=== PATIENT | male | born 1960 | race Caucasian/White ===

== ENCOUNTER 2020-03-14 09:05 | Outpatient (REF) | payer BC, MEDICARE, SELFPAY ==
--- NOTE | 2020-03-14 | FL_ITS ---
EXAMINATION: XR GI SERIES CLINICAL INFORMATION: Yanez's esophagus COMPARISON: None TECHNIQUE: Upper GI with air. FINDINGS: Normal swallowing reflex. Esophagus demonstrates normal distention and motility. No mass or mucosal lesions are seen in the esophagus, stomach or duodenal bulb. No hiatal hernia. No reflux is seen during the course of the procedure. FLUOROSCOPY TIME: 1.1 minutes DOSE AREA PRODUCT: 14.6 Gycm2 IMPRESSION: No significant abnormality demonstrated by barium study. Further evaluation with endoscopy as clinically warranted.
[2020-03-14 12:12] LABS: MANUAL DIFF FLAG NO
[2020-03-14 12:26] LABS: Basophils Percent Auto 0.5 % (0-2); Eosinophils Absolute Auto 0.1 X10*3/uL (0.0-0.4); Eosinophils Percent Auto 0.9 % (0-4); Hematocrit 37.7 % (42-52); Hemoglobin 12.8 g/dl (14.0-18.0); Imm Gran Abs Auto 0.03 X10*3/uL (0.00-0.03); Imm Gran Pct Auto 0.5 % (0.0-0.4); Lymphocytes Absolute Auto 2.3 X10*3/uL (1.2-4.9); Lymphocytes Percent Auto 36.3 % (20-40); Mean Corpuscular Hemoglobin 30.8 pg (27.0-33.0); Mean Corpuscular Volume 90.6 fL (80-98); Mean Platelet Volume 10.2 fL (9.4-12.4); Monocytes Absolute Auto 0.5 X10*3/uL (0.1-1.2); Monocytes Percent Auto 8.1 % (2-11); Neutrophils Absolute Auto 3.4 X10*3/uL (2.0-8.3); Neutrophils Percent Auto 53.7 % (45-73); Platelet Count 233 X10*3/uL (160-400); Red Blood Count 4.16 X10*6/uL (4.60-5.80); Red Cell Distribution Width 12.4 % (11.0-16.0); White Blood Count 6.3 X10*3/uL (4.8-10.8)
[2020-03-14 12:43] LABS: Alanine Aminotransferase 13 U/L (0-40); Albumin Level 4.4 g/dL (3.5-5.0); Alkaline Phosphatase 95 U/L (39-117); Anion Gap 15 (12-20); Aspartate Amino Transferase 18 U/L (5-37); Bilirubin Total 0.5 mg/dL (0.0-1.0); Blood Urea Nitrogen 8 mg/dL (9-16); Calcium 9.1 mg/dL (8.4-10.2); Carbon Dioxide 30 mmol/L (22-29); Chloride 102 mmol/L (96-108); Cholesterol 210 mg/dL; Estimated Glomerular Filt Rate > 60; Glucose Fasting 108 mg/dL (60-99); HDL Cholesterol 43 mg/dL; LDL Cholesterol Calculated 142 mg/dl; Potassium 4.9 mmol/l (3.3-5.1); Sodium 142 mmol/L (135-145); Total Protein 7.1 g/dL (6.5-8.0); Triglycerides 129 mg/dL
[2020-03-14 13:06] LABS: Folate 15.1 ng/mL (> or = 4.0); Vitamin B12 494 pg/mL (200-900)
[2020-03-14 13:09] LABS: T4 Thyroxine 8.8 ug/dL (4.5-12.0); Thyroid Stimulating Hormone 0.82 mIU/mL (0.32-4.0)
[2020-03-14 14:38] LABS: Prostate Specific Antigen Scr 0.14 ng/mL (<0.05-4.0)
== END 2020-03-14 09:06 | disposition home or self-care (01) ==
LOC: HO.XRAY 09:05
PROVIDERS: Visit Provider Internal Medicine
DX: M54.5 Low back pain (principal); E66.3 Overweight; K22.70 Barrett's esophagus without dysplasia; R73.02 Impaired glucose tolerance (oral); E78.00 Pure hypercholesterolemia, unspecified; N40.0 Benign prostatic hyperplasia without lower urinary tract symptoms; G44.209 Tension-type headache, unspecified, not intractable; Z72.0 Tobacco use
CPT/HCPCS: 36415; 74240; 80053; 80061; 82607; 82746; 84153; 84436; 84443; 85025

== ENCOUNTER 2020-04-12 11:11 | Outpatient (REF) | payer BC, MEDICARE, SELFPAY ==
--- NOTE | 2020-04-12 11:19 | XR_ITS ---
EXAMINATION: XR SHOULDER, LEFT CLINICAL INFORMATION: Left shoulder pain COMPARISON: 02/03/2017 TECHNIQUE: AP external rotation, Grashey, scapular Y, and axillary views of the left shoulder. FINDINGS: There is no evidence of acute fracture or dislocation of the left shoulder. There is some mild spurring at the glenohumeral joint. No definite calcific tendinitis is appreciated. Patient appears to be status post distal left clavicle osteotomy with some widening of the coracoclavicular space and elevation of the distal clavicle. There remains small amount of distal bony clavicle with what appears to be an intact acromioclavicular joint. XR/XR shoulder LT min 2V IMPRESSION: No evidence of acute fracture or dislocation of the left shoulder. Status post osteotomy portion distal left clavicle with widening of the coracoclavicular space.
== END 2020-04-12 11:12 | disposition home or self-care (01) ==
LOC: HO.XRAY 11:11
PROVIDERS: PCP Internal Medicine; Visit Provider Internal Medicine
DX: M25.512 Pain in left shoulder (principal)
CPT/HCPCS: 73030

== ENCOUNTER 2020-04-25 | Outpatient (REF) | payer BC, MEDICARE, SELFPAY ==
[2020-04-26 13:52] LABS: Amphetamine Screen Urine Not Detected (Not Detect); Barbiturates, Urine Not Detected (Not Detect); Benzodiazepines Screen Urine Not Detected (Not Detect); Cannabinoid Screen Urine Not Detected (Not Detect); Cocaine Screen Urine Not Detected (Not Detect); Opiate Screen Urine POSITIVE (Not Detect); Phencyclidine Screen Urine Not Detected (Not Detect)
== END 2020-04-25 00:01 | disposition home or self-care (01) ==
LOC: HO.LNP
PROVIDERS: Visit Provider Internal Medicine
DX: M54.5 Low back pain (principal)
CPT/HCPCS: 80307

== ENCOUNTER → 2020-05-02 08:15 | Outpatient (BNV) | payer BC, MEDICARE, SELFPAY | PROVIDERS: PCP Internal Medicine; Referring Provider Internal Medicine; Visit Provider Internal Medicine | DX: D64.9 Anemia, unspecified (principal) | CPT/HCPCS: 38222; 99213; 99214 ==

== ENCOUNTER → 2020-05-08 13:40 | Outpatient (BNVA) | payer BC, MEDICARE, SELFPAY | PROVIDERS: PCP Internal Medicine; Visit Provider Orthopaedic Surgery | DX: S49.92XA Unspecified injury of left shoulder and upper arm, initial encounter (principal) | CPT/HCPCS: 20600; 20605; J1100 ==

== ENCOUNTER 2020-07-26 14:16 | Outpatient (REF) | payer BC, MEDICARE, SELFPAY ==
--- NOTE | ~2020-07-26 | CT_ITS ---
EXAMINATION: CT CHEST SCREENING CLINICAL INFORMATION: Nicotine dependence COMPARISON: 06/28/2019 and 06/12/2018 TECHNIQUE: Multidetector volumetric CT imaging of the chest is performed without contrast using low dose technique. Additional 2D coronal and sagittal reformatted images and axial 3D maximum intensity projection (MIP) images are generated on the CT workstation. This CT examination was performed using dose optimization techniques as appropriate, variously including the following: *Automated exposure control *Adjustment of mA and/or kV according to patient size (this includes techniques or standardized protocols for targeted exams where dose is matched to indication/reason for exam; i.e. extremities or head) *Use of iterative reconstruction technique DLP: 60 mGy-cm FINDINGS: LUNGS: There are mild changes of centrilobular emphysema seen within the upper lobes bilaterally.. Central airways are patent. There is mild central bronchial wall thickening seen without evidence of bronchiectasis. There is some mild dependent ground-glass opacity seen at the lung bases consistent with atelectasis. There is also small amount of subpleural reticular disease peripherally in the posterior right lower lobe, lateral aspects of the right and left upper lobes, and along the major fissures consistent with mild interstitial lung disease. This was evident on previous study of 06/28/2019. There is a calcified granuloma seen within the right middle lobe. There is a 3 mm noncalcified density seen within the right upper lobe on image 137/526 with no 4 mm or larger nodules identified. MEDIASTINUM: Visualized thyroid appears unremarkable. Heart normal size. Coronary artery calcifications seen. Small amount of pericardial fluid is seen and is similar to previous study. No thoracic aortic aneurysm. There are again noted to be enlarged mediastinal lymph nodes with a 1.2 cm right peritracheal lymph node and 1.6 cm precarinal lymph node. No definite hilar lymphadenopathy appreciated. PLEURA: There is no pleural effusion. No pleural mass or thickening. AXILLA: No lymphadenopathy. UPPER ABDOMEN: Unremarkable OSSEOUS STRUCTURES: No suspicious destructive bony lesion. CT/CT lung screening IMPRESSION: 1. Mild centrilobular emphysema. 2. Stable mild chronic interstitial lung disease. 3. Old granulomatous disease. 4. No suspicious lung nodules identified. 5. Mediastinal lymphadenopathy. ASSESSMENT: Lung-RADS category 1: Negative RECOMMENDATION: Routine annual low-dose CT screening in 12 months.
== END 2020-07-26 14:17 | disposition home or self-care (01) ==
LOC: HO.CT 14:16
PROVIDERS: Visit Provider Physician Assistant Medical
DX: Z12.2 Encounter for screening for malignant neoplasm of respiratory organs (principal); F17.210 Nicotine dependence, cigarettes, uncomplicated
CPT/HCPCS: 71271

== ENCOUNTER → 2020-08-08 09:46 | Outpatient (BNVA) | payer BC, MEDICARE, SELFPAY | PROVIDERS: PCP Internal Medicine; Visit Provider Nurse Practitioner Family ==

== ENCOUNTER 2020-08-14 18:13 | Outpatient (REF) | payer BC, MEDICARE, SELFPAY ==
--- NOTE | ~2020-08-14 | MR_ITS ---
MR LUMBAR SPINE WITHOUT CONTRAST CLINICAL INFORMATION: Postlaminectomy syndrome. COMPARISON: Lumbar spine radiographs 12/24/2017. TECHNIQUE: MRI of the lumbar spine was obtained using routine sequences without contrast. FINDINGS: Assessment is limited by significant artifact from an interbody prosthesis at L4-L5 and interbody cages at L5-S1. S1 is partially lumbarized and shares a rudimentary disc with S2. The surgical hardware is not diagnostically assessed on MRI. There is grade 1 retrolisthesis of L3 on L4. Lumbar alignment is otherwise maintained. The vertebral body heights are preserved. Nonsurgical disc volumes are maintained. No bone marrow edema within the imaged osseous elements. The conus terminates at the L1 level. There are no significant soft tissue findings. L1-L2: Small annular disc bulge and bilateral facet arthropathy. No central canal stenosis and no foraminal stenosis. L2-L3: Small annular disc bulge with a superimposed right lateral disc protrusion that is in part disc osteophyte which compresses the extraforaminal right L2 nerve root. L3-L4: There is a diffuse annular disc bulge and there is bilateral facet arthropathy. There is no central canal stenosis. There is mild bilateral foraminal encroachment without exiting nerve root compression. L4-L5: Assessment is very limited by significant artifact from the interbody prosthesis. The neural foramen are not diagnostically assessed on the sagittal series and appear widely patent on the axial series. There is severe bilateral facet arthropathy and ligamentum flavum thickening. The central canal remains patent. L5-S1: Interbody cages. Bilateral facet arthropathy. No central canal stenosis. No significant foraminal stenosis. MR/MR lumbar spine wo con IMPRESSION: - Assessment is limited by significant artifact from an interbody prosthesis at L4-L5 and interbody cages at L5-S1. S1 is partially lumbarized and shares a rudimentary disc with S2. - At the junctional L3-L4 level, there is grade 1 retrolisthesis without significant central canal stenosis nor significant foraminal stenosis. - At L2-L3, there is a far right lateral disc protrusion that is in part disc osteophyte which results in mass effect on the extraforaminal right L2 nerve root.
== END 2020-08-14 18:14 | disposition home or self-care (01) ==
LOC: HO.MRI 18:13
PROVIDERS: Visit Provider Anesthesiology
DX: M96.1 Postlaminectomy syndrome, not elsewhere classified (principal); M47.27 Other spondylosis with radiculopathy, lumbosacral region
CPT/HCPCS: 72148

== ENCOUNTER → 2020-08-29 10:11 | Outpatient (BNVA) | payer BC, MEDICARE, SELFPAY | PROVIDERS: PCP Internal Medicine; Visit Provider Nurse Practitioner Family ==

== ENCOUNTER 2020-09-18 12:27 | Day surgery (SDC) | payer BC, MEDICARE, SELFPAY ==
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
[2020-09-18 12:43] VITALS: BMI 26.5
[2020-09-18 13:00] VITALS: BP 157/61; PULSE 79; RESP 16; TEMP 36.4; O2SAT 98
[2020-09-18] MEDS: Lactated Ringers 1,000 ML 50 ML IV (13:09)
--- NOTE | 2020-09-18 13:45 | PC.NURSE ---
called for a resp treatment per md garcia.
[2020-09-18] MEDS: Albuterol Sulfate (0.083%) 2.5 MG/3 ML VIAL.NEB INHALE (13:49)
[2020-09-18 13:53] VITALS: PULSE 85; O2SAT 96
[2020-09-18 14:43] VITALS: BP 130/49; PULSE 75; RESP 20; TEMP 36.8; O2SAT 99
[2020-09-18] MEDS: Acetaminophen 325 MG TABLET 650 MG PO (14:56)
[2020-09-18] MEDS: oxyCODONE HCl Immed Release 5 MG TABLET PO (14:57)
[2020-09-18 14:58] VITALS: BP 133/47; PULSE 79; RESP 18; O2SAT 98
[2020-09-18 15:01] LABS: Bone Marrow SEE SEPARATE REPORT
[2020-09-18 15:13] VITALS: BP 139/52; PULSE 77; RESP 18; TEMP 36.7; O2SAT 99
--- NOTE | 2020-09-18 15:25 | PM.HEMONCBM ---
Bone Marrow Aspiration - Bone Marrow Aspiration Procedure:: *Service Date: [09/18/20] Diagnostic bone marrow aspiration/biopsy Pre Op Diagnosis:: Anemia rule out MDS Post Op Diagnosis:: Anemia rule out MDS Surgeon:: Kathleen Srivastava MD Anesthesia:: Mac and local anesthesia Consent:: Informed consent obtained from the patient for the procedure. Pros and cons of biopsy explained. The patient was willing to proceed with the procedure under monitored anesthesia, therefore this was scheduled in the OR. Procedure in Detail:: The patient was positioned in the right lateral decubitus position and the left posterior superior iliac spine prepped and draped. Under aseptic precautions, 10 mL ml of 1% lidocaine used for local anesthesia. With the Jamshidi needle, 8 mL of aspirate and 1 cm core biopsy obtained without any complications. The patient tolerated the procedure well. Bandage was applied and patient was positioned on back for 10 to 15 minutes after the procedure. The patient was advised to call us if develops any pain or swelling at the surgical site. Follow up in 2 weeks.
== END 2020-09-18 15:31 | disposition home or self-care (01) ==
PROVIDERS: PCP Internal Medicine; Visit Provider Internal Medicine
PROC: (CPT 38221; principal; 2020-09-18 14:00)
DX: D64.9 Anemia, unspecified (principal)
CPT/HCPCS: 38222; 36415; 85097; 88184; 88185; 88237; 88264; 88280; 88305; 88311; 88313; 94640; J2250; J2405; J3010

== ENCOUNTER 2020-10-20 06:53 | Outpatient (REF) | payer BC, MEDICARE, SELFPAY ==
--- NOTE | ~2020-10-20 | CT_ITS ---
EXAMINATION: CT CHEST, CT ABDOMEN AND PELVIS WITH CONTRAST CLINICAL INFORMATION: Weight loss, anemia. COMPARISON: CT chest 07/26/2020. TECHNIQUE: 5 mm thin axial and reformatted 3 mm thin sagittal and coronal images of chest, abdomen and pelvis were obtained following the 100 mL Omnipaque 350. DLP: 426 mGy-cm. FINDINGS: CHEST: There is diffuse centrilobular emphysema within the upper lobes bilaterally. There is a 3 mm soft nodule right upper lobe axial image 132/7, punctate 1 mm calcified nodule right lower lobe axial image 199/7, 2 mm nodule right middle lobe adjacent to the minor fissure axial image 231/7. No additional nodules visualized. There is dependent bibasilar atelectasis and mild honeycombing in both lower lobe superior segments. Heart size and the great vessels are normal caliber. There is no pericardial effusion seen. Central trachea and the bronchi are widely patent. There are coronary artery calcifications present. There are small shotty lymph nodes in mediastinum. The largest pretracheal lymph node measures 1.1 x 0.7 cm. There is a right hilar lymph node measuring 1.3 cm. There is no pleural effusion or pleural thickening. The axilla and chest wall appears unremarkable. ABDOMEN AND PELVIS: The liver is normal size, shape and contour. It is diffusely attenuated and appears heterogenous. No focal or discrete lesion seen. There is intrahepatic ductal dilatation. The gallbladder appears distended with a 4 mm radiopaque calculi. The spleen appears unremarkable except for a small calcified 4 mm granuloma. The pancreas is unremarkable. Bilateral adrenal glands are unremarkable. Both kidneys are normal size, shape and position. No radiopaque renal calculi, hydronephrosis or organomegaly seen. Abdominal aorta appears normal course and caliber except for [id number] atherosclerotic calcifications. No retroperitoneal abnormal-sized lymph nodes seen. There is a lower lobe opacified: Without distention. The small bowel loops are normal caliber. Ileocecal junction is normal. Appendix is not visualized. No free air or inflammatory process seen. The abdominal wall appears unremarkable. Imaging through the pelvis reveals minimal bladder wall thickening measuring 6 mm. No radiopaque calculi seen. Bone windows reveal disc prosthesis and L3-L4 and L4-L5 disc level for fusion. No lytic or sclerotic process seen. CT/CT abdomen pelvis w con IMPRESSION: Centrilobular emphysema with punctate calcified and noncalcified nodules. Largest nodule measuring 3 mm right upper lobe. Mild interstitial changes in superior segment of both lower lobe with honeycombing. Small shotty lymph nodes in the mediastinum measuring 1.1 cm in the pretracheal space. On the previous exam, it measured 1.2 cm. Heterogeneous liver, likely hepatic steatosis. No focal lesion seen. Small radiopaque gallstones without wall thickening.
--- NOTE | ~2020-10-20 | CT_ITS ---
EXAMINATION: CT CHEST, CT ABDOMEN AND PELVIS WITH CONTRAST CLINICAL INFORMATION: Weight loss, anemia. COMPARISON: CT chest 07/26/2020. TECHNIQUE: 5 mm thin axial and reformatted 3 mm thin sagittal and coronal images of chest, abdomen and pelvis were obtained following the 100 mL Omnipaque 350. DLP: 426 mGy-cm. FINDINGS: CHEST: There is diffuse centrilobular emphysema within the upper lobes bilaterally. There is a 3 mm soft nodule right upper lobe axial image 132/7, punctate 1 mm calcified nodule right lower lobe axial image 199/7, 2 mm nodule right middle lobe adjacent to the minor fissure axial image 231/7. No additional nodules visualized. There is dependent bibasilar atelectasis and mild honeycombing in both lower lobe superior segments. Heart size and the great vessels are normal caliber. There is no pericardial effusion seen. Central trachea and the bronchi are widely patent. There are coronary artery calcifications present. There are small shotty lymph nodes in mediastinum. The largest pretracheal lymph node measures 1.1 x 0.7 cm. There is a right hilar lymph node measuring 1.3 cm. There is no pleural effusion or pleural thickening. The axilla and chest wall appears unremarkable. ABDOMEN AND PELVIS: The liver is normal size, shape and contour. It is diffusely attenuated and appears heterogenous. No focal or discrete lesion seen. There is intrahepatic ductal dilatation. The gallbladder appears distended with a 4 mm radiopaque calculi. The spleen appears unremarkable except for a small calcified 4 mm granuloma. The pancreas is unremarkable. Bilateral adrenal glands are unremarkable. Both kidneys are normal size, shape and position. No radiopaque renal calculi, hydronephrosis or organomegaly seen. Abdominal aorta appears normal course and caliber except for [id number] atherosclerotic calcifications. No retroperitoneal abnormal-sized lymph nodes seen. There is a lower lobe opacified: Without distention. The small bowel loops are normal caliber. Ileocecal junction is normal. Appendix is not visualized. No free air or inflammatory process seen. The abdominal wall appears unremarkable. Imaging through the pelvis reveals minimal bladder wall thickening measuring 6 mm. No radiopaque calculi seen. Bone windows reveal disc prosthesis and L3-L4 and L4-L5 disc level for fusion. No lytic or sclerotic process seen. CT/CT chest w con IMPRESSION: Centrilobular emphysema with punctate calcified and noncalcified nodules. Largest nodule measuring 3 mm right upper lobe. Mild interstitial changes in superior segment of both lower lobe with honeycombing. Small shotty lymph nodes in the mediastinum measuring 1.1 cm in the pretracheal space. On the previous exam, it measured 1.2 cm. Heterogeneous liver, likely hepatic steatosis. No focal lesion seen. Small radiopaque gallstones without wall thickening.
[2020-10-20 09:32] LABS: Blood Urea Nitrogen 6 mg/dL (9-16); Estimated Glomerular Filt Rate > 60
[2020-10-20] MEDS: iohexoL 350 MG/ML 100 ML INFUS..BTL IV (10:51)
== END 2020-10-20 06:54 | disposition home or self-care (01) ==
LOC: HO.CT 06:53
PROVIDERS: Visit Provider Internal Medicine
DX: R63.4 Abnormal weight loss (principal); D64.9 Anemia, unspecified; R59.0 Localized enlarged lymph nodes
CPT/HCPCS: 36415; 71260; 74177; 82565; 84520; Q9967

== ENCOUNTER 2020-11-15 09:46 | Emergency (ER) | payer BC, MEDICARE, SELFPAY ==
[2020-11-15 10:01] VITALS: BP 117/63; PULSE 90; RESP 18; TEMP 36.9; O2SAT 95; BMI 25.8
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
== END 2020-11-15 11:22 | disposition home or self-care (01) ==
PROVIDERS: Emergency Provider Emergency Medicine; PCP Internal Medicine
DX: M70.21 Olecranon bursitis, right elbow (principal)
CPT/HCPCS: 99283

== ENCOUNTER 2020-11-30 17:54 | Emergency (ER) | payer BC, MEDICARE, SELFPAY ==
--- NOTE | ~2020-11-30 | CT_ITS ---
EXAMINATION: CT ABDOMEN AND PELVIS WITH CONTRAST CLINICAL INFORMATION: Right-sided abdominal pain COMPARISON: CT scan abdomen pelvis 10/20/2020 TECHNIQUE: Multidetector volumetric images were obtained from the superior aspect of the liver through the pubic symphysis following administration 85 mL of Omnipaque 350 intravenous contrast. Sagittal and coronal reformatted images were obtained on the technologist's workstation. Oral contrast: None This CT examination was performed using dose optimization techniques as appropriate, variously including the following: *Automated exposure control *Adjustment of mA and/or kV according to patient size (this includes techniques or standardized protocols for targeted exams where dose is matched to indication/reason for exam; i.e. extremities or head) *Use of iterative reconstruction technique DLP: 632 mGy-cm FINDINGS: LUNG BASES: There is emphysematous disease. Subpleural reticular changes and small cystic changes at lung bases. No acute airways disease. No pleural effusion. LIVER, GALLBLADDER, AND BILIARY TREE: The liver is normal in size, shape, and attenuation. No focal hepatic lesion or biliary ductal dilatation is present. There is a small calcified gallstone in neck of the gallbladder. No edema around the gallbladder. No bile duct dilatation. PANCREAS: Unremarkable. SPLEEN: Unremarkable. ADRENAL GLANDS: Unremarkable. KIDNEYS AND URETERS: The kidneys are normal in size, shape, and attenuation. No hydronephrosis, hydroureter, or calculi seen. No perinephric stranding. There is a sharply marginated 9 mm hypodensity in the mid pole cortex left kidney likely small cortical cysts. This is stable since prior studies. No follow-up imaging is recommended for simple renal cyst. BLADDER: Unremarkable. GASTROINTESTINAL TRACT: There are scattered diverticula of the left colon. There is no diverticulitis. There is no bowel wall thickening /edema. There is no bowel obstruction. There is a moderate volume of stool in the colon. The appendix is nonvisualized . The small bowel loops are unremarkable. The stomach is normal. There is no hiatal hernia. ABDOMINAL WALL: No significant hernia is appreciated. Surgical clips associated with the left anterior abdominal wall. LYMPH NODES: Normal. VASCULAR: Moderate vascular calcifications of aorta and iliac arteries. No aneurysm. PELVIC VISCERA: Unremarkable. OSSEOUS STRUCTURES: Status post fusion with orthopedic hardware at the L3-L4 and L4-L5 disc levels. CT/CT abdomen pelvis w con IMPRESSION: No acute abnormality CT scan abdomen pelvis. Cholelithiasis. No acute change of gallbladder. Diverticulosis of colon. There is no acute abnormality of the bowel.
[2020-11-30 18:14] VITALS: BP 136/80; PULSE 98; RESP 18; TEMP 36.9; O2SAT 98; BMI 25.7
[2020-11-30 18:35] LABS: Glucose Urine UA NEG (NEG); Leukocyte Esterase Urine NEG (NEG); Nitrite Urine NEG (NEG); PH 5.5 (5.0-8.0); Specific Gravity - Urine <= 1.005 (1.005-1.025); Urine Blood NEG (NEG); Urine Ketones NEG (NEG); Urine Protein NEG (NEG-TRACE)
[2020-11-30 18:38] LABS: Appearance Urine CLEAR; Color Urine YELLOW
[2020-11-30 18:41] LABS: RBC Urine 0 /HPF (0); WBC Urine 0 /HPF (0-4)
[2020-11-30 20:43] LABS: Basophils Percent Auto 0.3 % (0-2); Eosinophils Absolute Auto 0.1 X10*3/uL (0.0-0.4); Eosinophils Percent Auto 0.8 % (0-4); Hematocrit 38.3 % (42-52); Hemoglobin 13.2 g/dl (14.0-18.0); Imm Gran Abs Auto 0.03 X10*3/uL (0.00-0.03); Imm Gran Pct Auto 0.3 % (0.0-0.4); Lymphocytes Absolute Auto 3.9 X10*3/uL (1.2-4.9); Lymphocytes Percent Auto 33.4 % (20-40); MANUAL DIFF FLAG NO; Mean Corpuscular HGB Conc 34.5 g/dl (31.0-36.0); Mean Corpuscular Hemoglobin 30.1 pg (27.0-33.0); Mean Corpuscular Volume 87.2 fL (80-98); Mean Platelet Volume 9.9 fL (9.4-12.4); Monocytes Absolute Auto 0.9 X10*3/uL (0.1-1.2); Neutrophils Absolute Auto 6.7 X10*3/uL (2.0-8.3); Neutrophils Percent Auto 57.2 % (45-73); Platelet Count 204 X10*3/uL (160-400); Red Blood Count 4.39 X10*6/uL (4.60-5.80); Red Cell Distribution Width 12.3 % (11.0-16.0); White Blood Count 11.6 X10*3/uL (4.8-10.8)
[2020-11-30 21:15] LABS: Alanine Aminotransferase 14 U/L (0-40); Albumin Level 4.7 g/dL (3.5-5.0); Alkaline Phosphatase 104 U/L (39-117); Anion Gap 15 (12-20); Aspartate Amino Transferase 23 U/L (5-37); Bilirubin Total 0.7 mg/dL (0.0-1.0); Blood Urea Nitrogen 15 mg/dL (9-16); Calcium 9.5 mg/dL (8.4-10.2); Carbon Dioxide 29 mmol/L (22-29); Chloride 98 mmol/L (96-108); Creatinine Clr Calc Pharmacy 80.5; Estimated Glomerular Filt Rate > 60; Glucose Random 100 mg/dL (60-115); Lipase 10 U/L (8-78); Potassium 4.5 mmol/L (3.3-5.1); Sodium 137 mmol/L (135-145); Total Protein 7.7 g/dL (6.5-8.0)
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
[2020-11-30] MEDS: 0.9 % Sodium Chloride 1,000 ML 999 ML IV (21:34)
[2020-11-30] MEDS: HYDROmorphone HCl 1 MG/ML SYRINGE IVPUSH (21:34)
[2020-11-30] MEDS: ondansetron HCL 4 MG/2 ML VIAL IVPUSH (21:34)
[2020-11-30] MEDS: iohexoL 350 MG/ML 100 ML INFUS..BTL IV (21:48)
[2020-11-30 22:08] VITALS: BP 145/73; PULSE 85; RESP 18; O2SAT 98
[2020-12-01] VITALS: BP 122/64; PULSE 94; RESP 16; TEMP 36.5; O2SAT 99
[2020-12-01] MEDS: HYDROmorphone HCl 2 MG TABLET 1 MG PO (00:12)
== END 2020-12-01 00:18 | disposition home or self-care (01) ==
PROVIDERS: Emergency Provider Emergency Medicine Emergency Medical Services; PCP Internal Medicine
DX: R10.31 Right lower quadrant pain (principal); R11.0 Nausea; K59.00 Constipation, unspecified; D64.9 Anemia, unspecified; G89.29 Other chronic pain; M54.9 Dorsalgia, unspecified; J44.9 Chronic obstructive pulmonary disease, unspecified; Z79.891 Long term (current) use of opiate analgesic; Z79.899 Other long term (current) drug therapy; Z90.49 Acquired absence of other specified parts of digestive tract
CPT/HCPCS: 36415; 74177; 80053; 81001; 83690; 85025; 96361; 96374; 96375; 99284; J1170; J2405; Q9967

== ENCOUNTER → 2020-12-01 12:24 | Outpatient (BNVA) | payer BC, MEDICARE, SELFPAY | PROVIDERS: PCP Internal Medicine; Visit Provider Physician Assistant | DX: M70.21 Olecranon bursitis, right elbow (principal) | CPT/HCPCS: 99202 ==

== ENCOUNTER 2021-01-16 10:32 | Outpatient (REF) | payer BC, MEDICARE, SELFPAY | END 2021-01-16 10:33 | disposition home or self-care (01) | LOC: HO.MDS 10:32 | PROVIDERS: PCP Internal Medicine; Visit Provider Internal Medicine | DX: D50.9 Iron deficiency anemia, unspecified (principal) | CPT/HCPCS: 96365; J1756 ==

== ENCOUNTER 2021-01-22 10:42 | Outpatient (REF) | payer BC, MEDICARE, SELFPAY | END 2021-01-22 10:43 | disposition home or self-care (01) | LOC: HO.MDS 10:42 | PROVIDERS: PCP Internal Medicine; Visit Provider Internal Medicine | DX: D50.9 Iron deficiency anemia, unspecified (principal) | CPT/HCPCS: 96365; J1756 ==

== ENCOUNTER 2021-04-16 11:09 | Outpatient (REF) | payer BC, MEDICARE, SELFPAY ==
[2021-04-16 12:13] LABS: Amphetamine Screen Urine Not Detected (Not Detect); Barbiturates, Urine Not Detected (Not Detect); Benzodiazepines Screen Urine Not Detected (Not Detect); Cannabinoid Screen Urine Not Detected (Not Detect); Cocaine Screen Urine Not Detected (Not Detect); Fentanyl, urine Not Detected (Not Detect); Opiate Screen Urine Not Detected (Not Detect); Phencyclidine Screen Urine Not Detected (Not Detect)
== END 2021-04-16 11:10 | disposition home or self-care (01) ==
LOC: HO.LAB 11:09
PROVIDERS: PCP Internal Medicine; Visit Provider Internal Medicine
DX: F11.90 Opioid use, unspecified, uncomplicated (principal)
CPT/HCPCS: 80307

== ENCOUNTER 2021-04-20 06:27 | Emergency (ER) | payer BC, MEDICARE, SELFPAY ==
--- NOTE | ~2021-04-20 | XR_ITS ---
EXAMINATION: XR CHEST CLINICAL INFORMATION: Shortness of breath COMPARISON: 06/16/2015 TECHNIQUE: Frontal view of the chest was obtained. FINDINGS: Lung volumes are low with coarse interstitial prominence new from prior studies. No focal consolidation or mass. Normal pulmonary vascularity. No pleural effusion or pneumothorax. Normal heart size. Degenerative changes of the bilateral shoulders. Chronic traumatic deformity of the left distal clavicle. XR/XR chest 1V IMPRESSION: New coarse interstitial prominence suggests bronchitis or interstitial pneumonitis. This would be a somewhat atypical appearance for COVID viral pneumonitis but remains a consideration.
[2021-04-20 06:33] VITALS: BP 164/71; PULSE 105; RESP 18; TEMP 37.7; O2SAT 95; BMI 26.5
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
[2021-04-20 07:16] LABS: MANUAL DIFF FLAG NO
[2021-04-20] MEDS: Ketorolac Tromethamine 15 MG/ML VIAL 30 MG IVPUSH (07:18)
[2021-04-20 07:19] LABS: Basophils Percent Auto 0.2 % (0-2); Eosinophils Percent Auto 0.1 % (0-4); Hematocrit 36.8 % (42.0-52.0); Hemoglobin 12.8 g/dl (14.0-18.0); Imm Gran Abs Auto 0.03 X10*3/uL (0.00-0.03); Imm Gran Pct Auto 0.2 % (0.0-0.4); Lymphocytes Absolute Auto 0.9 X10*3/uL (1.2-4.9); Lymphocytes Percent Auto 6.9 % (20-40); Mean Corpuscular HGB Conc 34.8 g/dl (31.0-36.0); Mean Corpuscular Hemoglobin 30.9 pg (27.0-33.0); Mean Corpuscular Volume 88.9 fL (80.0-98.0); Mean Platelet Volume 9.3 fL (9.4-12.4); Monocytes Absolute Auto 0.7 X10*3/uL (0.1-1.2); Monocytes Percent Auto 5.2 % (2-11); Neutrophils Percent Auto 87.4 % (45-73); Platelet Count 188 X10*3/uL (160-400); Red Blood Count 4.14 X10*6/uL (4.60-5.80); Red Cell Distribution Width 12.1 % (11.0-16.0); White Blood Count 12.6 X10*3/uL (4.8-10.8)
[2021-04-20] MEDS: 0.9 % Sodium Chloride 1,000 ML 999 ML IV (07:19)
[2021-04-20 07:34] LABS: Alanine Aminotransferase 13 U/L (0-40); Albumin Level 4.1 g/dL (3.5-5.0); Alkaline Phosphatase 91 U/L (39-117); Anion Gap 11 (12-20); Aspartate Amino Transferase 17 U/L (5-37); Bilirubin Direct 0.3 mg/dL (0.0-0.5); Bilirubin Total 0.9 mg/dL (0.0-1.0); Blood Urea Nitrogen 9 mg/dL (9-16); Calcium 8.8 mg/dL (8.4-10.2); Carbon Dioxide 29 mmol/L (22-29); Chloride 100 mmol/L (96-108); Creatinine Clr Calc Pharmacy 105.2; Estimated Glomerular Filt Rate > 60; Glucose Random 117 mg/dL (60-115); Lipase 7 U/L (8-78); Potassium 3.7 mmol/L (3.3-5.1); Sodium 136 mmol/L (135-145); Total Protein 6.7 g/dL (6.5-8.0)
[2021-04-20 07:57] LABS: Influenza A PCR NEGATIVE (Negative); Influenza B PCR NEGATIVE (Negative); Resp Syncy Virus RNA Qual PCR NEGATIVE (Negative); SARS COV2 PCR INHOUSE NEGATIVE (Negative)
[2021-04-20 08:19] LABS: Appearance Urine CLEAR; Color Urine YELLOW; Glucose Urine UA NEG (NEG); Leukocyte Esterase Urine NEG (NEG); Nitrite Urine NEG (NEG); Specific Gravity - Urine 1.015 (1.005-1.025); UACC Culture Trigger NO; Urine Blood TRACE (NEG); Urine Ketones NEG (NEG); Urine Protein NEG (NEG-TRACE)
[2021-04-20 08:33] LABS: Mucus Urine 2+ /LPF; Squamous Epithelial Cell Urine TRACE /LPF; WBC Urine 0 /HPF (0-4)
== END 2021-04-20 09:07 | disposition home or self-care (01) ==
PROVIDERS: Emergency Provider Emergency Medicine Emergency Medical Services; PCP Internal Medicine
DX: J40 Bronchitis, not specified as acute or chronic (principal); Z20.822 Contact with and (suspected) exposure to COVID-19
CPT/HCPCS: 0241U; 36415; 71045; 80048; 80076; 81001; 83690; 85025; 96361; 96374; 99283; 99284; J1885

== ENCOUNTER 2021-06-21 11:21 | Outpatient (REF) | payer BC, MEDICARE, SELFPAY ==
[2021-06-21 11:43] LABS: MANUAL DIFF FLAG NO
[2021-06-21 11:55] LABS: Basophils Percent Auto 0.3 % (0-2); Eosinophils Absolute Auto 0.1 X10*3/uL (0.0-0.4); Eosinophils Percent Auto 0.5 % (0-4); Hematocrit 34.7 % (42.0-52.0); Hemoglobin 11.5 g/dl (14.0-18.0); Imm Gran Abs Auto 0.04 X10*3/uL (0.00-0.03); Imm Gran Pct Auto 0.4 % (0.0-0.4); Lymphocytes Absolute Auto 1.9 X10*3/uL (1.2-4.9); Lymphocytes Percent Auto 20.4 % (20-40); Mean Corpuscular HGB Conc 33.1 g/dl (31.0-36.0); Mean Corpuscular Hemoglobin 29.6 pg (27.0-33.0); Mean Corpuscular Volume 89.4 fL (80.0-98.0); Mean Platelet Volume 9.8 fL (9.4-12.4); Monocytes Absolute Auto 0.7 X10*3/uL (0.1-1.2); Monocytes Percent Auto 7.9 % (2-11); Neutrophils Absolute Auto 6.5 x10*3/uL (2.0-8.3); Neutrophils Percent Auto 70.5 % (45-73); Platelet Count 196 X10*3/uL (160-400); Red Blood Count 3.88 X10*6/uL (4.60-5.80); Red Cell Distribution Width 12.9 % (11.0-16.0); White Blood Count 9.2 X10*3/uL (4.8-10.8)
[2021-06-21 12:41] LABS: Alanine Aminotransferase 10 U/L (0-40); Albumin Level 3.8 g/dL (3.5-5.0); Alkaline Phosphatase 88 U/L (39-117); Aspartate Amino Transferase 14 U/L (5-37); Bilirubin Direct 0.3 mg/dL (0.0-0.5); Bilirubin Total 0.6 mg/dL (0.0-1.0); Iron 17 mcg/dL (45-160); Percent Iron Saturation 8 % (15-50); Total Iron Binding Capacity 207 mcg/dL (228-428); Total Protein 6.5 g/dL (6.5-8.0); Unsaturated Iron Binding 190 ug/dL
[2021-06-21 12:48] LABS: Ferritin 334 ng/mL (20-250); TSH reflex Free T4 0.67 uIU/mL (0.32-4.0)
[2021-06-21 13:02] LABS: Folate 18.5 ng/mL (> or = 4.0); Vitamin B12 434 pg/mL (200-900)
[2021-06-24 08:26] LABS: Gliadin Deamidated IgA Ab <1.0 U/mL; Gliadin Deamidated IgG Ab <1.0 U/mL; Transglutaminase Ab IgG <1.0 U/mL; Transglutaminase IgA <1.0 U/mL
[2021-06-25 13:36] LABS: Immunoglobulin A 165 mg/dL (47-310)
[2021-06-26 12:42] LABS: Endomysial IgA Antibody Negative (Negative)
== END 2021-06-21 11:22 | disposition home or self-care (01) ==
LOC: HO.LAB 11:21
PROVIDERS: Visit Provider Internal Medicine
DX: R68.81 Early satiety (principal); R63.4 Abnormal weight loss; K92.1 Melena; D64.9 Anemia, unspecified
CPT/HCPCS: 36415; 80076; 82607; 82728; 82746; 82784; 83540; 84443; 85025; 86231; 86258; 86364

== ENCOUNTER 2021-08-03 08:28 | Outpatient (REF) | payer BC, MEDICARE, SELFPAY | END 2021-08-03 08:29 | disposition home or self-care (01) | LOC: HO.MDS 08:28 | PROVIDERS: Visit Provider Internal Medicine | DX: D50.9 Iron deficiency anemia, unspecified (principal) | CPT/HCPCS: 96365; J1756 ==

== ENCOUNTER 2021-08-10 11:32 | Outpatient (REF) | payer BC, MEDICARE, SELFPAY | END 2021-08-10 11:33 | disposition home or self-care (01) | LOC: HO.MDS 11:32 | PROVIDERS: Visit Provider Internal Medicine | DX: D50.9 Iron deficiency anemia, unspecified (principal) | CPT/HCPCS: 96365; J1756 ==

== ENCOUNTER 2021-08-13 10:37 | Day surgery (SDC) | payer BC, MEDICARE, SELFPAY ==
[2021-08-07 16:38] VITALS: BMI 26.7
[2021-08-13 12:16] VITALS: BP 165/67; PULSE 89; RESP 16; TEMP 36.6; O2SAT 99
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
[2021-08-13] MEDS: Lactated Ringers 1,000 ML 50 ML IVCONT (12:33)
[2021-08-13 14:26] VITALS: BP 120/80; PULSE 86; RESP 16; TEMP 36.4; O2SAT 100
--- NOTE | 2021-08-13 14:28 | P.BOP_ITS ---
Brief Operative Note Date of Service: 08/13/21 Pre-op diagnosis: Anemia, Change in BM's, Anemia Post-op diagnosis: other (Polyps, Hiatal hernia, GERD) Procedure: EGD with bx, Colonoscopy to the cecum and TI with Bx and Hot snare polypectomies Surgeon: Harpal Soliman Anesthesia: MAC Was an Explosive Operator Fuse used for this Procedure?: No Estimated blood loss (mL): 3.0 Pathology: other (A. Desc. duodenum B. Gastric antrum C. EG JUnction at 38cm D. Asc. colon polyps E. Asc. colon F. Transverse colon polyps G. Descending colon) Condition: stable Disposition: PACU
[2021-08-13] MEDS: Acetaminophen 325 MG TABLET 650 MG PO (14:33)
[2021-08-13 14:41] VITALS: BP 152/72; PULSE 74; RESP 18; TEMP 36.4; O2SAT 99
--- NOTE | 2021-08-13 15:06 | OP_ITS ---
SURGEON: Harpal Soliman MD INDICATIONS: The patient presents for evaluation of weight loss, Yanez esophagus, early satiety, change in bowel habits, and hematochezia. Full consent was obtained from him for this, including risks of bleeding and perforation. PREOPERATIVE DIAGNOSIS: POSTOPERATIVE DIAGNOSIS: PROCEDURE PERFORMED: Esophagogastroduodenoscopy with biopsies, and colonoscopy to the cecum and terminal ileum with hot snare polypectomy and biopsies. ESTIMATED BLOOD LOSS: COMPLICATIONS: ANESTHESIA: Monitored anesthesia care. ASSISTANTS: SPECIMENS: PREOPERATIVE DIAGNOSES: Weight loss, Yanez esophagus, early satiety, hematochezia, and change in bowel habits. POSTOPERATIVE DIAGNOSES: Weight loss, Yanez esophagus, early satiety, hematochezia, and change in bowel habits, rule out celiac disease, hiatal hernia, colon polyps, rule out microscopic colitis, diverticulosis, and internal hemorrhoids. DESCRIPTION OF PROCEDURE: The patient was placed in the left lateral decubitus position. The Olympus video gastroscope was passed in the posterior oropharynx and upper esophagus under direct vision. The scope was passed slowly to the distal esophagus. The gastroesophageal junction appeared at 38 cm. There was some slight irregularity consistent with reflux and his Yanez esophagus. There was no inflammation nor mass. There was a small to moderate-sized hiatal hernia. The scope was advanced to the pylorus and the duodenum was cannulated to the descending portion. The duodenum including the bulb appeared normal without mass or ulceration. Biopsies were obtained from the 2nd and 3rd portions of duodenum. The scope was withdrawn back into the stomach. The gastric antrum and body appeared normal with good peristalsis. The scope was retroflexed visualizing the proximal stomach carefully, which appeared normal, without any sign of mass or ulceration. The scope was straightened. Biopsies were obtained from the gastric antrum. The scope was withdrawn back into the esophagus. Biopsies were obtained at the EG junction at 38 cm. Proximal to this, the esophageal mucosa appeared normal. The scope was withdrawn from the patient. He was turned around for the colonoscopy. The digital rectal exam revealed no abnormalities. The Olympus video pediatric colonoscope was entered into the rectum and advanced easily to the cecum. Once in the cecum, I did identify normal-appearing cecal pouch with appendiceal orifice and a normal-appearing ileocecal valve. The terminal ileum was cannulated and appeared normal. The scope withdrawn back from the colon. The entire cecum and ileocecal valve appeared normal. The scope was slowly withdrawn assessing all mucosal surfaces carefully. Preparation was excellent. In the ascending colon were approximately 6 mm polyps, which were each removed with a hot snare polypectomy and retrieved by suction. The polypectomy sites appeared clean, without any sign of residual polyp nor bleeding. In the transverse colon were 3 polyps ranging in size between 6 and 10 mm, which were all snared with hot snare polypectomy and recovered by suction. One of the polyps was in the proximal transverse colon and the other two were in the more distal transverse colon. The polypectomy sites appeared clean, without any sign of residual polyp nor bleeding. There was no evidence of any colitis, other polyps, nor angiodysplasia. Random biopsies were obtained in the ascending and descending colon. There were scattered diverticula in the descending colon. In the rectum, the scope was retroflexed visualizing internal hemorrhoids, but no other pathology. The rectal mucosa appeared normal. The scope was straightened and withdrawn the patient. He tolerated both procedures well and was returned to recovery area in stable condition. IMPRESSION: 1. Colon polyps. 2. Rule out microscopic colitis. 3. Diverticulosis. 4. Internal hemorrhoids. 5. Hiatal hernia. 6. History of Yanez esophagus. 7. Rule out celiac disease. PLAN: The results of the biopsies will be checked. At this point, I do not see anything that would be accounting for his symptomatology and history of the associated weight loss, change in bowel habits, and anemia. He was advised not to use any aspirin and NSAIDs for least 1 week. He will be seen in followup. Depending upon the clinical course, we may need to proceed with a small bowel video capsule study in regard to his anemia. Of note, I did review all of this with his and she advised me that he drinks a lot of Pepsis every day. I did advise him to stop that and eat a healthy diet. MD LG Parker/AMARIS / [id number] MTDLeon
== END 2021-08-13 15:26 | disposition home or self-care (01) ==
PROVIDERS: PCP Internal Medicine; Visit Provider Internal Medicine
PROC: (CPT 45385; principal; 2021-08-13 12:10)
DX: K92.1 Melena (principal); Z86.010 Personal history of colon polyps; R19.4 Change in bowel habit; Z80.0 Family history of malignant neoplasm of digestive organs; D12.2 Benign neoplasm of ascending colon; D12.3 Benign neoplasm of transverse colon; K57.30 Diverticulosis of large intestine without perforation or abscess without bleeding; K64.8 Other hemorrhoids; D64.9 Anemia, unspecified; R63.4 Abnormal weight loss; K22.70 Barrett's esophagus without dysplasia; K21.9 Gastro-esophageal reflux disease without esophagitis; K44.9 Diaphragmatic hernia without obstruction or gangrene; R68.81 Early satiety; R91.8 Other nonspecific abnormal finding of lung field; G47.33 Obstructive sleep apnea (adult) (pediatric); Z79.899 Other long term (current) drug therapy; Z87.442 Personal history of urinary calculi; F17.210 Nicotine dependence, cigarettes, uncomplicated; Z68.26 Body mass index [BMI] 26.0-26.9, adult
CPT/HCPCS: 45385; 45380; 43239; 88305; 88342; J2250

== ENCOUNTER 2021-10-23 17:39 | Outpatient (REF) | payer BC, MEDICARE, SELFPAY ==
[2021-10-23 18:35] LABS: Amphetamine Screen Urine Not Detected (Not Detect); Barbiturates, Urine Not Detected (Not Detect); Benzodiazepines Screen Urine Not Detected (Not Detect); Cannabinoid Screen Urine Not Detected (Not Detect); Cocaine Screen Urine Not Detected (Not Detect); Fentanyl, urine Not Detected (Not Detect); Opiate Screen Urine POSITIVE (Not Detect); Phencyclidine Screen Urine Not Detected (Not Detect)
[2021-10-30 08:29] LABS: Codeine, Ur NEGATIVE; Hydrocodone, Ur NEGATIVE; Hydromorphone, Ur NEGATIVE; Morphine, Ur NEGATIVE; Norhydrocodone, Ur NEGATIVE; Oxycodone, Ur 10000
[2021-10-30 08:30] LABS: Noroxycodone, Ur 10000; Oxymorphone, Ur 7065
== END 2021-10-23 17:40 | disposition home or self-care (01) ==
LOC: HO.LNP 17:39
PROVIDERS: Visit Provider Internal Medicine
DX: M47.27 Other spondylosis with radiculopathy, lumbosacral region (principal); Z79.891 Long term (current) use of opiate analgesic
CPT/HCPCS: 80307; 80364; 80365

== ENCOUNTER 2021-12-05 16:28 | Outpatient (REF) | payer BC, MEDICARE, SELFPAY ==
[2021-12-05 16:43] LABS: MANUAL DIFF FLAG NO
[2021-12-05 17:46] LABS: Basophils Percent Auto 0.3 % (0-2); Eosinophils Absolute Auto 0.1 X10*3/uL (0.0-0.4); Eosinophils Percent Auto 0.9 % (0-4); Hematocrit 33.6 % (42.0-52.0); Hemoglobin 11.9 g/dl (14.0-18.0); Imm Gran Abs Auto 0.03 X10*3/uL (0.00-0.03); Imm Gran Pct Auto 0.4 % (0.0-0.4); Lymphocytes Absolute Auto 3.3 X10*3/uL (1.2-4.9); Lymphocytes Percent Auto 42.1 % (20-40); Mean Corpuscular HGB Conc 35.4 g/dl (31.0-36.0); Mean Corpuscular Hemoglobin 31.8 pg (27.0-33.0); Mean Corpuscular Volume 89.8 fL (80.0-98.0); Monocytes Absolute Auto 0.6 X10*3/uL (0.1-1.2); Monocytes Percent Auto 7.9 % (2-11); Neutrophils Absolute Auto 3.8 x10*3/uL (2.0-8.3); Neutrophils Percent Auto 48.4 % (45-73); Platelet Count 225 X10*3/uL (160-400); Red Blood Count 3.74 X10*6/uL (4.60-5.80); Red Cell Distribution Width 12.8 % (11.0-16.0); Reticulocytes Absolute 0.073 X10*6/uL (0.026-0.095); White Blood Count 7.8 X10*3/uL (4.8-10.8)
[2021-12-05 18:14] LABS: Alanine Aminotransferase 12 U/L (0-40); Alkaline Phosphatase 87 U/L (39-117); Anion Gap 14 (12-20); Aspartate Amino Transferase 19 U/L (5-37); Bilirubin Total 0.3 mg/dL (0.0-1.0); Blood Urea Nitrogen 7 mg/dL (9-16); Calcium 8.4 mg/dL (8.4-10.2); Carbon Dioxide 29 mmol/L (22-29); Chloride 100 mmol/L (96-108); Cholesterol 202 mg/dL; Estimated Glomerular Filt Rate > 60; Glucose Random 73 mg/dL (60-115); HDL Cholesterol 40 mg/dL; Iron 52 mcg/dL (45-160); LDL Cholesterol Calculated 125 mg/dl; Percent Iron Saturation 24 % (15-50); Potassium 3.7 mmol/L (3.3-5.1); Sodium 139 mmol/L (135-145); Total Iron Binding Capacity 220 mcg/dL (228-428); Total Protein 6.9 g/dL (6.5-8.0); Triglycerides 187 mg/dL; Unsaturated Iron Binding 168 ug/dL
[2021-12-05 18:35] LABS: Ferritin 442 ng/mL (20-250); Free T4 (Free Thyroxine) 1.02 ng/dL (0.71-1.85); Prostate Specific Antigen Scr 0.11 ng/mL (<0.05-4.0); Thyroid Stimulating Hormone 1.15 uIU/mL (0.32-4.0)
[2021-12-05 19:04] LABS: Folate 17.9 ng/mL (> or = 4.0); Vitamin B12 431 pg/mL (200-900)
[2021-12-06 08:31] LABS: Estimated Average Glucose 80 mg/dL; Hemoglobin A1c % 4.4 %
== END 2021-12-05 16:29 | disposition home or self-care (01) ==
LOC: HO.LAB 16:28
PROVIDERS: Absent Provider Internal Medicine; PCP Internal Medicine; Visit Provider Internal Medicine
DX: Z13.220 Encounter for screening for lipoid disorders (principal); Z12.5 Encounter for screening for malignant neoplasm of prostate; D64.89 Other specified anemias; R73.02 Impaired glucose tolerance (oral); N40.1 Benign prostatic hyperplasia with lower urinary tract symptoms; R35.0 Frequency of micturition; D50.9 Iron deficiency anemia, unspecified; E78.00 Pure hypercholesterolemia, unspecified
CPT/HCPCS: 36415; 80053; 80061; 82607; 82728; 82746; 83036; 83540; 84153; 84439; 84443; 85025; 85045

== ENCOUNTER 2022-01-03 15:33 | Outpatient (REF) | payer BC, MEDICARE, SELFPAY ==
--- NOTE | ~2022-01-03 | CT_ITS ---
EXAMINATION: CT CHEST SCREENING CLINICAL INFORMATION: Nicotine dependence. COMPARISON: CT chest 10/20/2020 and chest x-ray 04/20/2021. TECHNIQUE: Multidetector volumetric CT imaging of the chest was performed without contrast using low-dose technique. Additional 2D coronal and sagittal reformatted images and axial 3D maximum intensity projection (MIP) images were generated on the CT workstation. This CT examination was performed using dose optimization techniques as appropriate, variously including the following: *Automated exposure control *Adjustment of mA and/or kV according to patient size (this includes techniques or standardized protocols for targeted exams where dose is matched to indication/reason for exam; i.e. extremities or head) *Use of iterative reconstruction technique DLP: 272 mGy-cm FINDINGS: LUNGS: There is centrilobular emphysema. Again visualized are pulmonary nodules. There is a 3 mm nodule in the right upper lobe laterally (axial image 129/6) and a ground-glass nodule posteriorly in the right upper lobe measuring 3 mm (axial image 128/6), stable. There is a 2 mm calcified nodule in the right lower lobe (axial image 199/6), a peripherally based 3 mm nodule in the right upper lobe (axial image 254/6), new, a 2 mm nodule pleural based in the right middle lobe (axial image 238/6), and a 1 mm calcification in the right lower lobe subpleural based (axial image 297/6). There is subpleural-based reticular stranding and subtle honeycombing peripherally based in both lower lobes, especially in the dependent segments of the superior and posterior segments. No large consolidation or mass is seen. MEDIASTINUM: The thyroid lobes are symmetric and normal. The central trachea and the bronchi are widely patent. The heart size and the great vessels are normal caliber. There are reactive lymph nodes in the mediastinum with the largest precarinal lymph node measuring 2.5 x 1.6 cm. The measurements are the same as previously where it measured 2.44 x 1.6 cm. A small right hilar lymph node is also unchanged. Trace coronary artery calcifications are present. PLEURA: There is no pleural effusion. No pleural mass or thickening. AXILLAE: Small reactive bilateral axillary lymph nodes are seen. The chest wall appears unremarkable. UPPER ABDOMEN: Visualized liver, spleen and adrenal glands appear unremarkable. There are radiopaque gallstones in the dependent segment. OSSEOUS STRUCTURES: There is no lytic or sclerotic process seen. There is mild spondylosis. CT/CT lung screening IMPRESSION: Diffuse emphysema with stable pulmonary nodules except for a new pulmonary nodule measuring 3 mm in the right upper lobe peripherally based. Stable punctate calcifications. Reactive lymph nodes in the mediastinum and right hilum are stable. Peripheral subpleural thickening and minimal honeycombing in both lower lobes. These findings are suspicious for early chronic interstitial lung disease. ASSESSMENT: Lung-RADS category 2, benign RECOMMENDATION: Low-dose annual CT chest
== END 2022-01-03 15:34 | disposition home or self-care (01) ==
LOC: HO.CT 15:33
PROVIDERS: Visit Provider Physician Assistant Medical
DX: J43.2 Centrilobular emphysema (principal); R91.8 Other nonspecific abnormal finding of lung field; F17.210 Nicotine dependence, cigarettes, uncomplicated
CPT/HCPCS: 71271

== ENCOUNTER 2022-03-25 10:25 | Outpatient (REF) | payer MEDICARE, BC, SELFPAY ==
--- NOTE | ~2022-03-25 | XR_ITS ---
EXAMINATION: XR HIP, LEFT CLINICAL INFORMATION: Pain in left hip COMPARISON: None TECHNIQUE: Two views of the left hip. FINDINGS: The acetabular and pubic margins are intact. No significant left hip joint space loss. Small acetabular marginal spurring. There is a prominent calcification adjacent to the left greater trochanter, suggestive of calcific bursitis. XR/XR hip LT min 2V IMPRESSION: No evidence for bony fracture or dislocation. Calcification adjacent to the left greater trochanter suggestive of calcific bursitis.
== END 2022-03-25 10:26 | disposition home or self-care (01) ==
LOC: HO.XRAY 10:25
PROVIDERS: PCP Internal Medicine; Visit Provider Internal Medicine
DX: Z13.89 Encounter for screening for other disorder (principal)
CPT/HCPCS: 73502

== ENCOUNTER 2022-03-25 13:12 | Emergency (ER) | payer BC, MEDICARE, SELFPAY ==
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
[2022-03-25 13:35] VITALS: BP 162/78; PULSE 81; RESP 20; TEMP 36.7; O2SAT 95
[2022-03-25 13:43] VITALS: BP 00/00; PULSE 0; RESP 0; TEMP -17.7; TEMP 0; BMI 26.5
[2022-03-25] MEDS: methylPREDNISolone Sod Succ 125 MG/2 ML VIAL 60 MG IVPUSH (13:54)
[2022-03-25] MEDS: Morphine Sulfate 2 MG/ML CARTRIDGE IVPUSH (13:55)
[2022-03-25] MEDS: ondansetron HCL 4 MG/2 ML VIAL IVPUSH (13:55)
[2022-03-25 15:16] VITALS: BP 182/72; PULSE 74; RESP 16; TEMP 36.6; O2SAT 97
--- NOTE | 2022-03-25 15:26 | PC.NURSE ---
Discharge instructions provided to pt. IV removed. Pt verbalized understanding.
== END 2022-03-25 15:27 | disposition home or self-care (01) ==
PROVIDERS: Emergency Provider Emergency Medicine; PCP Internal Medicine
DX: M25.552 Pain in left hip (principal); E78.00 Pure hypercholesterolemia, unspecified; F17.210 Nicotine dependence, cigarettes, uncomplicated
CPT/HCPCS: 73502; 96374; 96375; 99283; 99284; J2270; J2405; J2930

== ENCOUNTER 2022-04-03 17:48 | Outpatient (REF) | payer BC, MEDICARE, SELFPAY ==
--- NOTE | ~2022-04-03 | MR_ITS ---
EXAMINATION: MR HIP WITHOUT CONTRAST, LEFT CLINICAL INFORMATION: Pain in the left hip. COMPARISON: Left hip radiograph March [address] scan of the abdomen and pelvis November 2020 and December 2012, and abdominal radiograph May 2019. TECHNIQUE: MRI of the left hip was obtained using routine sequences on a high-field magnet. FINDINGS: Subcutaneous soft tissues: Normal. Muscles Gluteus minimus:There is a focal area of low signal intensity on the T1 and T2-weighted sequences within the distal gluteus minimus tendon extending to its insertion into the greater trochanter corresponding to the area of calcification on radiographs and calcification on CT in 2020. The distal tendon also appears somewhat thickened throughout There also appears to be some additional low signal focus within the bone of the greater trochanter at the tendon insertion. This likely reflects additional intraosseous calcium deposition. There is surrounding marrow edema. I do not see a fracture line. Minimal heterogeneity of the gluteus medius compatible with tendinosis and minimal partial tearing. Remaining muscles and tendons are unremarkable. Bone/cartilage: As above there is bone marrow edema in the greater trochanter. No fracture line. The hip joint is normal without arthrosis. No effusion. Labrum Neurovascular structures: Normal. Additional findings: Limited large [id number] of the pelvis also obtained. Postsurgical changes in the partially visualized lumbar sacral spine. The bone and joints throughout the remaining pelvis appear unremarkable. Intrapelvic soft tissues are unremarkable. MR/MR hip LT wo con IMPRESSION: Findings most consistent with calcific tendinitis involving the distal gluteus medius and minimus tendon at the greater trochanter attachment. The marrow edema within the greater trochanter is likely reactive related to the aforementioned calcific tendinitis. I suspect that there may be some calcium deposition also within the bone along the tendon insertion which can occur with this disease process. This calcium deposition is also present on prior imaging studies including abdominal x-ray in [address] November 2020. This was not present in the older CAT scan performed December 2012. Stress injury or stress fracture is much less likely given the overall findings described above. No fracture line is detected.
== END 2022-04-03 17:49 | disposition home or self-care (01) ==
LOC: HO.MRI 17:48
PROVIDERS: Visit Provider Internal Medicine
DX: M25.552 Pain in left hip (principal)
CPT/HCPCS: 73721

== ENCOUNTER 2022-06-18 14:17 | Outpatient (REF) | payer BC, MEDICARE, SELFPAY ==
[2022-06-18 14:25] LABS: MANUAL DIFF FLAG NO
[2022-06-18 15:16] LABS: Basophils Percent Auto 0.4 % (0-2); Eosinophils Absolute Auto 0.1 X10*3/uL (0.0-0.4); Hematocrit 35.1 % (42.0-52.0); Hemoglobin 12.2 g/dl (14.0-18.0); Imm Gran Abs Auto 0.04 X10*3/uL (0.00-0.03); Imm Gran Pct Auto 0.4 % (0.0-0.4); Lymphocytes Absolute Auto 2.9 X10*3/uL (1.2-4.9); Lymphocytes Percent Auto 30.2 % (20-40); Mean Corpuscular HGB Conc 34.8 g/dl (31.0-36.0); Mean Corpuscular Volume 89.1 fL (80.0-98.0); Mean Platelet Volume 10.3 fL (9.4-12.4); Monocytes Absolute Auto 0.7 X10*3/uL (0.1-1.2); Monocytes Percent Auto 6.8 % (2-11); Neutrophils Absolute Auto 5.8 x10*3/uL (2.0-8.3); Neutrophils Percent Auto 61.2 % (45-73); Platelet Count 263 X10*3/uL (160-400); Red Blood Count 3.94 X10*6/uL (4.60-5.80); Red Cell Distribution Width 12.5 % (11.0-16.0); White Blood Count 9.6 X10*3/uL (4.8-10.8)
[2022-06-18 16:32] LABS: Iron 26 mcg/dL (45-160); Percent Iron Saturation 13 % (15-50); Total Iron Binding Capacity 198 mcg/dL (228-428); Unsaturated Iron Binding 172 ug/dL
[2022-06-18 16:49] LABS: Ferritin 415 ng/mL (20-250)
== END 2022-06-18 14:18 | disposition home or self-care (01) ==
LOC: HO.LAB 14:17
PROVIDERS: PCP Internal Medicine; Visit Provider Internal Medicine
DX: D50.9 Iron deficiency anemia, unspecified (principal)
CPT/HCPCS: 36415; 82728; 83540; 85025

== ENCOUNTER → 2022-09-30 07:44 | Outpatient (REF) | payer BC, MEDICARE, SELFPAY ==
--- NOTE | ~2022-09-30 | XR_ITS ---
EXAMINATION: XR CHEST CLINICAL INFORMATION: R07.9 - Chest pain, unspecified COMPARISON: Chest radiographs 04/20/2021, 06/16/2015 TECHNIQUE: 2 views of the chest were obtained. FINDINGS: No pneumothorax, pleural reaction, airspace opacity, or effusion. Heart size normal. The hilar and mediastinal contours are unremarkable. No acute bony abnormality. XR/XR chest 2V IMPRESSION: Unremarkable examination.
--- NOTE | 2022-09-30 07:58 | CA_ITS ---
Acquisition Time: 2022-09-30 08:17:55 Total Exercise Time: 00:06:58 Test Indications: CHEST PAIN Medications: AMITRIPTYLINE PANTOPRALE TAMSULOSIN TIZANIDINE OXYCODONE Protocol: ELOISA Max HR: 148 BPM 93% of Pred: 159 BPM Max BP: 170/080 mmHG Max Work Load: 8.4 METS Exercise stress test with exercise 6 min 58 sec of Eloisa protocol, achieving 93% MPHR, with 2/10 left chest pressure at baseline which resolved with exercise, with isolated PACs in recovery , with normotensive response to exercise, without EKG changes meeting criteria for ischemia. Test reviewed with Dr Webster. Referred By: Galindo Muro Overread By: CARLO BENDER
== END ==
LOC: HO.CARD 07:44
PROVIDERS: PCP Internal Medicine; Visit Provider Internal Medicine
DX: R07.9 Chest pain, unspecified (principal)
CPT/HCPCS: 71046; 93017

== ENCOUNTER 2022-10-17 19:08 | Inpatient (IN) | payer BC, MEDICARE, SELFPAY ==
--- NOTE | ~2022-10-17 | CT_ITS ---
EXAMINATION: CT ABDOMEN AND PELVIS WITHOUT CONTRAST CLINICAL INFORMATION: Right lower quadrant pain COMPARISON: 11/30/2020 TECHNIQUE: Multidetector volumetric imaging was performed from the superior aspect of the liver through the pubic symphysis. Sagittal and coronal reformatted images were obtained on the technologist's workstation. This CT examination was performed using dose optimization techniques as appropriate, variously including the following: *Automated exposure control *Adjustment of mA and/or kV according to patient size (this includes techniques or standardized protocols for targeted exams where dose is matched to indication/reason for exam; i.e. extremities or head) *Use of iterative reconstruction technique DLP: 540 mGy-cm FINDINGS: LUNG BASES: Reticular changes at both lung bases could be associated with chronic lung disease. This is similar to prior imaging. LIVER, GALLBLADDER, AND BILIARY TREE: The liver is normal in size, shape, and attenuation. No focal hepatic lesion or biliary ductal dilatation is present. Gallstone noted. No wall thickening or adjacent inflammation. PANCREAS: Unremarkable. SPLEEN: Unremarkable. ADRENAL GLANDS: Unremarkable. KIDNEYS AND URETERS: The kidneys are normal in size, shape, and attenuation. No hydronephrosis, hydroureter, or calculi seen. No perinephric stranding. BLADDER: Unremarkable. GASTROINTESTINAL TRACT: The stomach is unremarkable. Normal caliber small bowel. No obstruction. Mild inflammation in the region of the cecum where there is prominence of the ileocecal valve. There is fat for fixation of the wall of the colon at this location. This inflammation appears new from remote prior imaging. Appendix not seen. ABDOMINAL WALL: No significant hernia is appreciated. LYMPH NODES: Normal. VASCULAR: Normal caliber aorta with moderate atherosclerotic calcifications. PELVIC VISCERA: The prostate and seminal vesicles are unremarkable. OSSEOUS STRUCTURES: No acute or suspicious osseous abnormality. Degenerative changes are seen throughout the spine. Disc spacers are present at L4-L5 and L5-S1. CT/CT abdomen pelvis wo IV con IMPRESSION: 1. Mild inflammation in the region of the cecum where there is prominence of the ileocecal valve. This is new from remote prior imaging. This could represent a focal colitis. That said, cannot exclude an underlying mass and this can be correlated with colonoscopy. 2. Cholelithiasis without evidence of acute cholecystitis. 3. Reticular changes at the lung bases could be associated with chronic lung disease. This is similar to prior imaging. Fleischner guidelines were followed.
[2022-10-17 19:39] VITALS: BP 134/62; PULSE 102; RESP 18; TEMP 36.9; O2SAT 99; BMI 23.0
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
[2022-10-17 21:02] LABS: MANUAL DIFF FLAG NO
[2022-10-17 21:06] LABS: Basophils Percent Auto 0.2 % (0-2); Eosinophils Absolute Auto 0.1 X10*3/uL (0.0-0.4); Eosinophils Percent Auto 0.4 % (0-4); Hemoglobin 13.8 g/dl (14.0-18.0); Imm Gran Abs Auto 0.07 X10*3/uL (0.00-0.03); Imm Gran Pct Auto 0.4 % (0.0-0.4); Lymphocytes Absolute Auto 4.7 X10*3/uL (1.2-4.9); Lymphocytes Percent Auto 28.4 % (20-40); Mean Corpuscular HGB Conc 35.4 g/dl (31.0-36.0); Mean Corpuscular Volume 87.6 fL (80.0-98.0); Monocytes Absolute Auto 1.2 X10*3/uL (0.1-1.2); Monocytes Percent Auto 7.3 % (2-11); Neutrophils Absolute Auto 10.5 x10*3/uL (2.0-8.3); Neutrophils Percent Auto 63.3 % (45-73); Platelet Count 245 X10*3/uL (160-400); Red Blood Count 4.45 X10*6/uL (4.60-5.80); Red Cell Distribution Width 12.7 % (11.0-16.0); White Blood Count 16.6 X10*3/uL (4.8-10.8)
[2022-10-17 21:25] LABS: Alanine Aminotransferase 18 U/L (0-40); Albumin Level 4.2 g/dL (3.5-5.0); Alkaline Phosphatase 103 U/L (39-117); Anion Gap 16 (12-20); Aspartate Amino Transferase 20 U/L (5-37); Bilirubin Direct 0.2 mg/dL (0.0-0.5); Bilirubin Total 0.7 mg/dL (0.0-1.0); Blood Urea Nitrogen 14 mg/dL (9-16); Calcium 9.1 mg/dL (8.4-10.2); Carbon Dioxide 29 mmol/L (22-29); Chloride 95 mmol/L (96-108); Creatinine Clr Calc Pharmacy 80.4; Estimated Glomerular Filt Rate > 60; Glucose Random 104 mg/dL (60-115); Lipase 11 U/L (8-78); Potassium 4.7 mmol/L (3.3-5.1); Sodium 135 mmol/L (135-145); Total Protein 6.9 g/dL (6.5-8.0)
[2022-10-17 22:26] VITALS: BP 147/72; PULSE 86; RESP 16; TEMP 36.7; O2SAT 98
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
[2022-10-17 23:24] VITALS: BP 141/76; PULSE 93; RESP 16; TEMP 36.4; O2SAT 98
[2022-10-17] MEDS: HYDROmorphone HCl 1 MG/ML SYRINGE IVPUSH (23:49)
[2022-10-17 23:54] VITALS: BP 145/65; PULSE 88; RESP 12; O2SAT 98
--- NOTE | 2022-10-17 23:55 | PC.NURSE ---
continuous cardiac rehabilitation program director placed vss pt resting quietly at bedside
[2022-10-17] MEDS: Piperacillin Sodium/Tazobactam 4.5 GM in 0.9 % Sodium Chloride 100 ML IV (23:59)
[2022-10-18] MEDS: 0.9 % Sodium Chloride Flush 3 ML SYRINGE IVFLUSH ×3 (00:01→15:38)
[2022-10-18 00:04] LABS: Appearance Urine Clear; Color Urine Yellow; Glucose Urine UA Negative (Negative); Leukocyte Esterase Urine Negative (Negative); Nitrite Urine Negative (Negative); Urine Blood Negative (Negative); Urine Ketones Negative (Negative); Urine Protein Negative (Neg-Trace)
[2022-10-18 00:18] LABS: Lactic Acid 1.2 mmol/L (0.5-2.0)
--- NOTE | 2022-10-18 00:25 | PC.NURSE ---
Pt ca&ox3. No signs of distress. Pt advised being admitted and will be going to room. Will continue to monitor.
[2022-10-18] MEDS: Lactated Ringers 1,000 ML 999 ML IV (00:36)
[2022-10-18 01:43] VITALS: BP 135/70; PULSE 89; RESP 18; TEMP 36.1; O2SAT 100
[2022-10-18 01:47] VITALS: BMI 26.0
[2022-10-18] MEDS: HYDROmorphone HCl 1 MG/ML SYRINGE IVPUSH ×3 (04:00→13:25)
[2022-10-18] MEDS: Piperacillin Sodium/Tazobactam 4.5 GM in 0.9 % Sodium Chloride 100 ML IV ×3 (06:00→17:38)
[2022-10-18 06:12] LABS: MANUAL DIFF FLAG NO
[2022-10-18 06:15] LABS: Basophils Percent Auto 0.2 % (0-2); Eosinophils Percent Auto 0.3 % (0-4); Hematocrit 35.5 % (42.0-52.0); Hemoglobin 12.5 g/dl (14.0-18.0); Imm Gran Abs Auto 0.04 X10*3/uL (0.00-0.03); Imm Gran Pct Auto 0.3 % (0.0-0.4); Lymphocytes Absolute Auto 3.5 X10*3/uL (1.2-4.9); Lymphocytes Percent Auto 29.4 % (20-40); Mean Corpuscular HGB Conc 35.2 g/dl (31.0-36.0); Mean Corpuscular Hemoglobin 30.6 pg (27.0-33.0); Mean Platelet Volume 9.1 fL (9.4-12.4); Monocytes Absolute Auto 0.9 X10*3/uL (0.1-1.2); Monocytes Percent Auto 7.1 % (2-11); Neutrophils Absolute Auto 7.5 x10*3/uL (2.0-8.3); Neutrophils Percent Auto 62.7 % (45-73); Platelet Count 211 X10*3/uL (160-400); Red Blood Count 4.08 X10*6/uL (4.60-5.80); Red Cell Distribution Width 12.8 % (11.0-16.0)
[2022-10-18 06:30] LABS: Anion Gap 11 (12-20); Blood Urea Nitrogen 11 mg/dL (9-16); Calcium 9.1 mg/dL (8.4-10.2); Carbon Dioxide 33 mmol/L (22-29); Chloride 99 mmol/L (96-108); Estimated Glomerular Filt Rate > 60; Glucose Random 95 mg/dL (60-115); Potassium 4.6 mmol/L (3.3-5.1); Sodium 138 mmol/L (135-145)
[2022-10-18 07:19] VITALS: BP 135/63; PULSE 70; RESP 18; TEMP 36.8; O2SAT 97
--- NOTE | 2022-10-18 07:23 | HO.PM.IMPN ---
Subjective Subjective Date of Service: 10/18/22 Interval History: f/u on sepsis, colitis, inteval history: pain is the same Physical Exam Vital Signs: Vital Signs: Last Vital Signs Temp 98.3 F 10/18/22 07:19 Pulse 70 10/18/22 07:19 Resp 18 10/18/22 07:19 BP 135/63 10/18/22 07:19 Pulse Ox 97 10/18/22 07:19 O2 Del Method Room Air 10/18/22 07:19 BMI result Body Mass Index 26.0 Const: Other: General: AO X 3, no acute distress Resp: CTA bilateral CVS: S1,S2,RRR GI: +BS, NT, no distention Skin: No rash Neuro: motor grossly intact Psych: appropriate affect Objective Data Active Medications Acetaminophen (Acetaminophen 325 Mg Tablet) 650 mg PO Q6H PRN PRN Reason: Pain, Mild (Pain Scale 1-3) Acetaminophen (Acetaminophen Supp 650 Mg Supp.Rect) 650 mg DC Q6H PRN PRN Reason: Pain, Mild (Pain Scale 1-3) Hydromorphone HCl (Hydromorphone Hcl 1 Mg/Ml Syringe) 1 mg IVPUSH Q4H PRN; Protocol PRN Reason: Pain, Severe (Pain Scale 7-10) Last Admin: 10/18/22 04:00 Dose: 1 mg Documented By: MAURY Piperacillin Sod/Tazobactam (Sod 4.5 gm/ Sodium Chloride) 100 mls @ 200 mls/hr IV Q6H [facility] Last Infusion: 10/18/22 06:35 Dose: 0 mls/hr Documented By: MAURY Melatonin (Melatonin 3 Mg Tablet) 6 mg PO BEDTIME PRN PRN Reason: Insomnia Ondansetron HCl (Ondansetron Hcl 4 Mg/2 Ml Vial) 4 mg IVPUSH Q8H PRN PRN Reason: Nausea and Vomiting Pharmacy Consult (Consult Rx Perform Med Rec) 1 each MISCELLANE ONCE PRN PRN Reason: Consult order Sodium Chloride (0.9 % Sodium Chloride Flush 3 Ml Syringe) 3 ml IVFLUSH QSHIFT [facility] Last Admin: 10/18/22 00:01 Dose: 3 ml Documented By: IRENAV Labs 10/18/22 05:56 10/18/22 05:56 Labs: Laboratory Results - last 24 hr 05/11/23 05/11/23 05/11/23 20:58 20:58 23:39 MCV 87.6 MCH 31.0 MCHC 35.4 RDW 12.7 Plt Count 245 D MPV 9.0 L Immature Gran % (Auto) 0.4 Neut % (Auto) 63.3 Lymph % (Auto) 28.4 [place] % (Auto) 7.3 Eos % (Auto) 0.4 Baso % (Auto) 0.2 Lymph # (Auto) 4.7 [place] # (Auto) 1.2 Eos # (Auto) 0.1 Baso # (Auto) 0.0 Abs Immat Gran (auto) 0.07 H Absolute Neuts (auto) 10.5 H Absolute Nucleated RBC 0.000 Nucleated RBC % (auto) 0.0 Anion Gap 16 Estim Creat Clear Calc 80.4 Estimated GFR > 60 Random Glucose 104 Lactic Acid 1.2 Calcium 9.1 Total Bilirubin 0.7 Direct Bilirubin 0.2 AST 20 ALT 18 Alkaline Phosphatase 103 Total Protein 6.9 Albumin 4.2 Lipase 11 Urine Color Urine Appearance Urine pH Ur Specific [place] Urine Protein Urine Glucose (UA) Urine Ketones Urine Blood Urine Nitrite Ur Leukocyte Esterase 10/17/22 10/18/22 10/18/22 23:39 05:56 05:56 MCV 87.0 MCH 30.6 MCHC 35.2 RDW 12.8 Plt Count 211 MPV 9.1 L Immature Gran % (Auto) 0.3 Neut % (Auto) 62.7 Lymph % (Auto) 29.4 [place] % (Auto) 7.1 Eos % (Auto) 0.3 Baso % (Auto) 0.2 Lymph # (Auto) 3.5 [place] # (Auto) 0.9 Eos # (Auto) 0.0 Baso # (Auto) 0.0 Abs Immat Gran (auto) 0.04 H Absolute Neuts (auto) 7.5 Absolute Nucleated RBC 0.000 Nucleated RBC % (auto) 0.0 Anion Gap 11 L Estim Creat Clear Calc 91.0 Estimated GFR > 60 Random Glucose 95 Lactic Acid Calcium 9.1 Total Bilirubin Direct Bilirubin AST ALT Alkaline Phosphatase Total Protein Albumin Lipase Urine Color Yellow Urine Appearance Clear Urine pH 5.0 Ur Specific [place] 1.010 Urine Protein Negative Urine Glucose (UA) Negative Urine Ketones Negative Urine Blood Negative Urine Nitrite Negative Ur Leukocyte Esterase Negative Assessment and Plan (1) Colitis: Status: Acute Plan 62-year-old male with pertinent history of essential hypertension, BPH, chronic back pain on opioids who presents to the emergency department for evaluation of abdominal discomfort. #.? Abdominal pain, concerning for focal colitis vs mass.? -continue empiric antibiotics, ivf, pain med. Add GI consult #.? Sepsis in the setting of above, managment as above #.? Essential hypertension, continue home meds #.? BPH: On Flomax Med rec pending DVT prophylaxis:? Mechanical.? Hold Lovenox until surgical evaluation Full code NPO after midnight need for inaptient: sepsis, colitis requiring iv Abx Time Spent With Patient Time: Total time managing care of this patient today ____ minutes. Quality Stroke Does the patient have a stroke diagnosis?: No VTE Prior VTE?: No VTE Risk Level:: Medical - moderate - high VTE Device Contraindication: N/A - Device Ordered VTE Drug Contraindication: Treatment Not Indicated
--- NOTE | 2022-10-18 08:30 | PHA.MEDREC ---
Pharmacy Consult ? Medication Reconciliation Pharmacy has completed the medication reconciliation. Patient reported all medications. Reports he takes his oxycodone 4 times a day around the clock instead of PRN. Patient reported he stopped taking HCTZ. Gifty Gallegos, TrenaD
--- NOTE | 2022-10-18 09:43 | MHC.CM.PN ---
pt lives with is independent covid vax has own ride home no servceis are expected to be needed
[2022-10-18] MEDS: Tamsulosin HCL 0.4 MG CAPSULE PO (11:14)
[2022-10-18] MEDS: oxyCODONE HCl Immed Release 15 MG TABLET PO ×3 (12:21→20:56)
--- NOTE | 2022-10-18 12:37 | P.EN_ITS ---
Event Note Date of Service: 10/18/22 Event Note: GI Consult-Full note dictated Imp: Acute onset of RLQ pain with associated tenderness/guarding, some leukocytosis, and some inflammatory changes in the region of the cecum. The remainder of the CT scan was unremarkable and the remainder of the abdominal exam is benign. His colonoscopy in 08/2021 was negative for any IBD or microscopic colitis. The terminal ileum and Ileocecal valve were normal at that time. He is s/p incidental Appy during his diverticulitis surgery in 2003(op note in the [facility]). Diff dx; ? infectious process; I don't think this is IBD, ischemic, nor any type of mass. Rec: Continue antibiotics, NPO, analgesics, and observation. Surgical consult for their opinion and to follow along in the event things worsen. I don't think a colonoscopy is required at this time. D/W patient and his in detail. They are comfortable with this plan. Thanks. Time Spent With Patient Time: Total time managing care of this patient today ____ minutes.
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
[2022-10-18 15:34] VITALS: BP 135/63; PULSE 84; RESP 17; TEMP 36.2; O2SAT 95
[2022-10-18 19:27] VITALS: BP 151/67; PULSE 85; RESP 17; TEMP 36.3; O2SAT 95
[2022-10-18] MEDS: Dextrose 5 % 1,000 ML 100 ML IVCONT (20:09)
[2022-10-18] MEDS: Amitriptyline HCl 50 MG TABLET PO (20:11)
[2022-10-18] MEDS: Nicotine 14 MG PATCH.TD24 TRANSDERMA (20:26)
--- NOTE | 2022-10-18 23:32 | CONS_ITS ---
DATE OF SERVICE: 10/18/2022 REASON FOR CONSULTATION: Right lower quadrant abdominal pain. HISTORY OF PRESENT ILLNESS: This has been obtained from the patient and his , as well as from the medical record. The patient is a 62-year-old male well known to me from previous office visits. He was admitted here last evening after presenting with 3 days of fairly acute onset of right lower quadrant pain. Prior to the onset of the abdominal pain earlier this week he was not having any particular GI problems. His pain began 3 days prior to admission and has persisted and progressed. It has been quite localized to the right lower quadrant and has been tender for him to palpate. He denies any associated vomiting, diarrhea, urinary symptoms, nor any definitive fevers. Since admission here his pain has persisted. He has been afebrile here. The patient did have an appendectomy in 2003. This was done incidentally during a left-sided colon resection for diverticulitis. In reviewing the operative note and the pathology report, there was no evidence of any appendicitis. The patient underwent an upper endoscopy and colonoscopy with me in August 2021. The upper endoscopy revealed his known moderate sized hiatal hernia, but no other significant pathology. The colonoscopy in August 2021 revealed just small tubular adenomas, but no evidence of any inflammatory bowel disease nor microscopic colitis. The terminal ileum and ileocecal valve are described as normal in my report. He denies any known family history of inflammatory bowel disease. There is a family history of a brother with colon cancer. Since being here in the hospital he has passed some flatus, but has not had any bowel movements. He is not hungry. CURRENT MEDICATIONS: Include acetaminophen, amitriptyline, hydromorphone p.r.n., melatonin, nicotine patch, Zofran p.r.n., oxycodone p.r.n., IV Zosyn, and tamsulosin. PAST MEDICAL HISTORY: Gastroesophageal reflux with history of Yanez esophagus, with his most recent upper endoscopy in August 2021. History of tubular adenomas of the colon. His most recent colonoscopy in August 2021 revealed small tubular adenomas, but no evidence of any inflammatory bowel disease or colitis. His ileocecal valve and terminal ileum are described as normal at that time. He has history of depression, back pain, prostatic hypertrophy, kidney stones, sleep apnea, anemia, and gallstones. PAST SURGICAL HISTORY: Two back surgeries, sigmoid resection for diverticulitis [place] [address] Jimenez, incidental appendectomy during that diverticulitis surgery, and knee surgery. FAMILY HISTORY: As above with his brother having had a history of colon cancer. SOCIAL HISTORY: He is . He does smoke. He does not use any significant amount of alcohol. He is on disability. REVIEW OF SYSTEMS: CONSTITUTIONAL: Up until just several days ago, he was feeling fairly well with good appetite and good energy. SKIN: No rash, no pruritus. CARDIAC: No chest pain. PULMONARY: No coughing, no hemoptysis. GI: As above. URINARY: No dysuria, no hematuria. NEUROLOGIC: No headache or seizures. PSYCHIATRIC: Negative. MUSCULOSKELETAL: He does have back pain. PHYSICAL EXAMINATION: GENERAL: He is a pleasant alert male. He does appear a little bit uncomfortable in regard to the right lower quadrant pain. SKIN: Warm and dry. Anicteric sclerae. Moist mucous membranes. NECK: Supple. CHEST: Clear. CARDIAC: Normal S1, S2. ABDOMEN: Soft. Normal bowel sounds and nondistended. There is focal tenderness in the right lower quadrant to palpation, but without any mass. The remainder of the abdomen is benign. LABORATORY DATA: His CT scan describes some mild inflammatory changes in the region of the cecum with prominence of the ileocecal valve. There was no evidence of any definitive colitis, obstruction, nor perforation. Other than the area of the cecum, the remainder of the GI tract appears normal. Gallstones were noted. White count recently was 16.6 and today is 12.0, hemoglobin 12.5, platelets 211,000. Normal electrolytes. BUN 11, creatinine 0.9, lactic acid level 1.2, total bilirubin 1.7, AST 20, ALT 18, alkaline phosphatase 103, lipase 11. IMPRESSION: Given the patient's clinical history, I suspect this represents some type of infectious process as I do not think he has inflammatory bowel disease, neoplasm, nor any type of ischemia. Given no known history of inflammatory bowel disease, I would be inclined to treat this as an infectious process and would continue his IV antibiotics. I do not think a colonoscopy would be indicated at this time given the tenderness and the results of the colonoscopy from just a year ago. At this point, I would recommend continued observation. I would continue to keep him n.p.o. I would place a surgical consult as well for their opinion. If things improve on antibiotics, we could simply continue to treat along those lines. If there is any worsening of his abdominal exam, then he may need surgical intervention on that basis. He may need an eventual colonoscopy as well to reevaluate the cecum, depending on his clinical course. Thank you for the consultation. This has all been discussed with the patient and his in detail. They are comfortable with the plan. MD LG Parker/AMARIS / [id number] MTDD
[2022-10-19] MEDS: Piperacillin Sodium/Tazobactam 4.5 GM in 0.9 % Sodium Chloride 100 ML IV ×4 (00:02→17:56)
[2022-10-19] MEDS: 0.9 % Sodium Chloride Flush 3 ML SYRINGE IVFLUSH (00:02)
[2022-10-19 03:41] VITALS: BP 142/64; PULSE 65; RESP 17; TEMP 36.1; O2SAT 95
[2022-10-19] MEDS: HYDROmorphone HCl 1 MG/ML SYRINGE IVPUSH ×3 (05:55→18:00)
[2022-10-19 05:59] VITALS: BP 161/76; PULSE 76
[2022-10-19] MEDS: Dextrose 5 % 1,000 ML 100 ML IVCONT ×2 (06:02→15:05)
[2022-10-19 07:24] VITALS: BP 138/65; PULSE 71; RESP 18; TEMP 36.2; O2SAT 98
[2022-10-19] MEDS: Nicotine 14 MG PATCH.TD24 TRANSDERMA (08:35)
[2022-10-19] MEDS: Tamsulosin HCL 0.4 MG CAPSULE PO (08:36)
[2022-10-19] MEDS: oxyCODONE HCl Immed Release 15 MG TABLET PO ×4 (08:36→20:13)
--- NOTE | 2022-10-19 08:38 | HO.PM.IMPN ---
Subjective Subjective Date of Service: 10/19/22 Interval History: f/u on sepsis, colitis, inteval history: pain is better Physical Exam Vital Signs: Vital Signs: Last Vital Signs Temp 97.1 F 10/19/22 07:24 Pulse 71 10/19/22 07:24 Resp 18 10/19/22 07:24 BP 138/65 10/19/22 07:24 Pulse Ox 98 10/19/22 07:24 O2 Del Method Room Air 10/19/22 07:24 BMI result Body Mass Index 26.0 Const: Other: General: AO X 3, no acute distress Resp: CTA bilateral CVS: S1,S2,RRR GI: RLL tenderness is less, NT, no distention Skin: No rash Neuro: motor grossly intact Psych: appropriate affect Objective Data Active Medications Acetaminophen (Acetaminophen 325 Mg Tablet) 650 mg PO Q6H PRN PRN Reason: Pain, Mild (Pain Scale 1-3) Acetaminophen (Acetaminophen Supp 650 Mg Supp.Rect) 650 mg [place] Q6H PRN PRN Reason: Pain, Mild (Pain Scale 1-3) Amitriptyline HCl (Amitriptyline Hcl 50 Mg Tablet) 50 mg PO BEDTIME [facility] Last Admin: 10/18/22 20:11 Dose: 50 mg Documented By: DIAMANTE Hydromorphone HCl (Hydromorphone Hcl 1 Mg/Ml Syringe) 1 mg IVPUSH Q4H PRN; Protocol PRN Reason: Pain, Severe (Pain Scale 7-10) Last Admin: 10/19/22 05:55 Dose: 1 mg Documented By: MARYANA Piperacillin Sod/Tazobactam (Sod 4.5 gm/ Sodium Chloride) 100 mls @ 200 mls/hr IV Q6H [facility] Last Infusion: 10/19/22 06:16 Dose: 0 mls/hr Documented By: MARYANA Dextrose (D5w) 1,000 mls @ 100 mls/hr IVCONT .Q10H [facility] Last Admin: 10/19/22 06:02 Dose: 100 mls/hr Documented By: MARYANA Melatonin (Melatonin 3 Mg Tablet) 6 mg PO BEDTIME PRN PRN Reason: Insomnia Nicotine (Nicotine 14 Mg Patch.Td24) 14 mg TRANSDERMA DAILY [facility] Last Admin: 10/19/22 08:35 Dose: 14 mg Documented By: HO.GRAZIC Ondansetron HCl (Ondansetron Hcl 4 Mg/2 Ml Vial) 4 mg IVPUSH Q8H PRN PRN Reason: Nausea and Vomiting Oxycodone HCl (Oxycodone Hcl Immed Release 15 Mg Tablet) 15 mg PO QID [facility] Last Admin: 10/19/22 08:36 Dose: 15 mg Documented By: ARGELIA Pharmacy Consult (Consult Rx Perform Med Rec) 1 each MISCELLANE ONCE PRN PRN Reason: Consult order Sodium Chloride (0.9 % Sodium Chloride Flush 3 Ml Syringe) 3 ml IVFLUSH QSHIFT [facility] Last Admin: 10/19/22 07:45 Dose: Not Given Documented By: ARGELIA Non-Admin Reason: IV Running Tamsulosin HCl (Tamsulosin Hcl 0.4 Mg Capsule) 0.4 mg PO DAILY [facility] Last Admin: 10/19/22 08:36 Dose: 0.4 mg Documented By: ARGELIA Labs 10/18/22 05:56 10/18/22 05:56 Microbiology Microbiology Results: Microbiology 10/17/22 23:39 Blood Culture - Preliminary Blood - Venous No growth after 24 hours. 10/17/22 23:39 Blood Culture - Preliminary Blood - Venous No growth after 24 hours. Assessment and Plan (1) Colitis: Status: Acute Plan 62-year-old male with pertinent history of essential hypertension, BPH, chronic back pain on opioids who presents to the emergency department for evaluation of abdominal discomfort. #.? Abdominal pain, concerning for focal colitis vs mass, improving on Abx -continue empiric antibiotics, ivf, pain med. GI and Surgery following -full liquid diet today. repeat CBC #.? Sepsis in the setting of above, managment as above #.? Essential hypertension, continue home meds #.? BPH: On Flomax DVT prophylaxis:? Mechanical.? Hold Lovenox until surgical evaluation Full code need for inaptient: sepsis, colitis requiring iv Abx Time Spent With Patient Time: Total time managing care of this patient today ____ minutes. Quality Stroke Does the patient have a stroke diagnosis?: No VTE Prior VTE?: No VTE Risk Level:: Medical - moderate - high VTE Device Contraindication: N/A - Device Ordered VTE Drug Contraindication: Treatment Not Indicated
[2022-10-19] MEDS: Enoxaparin Sodium 40 MG/0.4 ML SYRINGE SUBCUT (09:06)
[2022-10-19 09:12] LABS: Hematocrit 35.4 % (42.0-52.0); Hemoglobin 12.7 g/dl (14.0-18.0); Mean Corpuscular HGB Conc 35.9 g/dl (31.0-36.0); Mean Corpuscular Hemoglobin 31.6 pg (27.0-33.0); Mean Corpuscular Volume 88.1 fL (80.0-98.0); Mean Platelet Volume 9.1 fL (9.4-12.4); Platelet Count 207 X10*3/uL (160-400); Red Blood Count 4.02 X10*6/uL (4.60-5.80); Red Cell Distribution Width 12.5 % (11.0-16.0); White Blood Count 9.9 X10*3/uL (4.8-10.8)
--- NOTE | 2022-10-19 10:13 | P.PNGS_ITS ---
Subjective Subjective Date of Service: 10/19/22 Patient reports: no new complaints, feels better, still having pain and pain is less Interval history: The patient is seen in coverage Patient reports that he is still having some right sided abdominal pain and no flatus. He believes the pain is a little better and had questions requesting an MRI and other diagnostic testing. I reviewed the fact that he has some cecal inflammation which may be infectious or, less likely related to a bowel tumor or ischemia. Most likely course would be to give the patient 48-72 hours on IV antibiotics and bowel rest to see if he improves and if he does not, a colonoscopy to assess the cecum would be in order. Patient denies any chest pain, difficulty breathing or shortness of breath. Physical Exam Vital Signs: Vital Signs: Last Vital Signs Temp 97.1 F 10/19/22 07:24 Pulse 71 10/19/22 07:24 Resp 18 10/19/22 07:24 BP 138/65 10/19/22 07:24 Pulse Ox 98 10/19/22 07:24 O2 Del Method Room Air 10/19/22 07:24 BMI result Body Mass Index 26.0 On exam, the patient is nontoxic His sclerae anicteric He is in no acute respiratory distress He has some localized right-sided/RLQ abdominal pain with mild peritoneal irritation to percussion. His abdomen is not rigid and does not have diffuse peritonitis Objective Data Active Medications Acetaminophen (Acetaminophen 325 Mg Tablet) 650 mg PO Q6H PRN PRN Reason: Pain, Mild (Pain Scale 1-3) Acetaminophen (Acetaminophen Supp 650 Mg Supp.Rect) 650 mg [place] Q6H PRN PRN Reason: Pain, Mild (Pain Scale 1-3) Amitriptyline HCl (Amitriptyline Hcl 50 Mg Tablet) 50 mg PO BEDTIME [facility] Last Admin: 10/18/22 20:11 Dose: 50 mg Documented By: DIAMANTE Enoxaparin Sodium (Enoxaparin Sodium 40 Mg/0.4 Ml Syringe) 40 mg SUBCUT Q24H [facility] Last Admin: 10/19/22 09:06 Dose: 40 mg Documented By: ARGELIA Hydromorphone HCl (Hydromorphone Hcl 1 Mg/Ml Syringe) 1 mg IVPUSH Q4H PRN; Protocol PRN Reason: Pain, Severe (Pain Scale 7-10) Last Admin: 10/19/22 05:55 Dose: 1 mg Documented By: MARYANA Piperacillin Sod/Tazobactam (Sod 4.5 gm/ Sodium Chloride) 100 mls @ 200 mls/hr IV Q6H [facility] Last Infusion: 10/19/22 06:16 Dose: 0 mls/hr Documented By: MARYANA Dextrose (D5w) 1,000 mls @ 100 mls/hr IVCONT .Q10H [facility] Last Admin: 10/19/22 06:02 Dose: 100 mls/hr Documented By: MARYANA Melatonin (Melatonin 3 Mg Tablet) 6 mg PO BEDTIME PRN PRN Reason: Insomnia Nicotine (Nicotine 14 Mg Patch.Td24) 14 mg TRANSDERMA DAILY [facility] Last Admin: 10/19/22 08:35 Dose: 14 mg Documented By: ARGELIA Ondansetron HCl (Ondansetron Hcl 4 Mg/2 Ml Vial) 4 mg IVPUSH Q8H PRN PRN Reason: Nausea and Vomiting Oxycodone HCl (Oxycodone Hcl Immed Release 15 Mg Tablet) 15 mg PO QID [facility] Last Admin: 10/19/22 08:36 Dose: 15 mg Documented By: ARGELIA Pharmacy Consult (Consult Rx Perform Med Rec) 1 each MISCELLANE ONCE PRN PRN Reason: Consult order Sodium Chloride (0.9 % Sodium Chloride Flush 3 Ml Syringe) 3 ml IVFLUSH QSHIFT [facility] Last Admin: 10/19/22 07:45 Dose: Not Given Documented By: ARGELIA Non-Admin Reason: IV Running Tamsulosin HCl (Tamsulosin Hcl 0.4 Mg Capsule) 0.4 mg PO DAILY [facility] Last Admin: 10/19/22 08:36 Dose: 0.4 mg Documented By: ARGELIA Labs 10/19/22 09:01 10/18/22 05:56 Labs: Laboratory Results - last 24 hr 10/19/22 09:01 MCV 88.1 MCH 31.6 MCHC 35.9 RDW 12.5 Plt Count 207 MPV 9.1 L Absolute Nucleated RBC 0.000 Nucleated RBC % (auto) 0.0 Microbiology Microbiology Results: Microbiology 10/17/22 23:39 Blood Culture - Preliminary Blood - Venous No growth after 24 hours. 10/17/22 23:39 Blood Culture - Preliminary Blood - Venous No growth after 24 hours. Procedures Date of Service Date of Service: 10/19/22 Progress Note: A&P Assessment and plan (1) Right lower quadrant pain: Status: Acute (2) Colitis: Status: Acute (3) Hypertension: Status: Acute Plan Current treatment plan was reviewed with the patient and apparently understood. His questions seemed to be satisfactorily answered. I reviewed his CT images and recommend continuing present management. Time Spent With Patient Time: Total time managing care of this patient today ____ minutes. Quality Stroke Does the patient have a stroke diagnosis?: No VTE Prior VTE?: No VTE Risk Level:: Medical - moderate - high VTE Device Contraindication: N/A - Device Ordered VTE Drug Contraindication: Treatment Not Indicated
[2022-10-19 15:26] VITALS: BP 128/73; PULSE 90; RESP 14; TEMP 36.3; O2SAT 95
[2022-10-19 19:29] VITALS: BP 133/59; PULSE 72; RESP 14; TEMP 36.1; O2SAT 96
[2022-10-19] MEDS: Amitriptyline HCl 50 MG TABLET PO (20:13)
[2022-10-20] MEDS: Dextrose 5 % 1,000 ML 100 ML IVCONT ×2 (00:05→10:19)
[2022-10-20] MEDS: Piperacillin Sodium/Tazobactam 4.5 GM in 0.9 % Sodium Chloride 100 ML IV ×5 (00:06→23:33)
[2022-10-20 02:32] VITALS: BP 161/78; PULSE 74; RESP 16; TEMP 36.4; O2SAT 98
[2022-10-20] MEDS: HYDROmorphone HCl 1 MG/ML SYRINGE IVPUSH ×4 (02:34→20:37)
[2022-10-20 07:45] VITALS: BP 128/63; PULSE 74; RESP 18; TEMP 36.3; O2SAT 97
[2022-10-20] MEDS: Tamsulosin HCL 0.4 MG CAPSULE PO (08:00)
[2022-10-20] MEDS: oxyCODONE HCl Immed Release 15 MG TABLET PO ×4 (08:00→20:37)
[2022-10-20] MEDS: Nicotine 14 MG PATCH.TD24 TRANSDERMA (08:00)
[2022-10-20] MEDS: Enoxaparin Sodium 40 MG/0.4 ML SYRINGE SUBCUT (08:01)
--- NOTE | 2022-10-20 08:30 | P.PNGS_ITS ---
Subjective Subjective Date of Service: 10/20/22 Patient reports: feels better, flatus and diarrhea Interval history: The patient is seen in coverage He reports interval improvement since yesterday and notes he is passing gas and having liquidy stool which is nonbloody. He otherwise denies new complaints such as chest pain, difficulty breathing or shortness of breath. Physical Exam Vital Signs: Vital Signs: Last Vital Signs Temp 97.3 F 10/20/22 07:45 Pulse 74 10/20/22 07:45 Resp 18 10/20/22 07:45 BP 128/63 10/20/22 07:45 Pulse Ox 97 10/20/22 07:45 O2 Del Method Room Air 10/20/22 07:45 BMI result Body Mass Index 26.0 On exam he is nontoxic He is in no acute respiratory distress His sclerae anicteric His abdominal exam is no worse. He has mild right lower quadrant peritoneal irritation to percussion and some guarding, same as yesterday. There is no diffuse peritonitis or guarding. Objective Data Active Medications Acetaminophen (Acetaminophen 325 Mg Tablet) 650 mg PO Q6H PRN PRN Reason: Pain, Mild (Pain Scale 1-3) Acetaminophen (Acetaminophen Supp 650 Mg Supp.Rect) 650 mg [place] Q6H PRN PRN Reason: Pain, Mild (Pain Scale 1-3) Amitriptyline HCl (Amitriptyline Hcl 50 Mg Tablet) 50 mg PO BEDTIME [facility] Last Admin: 10/19/22 20:13 Dose: 50 mg Documented By: VIKKI Enoxaparin Sodium (Enoxaparin Sodium 40 Mg/0.4 Ml Syringe) 40 mg SUBCUT Q24H [facility] Last Admin: 10/20/22 08:01 Dose: 40 mg Documented By: ARGELIA Hydromorphone HCl (Hydromorphone Hcl 1 Mg/Ml Syringe) 1 mg IVPUSH Q4H PRN; Protocol PRN Reason: Pain, Severe (Pain Scale 7-10) Last Admin: 10/20/22 02:34 Dose: 1 mg Documented By: VIKKI Piperacillin Sod/Tazobactam (Sod 4.5 gm/ Sodium Chloride) 100 mls @ 200 mls/hr IV Q6H [facility] Last Infusion: 10/20/22 07:00 Dose: 0 mls/hr Documented By: VIKKI Dextrose (D5w) 1,000 mls @ 100 mls/hr IVCONT .Q10H [facility] Last Admin: 10/20/22 00:05 Dose: 100 mls/hr Documented By: VIKKI Melatonin (Melatonin 3 Mg Tablet) 6 mg PO BEDTIME PRN PRN Reason: Insomnia Nicotine (Nicotine 14 Mg Patch.Td24) 14 mg TRANSDERMA DAILY [facility] Last Admin: 10/20/22 08:00 Dose: 14 mg Documented By: ARGELIA Ondansetron HCl (Ondansetron Hcl 4 Mg/2 Ml Vial) 4 mg IVPUSH Q8H PRN PRN Reason: Nausea and Vomiting Oxycodone HCl (Oxycodone Hcl Immed Release 15 Mg Tablet) 15 mg PO QID [facility] Last Admin: 10/20/22 08:00 Dose: 15 mg Documented By: ARGELIA Pharmacy Consult (Consult Rx Perform Med Rec) 1 each MISCELLANE ONCE PRN PRN Reason: Consult order Sodium Chloride (0.9 % Sodium Chloride Flush 3 Ml Syringe) 3 ml IVFLUSH QSHIFT [facility] Last Admin: 10/20/22 07:51 Dose: Not Given Documented By: ARGELIA Non-Admin Reason: IV Running Tamsulosin HCl (Tamsulosin Hcl 0.4 Mg Capsule) 0.4 mg PO DAILY [facility] Last Admin: 10/20/22 08:00 Dose: 0.4 mg Documented By: ARGELIA Labs 10/19/22 09:01 10/18/22 05:56 Labs: Laboratory Results - last 24 hr 10/19/22 09:01 MCV 88.1 MCH 31.6 MCHC 35.9 RDW 12.5 Plt Count 207 MPV 9.1 L Absolute Nucleated RBC 0.000 Nucleated RBC % (auto) 0.0 Microbiology Microbiology Results: Microbiology 10/17/22 23:39 Blood Culture - Preliminary Blood - Venous No growth after 48 hours. 10/17/22 23:39 Blood Culture - Preliminary Blood - Venous No growth after 48 hours. Procedures Date of Service Date of Service: 10/20/22 Progress Note: A&P Assessment and plan (1) Right lower quadrant pain: Status: Acute (2) Colitis: Status: Acute (3) Hypertension: Status: Acute Plan Given patient reported interval improvement, I have ordered full liquids for lunch Continue antibiotics. Trend exam and labs Dr. Uzair to resume care tomorrow, 10/21/2022. Time Spent With Patient Time: Total time managing care of this patient today ____ minutes. Quality Stroke Does the patient have a stroke diagnosis?: No VTE Prior VTE?: No VTE Risk Level:: Medical - moderate - high VTE Device Contraindication: N/A - Device Ordered VTE Drug Contraindication: Treatment Not Indicated
--- NOTE | 2022-10-20 09:52 | P.PNIM_ITS ---
Subjective Subjective Date of Service: 10/20/22 Interval History: f/u on sepsis, colitis, inteval history: pain continue to improveer Physical Exam Vital Signs: Vital Signs: Last Vital Signs Temp 97.3 F 10/20/22 07:45 Pulse 74 10/20/22 07:45 Resp 18 10/20/22 07:45 BP 128/63 10/20/22 07:45 Pulse Ox 97 10/20/22 07:45 O2 Del Method Room Air 10/20/22 07:45 BMI result Body Mass Index 26.0 Const: Other: General: AO X 3, no acute distress Resp: CTA bilateral CVS: S1,S2,RRR GI: RLL tenderness is less than yesterday, NT, no distention Skin: No rash Neuro: motor grossly intact Psych: appropriate affect Objective Data Active Medications Acetaminophen (Acetaminophen 325 Mg Tablet) 650 mg PO Q6H PRN PRN Reason: Pain, Mild (Pain Scale 1-3) Acetaminophen (Acetaminophen Supp 650 Mg Supp.Rect) 650 mg [place] Q6H PRN PRN Reason: Pain, Mild (Pain Scale 1-3) Amitriptyline HCl (Amitriptyline Hcl 50 Mg Tablet) 50 mg PO BEDTIME [facility] Last Admin: 10/19/22 20:13 Dose: 50 mg Documented By: VIKKI Enoxaparin Sodium (Enoxaparin Sodium 40 Mg/0.4 Ml Syringe) 40 mg SUBCUT Q24H [facility] Last Admin: 10/20/22 08:01 Dose: 40 mg Documented By: ARGELIA Hydromorphone HCl (Hydromorphone Hcl 1 Mg/Ml Syringe) 1 mg IVPUSH Q4H PRN; Protocol PRN Reason: Pain, Severe (Pain Scale 7-10) Last Admin: 10/20/22 02:34 Dose: 1 mg Documented By: VIKKI Piperacillin Sod/Tazobactam (Sod 4.5 gm/ Sodium Chloride) 100 mls @ 200 mls/hr IV Q6H [facility] Last Infusion: 10/20/22 07:00 Dose: 0 mls/hr Documented By: VIKKI Dextrose (D5w) 1,000 mls @ 100 mls/hr IVCONT .Q10H [facility] Last Admin: 10/20/22 00:05 Dose: 100 mls/hr Documented By: VIKKI Melatonin (Melatonin 3 Mg Tablet) 6 mg PO BEDTIME PRN PRN Reason: Insomnia Nicotine (Nicotine 14 Mg Patch.Td24) 14 mg TRANSDERMA DAILY [facility] Last Admin: 10/20/22 08:00 Dose: 14 mg Documented By: ARGELIA Ondansetron HCl (Ondansetron Hcl 4 Mg/2 Ml Vial) 4 mg IVPUSH Q8H PRN PRN Reason: Nausea and Vomiting Oxycodone HCl (Oxycodone Hcl Immed Release 15 Mg Tablet) 15 mg PO QID [facility] Last Admin: 10/20/22 08:00 Dose: 15 mg Documented By: ARGELIA Pharmacy Consult (Consult Rx Perform Med Rec) 1 each MISCELLANE ONCE PRN PRN Reason: Consult order Sodium Chloride (0.9 % Sodium Chloride Flush 3 Ml Syringe) 3 ml IVFLUSH QSHIFT [facility] Last Admin: 10/20/22 07:51 Dose: Not Given Documented By: ARGELIA Non-Admin Reason: IV Running Tamsulosin HCl (Tamsulosin Hcl 0.4 Mg Capsule) 0.4 mg PO DAILY [facility] Last Admin: 10/20/22 08:00 Dose: 0.4 mg Documented By: ARGELIA Labs 10/19/22 09:01 10/18/22 05:56 Microbiology Microbiology Results: Microbiology 10/17/22 23:39 Blood Culture - Preliminary Blood - Venous No growth after 48 hours. 10/17/22 23:39 Blood Culture - Preliminary Blood - Venous No growth after 48 hours. Assessment and Plan (1) Colitis: Status: Acute Plan 62-year-old male with pertinent history of essential hypertension, BPH, chronic back pain on opioids who presents to the emergency department for evaluation of abdominal discomfort. #.? Abdominal pain, concerning for focal colitis vs mass, improving on Abx -continue Zosyn 10/18/22, ivf, pain med. GI and Surgery following -full liquid diet today. WBC is now normal #.? Sepsis in the setting of above, managment as above #.? Essential hypertension, continue home meds #.? BPH: On Flomax DVT prophylaxis:? Mechanical.? Hold Lovenox until surgical evaluation Full code need for inaptient: sepsis, colitis requiring iv Abx--Change to PO Abx later today Time Spent With Patient Time: Total time managing care of this patient today ____ minutes. Quality Stroke Does the patient have a stroke diagnosis?: No VTE Prior VTE?: No VTE Risk Level:: Medical - moderate - high VTE Device Contraindication: N/A - Device Ordered VTE Drug Contraindication: Treatment Not Indicated
[2022-10-20 15:23] VITALS: BP 113/58; PULSE 110; RESP 15; TEMP 36.2; O2SAT 97
[2022-10-20 19:29] VITALS: BP 139/77; PULSE 99; RESP 14; TEMP 36; O2SAT 95
[2022-10-20] MEDS: Amitriptyline HCl 50 MG TABLET PO (20:37)
[2022-10-20] MEDS: Melatonin 3 MG TABLET 6 MG PO (23:32)
[2022-10-21 04:00] VITALS: BP 123/62; PULSE 84; RESP 18; TEMP 36.6; O2SAT 97
[2022-10-21] MEDS: Piperacillin Sodium/Tazobactam 4.5 GM in 0.9 % Sodium Chloride 100 ML IV (06:05)
[2022-10-21 08:00] VITALS: BP 144/66; PULSE 74; RESP 18; TEMP 36.7; O2SAT 97
--- NOTE | 2022-10-21 08:24 | P.PNGS_ITS ---
Subjective Subjective Date of Service: 10/21/22 Interval history: Says he feels better Much less pain on the right lower quadrant Some loose stools Passing flatus No nausea or vomiting Physical Exam Vital Signs: Vital Signs: Last Vital Signs Temp 98.0 F 10/21/22 08:00 Pulse 74 10/21/22 08:00 Resp 18 10/21/22 08:00 BP 144/66 H 10/21/22 08:00 Pulse Ox 97 10/21/22 08:00 O2 Del Method Room Air 10/21/22 08:00 BMI result Body Mass Index 26.0 Const: General: comfortable and no acute distress Resp: Effort & Inspection: normal respiratory effort Cardio: Rate: regular rate GI: Other: Mild tenderness on the right lower quadrant Palpation (GI): Soft to palpation, not firm and no guarding Objective Data Active Medications Acetaminophen (Acetaminophen 325 Mg Tablet) 650 mg PO Q6H PRN PRN Reason: Pain, Mild (Pain Scale 1-3) Acetaminophen (Acetaminophen Supp 650 Mg Supp.Rect) 650 mg [place] Q6H PRN PRN Reason: Pain, Mild (Pain Scale 1-3) Amitriptyline HCl (Amitriptyline Hcl 50 Mg Tablet) 50 mg PO BEDTIME [facility] Last Admin: 10/20/22 20:37 Dose: 50 mg Documented By: EMILIANO Enoxaparin Sodium (Enoxaparin Sodium 40 Mg/0.4 Ml Syringe) 40 mg SUBCUT Q24H [facility] Last Admin: 10/20/22 08:01 Dose: 40 mg Documented By: ARGELIA Hydromorphone HCl (Hydromorphone Hcl 1 Mg/Ml Syringe) 1 mg IVPUSH Q4H PRN; Protocol PRN Reason: Pain, Severe (Pain Scale 7-10) Last Admin: 10/20/22 20:37 Dose: 1 mg Documented By: EMILIANO Piperacillin Sod/Tazobactam (Sod 4.5 gm/ Sodium Chloride) 100 mls @ 200 mls/hr IV Q6H [facility] Last Infusion: 10/21/22 07:23 Dose: 0 mls/hr Documented By: TEJAL Melatonin (Melatonin 3 Mg Tablet) 6 mg PO BEDTIME PRN PRN Reason: Insomnia Last Admin: 10/20/22 23:32 Dose: 6 mg Documented By: EMILIANO Nicotine (Nicotine 14 Mg Patch.Td24) 14 mg TRANSDERMA DAILY [facility] Last Admin: 10/20/22 08:00 Dose: 14 mg Documented By: ARGELIA Ondansetron HCl (Ondansetron Hcl 4 Mg/2 Ml Vial) 4 mg IVPUSH Q8H PRN PRN Reason: Nausea and Vomiting Oxycodone HCl (Oxycodone Hcl Immed Release 15 Mg Tablet) 15 mg PO QID [facility] Last Admin: 10/20/22 20:37 Dose: 15 mg Documented By: EMILIANO Pharmacy Consult (Consult Rx Perform Med Rec) 1 each MISCELLANE ONCE PRN PRN Reason: Consult order Sodium Chloride (0.9 % Sodium Chloride Flush 3 Ml Syringe) 3 ml IVFLUSH QSHIFT [facility] Last Admin: 10/20/22 23:34 Dose: Not Given Documented By: EMILIANO Non-Admin Reason: IV Running Tamsulosin HCl (Tamsulosin Hcl 0.4 Mg Capsule) 0.4 mg PO DAILY [facility] Last Admin: 10/20/22 08:00 Dose: 0.4 mg Documented By: ARGELIA Labs 10/19/22 09:01 10/18/22 05:56 Procedures Date of Service Date of Service: 10/21/22 Progress Note: A&P Assessment and plan (1) Right lower quadrant pain: Status: Acute Assessment and Plan: Likely cecal colitis Much improved Tolerating current diet Okay to advance diet as tolerated Exam remains benign Looks well and comfortable Time Spent With Patient Time: Total time managing care of this patient today ____ minutes. Quality Stroke Does the patient have a stroke diagnosis?: No VTE Prior VTE?: No VTE Risk Level:: Medical - moderate - high VTE Device Contraindication: N/A - Device Ordered VTE Drug Contraindication: Treatment Not Indicated
[2022-10-21] MEDS: Nicotine 14 MG PATCH.TD24 TRANSDERMA (09:35)
[2022-10-21] MEDS: Enoxaparin Sodium 40 MG/0.4 ML SYRINGE SUBCUT (09:35)
[2022-10-21] MEDS: 0.9 % Sodium Chloride Flush 3 ML SYRINGE IVFLUSH (09:35)
[2022-10-21] MEDS: oxyCODONE HCl Immed Release 15 MG TABLET PO ×2 (09:35→12:09)
[2022-10-21] MEDS: Tamsulosin HCL 0.4 MG CAPSULE PO (09:35)
--- NOTE | 2022-10-21 10:13 | P.DS_ITS ---
DS: Providers Provider Date of Service: 10/21/22 Date of admission: 10/17/22 23:19 Primary care physician: Galindo Muro MD Consults: 10/17/22 23:15 Consult to General Surgery Stat Consulting Provider: [facility] [place] [facility] Reason for consultation: RLQ pain, tenderness, guarding H/O diverticula, left colon sx w L side appe 10/18/22 07:25 Consult to Gastroenterology Routine Consulting Provider: Cedric Walton Reason for consultation: colitis Has provider been notified: No 10/18/22 13:10 Consult to General Surgery Routine Consulting Provider: [facility] [place] [facility] Reason for consultation: RLQ pain, tenderness, guarding H/O diverticula, left colon sx w L side appe Has provider been notified: No DS: Diagnosis Discharge Diagnosis (1) Right lower quadrant pain: Status: Resolved DS: Summary Hospital Course Hospital Course: Chief Complaint: Abdominal Pain This is a 62-year-old male with pertinent history of essential hypertension, BPH, chronic back pain on opioids who presents to the emergency department for evaluation of abdominal discomfort.? Patient states he had right lower quadrant abdominal pain that started 3 days prior to presentation, constant, nonradiating and without any relieving factors.? Patient took his home oxycodone but no relief.? The pain is sharp and worse with movement.? Patient denies associated fever, chills, nausea, vomiting.? Admits poor p.o. intake due to the intense pain.? Patient initially felt that he was constipated but after Dulcolax had multiple episodes of loose stools.? No recent travels.? Patient had a history of left-sided diverticulitis in 2010 and underwent left colectomy.? He denies chest discomfort, palpitations, shortness of breath, changes in urinary habits. In the emergency department, imaging concerning for focal colitis.? General surgery was consulted who recommended admission to Medicine Floor and will evaluate patient in a.m. Hospital course: Patient presented with abdominal pain and CT shows evidence of colitis along with high WBC and met sepsis criteria. He was treated with IV antibiotics (Zosyn x 4 days), IVF and overall has signficantly improved with exam significantly improved, diet has been advanced to regular diet with no problem, WBC has normalized. He was followed by surgery with no indication for surgery, also was seen by GI with no indication for colonoscopy. He will be discharged with Augment and Flagyl for 3 more days for total of 7 days, and follow up with PCP and recommend outpatient GI referal with Dr. Soliman Final diagnosis: Sepsis Colitis Time Spent with Patient Time attestation: Total time managing care of this patient today ____ minutes. Discharge coordination time: Greater than 30 minutes Quality: Safe Use of Opioids Does Pt have an Active Cancer Diagnosis on the Problem List?: No Quality: Stroke Does the patient have a stroke diagnosis?: No Physical Exam Vital Signs: Vital Signs: Last Vital Signs Temp 98.0 F 10/21/22 08:00 Pulse 74 10/21/22 08:00 Resp 18 10/21/22 08:00 BP 144/66 H 10/21/22 08:00 Pulse Ox 97 10/21/22 08:00 O2 Del Method Room Air 10/21/22 08:00 BMI result Body Mass Index 26.0 Const: Other: General: AO X 3, no acute distress Resp: CTA bilateral CVS: S1,S2,RRR GI: +BS, NT, no distention Skin: No rash Neuro: motor grossly intact Psych: appropriate affect DS: Data Data Completed and Pending Labs on day of discharge: Preliminary micro results at discharge 10/17/22 23:39 Blood Culture - Preliminary Blood - Venous No growth after 48 hours. 10/17/22 23:39 Blood Culture - Preliminary Blood - Venous No growth after 48 hours. Discharge Plan Discharge Anticipated Discharge Date/Time: 10/21/22 10:10 Patient Disposition: Home, Self-Care Discharge Diagnosis: Acute colitis, abdominal pain Referrals: Po,Galindo Cash MD [Primary Care Provider] - 1 Week Discharge Medications: New amoxicillin-pot clavulanate 875-125 mg tablet 1 tab PO BID Qty: 5 0RF metronidazole 500 mg tablet 500 mg PO BID Qty: 5 0RF Continued tizanidine 4 mg capsule 4 mg PO Q8H PRN (Reason: Pain) 90 Days Qty: 90 3RF oxycodone 15 mg tablet See Rx Instructions PO Q6H PRN (Reason: pain) Qty: 135 0RF Rx Instructions: 1-2 tabs PO every 6 hours PRN; partial fill upon request oxycodone 15 mg tablet 15 mg PO QID Rx Instructions: 1-2 tabs PO every 6 hours PRN; partial fill upon request pantoprazole 40 mg tablet,delayed release (DR/EC) 40 mg PO DAILY 90 Days Qty: 90 3RF amitriptyline 50 mg tablet 50 mg PO BEDTIME 90 Days Qty: 90 2RF tamsulosin 0.4 mg capsule 0.4 mg PO DAILY Qty: 90 3RF Discharge Orders: Discharge Order (Routine); Ordered 10/21/22 Ordered By: Jerry Lantigua Diet: Advance to usual diet Activity on Discharge: As tolerated Stand Alone Forms: Patient Portal Discharge page Care Plan Goals: Full recovery from colitis Health Concerns: Colitis Plan of Treatment: Take Augmentin and Flagyl as recommended and follow up with your primary care physician, ask your Primary care provider to make a GI referral for follow up Assessment: As above Discharge Date/Time: 10/21/22 12:09
--- NOTE | 2022-10-21 10:46 | MHC.CM.PN ---
Patient is discharged to home self care today. Patient has arranged for transportation home.
[2022-10-21] MEDS: Amoxicillin/Potassium Clav 875 MG TABLET PO (10:52)
[2022-10-21] MEDS: metroNIDAZOLE 500 MG TABLET PO (10:52)
== END 2022-10-21 12:09 | disposition home or self-care (01) | DRG 720 ==
LOC: HO.ED 23:43 → HO.EDOVER 23:47 → HO.S3 10-18 00:04
PROVIDERS: Admitting Provider Student in an Organized Health Care Education/Training Program; Emergency Provider Emergency Medicine Emergency Medical Services; PCP Internal Medicine; Visit Provider Internal Medicine
DX: A41.9 Sepsis, unspecified organism (principal); I10 Essential (primary) hypertension; F17.210 Nicotine dependence, cigarettes, uncomplicated; N40.0 Benign prostatic hyperplasia without lower urinary tract symptoms; K52.89 Other specified noninfective gastroenteritis and colitis; Z88.6 Allergy status to analgesic agent; Z71.6 Tobacco abuse counseling; Z79.899 Other long term (current) drug therapy
CPT/HCPCS: 36415; 74176; 80048; 80076; 81003; 83605; 83690; 85025; 85027; 87040; 99221; 99285; J1170; J1650; J2543

== ENCOUNTER 2022-11-01 09:05 | Outpatient (REF) | payer BC, MEDICARE, SELFPAY | END 2022-11-01 09:06 | disposition home or self-care (01) | LOC: HO.CT 09:05 | PROVIDERS: PCP Internal Medicine; Visit Provider Internal Medicine | DX: Z13.89 Encounter for screening for other disorder (principal) ==

== ENCOUNTER 2022-11-15 19:06 | Emergency (ER) | payer BC, MEDICARE, SELFPAY ==
--- NOTE | ~2022-11-15 | US_ITS ---
EXAMINATION: US SCROTUM CLINICAL INFORMATION: Left testicular pain and swelling. COMPARISON: None available. TECHNIQUE: A sonogram of the scrotum was performed assessing mujica-scale appearance and color Doppler flow. Spectral Doppler analysis of the arterial and venous flow were performed in the testes bilaterally. FINDINGS: RIGHT: Right testicle measures 3.1 x 2.2 x 2.5 cm, volume 9.2 mL. No focal testicular parenchymal lesions are visualized. Spectral Doppler analysis of the arterial and venous flow is normal in the right testis. Right epididymal head is normal in size. No right hydrocele or varicocele is seen. Right epididymal Doppler flow is normal. LEFT: Left testicle measures 3.4 x 2.3 x 3 cm, volume 12 mL. No focal testicular parenchymal lesions are visualized. Spectral Doppler analysis of the arterial and venous flow is normal in the left testis. Left epididymal head is prominent. No varicocele. No significant hydrocele. Left epididymal Doppler flow is normal. US/US scrotum doppler IMPRESSION: Prominent left epididymal head. Normal vascularity. This could be associated with resolving epididymitis..
--- NOTE | ~2022-11-15 | US_ITS ---
EXAMINATION: US SCROTUM CLINICAL INFORMATION: Left testicular pain and swelling. COMPARISON: None available. TECHNIQUE: A sonogram of the scrotum was performed assessing mujica-scale appearance and color Doppler flow. Spectral Doppler analysis of the arterial and venous flow were performed in the testes bilaterally. FINDINGS: RIGHT: Right testicle measures 3.1 x 2.2 x 2.5 cm, volume 9.2 mL. No focal testicular parenchymal lesions are visualized. Spectral Doppler analysis of the arterial and venous flow is normal in the right testis. Right epididymal head is normal in size. No right hydrocele or varicocele is seen. Right epididymal Doppler flow is normal. LEFT: Left testicle measures 3.4 x 2.3 x 3 cm, volume 12 mL. No focal testicular parenchymal lesions are visualized. Spectral Doppler analysis of the arterial and venous flow is normal in the left testis. Left epididymal head is prominent. No varicocele. No significant hydrocele. Left epididymal Doppler flow is normal. US/US scrotum IMPRESSION: Prominent left epididymal head. Normal vascularity. This could be associated with resolving epididymitis..
--- NOTE | ~2022-11-15 | CT_ITS ---
EXAMINATION: CT ABDOMEN AND PELVIS WITH CONTRAST CLINICAL INFORMATION: Diffuse abdominal pain, recent admission with colitis. COMPARISON: CT abdomen/pelvis 10/17/2022. TECHNIQUE: Multidetector volumetric images were obtained from the superior aspect of the liver through the pubic symphysis following administration 85 mL of Omnipaque 350 intravenous contrast. Sagittal and coronal reformatted images were obtained on the technologist's workstation. Oral contrast: No This CT examination was performed using dose optimization techniques as appropriate, variously including the following: *Automated exposure control *Adjustment of mA and/or kV according to patient size (this includes techniques or standardized protocols for targeted exams where dose is matched to indication/reason for exam; i.e. extremities or head) *Use of iterative reconstruction technique DLP: 558 mGy-cm FINDINGS: LUNG BASES: Slightly increased reticular changes and groundglass opacities in the posterior lower lungs. Partially imaged coronary artery calcifications. LIVER, GALLBLADDER, AND BILIARY TREE: The liver is normal in size, shape, and attenuation. No focal hepatic lesion or biliary ductal dilatation is present. Small 0.4 cm hyperattenuating focus in the gallbladder neck (3:24), stable dating back to 11/30/2020 could represent an adherent stone or polyp. No gallbladder wall thickening. No pericholecystic inflammatory changes. PANCREAS: Unremarkable. SPLEEN: Calcified granuloma in the inferoposterior spleen. ADRENAL GLANDS: Unremarkable. KIDNEYS AND URETERS: Too small to characterize hypodensities in the left kidney, statistically likely to represent simple cysts and for which no imaging follow-up is recommended. Symmetric nephrograms. No hydronephrosis. No perinephric fat stranding. BLADDER: Unremarkable. GASTROINTESTINAL TRACT: The stomach and the small bowel are nondilated. Appendix not visualized, however there are no indirect findings to suspect acute appendicitis. Colonic diverticulosis. No pericolonic fat stranding. No evidence of bowel obstruction. ABDOMINAL WALL: No significant hernia is appreciated. LYMPH NODES: No lymphadenopathy. VASCULAR: Abdominal aorta is normal in caliber. PELVIC VISCERA: Unremarkable. OSSEOUS STRUCTURES: Intervertebral disc spacers at L3-L4 and L4-L5. Degenerative changes of the spine. Nonspecific heterogeneity of the bone marrow, stable dating back to 2020. No acute or aggressive appearing osseous abnormalities. CT/CT abdomen pelvis w IV con IMPRESSION: 1. No acute intra-abdominal or pelvic abnormalities to explain the patient's symptoms. 2. Colonic diverticulosis but no evidence of acute diverticulitis. 3. A 0.4 cm hyperattenuating focus in the gallbladder neck is unchanged dating back to 2020, could represent a calculus or polyp. No CT evidence to suspect acute cholecystitis. 4. Increased layering airspace opacities in the lower lobes, could be infectious or inflammatory versus related with worsening atelectasis. Correlate clinically for symptoms of respiratory infection.
[2022-11-15 20:27] VITALS: BP 175/91; PULSE 106; RESP 18; TEMP 36.8; O2SAT 97; BMI 25.8
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
[2022-11-15 20:46] LABS: MANUAL DIFF FLAG NO
[2022-11-15 20:48] LABS: Basophils Absolute Auto 0.1 X10*3/uL (0.0-0.2); Basophils Percent Auto 0.4 % (0-2); Eosinophils Absolute Auto 0.1 X10*3/uL (0.0-0.4); Eosinophils Percent Auto 0.5 % (0-4); Hematocrit 40.9 % (42.0-52.0); Hemoglobin 14.2 g/dl (14.0-18.0); Imm Gran Abs Auto 0.05 X10*3/uL (0.00-0.03); Imm Gran Pct Auto 0.3 % (0.0-0.4); Lymphocytes Absolute Auto 3.7 X10*3/uL (1.2-4.9); Lymphocytes Percent Auto 23.7 % (20-40); Mean Corpuscular HGB Conc 34.7 g/dl (31.0-36.0); Mean Corpuscular Hemoglobin 31.4 pg (27.0-33.0); Mean Corpuscular Volume 90.5 fL (80.0-98.0); Mean Platelet Volume 9.7 fL (9.4-12.4); Monocytes Percent Auto 6.6 % (2-11); Neutrophils Absolute Auto 10.6 x10*3/uL (2.0-8.3); Neutrophils Percent Auto 68.5 % (45-73); Platelet Count 243 X10*3/uL (160-400); Red Blood Count 4.52 X10*6/uL (4.60-5.80); Red Cell Distribution Width 12.7 % (11.0-16.0); White Blood Count 15.4 X10*3/uL (4.8-10.8)
[2022-11-15 21:05] LABS: Alanine Aminotransferase 13 U/L (0-40); Albumin Level 4.7 g/dL (3.5-5.0); Alkaline Phosphatase 91 U/L (39-117); Anion Gap 14 (12-20); Aspartate Amino Transferase 18 U/L (5-37); Bilirubin Direct 0.2 mg/dL (0.0-0.5); Bilirubin Total 0.6 mg/dL (0.0-1.0); Blood Urea Nitrogen 7 mg/dL (9-16); Calcium 9.9 mg/dL (8.4-10.2); Carbon Dioxide 30 mmol/L (22-29); Chloride 100 mmol/L (96-108); Creatinine Clr Calc Pharmacy 84.3; Estimated Glomerular Filt Rate > 60; Glucose Random 113 mg/dL (60-115); Lipase 10 U/L (8-78); Magnesium 1.7 mg/dL (1.6-2.6); Potassium 4.7 mmol/L (3.3-5.1); Sodium 139 mmol/L (135-145); Total Protein 7.5 g/dL (6.5-8.0)
[2022-11-15 23:04] VITALS: BP 164/78; PULSE 91; RESP 16; O2SAT 96
[2022-11-15 23:15] LABS: Appearance Urine Clear; Color Urine Yellow; Glucose Urine UA Negative (Negative); Leukocyte Esterase Urine Negative (Negative); Nitrite Urine Negative (Negative); PH 5.5 (5.0-9.0); Specific Gravity - Urine <= 1.005 (1.005-1.025); Urine Blood Negative (Negative); Urine Ketones Negative (Negative); Urine Protein Negative (Neg-Trace)
[2022-11-15 23:26] VITALS: RESP 16
[2022-11-15] MEDS: Morphine Sulfate 4 MG/ML CARTRIDGE IVPUSH (23:26)
[2022-11-15] MEDS: ondansetron HCL 4 MG/2 ML VIAL IVPUSH (23:26)
[2022-11-15] MEDS: 0.9 % Sodium Chloride 1,000 ML 999 ML IV (23:27)
[2022-11-15 23:51] LABS: OBS Int Ctl Valid YES; OBS1 NEGATIVE (NEGATIVE)
[2022-11-16 00:04] LABS: Lactic Acid 2.6 mmol/L (0.5-2.0)
[2022-11-16] MEDS: iohexoL 350 MG/ML 100 ML INFUS..BTL IV (00:15)
[2022-11-16] MEDS: Piperacillin Sodium/Tazobactam 3.375 GM in 0.9 % Sodium Chloride 50 ML IV (00:18)
[2022-11-16] MEDS: HYDROmorphone HCl 0.5 MG/0.5 ML SYRINGE IVPUSH (00:41)
--- NOTE | 2022-11-16 00:51 | PC.NURSE ---
pt reported minimal pain relief, medicated with 0.5mg of dilaudid ivp
[2022-11-16 01:02] VITALS: BP 145/72; PULSE 93; RESP 16; O2SAT 96
[2022-11-16 01:50] LABS: Reflex Lactate? Lactic Acid Added
[2022-11-16 01:58] LABS: Lactic Acid 0.9 mmol/L (0.5-2.0)
== END 2022-11-16 02:18 | disposition home or self-care (01) ==
PROVIDERS: Nurse Practitioner Family; Physician Assistant Medical; Emergency Provider Student in an Organized Health Care Education/Training Program; PCP Internal Medicine
DX: J18.9 Pneumonia, unspecified organism (principal); K59.00 Constipation, unspecified; R10.2 Pelvic and perineal pain; N50.812 Left testicular pain; N50.811 Right testicular pain; Z79.899 Other long term (current) drug therapy
CPT/HCPCS: 36415; 74177; 76870; 80048; 80076; 81003; 82272; 83605; 83690; 83735; 85025; 87040; 93975; 96361; 96365; 96375; 99284; J1170; J2270; J2405; J2543; Q9967

== ENCOUNTER 2022-11-21 11:02 | Emergency (ER) | payer BC, MEDICARE, SELFPAY ==
--- NOTE | ~2022-11-21 | CT_ITS ---
EXAMINATION: CT ABDOMEN AND PELVIS WITH CONTRAST CLINICAL INFORMATION: Left lower quadrant tenderness COMPARISON: CT abdomen pelvis 11/16/2022 TECHNIQUE: Multidetector volumetric images were obtained from the superior aspect of the liver through the pubic symphysis following administration 85 mL of Omnipaque 350 intravenous contrast. Sagittal and coronal reformatted images were obtained on the technologist's workstation. Oral contrast: No This CT examination was performed using dose optimization techniques as appropriate, variously including the following: *Automated exposure control *Adjustment of mA and/or kV according to patient size (this includes techniques or standardized protocols for targeted exams where dose is matched to indication/reason for exam; i.e. extremities or head) *Use of iterative reconstruction technique DLP: 582 mGy-cm FINDINGS: LUNG BASES: The visualized lung bases are unremarkable. LIVER, GALLBLADDER, AND BILIARY TREE: The liver is normal in size, shape, and attenuation. No focal hepatic lesion or biliary ductal dilatation is present. Small dependent gallstone in gallbladder. No gallbladder wall thickening or pericholecystic fluid. No bile duct dilatation. Extrahepatic CBD measures 5 mm. PANCREAS: Unremarkable. SPLEEN: Small peripheral calcification in the spleen, gastric granuloma. ADRENAL GLANDS: Unremarkable. KIDNEYS AND URETERS: The kidneys are normal in size, shape, and attenuation. No hydronephrosis, hydroureter, or calculi seen. No perinephric stranding. BLADDER: Unremarkable. GASTROINTESTINAL TRACT: There are a few scattered diverticula of the sigmoid and left colon. There is no diverticulitis. There is no bowel wall thickening /edema. There is no bowel obstruction. There is a moderate volume of stool in the colon. The appendix is nonvisualized . The small bowel loops are unremarkable. The stomach is normal. There is no hiatal hernia. ABDOMINAL WALL: No significant hernia is appreciated. LYMPH NODES: Normal. VASCULAR: Vascular calcifications in the abdomen and the pelvis. There is no aneurysm. PELVIC VISCERA: Unremarkable. OSSEOUS STRUCTURES: Orthopedic disc spacers at lower lumbar spine, L3-L4 and L4-L5, redemonstrated. No acute osseous abnormality. CT/CT abdomen pelvis w IV con IMPRESSION: No acute abnormality CT scan abdomen pelvis. Fleischner guidelines were followed.
[2022-11-21 11:26] VITALS: BP 155/80; PULSE 99; RESP 18; TEMP 36.8; O2SAT 96; BMI 25.8
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
[2022-11-21 11:43] LABS: MANUAL DIFF FLAG NO
[2022-11-21 11:46] LABS: Basophils Absolute Auto 0.1 X10*3/uL (0.0-0.2); Basophils Percent Auto 0.4 % (0-2); Eosinophils Absolute Auto 0.1 X10*3/uL (0.0-0.4); Eosinophils Percent Auto 0.7 % (0-4); Hematocrit 37.4 % (42.0-52.0); Imm Gran Abs Auto 0.03 X10*3/uL (0.00-0.03); Imm Gran Pct Auto 0.2 % (0.0-0.4); Lymphocytes Absolute Auto 3.6 X10*3/uL (1.2-4.9); Lymphocytes Percent Auto 26.7 % (20-40); Mean Corpuscular HGB Conc 34.8 g/dl (31.0-36.0); Mean Corpuscular Hemoglobin 31.3 pg (27.0-33.0); Mean Corpuscular Volume 89.9 fL (80.0-98.0); Mean Platelet Volume 9.6 fL (9.4-12.4); Monocytes Percent Auto 7.7 % (2-11); Neutrophils Absolute Auto 8.6 x10*3/uL (2.0-8.3); Neutrophils Percent Auto 64.3 % (45-73); Platelet Count 202 X10*3/uL (160-400); Red Blood Count 4.16 X10*6/uL (4.60-5.80); Red Cell Distribution Width 12.8 % (11.0-16.0); White Blood Count 13.5 X10*3/uL (4.8-10.8)
[2022-11-21 12:05] LABS: Alanine Aminotransferase 10 U/L (0-40); Albumin Level 4.3 g/dL (3.5-5.0); Alkaline Phosphatase 87 U/L (39-117); Anion Gap 13 (12-20); Aspartate Amino Transferase 16 U/L (5-37); Bilirubin Direct 0.1 mg/dL (0.0-0.5); Bilirubin Total 0.5 mg/dL (0.0-1.0); Blood Urea Nitrogen 8 mg/dL (9-16); Calcium 9.3 mg/dL (8.4-10.2); Carbon Dioxide 29 mmol/L (22-29); Chloride 102 mmol/L (96-108); Creatinine Clr Calc Pharmacy 86.1; Estimated Glomerular Filt Rate > 60; Glucose Random 94 mg/dL (60-115); Lipase 10 U/L (8-78); Potassium 4.3 mmol/L (3.3-5.1); Sodium 140 mmol/L (135-145); Total Protein 7.2 g/dL (6.5-8.0)
[2022-11-21 15:08] VITALS: BP 151/78; PULSE 75; RESP 12; TEMP 36.8; O2SAT 98
[2022-11-21 15:47] LABS: Appearance Urine Clear; Color Urine Yellow; Glucose Urine UA Negative (Negative); Leukocyte Esterase Urine Negative (Negative); Nitrite Urine Negative (Negative); Specific Gravity - Urine <= 1.005 (1.005-1.025); Urine Blood Negative (Negative); Urine Ketones Negative (Negative); Urine Protein Negative (Neg-Trace)
[2022-11-21 16:53] LABS: C Reactive Protein 0.44 mg/dL (< or = 0.50)
[2022-11-21 17:25] VITALS: PULSE 74; RESP 16; TEMP 36.6; O2SAT 99
[2022-11-21 17:25] LABS: Erythrocyte Sedimentation Rate 20 MM/HR (0-15)
[2022-11-21] MEDS: Barium Sulfate Oral (Mocha) 450 ML ORAL.SUSP PO (19:06)
[2022-11-21] MEDS: iohexoL 350 MG/ML 100 ML INFUS..BTL IV (19:06)
[2022-11-21 19:32] VITALS: BP 151/69; PULSE 84; RESP 14; TEMP 36.8; O2SAT 97
[2022-11-21 20:16] VITALS: BP 155/72; PULSE 84; RESP 14; TEMP 36.9; O2SAT 99
== END 2022-11-21 21:58 | disposition home or self-care (01) ==
PROVIDERS: Nurse Practitioner Family; Physician Assistant; Emergency Provider Student in an Organized Health Care Education/Training Program; PCP Internal Medicine
DX: R10.32 Left lower quadrant pain (principal); M54.50 Low back pain, unspecified; F17.210 Nicotine dependence, cigarettes, uncomplicated; Z79.899 Other long term (current) drug therapy; Z71.6 Tobacco abuse counseling
CPT/HCPCS: 36415; 74177; 80048; 80076; 81003; 83690; 85025; 85652; 86140; 99283; 99284; Q9967

== ENCOUNTER 2022-12-23 10:42 | Outpatient (AMB) | payer BC, MEDICARE, SELFPAY ==
[2022-12-23 10:47] VITALS: BP 132/70; PULSE 98; O2SAT 97; BMI 26.5
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
== END 2022-12-23 11:26 | disposition home or self-care (01) ==
PROVIDERS: Visit Provider Internal Medicine
DX: R10.32 Left lower quadrant pain (principal); Z72.0 Tobacco use; K22.70 Barrett's esophagus without dysplasia; M96.1 Postlaminectomy syndrome, not elsewhere classified
CPT/HCPCS: 99214

== ENCOUNTER 2023-01-21 09:32 | Outpatient (AMB) | payer BC, MEDICARE, SELFPAY ==
[2023-01-21 09:35] VITALS: BP 158/82; PULSE 105; O2SAT 97; BMI 24.7
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
== END 2023-01-21 10:20 | disposition home or self-care (01) ==
PROVIDERS: Visit Provider Internal Medicine
DX: K22.70 Barrett's esophagus without dysplasia (principal); Z72.0 Tobacco use; M47.27 Other spondylosis with radiculopathy, lumbosacral region; J45.909 Unspecified asthma, uncomplicated
CPT/HCPCS: 99214

== ENCOUNTER 2023-01-28 12:36 | Outpatient (REF) | payer BC, MEDICARE, SELFPAY ==
--- NOTE | ~2023-01-28 | XR_ITS ---
EXAMINATION: XR CHEST CLINICAL INFORMATION: Respiratory diseases COMPARISON: 09/30/2022 TECHNIQUE: 2 views of the chest were obtained. FINDINGS: Heart size normal. No focal consolidation to suggest pneumonia. No pleural effusion. Degenerative changes in the thoracic spine. XR/XR chest 2V IMPRESSION: No focal consolidation to suggest pneumonia.
== END 2023-01-28 12:37 | disposition home or self-care (01) ==
LOC: HO.XRAY 12:36
PROVIDERS: PCP Internal Medicine; Visit Provider Internal Medicine
DX: J98.8 Other specified respiratory disorders (principal); R06.00 Dyspnea, unspecified
CPT/HCPCS: 71046

== ENCOUNTER 2023-02-21 09:18 | Outpatient (AMB) | payer BC, MEDICARE, SELFPAY ==
[2023-02-21 09:22] VITALS: BP 150/78; PULSE 104; RESP 17; O2SAT 96; BMI 25.6
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
== END 2023-02-21 09:58 | disposition home or self-care (01) ==
PROVIDERS: Visit Provider Internal Medicine
DX: K58.9 Irritable bowel syndrome, unspecified (principal); D63.8 Anemia in other chronic diseases classified elsewhere; M96.1 Postlaminectomy syndrome, not elsewhere classified; J43.1 Panlobular emphysema; Z72.0 Tobacco use
CPT/HCPCS: 99214

== ENCOUNTER 2023-03-24 09:14 | Outpatient (AMB) | payer BC, MEDICARE, SELFPAY ==
[2023-03-24 09:16] VITALS: BP 144/68; PULSE 78; O2SAT 98; BMI 26.3
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
== END 2023-03-24 09:42 | disposition home or self-care (01) ==
PROVIDERS: Visit Provider Internal Medicine
DX: J43.1 Panlobular emphysema (principal); Z72.0 Tobacco use; E66.3 Overweight; K22.70 Barrett's esophagus without dysplasia; M96.1 Postlaminectomy syndrome, not elsewhere classified; R03.0 Elevated blood-pressure reading, without diagnosis of hypertension; Z23 Encounter for immunization
CPT/HCPCS: 90471; 90686; 99214

== ENCOUNTER 2023-04-24 09:16 | Outpatient (AMB) | payer BC, MEDICARE, SELFPAY ==
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
== END 2023-04-24 11:13 | disposition home or self-care (01) ==
LOC: HO.HMGH 09:16
PROVIDERS: PCP Internal Medicine; Visit Provider Internal Medicine
DX: U07.1 COVID-19 (principal); J43.1 Panlobular emphysema; D63.8 Anemia in other chronic diseases classified elsewhere; Z72.0 Tobacco use; K22.70 Barrett's esophagus without dysplasia; M96.1 Postlaminectomy syndrome, not elsewhere classified
CPT/HCPCS: 99214

== ENCOUNTER 2023-05-13 14:58 | Outpatient (REF) | payer BC, MEDICARE, SELFPAY ==
--- NOTE | ~2023-05-13 | CT_ITS ---
EXAMINATION: CT CHEST SCREENING CLINICAL INFORMATION: Lung cancer screening; current smoker with a 50 pack-year smoking history. COMPARISON: Prior CT examinations, most recently 01/03/2022. TECHNIQUE: Multidetector volumetric CT imaging of the chest is performed without contrast using low dose technique. Additional 2D coronal and sagittal reformatted images and axial 3D maximum intensity projection (MIP) images are generated on the CT workstation. This CT examination was performed using dose optimization techniques as appropriate, variously including the following: *Automated exposure control *Adjustment of mA and/or kV according to patient size (this includes techniques or standardized protocols for targeted exams where dose is matched to indication/reason for exam; i.e. extremities or head) *Use of iterative reconstruction technique DLP: 67 mGy-cm FINDINGS: LUNGS: There are marked paraseptal predominant emphysematous changes. Laterally within the right upper lobe (5:37), a stable 3 mm noncalcified nodule is seen. There are a few small benign, calcified granulomas noted within the right lung. No mass, infiltrate or groundglass opacity is seen. Mild bibasilar increase is noted in subpleural reticular markings. There is mild generalized small airway thickening. The central airways appear patent. MEDIASTINUM: The thyroid is unremarkable. There are multiple mediastinal lymph nodes noted, the largest in the pretracheal region measuring 2.3 x 1.4 cm, 2.7 x 2.1 cm and 2.3 x 0.7 cm (3:19 and 24). There are mild atherosclerotic calcifications of the great vessel origins and thoracic aorta. No thoracic aortic aneurysm is seen. CORONARY ARTERY CALCIFICATION: Mild. There is a trace pericardial effusion. PLEURA: There are moderate right and small left pleural effusions. No pleural mass or thickening. AXILLA: No lymphadenopathy. UPPER ABDOMEN: Unremarkable OSSEOUS STRUCTURES: There is mild thoracic degenerative disc disease and spondylosis. No acute or aggressive osseous finding is noted. CT/CT lung screening IMPRESSION: There are mild paraseptal emphysematous changes. A stable 3 mm right upper lobe noncalcified nodule is seen, and there are a few scattered benign, calcified right lung granulomas. There are again increased mediastinal lymph nodes, for which continued attention on imaging follow-up is recommended. Moderate right and small left pleural effusions are noted. No aggressive osseous lesion is seen. ASSESSMENT: Lung-RADS category 2: Benign RECOMMENDATION: Routine annual low-dose CT screening in 12 months.
== END 2023-05-13 14:59 | disposition home or self-care (01) ==
LOC: HO.CT 14:58
PROVIDERS: PCP Internal Medicine; Visit Provider Physician Assistant Medical
DX: Z12.2 Encounter for screening for malignant neoplasm of respiratory organs (principal); F17.210 Nicotine dependence, cigarettes, uncomplicated
CPT/HCPCS: 71271

== ENCOUNTER 2023-05-23 09:39 | Outpatient (AMB) | payer BC, MEDICARE, SELFPAY ==
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
[2023-05-23 09:50] VITALS: BP 182/92; PULSE 96; RESP 16; BMI 25.9
== END 2023-05-23 10:13 | disposition home or self-care (01) ==
PROVIDERS: Visit Provider Internal Medicine
DX: J90 Pleural effusion, not elsewhere classified (principal); J43.1 Panlobular emphysema; Z72.0 Tobacco use; M96.1 Postlaminectomy syndrome, not elsewhere classified
CPT/HCPCS: 99214

== ENCOUNTER 2023-05-23 13:40 | Outpatient (AMB) | payer BC, MEDICARE, SELFPAY ==
[2023-05-23 14:26] VITALS: BP 146/80; PULSE 97; O2SAT 110; BMI 25.7
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
== END 2023-05-23 15:22 | disposition home or self-care (01) ==
PROVIDERS: PCP Internal Medicine; Visit Provider Nurse Practitioner Family
DX: J43.1 Panlobular emphysema (principal); R91.1 Solitary pulmonary nodule; J90 Pleural effusion, not elsewhere classified; D63.8 Anemia in other chronic diseases classified elsewhere; J84.9 Interstitial pulmonary disease, unspecified; G47.33 Obstructive sleep apnea (adult) (pediatric)
CPT/HCPCS: 99214

== ENCOUNTER → 2023-05-23 13:40 | Outpatient (BNVA) | payer BC, MEDICARE, SELFPAY | PROVIDERS: PCP Internal Medicine; Visit Provider Nurse Practitioner Family ==

== ENCOUNTER 2023-05-26 15:25 | Outpatient (REF) | payer BC, MEDICARE, SELFPAY | END 2023-05-26 15:26 | disposition home or self-care (01) | LOC: HO.XRAY 15:25 | PROVIDERS: PCP Internal Medicine; Visit Provider Nurse Practitioner Family | DX: J90 Pleural effusion, not elsewhere classified (principal) | CPT/HCPCS: 71046 ==

== ENCOUNTER 2023-06-10 09:37 | Outpatient (AMB) | payer BC, MEDICARE, SELFPAY ==
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
== END 2023-06-10 10:11 | disposition home or self-care (01) ==
LOC: HO.HMGH 09:37
PROVIDERS: PCP Internal Medicine; Visit Provider Internal Medicine
DX: J43.1 Panlobular emphysema (principal); M96.1 Postlaminectomy syndrome, not elsewhere classified; F17.210 Nicotine dependence, cigarettes, uncomplicated; R09.81 Nasal congestion
CPT/HCPCS: 99213

== ENCOUNTER → 2023-06-16 14:50 | Outpatient (REF) | payer BC, MEDICARE, SELFPAY ==
--- NOTE | 2023-06-16 14:53 | CA_ITS ---
Transthoracic Echocardiogram Patient (Last, First, Middle): Sunny Guerra E Gender: Male Date of : 1960 Age: 62 Procedure Date: 06/16/2023 Procedure Type: Transthoracic Echocardiogram Location: OP Height: 177.8 cm Weight: 77.11 kg BSA: 1.95 m2 Heart Rate: bpm BP: 140 / 86 mmHg Consumer Credit Counselor: LIZBETH Referring MD: Hailee Anton [employer] Operations Manager: Dayo Pratt MD Symptoms: R06.09 - Other forms of dyspnea Study Quality: Adequate with contrast ECG Rhythm: Sinus Conclusions: - 1. Normal LV ejection fraction 55-60% with impaired relaxation filling pattern 2. Mildly dilated left atrium 3. [id number] mitral regurgitation 4. No gross pericardial effusion Findings Procedure Information Contrast agent, definity, is being given per protocol without apparent complications. Left Ventricle Normal left ventricular size, thickness, and systolic function. The visually estimated ejection fraction is between 55-60%. Spectral Doppler is indicative of an impaired relaxation filling pattern. E/E prime ratio is between 8 and 15 consistent with indeterminate filling pressures. There is mild septal asymmetric hypertrophy. Right Ventricle Normal right ventricular cavity size and systolic function. Atria The left atrium is mildly dilated. Interatrial shunt cannot be excluded. The right atrium is likely dilated. Aortic Valve The aortic valve structure and function is likely normal. There is no aortic valve stenosis. There is no aortic valve regurgitation. Mitral Valve There is mild anterior and posterior mitral leaflet thickening. There is mild to moderate mitral valve regurgitation. There is no mitral valve stenosis. Pulmonic Valve The pulmonic valve is likely normal. There is trace pulmonic valve regurgitation. Tricuspid Valve Likely normal tricuspid valve structure and function. Tricuspid regurgitation envelope is inadequate for calculation of right ventricular systolic pressure. Normal right atrial pressure. Great Vessels All visible segments of the aorta are normal in size. The pulmonary artery was not well visualized. There is no dilatation of the ascending aorta measuring 2.70 cm. Venous The inferior vena cava is normal in size and collapses greater than 50% with inspiration. Pericardium/Pleural There is no evidence of pericardial effusion. Prior Study Comparison No prior study available for comparison. Measurements 2D Linear Measurements IVSd: 1.25 0.6-0.9/0.6-1.0 cm LVIDd: 3.96 3.9-5.3/4.2-5.9 cm LVIDd Index: 2.03 2.4-3.2/2.2-3.1 cm/m2 LVIDs: 3.32 2.0-3.6 cm LVPWd: 1.01 0.7-1.1 cm LA Diam: 4.00 2.7-3.8/3.0-4.0 cm LAIDs Index: 2.05 1.5-2.3 cm/m2 LV Mass: 185.68 67-162/88-224 g LV Mass Index: 95.22 43-95/49-115 g/m2 LVOT Diam: 2.00 3.0+(-)1.3 cm Mitral Valve MV VTI: 0.29 MV Pk De: 1.36 MV Mn De: 0.79 MV Pk Grad: 7.00 MV Mn Grad: 3.00 MV Pk E: 0.83 MV PK A: 1.18 MV Decel Time: 165.00 E/A: 0.70 E'Lateral: 8.38 E'Medial: 5.55 E/E' Med: 14.90 E/E' Lat: 9.90 PHT: 48.00 MVA PHT: 4.58 MVA Continuity: 2.11 Decel [place]: 5.01 MR Vol - PW Dopp: 12.84 MR VTI: 2.14 MR ERO: 6.00 MR Alias De: 0.39 MR RAD: 0.40 Aortic Valve AoV Pk De: 1.21 AoV Mn De: 0.81 AoV VTI: 0.22 AoV Pk Grad: 6.00 Aov Mn Grad: 3.00 SAMEER Cont.VTI: 2.74 LVOT LVOT Pk De: 0.91 LVOT Mn De: 0.61 LVOT VTI: 0.19 LVOT Pk Grad: 3.00 LVOT Mn Grad: 2.00 LVOT Diam: 2.00 LVOT Area: 3.14 Diastolic Function MV Pk E: 0.83 MV Pk A: 1.18 E/A: 0.70 E'Medial: 5.55 E/E' Med: 14.90 E' Laterial: 8.38 E/E' Lat: 9.90 Right Ventricle TAPSE (mm): 19.80 TVS' De: 12.60 Tricuspid Valve RA Press: 3.00 Great Vessels Aorta Sinus of Valsalva: 3.27 2.0-3.[address] [place]: 2.08 1.7-3.4 cm Ao Asc: 2.70 2.1-3.4 cm Updated in Other Vendor System with Status of Final Dayo Pratt MD electronically signed on 06/16/2023 5:33:15 PM with status of Final
== END ==
LOC: HO.CARD 14:50
PROVIDERS: PCP Internal Medicine; Visit Provider Nurse Practitioner Family
DX: R06.09 Other forms of dyspnea (principal)
CPT/HCPCS: 93306; Q9957

== ENCOUNTER → 2023-06-16 14:53 | Outpatient (BNV) | payer BC, MEDICARE, SELFPAY | PROVIDERS: PCP Internal Medicine; Visit Provider Internal Medicine Cardiovascular Disease | DX: I34.0 Nonrheumatic mitral (valve) insufficiency (principal) | CPT/HCPCS: 93306 ==

== ENCOUNTER 2023-06-24 09:34 | Outpatient (AMB) | payer BC, MEDICARE, SELFPAY ==
[2023-06-24 09:36] VITALS: BP 140/68; PULSE 106; O2SAT 97; BMI 25.1
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
== END 2023-06-24 10:40 | disposition home or self-care (01) ==
PROVIDERS: PCP Internal Medicine; Visit Provider Internal Medicine
DX: G47.33 Obstructive sleep apnea (adult) (pediatric) (principal); Z72.0 Tobacco use; M96.1 Postlaminectomy syndrome, not elsewhere classified; J84.9 Interstitial pulmonary disease, unspecified
CPT/HCPCS: 99214

== ENCOUNTER 2023-06-28 | Outpatient (REF) | payer BC, MEDICARE, SELFPAY ==
--- NOTE | 2023-06-28 14:41 | PFT_ITS ---
Flows: FEV1: 93 % of predicted at 3.25 L FVC: 91 % of predicted at 4.17 L FEV1/FVC: 78 % Bronchodilator response: Absent Volumes: Total lung capacity: 71 % of predicted at 5.10 L Residual volume: 39 % of predicted at 0.89 L Slow vital capacity: 84 % of predicted at 4.21 L Expiratory reserve volume: 141 % of predicted at 1.86 L Diffusion capacity: Moderately decreased, adjusts to being mildly decreased after correction for alveolar ventilation. Impression: Mild restrictive ventilatory defect with no bronchodilator response. Decreased diffusion capacity suggests emphysema. MTDD
== END 2023-06-28 00:01 | disposition home or self-care (01) ==
LOC: HO.RESP
PROVIDERS: PCP Internal Medicine; Visit Provider Nurse Practitioner Family
DX: J44.9 Chronic obstructive pulmonary disease, unspecified (principal)
CPT/HCPCS: 94010; 94727; 94729

== ENCOUNTER → 2023-06-28 14:41 | Outpatient (BNV) | payer BC, MEDICARE, SELFPAY | PROVIDERS: PCP Internal Medicine; Visit Provider Internal Medicine Pulmonary Disease | DX: J44.9 Chronic obstructive pulmonary disease, unspecified (principal) | CPT/HCPCS: 94060; 94727; 94729 ==

== ENCOUNTER 2023-07-01 13:34 | Outpatient (AMB) | payer BC, MEDICARE, SELFPAY ==
[2023-07-01 13:37] VITALS: BP 144/70; PULSE 114; O2SAT 98; BMI 24.8
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
== END 2023-07-01 14:29 | disposition home or self-care (01) ==
PROVIDERS: PCP Internal Medicine; Visit Provider Nurse Practitioner Family
DX: J43.9 Emphysema, unspecified (principal); R06.09 Other forms of dyspnea; G47.33 Obstructive sleep apnea (adult) (pediatric); I34.0 Nonrheumatic mitral (valve) insufficiency
CPT/HCPCS: 99214

== ENCOUNTER → 2023-07-01 13:34 | Outpatient (BNVA) | payer BC, MEDICARE, SELFPAY | PROVIDERS: PCP Internal Medicine; Visit Provider Nurse Practitioner Family ==

== ENCOUNTER 2023-08-22 09:43 | Outpatient (AMB) | payer MEDICARE, BC, SELFPAY ==
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
== END 2023-08-22 11:43 | disposition home or self-care (01) ==
LOC: HO.HMGH 09:43
PROVIDERS: PCP Internal Medicine; Visit Provider Internal Medicine
DX: M96.1 Postlaminectomy syndrome, not elsewhere classified (principal); Z72.0 Tobacco use; J43.1 Panlobular emphysema
CPT/HCPCS: 99214

== ENCOUNTER 2023-09-22 09:17 | Outpatient (AMB) | payer MEDICARE, BC, SELFPAY ==
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
== END 2023-09-22 10:57 | disposition home or self-care (01) ==
LOC: HO.HMGH 09:17
PROVIDERS: PCP Internal Medicine; Visit Provider Internal Medicine
DX: J43.1 Panlobular emphysema (principal); M96.1 Postlaminectomy syndrome, not elsewhere classified; Z72.0 Tobacco use; K22.70 Barrett's esophagus without dysplasia
CPT/HCPCS: 99214

== ENCOUNTER 2023-10-13 12:29 | Outpatient (AMB) | payer MEDICARE, BC, SELFPAY ==
[2023-10-13 13:01] VITALS: BP 136/74; PULSE 97; BMI 25.3
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
== END 2023-10-13 13:31 | disposition home or self-care (01) ==
PROVIDERS: PCP Internal Medicine; Visit Provider Internal Medicine Cardiovascular Disease
DX: R06.09 Other forms of dyspnea (principal); I34.0 Nonrheumatic mitral (valve) insufficiency; Z82.49 Family history of ischemic heart disease and other diseases of the circulatory system
CPT/HCPCS: 93010; 99214

== ENCOUNTER → 2023-10-13 12:29 | Outpatient (BNVA) | payer MEDICARE, BC, SELFPAY | PROVIDERS: PCP Internal Medicine; Visit Provider Internal Medicine Cardiovascular Disease | DX: R06.09 Other forms of dyspnea (principal); I34.0 Nonrheumatic mitral (valve) insufficiency | CPT/HCPCS: 93005 ==

== ENCOUNTER 2023-10-16 10:35 | Outpatient (REF) | payer MEDICARE, BC, SELFPAY ==
[2023-10-16 11:11] LABS: Hematocrit 35.6 % (42.0-52.0); Hemoglobin 12.4 g/dl (14.0-18.0); Mean Corpuscular HGB Conc 34.8 g/dl (31.0-36.0); Mean Corpuscular Hemoglobin 31.2 pg (27.0-33.0); Mean Corpuscular Volume 89.7 fL (80.0-98.0); Mean Platelet Volume 10.1 fL (9.4-12.4); Platelet Count 248 X10*3/uL (160-400); Red Blood Count 3.97 X10*6/uL (4.60-5.80); Red Cell Distribution Width 11.8 % (11.0-16.0); White Blood Count 9.9 X10*3/uL (4.8-10.8)
[2023-10-16 12:17] LABS: Anion Gap 16 (12-20); Blood Urea Nitrogen 12 mg/dL (9-16); Calcium 9.2 mg/dL (8.4-10.2); Carbon Dioxide 25 mmol/L (22-29); Chloride 105 mmol/L (96-108); Estimated Glomerular Filt Rate > 60; Glucose Random 78 mg/dL (60-115); Potassium 4.1 mmol/L (3.3-5.1); Sodium 142 mmol/L (135-145)
== END 2023-10-16 10:36 | disposition home or self-care (01) ==
LOC: HO.LAB 10:35
PROVIDERS: PCP Internal Medicine; Visit Provider Internal Medicine Cardiovascular Disease
DX: R06.09 Other forms of dyspnea (principal)
CPT/HCPCS: 36415; 80048; 85027; 85610

== ENCOUNTER 2023-10-22 | Outpatient (REF) | payer MEDICARE, BC, SELFPAY ==
[2023-10-22 18:19] LABS: Amphetamine Screen Urine Not Detected (Not Detect); Barbiturates, Urine Not Detected (Not Detect); Benzodiazepines Screen Urine Not Detected (Not Detect); Buprenorphine Scr Not Detected (Not Detect); Cannabinoid Screen Urine Not Detected (Not Detect); Cocaine Screen Urine Not Detected (Not Detect); Fentanyl, urine Not Detected (Not Detect); Methadone Screen, Urine Not Detected (Not Detect); Opiate Screen Urine POSITIVE (Not Detect); Oxycodone Screen Urine Positive (Not Detect); Phencyclidine Screen Urine Not Detected (Not Detect)
[2023-10-27 12:08] LABS: Noroxycodone, Ur >10000 (H); Oxycodone, Ur >10000 (H)
[2023-10-27 12:10] LABS: Codeine, Ur NEGATIVE; Hydrocodone, Ur NEGATIVE; Hydromorphone, Ur NEGATIVE; Morphine, Ur NEGATIVE; Norhydrocodone, Ur NEGATIVE
== END 2023-10-22 00:01 | disposition home or self-care (01) ==
LOC: HO.LAB
PROVIDERS: Visit Provider Internal Medicine
DX: M96.1 Postlaminectomy syndrome, not elsewhere classified (principal); M54.50 Low back pain, unspecified; G89.29 Other chronic pain
CPT/HCPCS: 80307; 80365; G0480

== ENCOUNTER 2023-10-22 09:19 | Outpatient (AMB) | payer MEDICARE, BC, SELFPAY ==
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
[2023-10-22 09:21] VITALS: BP 132/70; PULSE 70; O2SAT 98; BMI 26.5
== END 2023-10-22 10:00 | disposition home or self-care (01) ==
PROVIDERS: PCP Internal Medicine; Visit Provider Internal Medicine
DX: J43.1 Panlobular emphysema (principal); Z72.0 Tobacco use; R06.02 Shortness of breath; K22.70 Barrett's esophagus without dysplasia; R73.02 Impaired glucose tolerance (oral); E78.00 Pure hypercholesterolemia, unspecified; M96.1 Postlaminectomy syndrome, not elsewhere classified
CPT/HCPCS: 99214

== ENCOUNTER → 2023-10-23 23:59 | Outpatient (BNV) | payer MEDICARE, BC, SELFPAY | PROVIDERS: PCP Internal Medicine; Visit Provider Internal Medicine Cardiovascular Disease | DX: I20.89 Other forms of angina pectoris (principal) | CPT/HCPCS: 93458; 99152 ==

== ENCOUNTER 2023-10-30 12:37 | Outpatient (AMB) | payer MEDICARE, BC, SELFPAY ==
[2023-10-30 12:47] VITALS: BP 132/68; PULSE 79; BMI 26.3
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
== END 2023-10-30 13:12 | disposition home or self-care (01) ==
PROVIDERS: PCP Internal Medicine; Visit Provider Nurse Practitioner
DX: Z98.890 Other specified postprocedural states (principal); E78.00 Pure hypercholesterolemia, unspecified; R06.02 Shortness of breath; Z72.0 Tobacco use
CPT/HCPCS: 99214

== ENCOUNTER → 2023-10-30 12:37 | Outpatient (BNVA) | payer BC, MEDICARE, SELFPAY | PROVIDERS: PCP Internal Medicine; Visit Provider Nurse Practitioner | DX: R06.02 Shortness of breath (principal); I25.10 Atherosclerotic heart disease of native coronary artery without angina pectoris; E78.00 Pure hypercholesterolemia, unspecified; Z72.0 Tobacco use; Z98.890 Other specified postprocedural states; Z79.82 Long term (current) use of aspirin; Z79.899 Other long term (current) drug therapy ==

== ENCOUNTER 2023-12-03 08:32 | Outpatient (AMB) | payer MEDICARE, BC, SELFPAY ==
[2023-12-03 08:33] VITALS: BP 158/70; PULSE 85; O2SAT 96; BMI 26.1
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
== END 2023-12-03 09:10 | disposition home or self-care (01) ==
PROVIDERS: PCP Internal Medicine; Visit Provider Internal Medicine
DX: K22.70 Barrett's esophagus without dysplasia (principal); Z72.0 Tobacco use; E66.3 Overweight; E78.00 Pure hypercholesterolemia, unspecified; I25.10 Atherosclerotic heart disease of native coronary artery without angina pectoris
CPT/HCPCS: 99214

== ENCOUNTER 2023-12-22 10:19 | Outpatient (AMB) | payer MEDICARE, BC, SELFPAY ==
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
== END 2023-12-22 12:54 | disposition home or self-care (01) ==
LOC: HO.HMGH 10:19
PROVIDERS: PCP Internal Medicine; Visit Provider Internal Medicine
DX: I25.10 Atherosclerotic heart disease of native coronary artery without angina pectoris (principal); Z72.0 Tobacco use; K22.70 Barrett's esophagus without dysplasia; M96.1 Postlaminectomy syndrome, not elsewhere classified; R73.02 Impaired glucose tolerance (oral)
CPT/HCPCS: 99214

== ENCOUNTER 2024-01-08 13:56 | Outpatient (REF) | payer MEDICARE, BC, SELFPAY ==
[2024-01-08 14:06] LABS: MANUAL DIFF FLAG NO
[2024-01-08 14:44] LABS: Estimated Average Glucose 105 mg/dL; Hemoglobin A1c % 5.3 % (<6.0)
[2024-01-08 14:46] LABS: Basophils Absolute Auto 0.1 X10*3/uL (0.0-0.2); Basophils Percent Auto 0.4 % (0-2); Eosinophils Absolute Auto 0.1 X10*3/uL (0.0-0.4); Eosinophils Percent Auto 0.5 % (0-4); Hematocrit 38.5 % (42.0-52.0); Hemoglobin 13.7 g/dl (14.0-18.0); Imm Gran Abs Auto 0.06 X10*3/uL (0.00-0.03); Imm Gran Pct Auto 0.5 % (0.0-0.4); Immature Retic Fraction 12.9 % (2.3-13.4); Lymphocytes Absolute Auto 3.8 X10*3/uL (1.2-4.9); Lymphocytes Percent Auto 28.7 % (20-40); Mean Corpuscular HGB Conc 35.6 g/dl (31.0-36.0); Mean Corpuscular Hemoglobin 31.6 pg (27.0-33.0); Mean Corpuscular Volume 88.9 fL (80.0-98.0); Monocytes Percent Auto 7.7 % (2-11); Neutrophils Absolute Auto 8.2 x10*3/uL (2.0-8.3); Neutrophils Percent Auto 62.2 % (45-73); Platelet Count 244 X10*3/uL (160-400); Red Blood Count 4.33 X10*6/uL (4.60-5.80); Red Cell Distribution Width 12.6 % (11.0-16.0); Retic HGB Equivalent 35.8 pg (30.0-35.0); Reticulocyte Percent 1.3 % (0.5-1.8); Reticulocytes Absolute 0.055 X10*6/uL (0.026-0.095); White Blood Count 13.1 X10*3/uL (4.8-10.8)
[2024-01-08 15:41] LABS: Alanine Aminotransferase 14 U/L (0-40); Albumin Level 4.3 g/dL (3.5-5.0); Alkaline Phosphatase 104 U/L (39-117); Anion Gap 16 (12-20); Aspartate Amino Transferase 15 U/L (5-37); Bilirubin Total 0.9 mg/dL (0.0-1.0); Blood Urea Nitrogen 11 mg/dL (9-16); Calcium 9.7 mg/dL (8.4-10.2); Carbon Dioxide 28 mmol/L (22-29); Chloride 101 mmol/L (96-108); Cholesterol 162 mg/dL (<200); Estimated Glomerular Filt Rate 54; Glucose Random 103 mg/dL (60-115); HDL Cholesterol 42 mg/dL (>40); Iron 80 mcg/dL (45-160); LDL Cholesterol Calculated 93 mg/dL (<100); Percent Iron Saturation 35 % (15-50); Potassium 4.2 mmol/L (3.3-5.1); Sodium 141 mmol/L (135-145); Total Iron Binding Capacity 230 mcg/dL (228-428); Total Protein 7.2 g/dL (6.5-8.0); Triglycerides 136 mg/dL (<150); Unsaturated Iron Binding 150 ug/dL
[2024-01-08 16:01] LABS: Ferritin 502 ng/mL (20-250)
[2024-01-08 16:08] LABS: Folate 13.1 ng/mL (> or = 4.0); Vitamin B12 450 pg/mL (200-900)
== END 2024-01-08 13:57 | disposition home or self-care (01) ==
LOC: HO.LAB 13:56
PROVIDERS: PCP Internal Medicine; Visit Provider Internal Medicine
DX: R73.02 Impaired glucose tolerance (oral) (principal); E78.00 Pure hypercholesterolemia, unspecified; D64.89 Other specified anemias
CPT/HCPCS: 36415; 80053; 80061; 82607; 82728; 82746; 83036; 83540; 85025; 85045

== ENCOUNTER 2024-01-22 09:26 | Outpatient (AMB) | payer MEDICARE, BC, SELFPAY ==
[2024-01-22 09:27] VITALS: BP 134/70; PULSE 77; O2SAT 92; BMI 25.1
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
== END 2024-01-22 10:14 | disposition home or self-care (01) ==
PROVIDERS: PCP Internal Medicine; Visit Provider Internal Medicine
DX: I25.10 Atherosclerotic heart disease of native coronary artery without angina pectoris (principal); D63.8 Anemia in other chronic diseases classified elsewhere; M96.1 Postlaminectomy syndrome, not elsewhere classified; J43.1 Panlobular emphysema; E78.00 Pure hypercholesterolemia, unspecified; R73.02 Impaired glucose tolerance (oral); Z72.0 Tobacco use; K22.70 Barrett's esophagus without dysplasia; N28.9 Disorder of kidney and ureter, unspecified
CPT/HCPCS: 99214; G2211

== ENCOUNTER 2024-02-23 09:33 | Outpatient (AMB) | payer MEDICARE, BC, SELFPAY ==
[2024-02-23 09:41] VITALS: BP 90/50; PULSE 109; O2SAT 94; BMI 24.9
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
[2024-02-23 10:00] VITALS: BP 120/70
== END 2024-02-23 10:07 | disposition home or self-care (01) ==
PROVIDERS: PCP Internal Medicine; Visit Provider Internal Medicine
DX: N28.9 Disorder of kidney and ureter, unspecified (principal); I25.10 Atherosclerotic heart disease of native coronary artery without angina pectoris; Z72.0 Tobacco use; M96.1 Postlaminectomy syndrome, not elsewhere classified

== ENCOUNTER → 2024-02-23 09:33 | Outpatient (BNVA) | payer MEDICARE, BC, SELFPAY | PROVIDERS: PCP Internal Medicine; Visit Provider Internal Medicine | DX: N28.9 Disorder of kidney and ureter, unspecified (principal); I25.10 Atherosclerotic heart disease of native coronary artery without angina pectoris; M96.1 Postlaminectomy syndrome, not elsewhere classified; Z72.0 Tobacco use; Z71.6 Tobacco abuse counseling | CPT/HCPCS: 99212 ==

== ENCOUNTER 2024-03-09 09:20 | Outpatient (AMB) | payer MEDICARE, BC, SELFPAY ==
[2024-03-09 09:21] VITALS: BP 126/74; PULSE 94; BMI 25.0
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
== END 2024-03-09 09:53 | disposition home or self-care (01) ==
PROVIDERS: PCP Internal Medicine; Visit Provider Internal Medicine Cardiovascular Disease
DX: I25.10 Atherosclerotic heart disease of native coronary artery without angina pectoris (principal); I34.0 Nonrheumatic mitral (valve) insufficiency
CPT/HCPCS: 99214

== ENCOUNTER → 2024-03-09 09:20 | Outpatient (BNVA) | payer MEDICARE, BC, SELFPAY | PROVIDERS: PCP Internal Medicine; Visit Provider Internal Medicine Cardiovascular Disease | DX: I25.10 Atherosclerotic heart disease of native coronary artery without angina pectoris (principal); I34.0 Nonrheumatic mitral (valve) insufficiency; R06.09 Other forms of dyspnea; F17.210 Nicotine dependence, cigarettes, uncomplicated | CPT/HCPCS: 99212 ==

== ENCOUNTER 2024-03-23 09:15 | Outpatient (AMB) | payer MEDICARE, BC, SELFPAY ==
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
[2024-03-23 09:36] VITALS: BP 140/74; PULSE 88; O2SAT 94; BMI 26.0
== END 2024-03-23 10:28 | disposition home or self-care (01) ==
PROVIDERS: PCP Internal Medicine; Visit Provider Internal Medicine
DX: Z72.0 Tobacco use (principal); J43.1 Panlobular emphysema; I25.10 Atherosclerotic heart disease of native coronary artery without angina pectoris; E78.00 Pure hypercholesterolemia, unspecified; M96.1 Postlaminectomy syndrome, not elsewhere classified; I10 Essential (primary) hypertension; R21 Rash and other nonspecific skin eruption; Z23 Encounter for immunization

== ENCOUNTER → 2024-03-23 09:15 | Outpatient (BNVA) | payer MEDICARE, BC, SELFPAY | PROVIDERS: PCP Internal Medicine; Visit Provider Internal Medicine | DX: Z23 Encounter for immunization (principal); J43.1 Panlobular emphysema; I25.10 Atherosclerotic heart disease of native coronary artery without angina pectoris; E78.00 Pure hypercholesterolemia, unspecified; M96.1 Postlaminectomy syndrome, not elsewhere classified; Z72.0 Tobacco use | CPT/HCPCS: 90471; 90656; 99212 ==

== ENCOUNTER 2024-04-21 13:45 | Outpatient (AMB) | payer MEDICARE, BC, SELFPAY ==
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
[2024-04-21 13:58] VITALS: BP 152/80; PULSE 83; O2SAT 98; BMI 25.0
== END 2024-04-21 14:32 | disposition home or self-care (01) ==
PROVIDERS: PCP Internal Medicine; Visit Provider Internal Medicine
DX: I10 Essential (primary) hypertension (principal); F33.1 Major depressive disorder, recurrent, moderate; F17.210 Nicotine dependence, cigarettes, uncomplicated; I25.10 Atherosclerotic heart disease of native coronary artery without angina pectoris; D63.8 Anemia in other chronic diseases classified elsewhere; M96.1 Postlaminectomy syndrome, not elsewhere classified; D64.89 Other specified anemias

== ENCOUNTER → 2024-04-21 13:45 | Outpatient (BNVA) | payer MEDICARE, BC, SELFPAY | PROVIDERS: PCP Internal Medicine; Visit Provider Internal Medicine | DX: I10 Essential (primary) hypertension (principal); I25.10 Atherosclerotic heart disease of native coronary artery without angina pectoris; D63.8 Anemia in other chronic diseases classified elsewhere; M96.1 Postlaminectomy syndrome, not elsewhere classified; D64.89 Other specified anemias; F33.1 Major depressive disorder, recurrent, moderate; F17.210 Nicotine dependence, cigarettes, uncomplicated; Z71.6 Tobacco abuse counseling | CPT/HCPCS: 96127; 99212 ==

== ENCOUNTER 2024-04-27 07:02 | Outpatient (REF) | payer MEDICARE, BC, SELFPAY ==
[2024-04-27 07:16] LABS: MANUAL DIFF FLAG NO
[2024-04-27 07:28] LABS: Basophils Absolute Auto 0.1 X10*3/uL (0.0-0.2); Basophils Percent Auto 0.5 % (0-2); Eosinophils Absolute Auto 0.1 X10*3/uL (0.0-0.4); Eosinophils Percent Auto 0.7 % (0-4); Hematocrit 36.2 % (42.0-52.0); Hemoglobin 12.2 g/dl (14.0-18.0); Imm Gran Abs Auto 0.03 X10*3/uL (0.00-0.03); Imm Gran Pct Auto 0.3 % (0.0-0.4); Immature Retic Fraction 8.7 % (2.3-13.4); Lymphocytes Absolute Auto 3.6 X10*3/uL (1.2-4.9); Lymphocytes Percent Auto 33.2 % (20-40); Mean Corpuscular HGB Conc 33.7 g/dl (31.0-36.0); Mean Corpuscular Hemoglobin 31.5 pg (27.0-33.0); Mean Corpuscular Volume 93.5 fL (80.0-98.0); Mean Platelet Volume 9.6 fL (9.4-12.4); Monocytes Absolute Auto 0.8 X10*3/uL (0.1-1.2); Monocytes Percent Auto 7.1 % (2-11); Neutrophils Absolute Auto 6.4 x10*3/uL (2.0-8.3); Neutrophils Percent Auto 58.2 % (45-73); Platelet Count 224 X10*3/uL (160-400); Red Blood Count 3.87 X10*6/uL (4.60-5.80); Red Cell Distribution Width 12.1 % (11.0-16.0); Retic HGB Equivalent 34.5 pg (30.0-35.0); Reticulocyte Percent 1.4 % (0.5-1.8); Reticulocytes Absolute 0.054 X10*6/uL (0.026-0.095)
[2024-04-27 07:47] LABS: Alanine Aminotransferase 18 U/L (0-40); Albumin Level 4.1 g/dL (3.5-5.0); Alkaline Phosphatase 92 U/L (39-117); Anion Gap 14 (12-20); Aspartate Amino Transferase 20 U/L (5-37); Bilirubin Total 0.4 mg/dL (0.0-1.0); Blood Urea Nitrogen 7 mg/dL (9-16); Calcium 8.7 mg/dL (8.4-10.2); Carbon Dioxide 31 mmol/L (22-29); Chloride 102 mmol/L (96-108); Cholesterol 157 mg/dL (<200); Estimated Glomerular Filt Rate > 60; Glucose Random 105 mg/dL (60-115); HDL Cholesterol 49 mg/dL (>40); Iron 43 mcg/dL (45-160); LDL Cholesterol Calculated 87 mg/dL (<100); Percent Iron Saturation 21 % (15-50); Sodium 143 mmol/L (135-145); Total Iron Binding Capacity 208 mcg/dL (228-428); Total Protein 6.8 g/dL (6.5-8.0); Triglycerides 108 mg/dL (<150); Unsaturated Iron Binding 165 ug/dL
[2024-04-27 07:57] LABS: Ferritin 346 ng/mL (20-250)
== END 2024-04-27 07:03 | disposition home or self-care (01) ==
LOC: HO.LAB 07:02
PROVIDERS: Nurse Practitioner; Absent Provider Internal Medicine Cardiovascular Disease; PCP Internal Medicine; Visit Provider Internal Medicine
DX: E78.00 Pure hypercholesterolemia, unspecified (principal); D64.89 Other specified anemias
CPT/HCPCS: 36415; 80053; 80061; 82728; 83540; 85025; 85045

== ENCOUNTER 2024-05-19 15:57 | Outpatient (REF) | payer MEDICARE, BC, SELFPAY | END 2024-05-19 15:58 | disposition home or self-care (01) | LOC: HO.CT 15:57 | PROVIDERS: PCP Internal Medicine; Visit Provider Physician Assistant Medical | DX: Z12.2 Encounter for screening for malignant neoplasm of respiratory organs (principal); F17.210 Nicotine dependence, cigarettes, uncomplicated | CPT/HCPCS: 71271 ==

== ENCOUNTER 2024-05-24 09:17 | Outpatient (AMB) | payer MEDICARE, BC, SELFPAY ==
[2024-05-24 09:18] VITALS: BP 136/68; PULSE 89; O2SAT 92; BMI 24.4
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
== END 2024-05-24 09:39 | disposition home or self-care (01) ==
PROVIDERS: PCP Internal Medicine; Visit Provider Internal Medicine
DX: I10 Essential (primary) hypertension (principal); M96.1 Postlaminectomy syndrome, not elsewhere classified; F17.210 Nicotine dependence, cigarettes, uncomplicated; J43.1 Panlobular emphysema; D64.89 Other specified anemias; R73.02 Impaired glucose tolerance (oral)

== ENCOUNTER → 2024-05-24 09:17 | Outpatient (BNVA) | payer MEDICARE, BC, SELFPAY | PROVIDERS: PCP Internal Medicine; Visit Provider Internal Medicine | DX: I10 Essential (primary) hypertension (principal); D64.89 Other specified anemias; M96.1 Postlaminectomy syndrome, not elsewhere classified; J43.1 Panlobular emphysema; R73.02 Impaired glucose tolerance (oral); F17.210 Nicotine dependence, cigarettes, uncomplicated; Z71.6 Tobacco abuse counseling | CPT/HCPCS: 96127; 99212 ==

== ENCOUNTER 2024-06-24 13:39 | Outpatient (AMB) | payer MEDICARE, BC, SELFPAY ==
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
[2024-06-24 13:46] VITALS: BP 152/80; PULSE 97; TEMP 36.2; O2SAT 92; BMI 24.5
== END 2024-06-24 13:58 | disposition home or self-care (01) ==
PROVIDERS: PCP Internal Medicine; Visit Provider Internal Medicine
DX: J43.1 Panlobular emphysema (principal); F33.1 Major depressive disorder, recurrent, moderate; F17.210 Nicotine dependence, cigarettes, uncomplicated; I25.10 Atherosclerotic heart disease of native coronary artery without angina pectoris; D63.8 Anemia in other chronic diseases classified elsewhere; D12.6 Benign neoplasm of colon, unspecified; M96.1 Postlaminectomy syndrome, not elsewhere classified; K22.70 Barrett's esophagus without dysplasia

== ENCOUNTER → 2024-06-24 13:39 | Outpatient (BNVA) | payer MEDICARE, BC, SELFPAY | PROVIDERS: PCP Internal Medicine; Visit Provider Internal Medicine | DX: I25.10 Atherosclerotic heart disease of native coronary artery without angina pectoris (principal); D63.8 Anemia in other chronic diseases classified elsewhere; F33.1 Major depressive disorder, recurrent, moderate; D12.6 Benign neoplasm of colon, unspecified; M96.1 Postlaminectomy syndrome, not elsewhere classified; J43.1 Panlobular emphysema; K22.70 Barrett's esophagus without dysplasia; F17.210 Nicotine dependence, cigarettes, uncomplicated; Z71.6 Tobacco abuse counseling | CPT/HCPCS: 96127; 99212 ==

== ENCOUNTER 2024-07-26 09:20 | Outpatient (AMB) | payer MEDICARE, BC, SELFPAY ==
--- OUTSIDE RECORDS SUMMARY | 2024-07-26 09:22 | XMS_ITS | Continuity of Care Document ---
Author Organization [facility] Address [address] [facility],[address] [address] Care Team Providers Care Spa Attendant Name Role Phone JG OWUSU Primary Care Provider Assessment Encounter Date Assessment Date Assessment LastModified by Organization Details LastModified Time 07/06/2024 07/06/2024 Sunny Guerra is a 64? ? ?year old man with low back pain radiating into both lower extremities with numbness . On exam ,he has pain on flexion. MRI Lumbar spine shows Spondylotic and degenerative disc changes of the lumbar spine are present . Nondiagnostic assessment at L4-L5 due to significant artifact from the surgical disc replacement at this level. Inter body cages at L5-S1 also limit assessment. At L2-L3, there is a stable far right lateral disc osteophyte protrusion resulting in mass effect on the extraforaminal right L2 nerve root. He is here for a Lumbar epidural steroid injection under fluoroscopic guidance . The risks and benefits of the procedure? ? ? were discussed in detail. He wishes to proceed. He will follow up in three months alli Not available 07/06/2024 15:44:09 Plan of Treatment Reminders Order Date Submit Date Provider Last Modified By Organization Details Last Modified Time Details Appointments PROCEDURE 2024 01:30P M Fernando ponce MD Not available Not available Not available Lab None recorded. Referral None recorded. Procedures None recorded. Surgeries None recorded. Imaging None recorded. Medication Orders None recorded. Patient TargetsNo targets recorded. Patient InstructionsNo instructions recorded. Reason for Referral None Reported. Problems Name Problem SNOMED Code Status Onset Date Resolution Date Notes Provider Name and Address Organization Details Recorded Time Trochanteri c bursitis of left hip 2161663189460 03 Active Kim ponce null, [place] [facility] 2 15:10:14 Lumbosacral radiculopat hy 5588920 Active Fernando ponce MD [address] , [address], [place], [address], [place] [facility] 2 15:39:56 Degeneratio n of lumbar interverteb ral disc 00986614 Active Fernando ponce MD [address] [facility] , [address], [place], [address], [place] [facility] 2 15:40:09 Lumbar post-toño ctomy syndrome 362754806 Active Fernando ponce MD [address] [facility] , [address], [place], [address], [place] [facility] 2 15:40:22 Problem Notes None recorded. Procedures Surgical History Date Name Laterality Status Provider Name and Address Organization Details Recorded Time 07/06/19 25 Lumbar Epidural steroid injection under fluoroscopic guidance completed Fernando Morrison MD [address] , [address], [place], [address], [place] [facility] 07/06/2024 15:43:39 03/30/20 24 Lumbar Epidural steroid injection under fluoroscopic guidance completed Fernando Morrison MD [address] , [address], [place], [address], [place] [facility] 03/30/2024 10:32:08 11/19/19 24 Lumbar Epidural steroid injection under fluoroscopic guidance completed Fernando Morrison MD [address] , [address], [place], [address], [place] [facility] 11/19/2023 10:44:25 05/22/20 23 Lumbar Epidural steroid injection under fluoroscopic guidance completed Fernando Morrison MD [address] , [address], [place], [address], [place] [facility] 05/22/2023 13:52:35 01/01/20 23 Lumbar Epidural steroid injection under fluoroscopic guidance completed Fernando Morrison MD [address] , [address], [place], [address], [place] [facility] 12/31/2022 14:22:40 09/11/19 23 Lumbar Epidural steroid injection under fluoroscopic guidance completed Fernando Morrison MD [address] , [address], [place], [address], [place] [facility] 09/10/2022 13:53:42 Back Surgery completed Kim Diaz [place] [facility] 04/29/2022 15:11:26 Appendectomy completed Kim Diaz [place] [facility] 04/29/2022 15:11:35 Knee Surgery completed Kim Diaz [place] [facility] 04/29/2022 15:11:44 Imaging Results None recorded. Procedure Notes None recorded. Medical Equipment None Reported. Allergies Allergen ID Allergen Name Allergen Category Reaction Reaction Severity Criticality Documentation Date Start Date Code Code System Note Provider Name and Address Organization Details Recorded Time 51202 aspirin medicatio n Not available Not available Not available 04/29/2022 1191 RxNorm Kim Kuo n null, [place] [facility] 14:55:31 Medications Name Sig Start Date Stop Date Status Note LastModified by Organization Details LastModified Time atorvastati n 40 mg tablet TAKE 1 TABLET BY MOUTH DAILY 03/12 completed Not Available Not Available Not Available atorvastati n 80 mg tablet TAKE 1 TABLET BY MOUTH EVERY DAY active Not Available Not Available No t Available prednisone 10 mg tablet PLEASE SEE ATTACHED FOR DETAILED DIRECTION S 10/19 completed Not Available Not Available Not Available doxycycline hyclate 100 mg capsule TAKE 1 CAPSULES BY MOUTH TWICE A DAY FOR 7 DAYS 04/29 completed Not Available Not Available Not Available azithromyci n 250 mg tablet TAKE 2 TABLETS BY MOUTH TODAY, THEN TAKE 1 TABLET DAILY FOR 4 DAYS DIRECTED 10/19 completed Not Available Not Available Not Available prednisone 20 mg tablet TAKE 2 TABS BY MOUTH DAILY 10/19 completed Not Available Not Available Not Available isosorbide mononitrate ER 30 mg tablet,exte nded release 24 hr TAKE 1 TABLET BY MOUTH EVERY DAY active Not Available Not Available No t Available metronidazo le 500 mg tablet TAKE 1 TABLET BY MOUTH TWICE A DAY 04/16 completed Not Available Not Available Not Available acetaminoph en 300 mg-codeine 30 mg tablet TAKE 1 TABLET BY MOUTH EVERY 6 HOURS NEEDED FOR PAIN MAX 4 TABLETS PER DAY active Not Available Not Available No t Available ciprofloxac in 250 mg tablet 04/29 completed Not Available Not Available Not Available amitriptyli ne 50 mg tablet TAKE 1 TABLET AT BEDTIME active Not Available Not Available No t Available oxycodone 15 mg tablet TAKE 1-2 TABLETS BY MOUTH EVERY 6 HOURS NEEDED FOR PAIN active Not Available Not Available No t Available tamsulosin 0.4 mg capsule 10/19 completed Not Available Not Available Not Available dicyclomine 20 mg tablet TAKE 1 TABLET BY MOUTH TWICE A DAY 10/19 completed Not Available Not Available Not Available pantoprazol e 40 mg tablet,fidel yed release TAKE 1 TABLET DAILY active Not Available Not Available No t Available erythromyci n 5 mg/gram (0.5 %) eye ointment APPLY TO RIGHT EYE 3 TIMES A DAY FOR 5 DAYS 10/10 completed Not Available Not Available Not Available hydrochloro thiazide 25 mg tablet TAKE 1 TABLET BY MOUTH EVERY DAY 10/19 completed Not Available Not Available Not Available metoprolol succinate ER 25 mg tablet,exte nded release 24 hr TAKE 1 TABLET BY MOUTH EVERY DAY active Not Available Not Available No t Available albuterol sulfate HFA 90 mcg/actuati on aerosol inhaler INHALE 2 PUFFS EVERY 6 HOURS NEEDED FOR SHORTNESS OF BREATH OR WHEEZING active Not Available Not Available No t Available dicyclomine 10 mg capsule PLEASE SEE ATTACHED FOR DETAILED DIRECTION S 03/12 completed Not Available Not Available Not Available ipratropium bromide 21 mcg (0.03 %) nasal spray INHALE 2 SPRAYS UP EACH NOSTRIL TWICE A DAYH 03/12 completed Not Available Not Available Not Available amoxicillin 875 mg-potassiu m clavulanate 125 mg tablet TAKE 1 TABLET BY MOUTH TWICE A DAY 10/19 completed Not Available Not Available Not Available ezetimibe 10 mg tablet TAKE 1 TABLET BY MOUTH EVERY DAY active Not Available Not Available No t Available tizanidine 4 mg capsule 10/19 completed Not Available Not Available Not Available Flomax 10/19 completed Not Available Not Available Not Available fluticasone furoate 100 mcg-vilante rol 25 mcg/dose inhalation powder INHALE 1 PUFF DAILY 03/12 completed Not Available Not Available Not Available Paxlovid 300 mg (150 mg x 2)-100 mg tablets in a dose pack TAKE 2 TABLETS (NIRMATRE LVIR) AND TAKE 1 TABLET (RITONAVI R) BY MOUTH TWICE A DAY FOR 5 DAYS 10/19 completed Not Available Not Available Not Available Vitals Date Recorded Body height Heart rate Oxygen saturation Oxygen saturation in Arterial blood by Pulse oximetry Systolic blood pressure Diastolic blood pressure Provider Name and Address Organization Details Last Updated DateTime 5 177.8 cm 95 /min 96 % 96 % 151 mm[Hg] 50 mm[Hg] [facility] 5 15:23:37 Social History Question Answer Notes LastModified by Organizat ion Details LastModified Time Tobacco Smoking Status Current Every Day Smoker 1/2 pack daily [facility] 04/29/2022 14:58:58 What Is Your Level Of Alcohol Consumption? Occasional Information not available 04/29/2022 Are You Blind Or Do You Have Difficulty Seeing? No Information not available 04/29/2022 In The 14 Days Before Symptom Onset, Have You Had Close Contact With A Laboratory-confi rmed COVID-19 While That Case Was Ill? No Information not available 04/29/2022 In The 14 Days Before Symptom Onset, Have You Had Close Contact With A Person Who Is Under Investigation For COVID-19 While That Person Was Ill? No Information not available 04/29/2022 Have You Been To An Area Known To Be High Risk For COVID-19? No Information not available 04/29/2022 Are You Currently Employed? No Disabled Information not available 04/29/2022 Are You Deaf Or Do You Have Serious Difficulty Hearing? No Information not available 04/29/2022 How Much Tobacco Do You Smoke? 0.5 PPD Information not available 04/29/2022 Do You Use Any Illicit Or Recreational Drugs? No Information not available 04/29/2022 How Many Years Have You Smoked Tobacco? 45 Information not available 04/29/2022 Do You Or Have You Ever Used Any Other Forms Of Tobacco Or Nicotine? No Information not available 04/29/2022 Sex: Unknown Functional Status Question Answer Note LastModified by Organization D etails LastModified Time Do you have difficulty doing errands alone? No Information not available 04/29/2022 Do you have difficulty dressing or bathing? No Information not available 04/29/2022 Mental Status Question Answer Note LastModified by Organization D etails LastModified Time Do you have difficulty concentrating, remembering or making decisions? No Information no t available 04/29/2022 Family History Relationship Description Onset Age of this Age Resolved Age Notes LastModified by Organization Details LastModified Time Mother Heart disease Not available 04/10 15:10:48 Mother Malignant tumor of breast Not available 04/10 15:11:01 Sister Heart disease Not available 04/10 15:10:48 Brother Heart disease Not available 04/10 15:10:48 Medical History Condition Response Diabetes N Anxiety Disorder Y Coronary Artery Disease N Gout N Arthritis Y Seizures/Epilepsy N Cancer N Stroke N Depression Y COPD N Asthma N HIV/AIDS N Headache N Hepatitis C N Bipolar Disorder N GERD/Reflux Y Fibromyalgia N Irritable Bowel Syndrome Y Osteoporosis Y Past Encounters Encounter ID Performer Location Encounter Start Date Encounter Closed Date Diagnosis/Indication Diagnosis SNOMED-CT Code Diagnosis ICD10 Code Diagnosis Note [id number] Fernando Morrison MD [facility] [address] [place] [address] 07/06/2024 15:18:22 07/06/2024 15:50:05 Lumbosacral radiculopathy 5814402 M54.17 Lumbar post-laminectomy syndrome 770806904 M96.1 Degenerati on of lumbar intervertebral disc 16681547 M51.362 Health Concerns Section Related Observation LastModified by Organization Detai ls LastModified Time None Recorded Concern Status LastModified by Organization Details LastModified Time None Recorded Payers Encounter Date Sequence Insurance Name Policy Number Policy Pace Covered Member ID Pace Member ID Guarantor Name 07/06/2024 1 [place] [employer] Sunny Guerra [id number] Sunny Guerra 07/06/2024 2 [place] Sunny Guerra [id number] Sunny Guerra Notes Date Note Type Note Provider Name and Address Organization Details Recorded Time 07/06/2024 text/html He is here today for a lumbar epidural steroid injection under fluoroscopic guidance. Fernando Morrison MD [address] [place] [address] , [address], [place], [address], [place] [facility] 07/07/2024 08:48:29
--- OUTSIDE RECORDS SUMMARY | 2024-07-26 09:22 | XMS_ITS | Patient Health Record ---
Author Organization [facility] Address [address] [place] [address] Care Team Providers Care Ride Attendant Name Role Phone Po Galindo PITTS Primary Care Provider Harpal Little [phone] ALLERGIES Allergen (clinical drug ingredient) Drug/Non Drug Allergy documented on EMR Reaction Allergy Type Onset Date Status 81 Unknown Drug Allergy Active REASON FOR REFERRAL No Information MEDICATIONS Medication SIG (Take, Route, Frequency, Duration) Notes Start Date End Date Status Dicyclomine HCl 10 MG 1-2 capsules Orally Take 1 or 2 capsules every 6 hours for abdominal discomfort and cramps. You can also take 1 or 2 capsules 30 to 60 minutes before each meal to try to decrease abdominal discomfort after eating. Do not take more than four times a day in total. for 30 day(s) 12/14/2022 Not-Taking Pantoprazole Sodium 40 MG Oral for 90 Active Albuterol Sulfate HFA 108 (90 Base) MCG/ACT Inhalation for 17 Active Amitriptyline HCl 25 MG as directed Orally 2 tablets at night For sleep and depression Active Tamsulosin HCl 0.4 MG Oral for 90 Active oxyCODONE HCl 15 MG as directed Orally QID/as needed TID Active Flomax 0.4 MG 1 capsule Orally Once a day Active IMMUNIZATIONS Vaccine Route Administration Date Status Comme nts Influenza Unknown 04/09/2018 Administered Influenza Unknown 03/09/2022 Administered Influenza Unknown 06/21/2021 Refused SOCIAL HISTORY Tobacco Use: Social History Observation Description Date Details (start date - stop date) Current Smoker NA - NA Sex Assigned At : Social History Observation Description Sex Assigned At Unknown Tobacco Use/Smoking Question Answer Notes Patient is a current smoker How often do you smoke cigarettes? every day How many cigarettes a day do you smoke? 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) Active confirmed 216680213 Problem Early satiety (R68.81) Active confirmed 595379899 Problem Iron deficiency anemia (D50.9) Active confirmed Iron deficien cy anemia (51315813) Problem Blood in stool (K92.1) Active confirmed 088283809 Problem History of colon polyps (Z86.010) Active confirmed 321199827 Problem Barretts esophagus without dysplasia (K22.70) Active confirmed 387945920 Problem Abnormal CT scan, colon (R93.3) Active confirmed 977251920 Problem Yanez esophagus (K22.70) Active confirmed Yanez esophag us (960893541) Problem Other irritable bowel syndrome (K58.8) Active confirmed 22629699 Problem Diverticulosis of colon (K57.30) Active confirmed Diverticulosi s of colon (351054237) Problem RLQ abdominal pain (R10.31) Active confirmed 718092055 Problem LLQ abdominal pain (R10.32) Active confirmed 443874923 PLAN OF TREATMENT Pending Test Test Name Order Date BUN 10/21/2022 LIVER PROFILE 06/21/2021 IRON + IBC (FE) 06/21/2021 IRON + IBC (FE) 12/05/2021 IRON + IBC (FE) 06/06/2022 VITAMIN B12 AND FOLATE 06/21/2021 CBC w DIFF 12/05/2021 CBC w DIFF 06/21/2021 CBC w DIFF 06/06/2022 CELIAC PANEL #10 06/21/2021 CT ABD & PELVIS WITH CONTRAST 10/21/2022 Creatinine 10/21/2022 Ferritin 06/06/2022 Future Test Test Name Order Date UPPER GI ENDOSCOPY 03/24/2015 UPPER GI ENDOSCOPY 09/17/2018 COLONOSCOPY 09/17/2018 UPPER GI ENDOSCOPY 06/21/2021 COLONOSCOPY 06/21/2021 Next Appt Details Provider Name:Harpal Soliman , 10/12/2024 10:50:00 AM, [address], [address], [place], [address], Insurance Providers Payer Name Payer Address Payer Phone Subscriber Number Group Number Insured Name Patient Relationship to Insured Coverage Start Date Coverage End Date [facility] [address] [place], [place] [id number] SHABNAM HENNESSY Self - patient is the insured MEDICARE OF [place] [address] [place] [address] [id number] SHABNAM HENNESSY Self - patient is the insured MEDICAL (GENERAL) HISTORY Medical History History ICD Code GERD with Yanez's esophagu s-last EGD's in 10/2011 and 05/2015 with biopsies neg for dysplasia, HH Depression BPH Back pain Denies MS,DM,CVA,Lung disease,renal dise ase Kidney stones Colonoscopy in 10/2011 with r emoval of small tubular adenomas, and diverticulosis proximal to the anastomosis Sleep apnea--not using a CPAP machine Anemia-he saw Dr. Srivastava in early 2020 and describes receiving iron infusions and having a bone marrow biopsy [id number] to moderate sized hiatal hernia, small area of Yanez's esophagus with biopsies negative for dysplasia, no esophagitis or ulcer disease [id number] small tubular adenoma, and a small amount of diverticulosis above his anastomosis Gallstones seen on CT scans- patient is aware of this but has not had specific symptoms in the RUQ. His most recent CT scan of the abdomen and pelvis was in November of 2020. This was negative other than gallstones. Upper endoscopy in August of 2021 revealed his known moderate sized hiatal hernia. Duodenal biopsies were negative for celiac disease, gastric biopsies were negative for H. pylori, and there was no biopsy evidence of Yanez's esophagus. There was no evidence of any esophagitis or peptic ulcer disease. Colonoscopy in August of 2021 revealed small tubular adenomas, but no evidence of any inflammatory bowel disease nor microscopic colitis Hospitalization in May of 20 23 with some right lower quadrant pain and a CT scan suggestive of inflammation in the region of the cecum. This was treated with antibiotics. Followup CT scans in November of 2022 were negative for any sign of residual inflammation nor other abnormality. Surgical History Surgery Date(Month/Year) 2 Back surgeries Sigmoid resection for divert iculitis-[address] Jimenez-had an incidental appy Knee surgery
--- OUTSIDE RECORDS SUMMARY | 2024-07-26 09:23 | XMS_ITS ---
Author Organization [facility] Address [address] [place] [address] Care Team Providers Care Shipyard Supervisor Name Role Phone Galindo Muro MD Primary Care Provider Harpal Little [phone] ALLERGIES Allergen (clinical drug ingredient) Drug/Non Drug Allergy documented on EMR Reaction Allergy Type Onset Date Status Unknown Drug Allergy Active REASON FOR VISIT Patient presents today for abdominal pain MEDICATIONS Medication SIG (Take, Route, Frequency, Duration) [...] in total. for 30 day(s) 12/14/2022 Not-Taking Amitriptyline HCl 25 MG as directed Orally 2 tablets at night For sleep and depression Active Tamsulosin HCl 0.4 MG Oral for 90 Active oxyCODONE HCl 15 MG as directed Orally QID/as needed TID Active Flomax 0.4 MG 1 capsule Orally Once a day Active Pantoprazole Sodium 40 MG Oral for 90 Active Albuterol Sulfate HFA 108 (90 Base) MCG/ACT Inhalation for 17 Active SOCIAL HISTORY Tobacco Use: Social History Observation Description Date Details (start date - stop date) Current Smoker NA - NA Sex Assigned At : Social History Observation Description Sex Assigned At Unknown Tobacco Use/Smoking Question Answer Notes Patient is a current smoker How often do you smoke cigarettes? every day How many cigarettes a day do you smoke? 11-20 VITAL SIGNS BMI 26.05 kg/m2 04/15/2023 Blood pressure systolic 00 mm Hg 04/15/20 23 Blood pressure diastolic 00 mm Hg 023 Height 69.5 in 04/15/2023 Temperature 98 degrees Fahrenheit 04/15/2023 Weight 179 lbs 04/15/2023 Encounters Encounter Location Date Provider Diagnosis [facility] [address] [place] [address] 04/15/2023 Harpal Soliman Yanez esophagus K22.70 ; LLQ abdominal pain R10.32 and Gastro-esophageal reflux disease without esophagitis K21.9 ASSESSMENTS Encounter Date Diagnosis Assessment Notes Treatment Notes Treatment Clinical Notes 04/15/2023 Yanez esophagus (ICD-10 - K22.70) Repeat upper endoscopy and colonoscopy in 08/202404/15/2023 LLQ abdominal pain (ICD-10 - R10.32) 04/15/2023 Gastro-esophageal reflux disease without esophagitis (ICD-10 - K21.9) PLAN OF TREATMENT Treatment Notes Assessment Notes Yanez esophagus Repeat upper endosco py and colonoscopy in 08/2024 Next Appt Details Follow Up: prn, Reason: Provider Name:Harpal Soliman , 10/12/2024 10:50:00 AM, [address], [address], [place], [address], Progress Notes * Examination Category Sub-Category Detail Notes General Examination GENERAL APPEARANCE: pleasant , well nourished, well developed, in no acute distress , pleasant, well nourished, well developed, in no acute distress EYES: sclera non-icteric , sclera non-icteric NECK/THYROID: no cervical lymphade nopathy, neck supple , no cervical lymphadenopathy, neck supple HEART: S1, S2 normal , S1, S2 normal LUNGS: clear to auscultatio n bilaterally , clear to auscultation bilaterally ABDOMEN: normal bowel sounds, no guarding or rigidity, no masses palpable, soft, nondistended. He does have some mild diffuse tenderness, most prominent in the left lower quadrant. NEUROLOGIC: alert and oriented , alert and oriented SKIN: nonjaundiced, no spi mick angiomata , nonjaundiced, no spider angiomata EXTREMITIES: no edema , no edema ORAL CAVITY: mucosa moist , mucos a moist
--- OUTSIDE RECORDS SUMMARY | 2024-07-26 09:23 | XMS_ITS ---
Author Organization [facility] Address [address] [place] [address] Care Team Providers Care Intelligence Senior Sergeant Name Role Phone Po Galindo PITTS Primary Care Provider Harpal Little [phone] REASON FOR VISIT ABD PAIN Encounters Encounter Location Date Provider Diagnosis [facility] [address] [place] [address] 02/25/2023 Harpal Soliman PLAN OF TREATMENT Next Appt Details Provider Name:Harpal Soliman , 10/12/2024 10:50:00 AM, [address], [address], [place], [address],
[2024-07-26 09:39] VITALS: BP 138/78; PULSE 83; O2SAT 95; BMI 25.4
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
== END 2024-07-26 10:02 | disposition home or self-care (01) ==
PROVIDERS: PCP Internal Medicine; Visit Provider Internal Medicine
DX: M96.1 Postlaminectomy syndrome, not elsewhere classified (principal); I25.10 Atherosclerotic heart disease of native coronary artery without angina pectoris; I10 Essential (primary) hypertension; F17.210 Nicotine dependence, cigarettes, uncomplicated; E78.00 Pure hypercholesterolemia, unspecified; J43.1 Panlobular emphysema; D12.6 Benign neoplasm of colon, unspecified

== ENCOUNTER → 2024-07-26 09:20 | Outpatient (BNVA) | payer MEDICARE, BC, SELFPAY | PROVIDERS: PCP Internal Medicine; Visit Provider Internal Medicine | DX: M96.1 Postlaminectomy syndrome, not elsewhere classified (principal); I25.10 Atherosclerotic heart disease of native coronary artery without angina pectoris; I10 Essential (primary) hypertension; E78.00 Pure hypercholesterolemia, unspecified; J43.1 Panlobular emphysema; D12.6 Benign neoplasm of colon, unspecified; F17.210 Nicotine dependence, cigarettes, uncomplicated; Z71.6 Tobacco abuse counseling | CPT/HCPCS: 96127; 99212 ==

== ENCOUNTER 2024-10-21 09:15 | Outpatient (AMB) | payer MEDICARE, BC, SELFPAY ==
[2024-10-21 09:22] VITALS: BP 142/68; PULSE 89; O2SAT 96; BMI 24.7
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
--- OUTSIDE RECORDS SUMMARY | 2024-10-21 09:51 | XMS_ITS ---
Author Organization 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 I shall continue to keep you [...] again for allowing me to participate in Chriss care. I shall continue to keep you [...] Provider Name:Harpal Soliman , 11/08/2024 02:40:00 PM, [address] [place] [address], [id number], Progress Notes * SUNNY HENNESSY EDOB:1960 (64 yo M)Acc No.[id number]:10/12/2024 Progress Notes Patient:?SUNNY HENNESSY Provider:?Harpal Soliman MD :1960???Age:64 Y???Sex:Male [place] e:10/12/2024 Address: [address], [facility] Pcp:Galindo Muro MD Subjective: * Chief Complaints: [...] dysplasia, HH, Depression, BPH, Back pain, Denies [place],DM,CVA,Lung disease,renal disease, Kidney stones, Colonoscopy in 10/2011 with removal of small tubular adenomas, and diverticulosis proximal to the anastomosis, Sleep apnea--not using a CPAP machine, Anemia-he saw Dr. Srivastava in early 2020 and describes receiving iron infusions and having a bone marrow biopsy, [id number] to moderate sized hiatal hernia, small area of Yanez's esophagus with biopsies negative for dysplasia, no esophagitis or ulcer disease, 12/[id number] small tubular adenoma, and a small amount [...] for 11/08/24 at 2:40 pmmiralax * Procedure Codes:?62990 UPPR GI ENDOSCOPY, DIAGNOSIS, 89858 DIAGNOSTIC COLONOSCOPY * Preventive Medicine:? ??Counseling:?Care goal [...] Soliman MD Date:? 025 Generated for Vince turk/Heri/Dakotaitting on:?10/21/2024 09:51 AM EDT History and Physical Notes * HPI [...]
--- OUTSIDE RECORDS SUMMARY | 2024-10-21 09:51 | XMS_ITS | Patient Health Record ---
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 Name Role Phone Po Galindo PITTS Primary Care Provider Harpal Little [phone] Allergies Allergen (clinical drug ingredient) Drug/Non Drug [...] Status Risk Notes Problem Colon cancer screening (Z12.11) Active confirmed Problem 029086616 Gastro-esophagea l reflux disease without esophagitis (K21.9) Active confirmed Problem 257826624 Encounter for screening for malignant neoplasm of colon (Z12.11) Active confirmed Problem 472927616 History of adenomatous polyp of colon (Z86.010) Active confirmed Problem 564826689 Change in bowel habits (R19.4) Active confirmed Problem 97776686 Weight loss (R63.4) Active confirmed Problem 620305338 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) Active confirmed Problem 906876265 Early satiety (R68.81) Active confirmed Problem Iron deficiency anemia (59552350) Iron deficiency anemia (D50.9) Active confirmed Problem 082299649 Blood in stool (K92.1) Active confirmed Problem 983418470 History of colon polyps (Z86.010) Active confirmed Problem 932114250 Barretts esophagus without dysplasia (K22.70) Active confirmed Problem Family History of Cancer of Colon (Situation) (813850555) Family history of colon cancer (Z80.0) Active confirmed Problem 239288571 Abnormal CT scan , colon (R93.3) Active confirmed Problem Yanez esophagus (415737410) Yanez esophagus (K22.70) Active confirmed Problem 33288364 Other irritable bowel syndrome (K58.8) Active confirmed Problem Diverticulosis of colon (537345283) Diverticulosis of colon (K57.30) Active confirmed Problem 897918911 RLQ abdominal pain (R10.31) Active confirmed Problem 342855498 LLQ abdominal pain (R10.32) Active confirmed Vital Signs Blood pressure diastolic 77 mm Hg 10/12/2024 Height 69.5 in 10/12/2024 Blood pressure systolic 111 mm Hg 10/12/2024 Weight 173 lbs 10/12/2024 BMI 25.18 kg/m2 10/12/2024 Procedures Procedure Date Ordered Date Performed Result Body Sit e UPPER GI ENDOSCOPY 10/12/2024 N/A COLONOSCOPY 10/12/2024 N/A Encounters Encounter Location Date Provider Diagnosis [facility] [address] [place] [address] 10/12/2024 Harpal Soliman Barretts esophagus without dysplasia [...] will be done with monitored anesthesia care. Snuny and his were comfortable with this plan. [...] LIVER PROFILE 06/21/2021 IRON + IBC (FE) 06/06/2022 IRON + IBC (FE) 12/05/2021 IRON + IBC (FE) 06/21/2021 VITAMIN B12 AND FOLATE 06/21/2021 CBC w DIFF 06/21/2021 CBC w DIFF 06/06/2022 CBC w DIFF 12/05/2021 CELIAC PANEL #10 06/21/2021 CT ABD & PELVIS WITH CONTRAST 10/21/2022 Creatinine 10/21/2022 Ferritin 06/06/2022 Future Test Test Name Order Date UPPER GI ENDOSCOPY 03/24/2015 UPPER GI ENDOSCOPY 09/17/2018 COLONOSCOPY 09/17/2018 UPPER GI ENDOSCOPY 06/21/2021 COLONOSCOPY 06/21/2021 Next Appt Details Provider Name:Harpal Soliman , 11/08/2024 02:40:00 PM, [address] [place] [address] , [place], [place], [phone], Insurance Providers Payer Name Payer Address Payer Phone Subscriber Number Group Number Insured Name Patient Relationship to Insured Coverage Start Date Coverage End Date MEDICARE OF [place] [address] [place] [address] [id number] SUNNY HENNESSY Self - patient is the insured 0 [facility] [address] [place], [place] [id number] SUNNY HENNESSY Self - patient is the insured Medical (General) History Medical History History ICD Code GERD with Yanez's esophagu s-last EGD's in 10/2011 and 05/2015 with biopsies neg for dysplasia, HH Depression BPH Back pain Denies [place],DM,CVA,Lung disease,renal dise ase Kidney stones Colonoscopy in 10/2011 with r emoval of small tubular adenomas, and diverticulosis proximal to the anastomosis Sleep apnea--not using a CPAP machine Anemia-he saw Dr. Srivastava in early 2020 and describes receiving iron infusions and having a bone marrow biopsy 12/[id number] to moderate sized hiatal hernia, small area of Yanez's esophagus with biopsies negative for dysplasia, no esophagitis or ulcer disease 12/[id number] small tubular adenoma, and a small amount [...] Neg. cardiac [place] [address] Terence Surgical History Surgery Date(Month/Year) Teeth removed 2023 Knee surgery Sigmoid resection for divert iculitis-[address] Jimenez-had an incidental appy 2 Back surgeries
--- OUTSIDE RECORDS SUMMARY | 2024-10-21 09:51 | XMS_ITS | Data Portability ---
Author Organization [facility] Address [address] [facility] [address] [place] [address] Care Team Providers Care Docketing Specialist Name Role Phone JG OWUSU Primary Care [...] booked for the same. He needs a goat driver on the day of the procedure. He [...] alli Not available 11/19/2023 10:44:47 03/12/2024 03/12/2024 uSnny Guerra is a 63? ? ?year old [...] booked for the same. He needs a goat driver on the day of the procedure. [email or web address] [...] Time Trochanteri c bursitis of left hip [id number] 03 Active Kim ponce [facility], [place] - [facility] 2 15:10:14 Lumbosacral radiculopat hy 3981016 Active Fernando ponce MD [address] , [address], [facility] [place], [address], [place] - [facility] 2 15:39:56 Degeneratio n of lumbar interverteb ral disc 07043803 Active Fernando ponce MD [address] , [address], [facility] [place], [address], [place] - [facility] 2 15:40:09 Lumbar post-toño ctomy syndrome 791663107 Active Fernando ponce MD [address] , [address], [facility] [place], [address], [place] - [facility] 15:40:22 Problem Notes None recorded. Procedures Surgical History Date Name Laterality Status Provider Name and Address Organization Details Recorded Time 07/06/19 25 Lumbar Epidural steroid injection under fluoroscopic guidance completed Fernando Morrison MD [address] [facility] , [address], [place], [address], [place] - [facility] 07/06/2024 15:43:39 03/30/20 24 Lumbar Epidural steroid injection under fluoroscopic guidance completed Fernando Morrison MD [address] [facility] , [address], [place], [address], [place] [facility] 03/30/2024 10:32:08 11/19/19 24 Lumbar Epidural steroid injection under fluoroscopic guidance completed Fernando Morrison MD [address] [facility] , [address], [place], [address], [place] [facility] 11/19/2023 10:44:25 05/22/20 23 Lumbar Epidural steroid injection under fluoroscopic guidance completed Fernando Morrison MD [address] [facility] , [address], [place], [address], [place] [facility] 05/22/2023 13:52:35 01/01/20 23 Lumbar Epidural steroid injection under fluoroscopic guidance completed Fernando Morrison MD [address] [facility] , [address], [place], [address], [place] [facility] 12/31/2022 14:22:40 09/11/19 23 Lumbar Epidural steroid injection under fluoroscopic guidance completed Fernando Morrison MD [address] [facility] , [address], [place], [address], [place] [facility] 09/10/2022 [...] Name and Address Organization Details Recorded Time 40306 aspirin medicatio n Not available Not available [...] % 98 % 78 /min 25.8 kg/m2 95460.6 3 g 131 mm[Hg] 50 mm[Hg] Samreen [...] /min 97 % 97 % 25.1 kg/m2 69166.6 6 g 4 131 mm[Hg] 64 mm[Hg] Fernando ponce MD [address] [place] [address] , [address], [place], [address], [place] [facility] 4 [...] [place] [facility] 04/29/2022 14:58:58 Are You Blind Or Do You Have Difficulty Seeing? No Information not available 04/29/2022 In The 14 Days Before Symptom Onset, Have You Had Close Contact With A Laboratory-confir med COVID-19 While That Case Was Ill? No Information not available 04/29/2022 In The 14 Days Before Symptom Onset, Have You Had Close Contact With A Person Who Is Under Investigation For COVID-19 While That Person Was Ill? No Information not available 04/29/2022 Have You Been To An Area Known To Be High Risk For COVID-19? No Information not available 04/29/2022 Are You Deaf Or Do You Have Serious Difficulty Hearing? No Information not available 04/29/2022 How Much Tobacco Do You Smoke? 0.5 PPD Information not available 04/29/2022 How Many Years Have You Smoked Tobacco? 45 Information not available 04/29/2022 Sex: Unknown Functional Status Question Answer Note LastModified by Organizat ion Details LastModified Time Do you use any illicit or recreational drugs? No Information not available 04/29/2022 Do you or have you ever used any other forms of tobacco or nicotine? No Information not available 04/29/2022 What is your level of alcohol consumption? Occasional Information not available 04/29/2022 Are you currently employed? No disabled Information not available 04/29/2022 Do you have difficulty doing errands alone? [...] SNOMED-CT Code Diagnosis ICD10 Code Diagnosis Note [id number] Fernando Morrison MD [facility] [address] [place] [address] 04/29/2022 14:38:11 04/29/2022 15:57:01 Trochanteric bursitis of left hip 5007183472 79542 M70.62 Lumbosacra l radiculopathy 6621095 M54.17 Lumbar post-laminectomy syndrome 457436175 M96.1 Degenerati on of lumbar intervertebral disc 87093200 M51.36 34785 Fernando Morrison MD [facility] [address] [place] [address] 05/23/2022 15:17:22 05/24/2022 10:48:58 Lumbosacral radiculopathy 5211535 M54.17 Lumbar post-laminectomy syndrome 867982126 M96.1 Degenerati on of lumbar intervertebral disc 20772827 M51.36 32262 Fernando Morrison MD [facility] [address] [place] [address] 09/10/2022 11:02:21 09/10/2022 14:08:11 Lumbosacral radiculopathy 2954248 M54.17 Lumbar post-laminectomy syndrome 507629248 M96.1 Degenerati on of lumbar intervertebral disc 74332969 M51.36 77220 Fernando Morrison MD [facility] [address] [place] [address] 10/10/2022 15:07:35 10/10/2022 15:41:20 Lumbar post-laminectomy syndrome 456513524 M96.1 Lumbosacra l radiculopathy 6108018 M54.17 Degenerati on of lumbar intervertebral disc 51054459 M51.36 57231 Fernando Morrison MD PAIN OFFICE [address] [place] [address] 12/31/2022 13:32:25 12/31/2022 14:28:42 Lumbosacral radiculopathy 3724745 M54.17 Lumbar post-laminectomy syndrome 332941636 M96.1 Degenerati on of lumbar intervertebral disc 59721713 M51.36 73543 Fernando Morrison MD PAIN OFFICE [address] [place] [address] 05/22/2023 13:11:18 05/22/2023 13:59:54 Lumbosacral radiculopathy 9845450 M54.17 Lumbar post-laminectomy syndrome 348007942 M96.1 Degenerati on of lumbar intervertebral disc 91340452 M51.36 78012 Fernando Morrison MD PAIN OFFICE [address] [place] [address] 10/20/2023 13:57:26 10/20/2023 14:25:31 Lumbosacral radiculopathy 4292999 M54.17 Lumbar post-laminectomy syndrome 401662123 M96.1 Degenerati on of lumbar intervertebral disc 51962474 M51.36 38300 Fernando Morrison MD PAIN OFFICE [address] [place] [address] 11/19/2023 09:37:54 11/19/2023 10:49:53 Lumbosacral radiculopathy 5277057 M54.17 Lumbar post-laminectomy syndrome 290108900 M96.1 Degenerati on of lumbar intervertebral disc 07200072 M51.36 53667 Fernando Morrison MD PAIN OFFICE [address] [place] [address] 03/12/2024 09:52:16 03/12/2024 10:24:54 Lumbosacral radiculopathy 7819275 M54.17 Lumbar post-laminectomy syndrome 386513064 M96.1 Degenerati on of lumbar intervertebral disc 07537132 M51.362 24156 Fernando Morrison MD [facility] [address] [place] [address] 03/30/2024 09:46:41 03/30/2024 16:36:13 Lumbosacral radiculopathy 4291378 M54.17 Lumbar post-laminectomy syndrome 530091426 M96.1 Degenerati on of lumbar intervertebral disc 42941229 M51.362 04667 Fernando Morrison MD [facility] [address] [place] [address] 07/06/2024 15:18:22 07/06/2024 15:50:05 Lumbosacral radiculopathy 2401496 M54.17 Lumbar post-laminectomy syndrome 323929579 M96.1 Degenerati on of lumbar intervertebral disc 34078939 M51.362 Health Concerns Section Related Observation LastModified by Organization Detai ls LastModified Time None Recorded Concern Status LastModified by Organization Details LastModified Time None Recorded Advance Directives Directive None Recorded Payers Encounter Date Sequence Insurance Name Policy Number Policy Pace Covered Member ID Pace Member ID Guarantor Name 10/20/2023 1 [place] Sunny Guerra [id number] 2 Sunny Guerra 10/20/2023 2 [place] Sunny Guerra [id number] Sunny Guerra 11/19/2023 1 [place] Sunny Guerra [id number] 2 Sunny Guerra 11/19/2023 2 [place] Sunny Guerra [id number] Sunny Guerra 03/12/2024 1 [place] Sunny Guerra [id number] 2 Sunny Guerra 03/12/2024 2 [place] Sunny Guerra [id number] Sunny Guerra 03/30/2024 1 [place] Sunny Guerra [id number] 2 Sunny Guerra 03/30/2024 2 [place] Sunny Guerra [id number] Sunny Guerra 07/06/2024 1 [place] Sunny Guerra [id number] 2 Sunny Guerra 07/06/2024 2 [place] Sunny Guerra [id number] Sunny Guerra Notes Date Note Type Note [...] having chest pain. 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 Fernando Morrison MD [address] [facility] , [place] [address], [place], [address], [place] - [facility] 10/20/2023 15:25:50 11/19/2023 text/html He is here today for a lumbar epidural steroid injection under fluoroscopic guidance.He had a cardiac cath done and is on medical management of his CAD Fernando Morrison MD [address] [facility] , [address], [place], [address], [place] [facility] 11/19/2023 10:58:20 [...] or bowel incontinence. Fernando Morrison MD [address] [facility] , [address], [place], [address], [place] [facility] 03/12/2024 11:34:07 03/30/2024 text/html He is here today for a lumbar epidural steroid injection under fluoroscopic guidance. Fernando Morrison MD [address] [facility] , [address], [place], [address], [place] [facility] 03/30/2024 16:39:02 07/06/2024 text/html He is here today for a lumbar epidural steroid injection under fluoroscopic guidance. Fernando Morrison MD [address] [facility] , [address], [place], [address], [place] [facility] 07/07/2024 08:48:29
== END 2024-10-21 09:54 | disposition home or self-care (01) ==
LOC: HO.HMCH 09:16
PROVIDERS: PCP Internal Medicine; Visit Provider Internal Medicine
DX: Z98.1 Arthrodesis status (principal); M51.26 Other intervertebral disc displacement, lumbar region; M96.1 Postlaminectomy syndrome, not elsewhere classified; F33.1 Major depressive disorder, recurrent, moderate; I25.10 Atherosclerotic heart disease of native coronary artery without angina pectoris; D12.6 Benign neoplasm of colon, unspecified; E78.00 Pure hypercholesterolemia, unspecified

== ENCOUNTER → 2024-10-21 09:15 | Outpatient (BNVA) | payer MEDICARE, BC, SELFPAY | PROVIDERS: PCP Internal Medicine; Visit Provider Internal Medicine | DX: M51.26 Other intervertebral disc displacement, lumbar region (principal); M96.1 Postlaminectomy syndrome, not elsewhere classified; I25.10 Atherosclerotic heart disease of native coronary artery without angina pectoris; D12.6 Benign neoplasm of colon, unspecified; E78.00 Pure hypercholesterolemia, unspecified; F33.1 Major depressive disorder, recurrent, moderate; Z98.1 Arthrodesis status | CPT/HCPCS: 96127; 99212 ==

== ENCOUNTER 2024-11-08 12:49 | Day surgery (SDC) | payer MEDICARE, BC, SELFPAY ==
--- OUTSIDE RECORDS SUMMARY | 2024-10-12 14:11 | XMS_ITS ---
Author Organization [facility] Address [address] [place] [address] Care Team Providers Care Policyholder Information Clerk Name Role Phone Po Galindo PITTS Primary Care Provider Harpal Little [phone] Allergies Allergen (clinical drug ingredient) Drug/Non Drug Allergy documented on EMR Reaction Allergy Type Onset Date Status Unknown Drug Allergy Active REASON FOR VISIT Patient presents today for a colon screening Medications Medication SIG (Take, Route, Frequency, Duration) Notes Start Date End Date Status Amitriptyline HCl 25 MG as directed Orally 2 tablets at night For sleep and depression Active Pantoprazole Sodium 40 MG Oral for 90 Active Flomax 0.4 MG 1 capsule Orally Once a day Active oxyCODONE HCl 15 MG as directed Orally QID/as needed TID Active Albuterol Sulfate HFA 108 (90 Base) MCG/ACT Inhalation for 17 Active Multivitamin - 1 tablet Orally Once a day Active Dicyclomine HCl 10 MG 1-2 capsules Orally Take 1 or 2 capsules every 6 hours for abdominal discomfort and cramps. You can also take 1 or 2 capsules 30 to 60 minutes before each meal to try to decrease abdominal discomfort after eating. Do not take more than four times a day in total. for 30 day(s) 12/14/2022 Not-Taking Metoprolol Succinate ER 25 MG TAKE 1 TABLET BY MOUTH EVERY DAY Oral for 65 Days Active Ezetimibe 10 MG 1 tablet Orally Once a day for 30 day(s) 10/12/2024 Active Atorvastatin Calcium 80 MG Oral for 90 Days Active Social History Tobacco Use: Social History Observation Description Date Details (start date - stop date) Current Smoker NA - NA Tobacco Use/Smoking Question Answer Notes Patient is a current smoker How often do you smoke cigarettes? every day How many cigarettes a day do you smoke? 04-28 Section Notes: He does smoke 1/2 PPD; he do es not use any sig. amounts of alcohol Problems Problem Type SNOMED Code ICD Code Onset Dates Problem Status W/U Status Risk Notes Problem Family History of Cancer of Colon (Situation) (411368460) Family history of colon cancer (Z80.0) Active confirmed Problem Colon cancer screening (506520786) Colon cancer screening (Z12.11) Active confirmed Vital Signs Blood pressure systolic 111 mm Hg 10/13/19 25 Blood pressure diastolic 77 mm Hg 025 Height 69.5 in 10/12/2024 Weight 173 lbs 10/12/2024 BMI 25.18 kg/m2 10/12/2024 Procedures Procedure Date Ordered Date Performed Result Body Sit e UPPER GI ENDOSCOPY 10/12/2024 N/A COLONOSCOPY 10/12/2024 N/A Encounters Encounter Location Date Provider Diagnosis [facility] [address] [place] [address] 10/12/2024 Harpal Soliman Barretts esophagus without dysplasia K22.70 ; Gastro-esophageal reflux disease without esophagitis K21.9 ; History of adenomatous polyp of colon Z86.010 ; Other irritable bowel syndrome K58.8 ; Family history of colon cancer Z80.0 and Colon cancer screening Z12.11 Assessments Encounter Date Diagnosis (ICD Code) Assessment Notes Treatment Notes Treatment Clinical Notes Section Notes 10/12/2024 Barretts esophagus without dysplasia (ICD-10 - K22.70) Overall, Sunny seems to be stable from a GI standpoint. His pantoprazole seems to be working fairly well for his chronic reflux. I did advise him to continue this daily. He is not having any significant abdominal pain at this time. I did advise him that if he has constipation in relation to his narcotics he should use some MiraLAX on a regular basis. I did recommend an upper endoscopy for follow-up in regard to the chronic reflux and Yanez's esophagus since his last exam was about 3 years ago. He also undergo a follow-up colonoscopy for further screening given his history of tubular adenomas and significant family history of multiple close relatives with colon cancer. We did review the rationale for that in regard to colon cancer prevention. Full consent has been obtained from him for both procedures, including risks of bleeding and perforation. The procedures will be done with monitored anesthesia care. Sunny and his were comfortable with this plan. Thank you again for allowing me to participate in Sunny's care. I shall continue to keep you advised of his progress. 10/12/2024 Gastro-esophage al reflux disease without esophagitis (ICD-10 - K21.9) Overall, Sunny seems to be stable from a GI standpoint. His pantoprazole seems to be working fairly well for his chronic reflux. I did advise him to continue this daily. He is not having any significant abdominal pain at this time. I did advise him that if he has constipation in relation to his narcotics he should use some MiraLAX on a regular basis. I did recommend an upper endoscopy for follow-up in regard to the chronic reflux and Yanez's esophagus since his last exam was about 3 years ago. He also undergo a follow-up colonoscopy for further screening given his history of tubular adenomas and significant family history of multiple close relatives with colon cancer. We did review the rationale for that in regard to colon cancer prevention. Full consent has been obtained from him for both procedures, including risks of bleeding and perforation. The procedures will be done with monitored anesthesia care. Sunny and his were comfortable with this plan. Thank you again for allowing me to participate in Sunny's care. I shall continue to keep you advised of his progress. 10/12/2024 History of adenomatous polyp of colon (ICD-10 - Z86.010) Overall, Sunny seems to be stable from a GI standpoint. His pantoprazole seems to be working fairly well for his chronic reflux. I did advise him to continue this daily. He is not having any significant abdominal pain at this time. I did advise him that if he has constipation in relation to his narcotics he should use some MiraLAX on a regular basis. I did recommend an upper endoscopy for follow-up in regard to the chronic reflux and Yanez's esophagus since his last exam was about 3 years ago. He also undergo a follow-up colonoscopy for further screening given his history of tubular adenomas and significant family history of multiple close relatives with colon cancer. We did review the rationale for that in regard to colon cancer prevention. Full consent has been obtained from him for both procedures, including risks of bleeding and perforation. The procedures will be done with monitored anesthesia care. Sunny and his were comfortable with this plan. Thank you again for allowing me to participate in Sunny's care. I shall continue to keep you advised of his progress. 10/12/2024 Other irritable bowel syndrome (ICD-10 - K58.8) Overall, Sunny seems to be stable from a GI standpoint. His pantoprazole seems to be working fairly well for his chronic reflux. I did advise him to continue this daily. He is not having any significant abdominal pain at this time. I did advise him that if he has constipation in relation to his narcotics he should use some MiraLAX on a regular basis. I did recommend an upper endoscopy for follow-up in regard to the chronic reflux and Yanez's esophagus since his last exam was about 3 years ago. He also undergo a follow-up colonoscopy for further screening given his history of tubular adenomas and significant family history of multiple close relatives with colon cancer. We did review the rationale for that in regard to colon cancer prevention. Full consent has been obtained from him for both procedures, including risks of bleeding and perforation. The procedures will be done with monitored anesthesia care. Sunny and his were comfortable with this plan. Thank you again for allowing me to participate in Sunny's care. I shall continue to keep you advised of his progress. 10/12/2024 Family history of colon cancer (ICD-10 - Z80.0) Overall, Sunny seems to be stable from a GI standpoint. His pantoprazole seems to be working fairly well for his chronic reflux. I did advise him to continue this daily. He is not having any significant abdominal pain at this time. I did advise him that if he has constipation in relation to his narcotics he should use some MiraLAX on a regular basis. I did recommend an upper endoscopy for follow-up in regard to the chronic reflux and Yanez's esophagus since his last exam was about 3 years ago. He also undergo a follow-up colonoscopy for further screening given his history of tubular adenomas and significant family history of multiple close relatives with colon cancer. We did review the rationale for that in regard to colon cancer prevention. Full consent has been obtained from him for both procedures, including risks of bleeding and perforation. The procedures will be done with monitored anesthesia care. Sunny and his were comfortable with this plan. Thank you again for allowing me to participate in Sunny's care. I shall continue to keep you advised of his progress. 10/12/2024 Colon cancer screening (ICD-10 - Z12.11) Overall, Sunny seems to be stable from a GI standpoint. His pantoprazole seems to be working fairly well for his chronic reflux. I did advise him to continue this daily. He is not having any significant abdominal pain at this time. I did advise him that if he has constipation in relation to his narcotics he should use some MiraLAX on a regular basis. I did recommend an upper endoscopy for follow-up in regard to the chronic reflux and Yanez's esophagus since his last exam was about 3 years ago. He also undergo a follow-up colonoscopy for further screening given his history of tubular adenomas and significant family history of multiple close relatives with colon cancer. We did review the rationale for that in regard to colon cancer prevention. Full consent has been obtained from him for both procedures, including risks of bleeding and perforation. The procedures will be done with monitored anesthesia care. Sunny and his were comfortable with this plan. Thank you again for allowing me to participate in Sunny's care. I shall continue to keep you advised of his progress. Plan Of Treatment Pending Test Test Name Order Date UPPER GI ENDOSCOPY 10/12/2024 COLONOSCOPY 10/12/2024 Next Appt Details Provider Name:Harpal Soliman , 11/08/2024 02:40:00 PM, [address] [place] [address], [id number], Progress Notes * SUNNY HENNESSY EDOB:1960 (64 yo M)Acc No.[id number]:10/12/2024 Progress Notes Patient:?SUNNY HENNESSY Provider:?Harpal Soliman MD :1960???Age:64 Y???Sex:Male [place]co e:10/12/2024 Address: [address], [id number] Pcp:Galindo Muro MD Subjective: * Chief Complaints: * ???1. Patient presents today for a colon screening. * HPI: ???incontinence:? I saw Sunny in follow-up today in regard to his underlying history of chronic Gastrosoft reflux, Yanez's esophagus, history of tubular adenomas of the colon, family history of colon cancer, need for colorectal cancer screening, and some underlying irritable bowel syndrome. He was accompanied by his . I last saw Sunny in 2022. His last upper endoscopy and colonoscopy were in 2021. He presently has basically been feeling well from a GI standpoint although does report that his appetite has been diminished. He did have to have all of his teeth removed and he is currently waiting for dentures. He does remain on daily pantoprazole. He reports that works fairly well for his heartburn and reflux symptoms. He denies any dysphagia, early satiety, nausea, nor vomiting. He has lost several pounds since he was here in 2022. He still has the usual chronic left sided abdominal discomfort but nothing worse than usual. He denies any associated fevers, change in bowel habits, nor urinary symptoms. He denies any hematochezia nor melena. He denies any jaundice. He describes a family history of colon cancer in his father toward the end of his life, a paternal uncle, and a brother. Laboratories in July revealed a hemoglobin of 11.4 with a normal MCV. He does have a chronic anemia. He also had normal chemistries, renal function, iron studies, and LFTs in April 2024. * Medical History:?GERD with B arrett's esophagus-last EGD's in 10/2011 and 05/2015 with biopsies neg for dysplasia, HH, Depression, BPH, Back pain, Denies VA,DM,CVA,Lung disease,renal disease, Kidney stones, Colonoscopy in 10/2011 with removal of small tubular adenomas, and diverticulosis proximal to the anastomosis, Sleep apnea--not using a CPAP machine, Anemia-he saw Dr. Srivastava in early 2020 and describes receiving iron infusions and having a bone marrow biopsy, [id number] to moderate sized hiatal hernia, small area of Yanez's esophagus with biopsies negative for dysplasia, no esophagitis or ulcer disease, [id number] small tubular adenoma, and a small amount of diverticulosis above his anastomosis, Gallstones seen on CT scans-patient is aware of this but has not had specific symptoms in the RUQ. His most recent CT scan of the abdomen and pelvis was in November of 2020. This was negative other than gallstones. This was reviewed again at the October 2024 office visit., Upper endoscopy in August of 2021 revealed his known moderate sized hiatal hernia. Duodenal biopsies were negative for celiac disease, gastric biopsies were negative for H. pylori, and there was no biopsy evidence of Yanez's esophagus. There was no evidence of any esophagitis or peptic ulcer disease., Colonoscopy in August of 2021 revealed small tubular adenomas, but no evidence of any inflammatory bowel disease nor microscopic colitis, Hospitalization in October of 2022 with some right lower quadrant pain and a CT scan suggestive of inflammation in the region of the cecum. This was treated with antibiotics. Followup CT scans in November of 2022 were negative for any sign of residual inflammation nor other abnormality., Hypertension, Hyperlipidemia, Neg. cardiac cath in [address] Pratt. * Surgical History:?2 Back terrell geries , Sigmoid resection for diverticulitis-[address] Jimenez-had an incidental appy , Knee surgery , Teeth removed 2023. * Family History:?Father: dece ased, parkinson.?Mother: , cancer, diagnosed with Heart disease, Diabetes, HTN (hypertension).?Paternal uncle: , diagnosed with Colon cancer.?Siblings: alive, brother age 60, diagnosed with Colon cancer.? * Social History:?Tobacco Use:?Tobacco Use/Smoking?Patient is a?current smoker,?How often do you smoke cigarettes??every day,?How many cigarettes a day do you smoke??11-20.?Drugs/Alcohol:?Alcohol Screen?Points: 1, Interpretation: Negative.?Miscellaneous:?Marital status: . Occupation: disabled. ???He does smoke 1/2 PPD; he does not use any sig. amounts of alcohol. * Medications:?Taking Multivit cabral - Tablet 1 tablet Orally Once a day , Taking oxyCODONE HCl 15 MG Tablet as directed Orally QID/as needed , Notes to Pharmacist: TID, Taking Flomax 0.4 MG Capsule 1 capsule Orally Once a day , Taking Amitriptyline HCl 25 MG Tablet as directed Orally 2 tablets at night , Notes to Pharmacist: For sleep and depression, Taking Pantoprazole Sodium 40 MG Tablet Delayed Release Oral , Taking Albuterol Sulfate HFA 108 (90 Base) MCG/ACT Aerosol Solution Inhalation , Taking Atorvastatin Calcium 80 MG Tablet Oral , Taking Metoprolol Succinate ER 25 MG Tablet Extended Release 24 Hour TAKE 1 TABLET BY MOUTH EVERY DAY Oral , Taking Ezetimibe 10 MG Tablet 1 tablet Orally Once a day , Not-Taking/PRN Dicyclomine HCl 10 MG Capsule 1-2 capsules Orally Take 1 or 2 capsules every 6 hours for abdominal discomfort and cramps. You can also take 1 or 2 capsules 30 to 60 minutes before each meal to try to decrease abdominal discomfort after eating. Do not take more than four times a day in total. , Discontinued Tamsulosin HCl 0.4 MG Capsule Oral , Medication List reviewed and reconciled with the patient * Allergies:?Aspir-81. Objective: * Vitals:?Wt:173lbs, Ht: 69.5 in, BMI:25.18Index, BP:111/77mm Hg, Wt-k.47. Assessment: * Assessment: 1.?Barretts esophagus withou t dysplasia - K22.70 (Primary)???2.?Gastro- esophageal reflux disease without esophagitis - K21.9???3.?History of adenomatous polyp of colon - Z86.010???4.?Other irritable bowel syndrome - K58.8?? 5.?Family history of colon cancer - Z80.0???6.?Colon cancer screening - Z12.11??? Overall, Sunny seems to be st able from a GI standpoint. His pantoprazole seems to be working fairly well for his chronic reflux. I did advise him to continue this daily. He is not having any significant abdominal pain at this time. I did advise him that if he has constipation in relation to his narcotics he should use some MiraLAX on a regular basis. I did recommend an upper endoscopy for follow-up in regard to the chronic reflux and Yanez's esophagus since his last exam was about 3 years ago. He also undergo a follow-up colonoscopy for further screening given his history of tubular adenomas and significant family history of multiple close relatives with colon cancer. We did review the rationale for that in regard to colon cancer prevention. Full consent has been obtained from him for both procedures, including risks of bleeding and perforation. The procedures will be done with monitored anesthesia care. Sunny and his were comfortable with this plan. Thank you again for allowing me to participate in Sunny's care. I shall continue to keep you advised of his progress. Plan: * Treatment: 2.?Gastro-esophageal reflux disease without esophagitis?Procedure: UPPER GI ENDOSCOPY* with MACsched for 11/08/24 at 2:40 pm 3.?History of adenomatous polyp of colon?Procedure: COLONOSCOPY* with MACsched for 11/08/24 at 2:40 pmmiralax 4.?Family history of colon cancer?Procedure: COLONOSCOPY* with MACsched for 11/08/24 at 2:40 pmmiralax 5.?Colon cancer screening?Procedure: COLONOSCOPY* with MACsched for 11/08/24 at 2:40 pmmiralax * Procedure Codes:?14408 UPPR GI ENDOSCOPY, DIAGNOSIS, 59726 DIAGNOSTIC COLONOSCOPY * Preventive Medicine:? ??Counseling:?Care goal follow-up plan:?Above Normal BMI Follow-up?Giving encouragement to exercise,?BMI management provided?Yes.? ??Screenings:?Fall Risk Screening?Fall Risk Assessment:?No falls in the past year,?Screening:?No falls in the past year,?Assessment:?Not performed, no reason specified,?Plan of Care:?Not documented, no reason specified.? * * The named appointment provid er may or may not be the originator of this progress note, and it is not deemed complete until electronically signed by the appointment provider. Sign off status: Pending * Provider:?Harpal Soliman MD Date:? 025 Generated for Vince turk/Heri/Lupesmitting on:?10/12/2024 02:11 PM EDT History and Physical Notes * HPI (History of Present Illness) Category Sub-Category Detail Notes Category Not es incontinence I saw Sunny in follow-up today in regard to his underlying history of chronic Gastrosoft reflux, Yanez's esophagus, history of tubular adenomas of the colon, family history of colon cancer, need for colorectal cancer screening, and some underlying irritable bowel syndrome. He was accompanied by his . I last saw Sunny in 2022. His last upper endoscopy and colonoscopy were in 2021. He presently has basically been feeling well from a GI standpoint although does report that his appetite has been diminished. He did have to have all of his teeth removed and he is currently waiting for dentures. He does remain on daily pantoprazole. He reports that works fairly well for his heartburn and reflux symptoms. He denies any dysphagia, early satiety, nausea, nor vomiting. He has lost several pounds since he was here in 2022. He still has the usual chronic left sided abdominal discomfort but nothing worse than usual. He denies any associated fevers, change in bowel habits, nor urinary symptoms. He denies any hematochezia nor melena. He denies any jaundice. He describes a family history of colon cancer in his father toward the end of his life, a paternal uncle, and a brother. Laboratories in July revealed a hemoglobin of 11.4 with a normal MCV. He does have a chronic anemia. He also had normal chemistries, renal function, iron studies, and LFTs in April 2024.
--- OUTSIDE RECORDS SUMMARY | 2024-10-12 14:11 | XMS_ITS | Patient Health Record ---
Author Organization [facility] Address [address] [place] [address] Care Team Providers Care Community Relations Representative Name Role Phone Po Galindo PITTS Primary Care Provider Harpal Little [phone] Allergies Allergen (clinical drug ingredient) Drug/Non Drug Allergy documented on EMR Reaction Allergy Type Onset Date Status 81 Unknown Drug Allergy Active Reason For Referral No Information Medications Medication SIG (Take, Route, Frequency, Duration) Notes Start Date End Date Status Amitriptyline HCl 25 MG as directed Orally 2 tablets at night For sleep and depression Active Pantoprazole Sodium 40 MG Oral for 90 Active Flomax 0.4 MG 1 capsule Orally Once a day Active Multivitamin - 1 tablet Orally Once a day Active oxyCODONE HCl 15 MG as directed Orally QID/as needed TID Active Dicyclomine HCl 10 MG 1-2 capsules [...] a day for 30 day(s) 10/12/2024 Active Albuterol Sulfate HFA 108 (90 Base) MCG/ACT Inhalation for 17 Active Atorvastatin Calcium 80 MG Oral for 90 Days Active Immunizations Vaccine Route Administration Date Status Comme nts Influenza Unknown 04/09/2018 Administered Influenza Unknown 03/09/2022 Administered Influenza Unknown 06/21/2021 Refused Social History Tobacco Use: Social History Observation [...] not use any sig. amounts of alcohol He does not smoke nor use an y sig. amounts of alcohol He does smoke; he does not u se any sig. amounts of alcohol He does smoke; he does not u se any sig. amounts of alcohol He does smoke; he does not u se any sig. amounts of alcohol He does smoke; he does not u se any sig. amounts of alcohol He does smoke 1/2 PPD; he do es not use any sig. amounts of alcohol He does smoke 1/2 PPD; he do es not use any sig. amounts of alcohol He does smoke 1/2 PPD; he do es not use any sig. amounts of alcohol He does smoke 1/2 PPD; he do es not use any sig. amounts of alcohol He does smoke 1/2 PPD; he do es not use any sig. amounts of alcohol He does smoke 1/2 PPD; he do es not use any sig. amounts of alcohol Problems Problem Type SNOMED Code ICD Code Onset Dates Problem Status W/U Status Risk Notes Problem Colon cancer screening (988943975) Colon cancer screening (Z12.11) Active confirmed Problem 568800095 Gastro-esophagea l reflux disease without esophagitis (K21.9) Active confirmed Problem 985522653 Encounter for screening for malignant neoplasm of colon (Z12.11) Active confirmed Problem 771748967 History of adenomatous polyp of colon (Z86.010) Active confirmed Problem 480778237 Change in bowel habits (R19.4) Active confirmed Problem 18006565 Weight loss (R63.4) Active confirmed Problem 421018772 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) Active confirmed Problem 129357549 Early satiety (R68.81) Active confirmed Problem Iron deficiency anemia (68857353) Iron deficiency anemia (D50.9) Active confirmed Problem 076336952 Blood in stool (K92.1) Active confirmed Problem 137183742 History of colon polyps (Z86.010) Active confirmed Problem 654444988 Barretts esophagus without dysplasia (K22.70) Active confirmed Problem Family history o f colon cancer (Z80.0) Active confirmed Problem 430879067 Abnormal CT scan , colon (R93.3) Active confirmed Problem Yanez esophagus (189144744) Yanez esophagus (K22.70) Active confirmed Problem 81542074 Other irritable bowel syndrome (K58.8) Active confirmed Problem Diverticulosis of colon (445804312) Diverticulosis of colon (K57.30) Active confirmed Problem 149248080 RLQ abdominal pain (R10.31) Active confirmed Problem 303291597 LLQ abdominal pain (R10.32) Active confirmed Vital Signs Blood pressure diastolic 77 mm Hg 10/12/2024 Height 69.5 in 10/12/2024 Blood pressure systolic 111 mm Hg 10/12/2024 Weight 173 lbs 10/12/2024 BMI 25.18 kg/m2 10/12/2024 Procedures Procedure Date Ordered Date Performed Result Body Sit e UPPER GI ENDOSCOPY 10/12/2024 N/A COLONOSCOPY 10/12/2024 N/A Encounters Encounter Location Date Provider Diagnosis [facility] [address] [place] [address] 10/12/2024 Harpal Soliman Barretts esophagus without dysplasia K22.70 ; Gastro-esophageal reflux disease without esophagitis K21.9 ; History of adenomatous polyp of colon Z86.010 ; Other irritable bowel syndrome K58.8 ; Family history of colon cancer Z80.0 and Colon cancer screening Z12.11 Assessments Encounter Date Diagnosis (ICD Code) Assessment Notes Treatment Notes Treatment Clinical Notes Section Notes 10/12/2024 Gastro-esophage al reflux disease without esophagitis [...] keep you advised of his progress. 10/12/2024 Barretts esophagus without dysplasia (ICD-10 - [...] irritable bowel syndrome (ICD-10 - K58.8) Overall, Sunyn seems to be stable from a GI [...] Date UPPER GI ENDOSCOPY 10/12/2024 COLONOSCOPY 10/12/2024 BUN 10/21/2022 LIVER PROFILE 06/21/2021 IRON + IBC (FE) 06/21/2021 IRON + IBC (FE) 06/06/2022 IRON + IBC (FE) 12/05/2021 VITAMIN B12 AND FOLATE 06/21/2021 CBC w DIFF 12/05/2021 CBC w DIFF 06/21/2021 CBC w DIFF 06/06/2022 CELIAC PANEL #10 06/21/2021 CT ABD & PELVIS WITH CONTRAST 10/21/2022 Creatinine 10/21/2022 Ferritin 06/06/2022 Future Test Test Name Order Date UPPER GI ENDOSCOPY 03/24/2015 UPPER GI ENDOSCOPY 09/17/2018 COLONOSCOPY 09/17/2018 UPPER GI ENDOSCOPY 06/21/2021 COLONOSCOPY 06/21/2021 Next Appt Details Provider Name:Harpal Salud Soliman , 11/08/2024 02:40:00 PM, [address] [place] [address] , [place], [place], [phone], Insurance Providers Payer Name Payer Address Payer Phone Subscriber Number Group Number Insured Name Patient Relationship to Insured Coverage Start Date Coverage End Date MEDICARE OF [place] [address] [place] [address] [id number] SUNNY HENNESSY Self - patient is the insured 0 BLUE [facility] [address] [place], [place] [id number] [phone] [id number] SUNNY HENNESSY Self - patient is the insured Medical (General) History Medical History History ICD Code GERD with Yanez's esophagu s-last EGD's in 10/2011 and 05/2015 with biopsies neg for dysplasia, HH Depression BPH Back pain Denies SC,DM,CVA,Lung disease,renal dise ase Kidney stones Colonoscopy in 10/2011 with r emoval of small tubular adenomas, and diverticulosis proximal to the anastomosis Sleep apnea--not using a CPAP machine Anemia-he saw Dr. Srivastava in early 2020 and describes receiving iron infusions and having a bone marrow biopsy [id number] to moderate sized hiatal hernia, small area of Yanez's esophagus with biopsies negative for dysplasia, no esophagitis or ulcer disease [id number] small tubular adenoma, and a small amount of diverticulosis above his anastomosis Gallstones seen on CT scans- patient is aware of this but has not had specific symptoms in the RUQ. His most recent CT scan of the abdomen and pelvis was in November of 2020. This was negative other than gallstones. This was reviewed again at the October 2024 office visit. Upper endoscopy in August of 2021 revealed [...] bowel disease nor microscopic colitis Hospitalization in October with some right lower quadrant pain and a CT scan suggestive of inflammation in the region of the cecum. This was treated with antibiotics. Followup CT scans in November of 2022 were negative for any sign of residual inflammation nor other abnormality. Hypertension Hyperlipidemia Neg. cardiac cath [place] [address] Pratt Surgical History Surgery Date(Month/Year) Teeth removed 2023 Knee surgery Sigmoid resection for divert iculitis-[address] Jimenez-had an incidental appy 2 Back surgeries
--- OUTSIDE RECORDS SUMMARY | 2024-10-12 14:11 | XMS_ITS ---
Author Organization [facility] Address [address] [place] [address] Care Team Providers Care Avionics Supervisor Name Role Phone Galindo Muro MD Primary Care Provider Harpal Little [phone] Allergies Allergen (clinical drug ingredient) Drug/Non Drug Allergy documented on EMR Reaction Allergy Type Onset Date Status Unknown Drug Allergy Active REASON FOR VISIT Patient presents today for abdominal pain Medications Medication SIG (Take, Route, Frequency, Duration) [...] (90 Base) MCG/ACT Inhalation for 17 Active Social History Tobacco Use: Social History Observation Description Date Details (start date - stop date) Current Smoker NA - NA Tobacco Use/Smoking Question Answer Notes Patient is a current smoker How often do you smoke cigarettes? every day How many cigarettes a day do you smoke? 11-20 Section Notes: He does smoke 1/2 PPD; he do es not use any sig. amounts of alcohol Vital Signs Temperature 98 degrees Fahrenheit 04/15/2023 Blood pressure systolic 00 mm Hg 04/15/20 23 Blood pressure diastolic 00 mm Hg 023 Height 69.5 in 04/15/2023 Weight 179 lbs 04/15/2023 BMI 26.05 kg/m2 04/15/2023 Encounters Encounter Location Date Provider Diagnosis [facility] [address] [place] [address] 04/15/2023 Harpal Soliman Yanez esophagus K22.70 ; LLQ abdominal pain R10.32 and Gastro-esophageal reflux disease without esophagitis K21.9 Assessments Encounter Date Diagnosis (ICD Code) Assessment Notes Treatment Notes Treatment Clinical Notes Section Notes 04/15/2023 Yanez esophagus (ICD-10 - K22.70) Repeat upper endoscopy and colonoscopy in 08/2024 Overall, Sunny appears well from a clinical standpoint. His symptomatology in regard to the abdominal pain has definitely improved and he is not having any new nor worrisome GI symptoms at the present time. His weight has remained stable and he seems to be eating comfortably. As such, I don't think any further intervention is required from an endoscopic workup nor any radiologic imaging standpoint. We did review that I do feel there is a component of some underlying irritable bowel syndrome contributing to his symptoms to some degree. We did review that he will be due for a followup upper endoscopy and colonoscopy in 2024. If things remain otherwise stable I advised him to see me on a p.r.n. basis. I did advise him to contact me in the interim if he has any problems or questions I can be of assistance with. Sunny was comfortable with this plan. Thank you again for allowing me to participate in Sunny's care. I shall continue to keep you advised of his progress as needed. 04/15/2023 LLQ abdominal pain (ICD-10 - R10.32) Overall, Sunny appears well from a clinical standpoint. His symptomatology in regard to the abdominal pain has definitely improved and he is not having any new nor worrisome GI symptoms at the present time. His weight has remained stable and he seems to be eating comfortably. As such, I don't think any further intervention is required from an endoscopic workup nor any radiologic imaging standpoint. We did review that I do feel there is a component of some underlying irritable bowel syndrome contributing to his symptoms to some degree. We did review that he will be due for a followup upper endoscopy and colonoscopy in 2024. If things remain otherwise stable I advised him to see me on a p.r.n. basis. I did advise him to contact me in the interim if he has any problems or questions I can be of assistance with. Sunny was comfortable with this plan. Thank you again for allowing me to participate in Sunny's care. I shall continue to keep you advised of his progress as needed. 04/15/2023 Gastro-esophage al reflux disease without esophagitis (ICD-10 - K21.9) Overall, Sunny appears well from a clinical standpoint. His symptomatology in regard to the abdominal pain has definitely improved and he is not having any new nor worrisome GI symptoms at the present time. His weight has remained stable and he seems to be eating comfortably. As such, I don't think any further intervention is required from an endoscopic workup nor any radiologic imaging standpoint. We did review that I do feel there is a component of some underlying irritable bowel syndrome contributing to his symptoms to some degree. We did review that he will be due for a followup upper endoscopy and colonoscopy in 2024. If things remain otherwise stable I advised him to see me on a p.r.n. basis. I did advise him to contact me in the interim if he has any problems or questions I can be of assistance with. Sunny was comfortable with this plan. Thank you again for allowing me to participate in Sunny's care. I shall continue to keep you advised of his progress as needed. Plan Of Treatment Treatment Notes Assessment Notes Yanez esophagus Repeat upper endosco py and colonoscopy in 08/2024 Next Appt Details Follow Up: prn, Reason: Provider Name:Harpal Soliman , 11/08/2024 02:40:00 PM, [address] [place] [address] , [place], [place], [phone], Progress Notes * SUNNY HENNESSY EDOB:1960 (62 yo M)Acc No.[id number]:04/15/2023 Progress Notes Patient:?SUNNY HENNESSY Provider:?Harpal Soliman MD :1960???Age:62 Y???Sex:Male Mayco e:04/15/2023 Address: [address], [id number] Pcp:Galindo Muro MD Subjective: * Chief Complaints: * ???Patient presents today fo r abdominal pain * HPI: ???incontinence:? I saw Sunny in followup today in regard to his abdominal pain, gastroesophageal reflux, history of Yanez's esophagus, and history of tubular adenomas of the colon. ?Since I last saw Sunny in January he reports that his abdominal pain has improved significantly for no particular reason. He still has intermittent episodes of left lower quadrant discomfort but overall things are much better than it had been over the Summer. He describes that he is eating comfortably and denies any significant heartburn or dysphagia on his daily pantoprazole. He denies any other abdominal pains, jaundice, fevers, nor weight loss. His bowel movements are fairly regular and he denies any hematochezia nor melena. ?His main issue remains that of his chronic back pain for which he might be going to try injections again at some point. * ROS:?General/Constitutional:?Change in appetite?admits.?Chills?denies.?Fatigue?admits.?Ophthalmologic:?Comments?all negative.?ENT:?Comments?all negative.?Respiratory:?hemoptysis?denies.?Cough?denies.?Cardiovascular:?Chest pain?denies.?Orthopnea?denies.?Gastrointestinal:?Comments?See HPI for details.?Genitourinary:?Hematuria?denies.?Dysuria?denies.?Musculoskeletal:?Painful joints?Back pain.?Weakness?denies.?Skin:?Itching?denies.?Rash?denies.?Neurologic:?Headache?denies.?Seizures?denies.?Psychiatric:?Comments?Depression.? * Medical History:? * Surgical History:?2 Back terrell geries Sigmoid resection for diverticulitis-[address] Jimenez-had an incidental appy Knee surgery * Hospitalization/Major Diagno stic Procedure:? * Family History:?Father: dece ased, parkinson.?Mother: , cancer, diagnosed with HTN (hypertension), Diabetes, Heart disease.?Paternal uncle: , diagnosed with Colon cancer.?Siblings: alive, brother age 60, diagnosed with Colon cancer.? * Social History:?Tobacco Use:?Tobacco Use/Smoking?Patient is a?current smoker,?How often do you smoke cigarettes??every day,?How many cigarettes a day do you smoke??11-20.?Drugs/Alcohol:?Alcohol Screen?Points: 1, Interpretation: Negative.?Miscellaneous:?Marital status: . Occupation: disabled. ???He does smoke 1/2 PPD; he does not use any sig. amounts of alcohol. * Medications:?TakingoxyCODONE HCl 15 MG Tablet as directed Orally QID/as needed, Notes: TIDFlomax 0.4 MG Capsule 1 capsule Orally Once a dayAmitriptyline HCl 25 MG Tablet as directed Orally 2 tablets at night, Notes: For sleep and depressionTamsulosin HCl 0.4 MG Capsule Oral Pantoprazole Sodium 40 MG Tablet Delayed Release Oral Albuterol Sulfate HFA 108 (90 Base) MCG/ACT Aerosol Solution Inhalation Taking oxyCODONE HCl 15 MG Tablet as directed Orally QID/as needed, Notes: TIDTaking Flomax 0.4 MG Capsule 1 capsule Orally Once a dayTaking Amitriptyline HCl 25 MG Tablet as directed Orally 2 tablets at night, Notes: For sleep and depressionTaking Tamsulosin HCl 0.4 MG Capsule Oral Taking Pantoprazole Sodium 40 MG Tablet Delayed Release Oral Taking Albuterol Sulfate HFA 108 (90 Base) MCG/ACT Aerosol Solution Inhalation Not-Taking/PRNDicyclomine HCl 10 MG Capsule 1-2 capsules Orally Take 1 or 2 capsules every 6 hours for abdominal discomfort and cramps. You can also take 1 or 2 capsules 30 to 60 minutes before each meal to try to decrease abdominal discomfort after eating. Do not take more than four times a day in total.Medication List reviewed and reconciled with the patientNot-Taking/PRN Dicyclomine HCl 10 MG Capsule 1-2 capsules Orally Take 1 or 2 capsules every 6 hours for abdominal discomfort and cramps. You can also take 1 or 2 capsules 30 to 60 minutes before each meal to try to decrease abdominal discomfort after eating. Do not take more than four times a day in total.Medication List reviewed and reconciled with the patient * Allergies:?Aspir-81yes[Aller gies Verified] Objective: * Vitals:?Wt: 179 lbs, Ht: 69. 5 in, BMI:26.05 Index, BP: 00/00 mm Hg, Temp: 98. * Examination: ???General Examination: ?GENERAL APPEARANCE:?pleasant, well nourished, well developed, in no acute distress , pleasant, well nourished, well developed, in no acute distress.?EYES:?sclera non-icteric , sclera non-icteric.?ORAL CAVITY:?mucosa moist , mucosa moist.?NECK/THYROID:?no cervical lymphadenopathy, neck supple , no cervical lymphadenopathy, neck supple.?SKIN:?nonjaundiced, no spider angiomata , nonjaundiced, no spider angiomata.?HEART:?S1, S2 normal , S1, S2 normal.?LUNGS:?clear to auscultation bilaterally , clear to auscultation bilaterally.?ABDOMEN:?normal bowel sounds, no guarding or rigidity, no masses palpable, soft, nondistended. He does have some mild diffuse tenderness, most prominent in the left lower quadrant..?EXTREMITIES:?no edema , no edema.?NEUROLOGIC:?alert and oriented , alert and oriented.? Assessment: * Assessment: 1.?Yanez esophagus - K22.7 0 (Primary)?2.?LLQ abdominal pain - R10.32?3.?Gastro-esophageal reflux disease without esophagitis - K21.9? Overall, Sunny appears well f rom a clinical standpoint. His symptomatology in regard to the abdominal pain has definitely improved and he is not having any new nor worrisome GI symptoms at the present time. His weight has remained stable and he seems to be eating comfortably. As such, I don't think any further intervention is required from an endoscopic workup nor any radiologic imaging standpoint. We did review that I do feel there is a component of some underlying irritable bowel syndrome contributing to his symptoms to some degree. We did review that he will be due for a followup upper endoscopy and colonoscopy in 2024. If things remain otherwise stable I advised him to see me on a p.r.n. basis. I did advise him to contact me in the interim if he has any problems or questions I can be of assistance with. Sunny was comfortable with this plan. Thank you again for allowing me to participate in Sunny's care. I shall continue to keep you advised of his progress as needed. Plan: * Treatment: * Procedure Codes:?3017F COLOR ECTAL CA SCREEN DOC [id number] BP SCR NOT PRFRM REC REASON [id number] Pt scrn tbco and id as user * Preventive Medicine:? ??Counseling:?Care goal follow-up plan:?Above Normal BMI Follow-up?Giving encouragement to exercise,?BMI management provided?Yes.? * Follow Up:?prn * * Sign off status: Completed true * Provider:?Harpal Soliman MD Date:? 023 Generated for Vince turk/Heri/Dakotaitting on:?10/12/2024 02:11 PM EDT History and Physical Notes * HPI (History of Present Illness) Category Sub-Category Detail Notes Category Not es incontinence I saw Sunny in followup today in regard to his abdominal pain, gastroesophageal reflux, history of Yanez's esophagus, and history of tubular adenomas of the colon. Since I last saw Sunny in January he reports that his abdominal pain has improved significantly for no particular reason. He still has intermittent episodes of left lower quadrant discomfort but overall things are much better than it had been over the Summer. He describes that he is eating comfortably and denies any significant heartburn or dysphagia on his daily pantoprazole. He denies any other abdominal pains, jaundice, fevers, nor weight loss. His bowel movements are fairly regular and he denies any hematochezia nor melena. His main issue remains that of his chronic back pain for which he might be going to try injections again at some point. Examination Category Sub-Category Detail Notes Category Not es General Examination GENERAL APPEARANCE: pleasant , well [...]
--- OUTSIDE RECORDS SUMMARY | 2024-10-12 14:11 | XMS_ITS | Data Portability ---
Author Organization [facility] Address [address] [facility] [address] [place] [address] Care Team Providers Care Installation Helper Name Role Phone JG OWUSU Primary Care Provider Assessment Encounter Date Assessment Date Assessment LastModified by Organization Details LastModified Time 10/20/2023 10/20/2023 Sunny Guerra is a 61? ? ?year old man with low back [...] on the extraforaminal right L2 nerve root. Repeat Lumbar epidural steroid injections under fluoroscopic guidance was recommended. The risks and benefits of the procedure? ? ? were discussed in detail. He wishes to proceed. An appointment has been booked for the same. He needs a lifter/driver on the day of the procedure. He has been having chest pain and is having a cardiac cath done. He will call use if he is placed on a blood thinner. [email or web address] Not available 10/20/2023 14:24:58 11/19/2023 11/19/2023 Sunny Guerra is a 63? ? ?year old man with low back [...] up in three months [email or web address] Not available 11/19/2023 10:44:47 03/12/2024 03/12/2024 Sunny Guerra is a 63? ? ?year old man with low back [...] on the extraforaminal right L2 nerve root. Repeat Lumbar epidural steroid injections under fluoroscopic guidance was recommended. The risks and benefits of the procedure? ? ? were discussed in detail. He wishes to proceed. An appointment has been booked for the same. He needs a lifter/driver on the day of the procedure. [email or web address] Not available 03/12/2024 10:24:01 03/30/2024 03/30/2024 Sunny Guerra is a 63? ? ?year old man with low back [...] He will follow up in three months [email or web address] Not available 03/30/2024 10:30:48 07/06/2024 07/06/2024 Sunny Guerra is a 64? [...] Time Trochanteri c bursitis of left hip 3808736159191 03 Active Kim ponce [facility], [place] [facility] 2 15:10:14 Lumbosacral radiculopat hy 3499746 Active Fernando ponce MD [address] , [address], [facility], [address], [place] [facility] 2 15:39:56 Degeneratio n of lumbar interverteb ral disc 58609615 Active eFrnando ponce MD [address] , [address], [facility], [address], [place] [facility] 2 15:40:09 Lumbar post-toño ctomy syndrome 007043435 Active Fernando ponce MD [address] , [address], [facility], [address], [place] [facility] 15:40:22 Problem Notes None recorded. Procedures Surgical History Date Name Laterality Status Provider Name and Address Organization Details Recorded Time 07/06/19 25 Lumbar Epidural steroid injection under fluoroscopic guidance completed Fernando Morrison MD [address] [facility] , [address], [place], [address], [place] [facility] 07/06/2024 15:43:39 03/30/20 24 Lumbar Epidural steroid injection under fluoroscopic guidance completed Fernando Morrison MD [address] [facility] , [address], [place], [address], [place] [facility] 03/30/2024 10:32:08 11/19/19 24 Lumbar Epidural steroid injection under fluoroscopic guidance completed Fernando Morrison MD [address] [facility] , [address], [place], [address], [place] [facility] 11/19/2023 10:44:25 05/22/20 23 Lumbar Epidural steroid injection under fluoroscopic guidance completed Fernando Morrison MD [address] [facility] , [address], [place], [address], [place] [facility] 05/22/2023 13:52:35 01/01/20 23 Lumbar Epidural steroid injection under fluoroscopic guidance completed Fernando Morrison MD [address] [facility] , [address], [place], [address], [place] [facility] 12/31/2022 14:22:40 09/11/19 23 Lumbar Epidural steroid injection under fluoroscopic guidance completed Fernando [facility] [address] [facility] [address], [place], [address], [place] [facility] 09/10/2022 [...] Name and Address Organization Details Recorded Time 10736 aspirin medicatio n Not available Not available Not available 04/29/2022 1191 RxNorm Kim betancourt [place] - [facility] 2 14:55:31 Medications Name Sig Start Date Stop [...] Not Available Vitals Date Recorded Body height Pain severity - 0-10 verbal numeric rating [Score] - Reported Oxygen saturation Oxygen saturation in Arterial blood by Pulse oximetry Heart rate Body mass index (BMI) Body weight Systolic blood pressure Diastolic blood pressure Provider Name and Address Organization Details Last Updated DateTime 4 177.8 cm 7 98 % 98 % 78 /min 25.8 kg/m2 32147.6 3 g 131 mm[Hg] 50 mm[Hg] Samreen Chelly borrero [place] - [facility] 4 14:05:38 Date Recorded Body height Pain severity - 0-10 verbal numeric rating [Score] - Reported Oxygen saturation Oxygen saturation in Arterial blood by Pulse oximetry Heart rate Systolic blood pressure Diastolic blood pressure Provider Name and Address Organization Details Last Updated DateTime 4 177.8 cm 7 96 % 96 % 77 /min 130 mm[Hg] 54 mm[Hg] Samreen Chelly borrero [place] [facility] 4 09:49:35 Date Recorded Body height Heart rate Oxygen saturation Oxygen saturation in Arterial blood by Pulse oximetry Body mass index (BMI) Body weight Pain severity - 0-10 verbal numeric rating [Score] - Reported Systolic blood pressure Diastolic blood pressure Provider Name and Address Organization Details Last Updated DateTime 4 177.8 cm 79 /min 97 % 97 % 25.1 kg/m2 42932.6 6 g 4 131 mm[Hg] 64 mm[Hg] Fernando ponce MD [address] [place] [address] , [address], [place], [address], [place] [facility] 4 09:58:33 Date Recorded Body height Heart rate Oxygen saturation Oxygen saturation in Arterial blood by Pulse oximetry Systolic blood pressure Diastolic blood pressure Provider Name and Address Organization Details Last Updated DateTime 4 177.8 cm 75 /min 95 % 95 % 122 mm[Hg] 57 mm[Hg] Lucero Barnes [place] [facility] 4 10:04:19 Date Recorded Body height Heart rate Oxygen saturation Oxygen saturation in Arterial blood by Pulse oximetry Systolic blood pressure Diastolic blood pressure Provider Name and Address Organization Details Last Updated DateTime 5 177.8 cm 95 /min 96 % 96 % 151 mm[Hg] 50 mm[Hg] Lucero Barnes [place] [facility] 5 15:23:37 Social History Question Answer Notes LastModified by Organizat ion Details LastModified Time Tobacco Smoking Status Current Every Day Smoker 1/2 pack daily Kim betancourt, [place] [facility] 04/29/2022 14:58:58 What Is Your [...] Not available 04/10 15:10:48 Brother Heart disease [email or web address] Not available 04/10 15:10:48 Medical History Condition Response Anxiety Disorder Y Diabetes N Coronary Artery Disease N Gout N Seizures/Epilepsy N Arthritis Y Cancer N Stroke N Asthma N COPD N Depression Y HIV/AIDS N Hepatitis C N Headache N Bipolar Disorder N GERD/Reflux Y Fibromyalgia N Irritable Bowel Syndrome Y Osteoporosis Y Past Encounters Encounter ID Performer Location Encounter Start Date Encounter Closed Date Diagnosis/Indication Diagnosis SNOMED-CT Code Diagnosis ICD10 Code Diagnosis Note [id number] Fernando Morrison MD [facility] [address] [facility] [place] [place] [address] 04/29/2022 14:38:11 04/29/2022 15:57:01 Trochanteric bursitis of left hip 9385969352 76560 M70.62 Lumbosacra l radiculopathy 6468629 M54.17 Lumbar post-laminectomy syndrome 933005892 M96.1 Degenerati on of lumbar intervertebral disc 71143138 M51.36 [id number] Fernando Morrison MD [facility] [address] [facility] [place] [address] 05/23/2022 15:17:22 05/24/2022 10:48:58 Lumbosacral radiculopathy 1565779 M54.17 Lumbar post-laminectomy syndrome 614024620 M96.1 Degenerati on of lumbar intervertebral disc 81657794 M51.36 [id number] Fernando Morrison MD [facility] [address] [place] [address] 09/10/2022 11:02:21 09/10/2022 14:08:11 Lumbosacral radiculopathy 6215208 M54.17 Lumbar post-laminectomy syndrome 096192295 M96.1 Degenerati on of lumbar intervertebral disc 03074526 M51.36 [id number] Fernando Morrison MD [facility] [address] [place] [address] 10/10/2022 15:07:35 10/10/2022 15:41:20 Lumbar post-laminectomy syndrome 181837096 M96.1 Lumbosacra l radiculopathy 3459740 M54.17 Degenerati on of lumbar intervertebral disc 64083693 M51.36 [id number] Fernando Morrison MD [facility] [address] [place] [address] 12/31/2022 13:32:25 12/31/2022 14:28:42 Lumbosacral radiculopathy 5594929 M54.17 Lumbar post-laminectomy syndrome 571894475 M96.1 Degenerati on of lumbar intervertebral disc 95139213 M51.36 [id number] Fernando Morrison MD [facility] [address] [place] [address] 05/22/2023 13:11:18 05/22/2023 13:59:54 Lumbosacral radiculopathy 9451529 M54.17 Lumbar post-laminectomy syndrome 887563457 M96.1 Degenerati on of lumbar intervertebral disc 09867823 M51.36 [id number] Fernando Morrison MD [facility] [address] [place] [address] 10/20/2023 13:57:26 10/20/2023 14:25:31 Lumbosacral radiculopathy 8947599 M54.17 Lumbar post-laminectomy syndrome 108621354 M96.1 Degenerati on of lumbar intervertebral disc 12521293 M51.36 [id number] Fernando Morrison MD [facility] [address] [place] [address] 11/19/2023 09:37:54 11/19/2023 10:49:53 Lumbosacral radiculopathy 4953934 M54.17 Lumbar post-laminectomy syndrome 924461163 M96.1 Degenerati on of lumbar intervertebral disc 54412986 M51.36 [id number] Fernando Morrison MD [facility] [address] [place] [address] 03/12/2024 09:52:16 03/12/2024 10:24:54 Lumbosacral radiculopathy 8930528 M54.17 Lumbar post-laminectomy syndrome 215229975 M96.1 Degenerati on of lumbar intervertebral disc 63134305 M51.362 [id number] Fernando Morrison MD [facility] [address] [place] [address] 03/30/2024 09:46:41 03/30/2024 16:36:13 Lumbosacral radiculopathy 4899584 M54.17 Lumbar post-laminectomy syndrome 075375709 M96.1 Degenerati on of lumbar intervertebral disc 01200526 M51.362 [id number] Fernando Morrison MD [facility] [address] [place] [address] 07/06/2024 15:18:22 07/06/2024 15:50:05 Lumbosacral radiculopathy 6689641 M54.17 Lumbar post-laminectomy syndrome 320847578 M96.1 Degenerati on of lumbar intervertebral disc 81223991 M51.362 Health Concerns Section Related Observation LastModified by Organization Detai ls LastModified Time None Recorded Concern Status LastModified by Organization Details LastModified Time None Recorded Advance Directives Directive None Recorded Payers Encounter Date Sequence Insurance Name Policy Number Policy Pace Covered Member ID Pace Member ID Guarantor Name 10/20/2023 1 [place] Sunny Guerra [id number] 2 Sunny Guerra 10/20/2023 2 [place] Sunny Guerra [id number] Sunny Guerra 11/19/2023 1 [place] Sunny Guerra [id number] Sunny Guerra 11/19/2023 2 [place] Sunny Guerra [id number] Sunny Guerra 03/12/2024 1 [place] Sunny Guerra [id number] 2 Sunny Guerra 03/12/2024 2 [place] Sunny Guerra [id number] Sunny Guerra 03/30/2024 1 [place] Sunny Guerra [id number] Sunny Guerra 03/30/2024 2 [place] Sunny Guerra [id number] Sunny Guerra 07/06/2024 1 [place] Sunny Guerra [id number] 2 Sunny Guerra 07/06/2024 2 [place] Sunny Guerra [id number] Sunny Guerra Notes Date Note Type Note Provider Name and Address Organization Details Recorded Time 10/20/2023 text/html He is here for a follow up after a lumbar epidural steroid injection under fluoroscopic guidance on 05/22/2023. He reports 70% pain relief with a slow return of pain and pain is now back to baseline. He now has pain in his left low back radiating into his left lower extremity. He was walking better. He is complaining of occasionally achiness in his low back . He has no history of bladder or bowel incontinence.He has been having chest pain. He has seen his chief wharfinger and is having a cardiac cath done. Fernando Morrison MD [address] [facility] , [place] [address], [place], [address], [place] [facility] 10/20/2023 15:25:50 11/19/2023 text/html He is here today for a lumbar epidural steroid injection under fluoroscopic guidance.He had a cardiac cath done and is on medical management of his CAD Fernando Morrison MD [address] [facility] , [address], [place], [address], [place] [facility] 11/19/2023 10:58:20 03/12/2024 text/html He is here for a follow up after a lumbar epidural steroid injection under fluoroscopic guidance on 11/19/2023. He reports 70% pain relief with a slow return of pain and pain is now back to baseline. He now has pain in his left low back radiating into his left lower extremity. He was walking better. He is complaining of occasionally achiness in his low back . He has no history of bladder or bowel incontinence. Fernando Morrison MD [address] [facility] , [address], [place], [address], [place] [facility] 03/12/2024 11:34:07 03/30/2024 text/html He is here today for a lumbar epidural steroid injection under fluoroscopic guidance. Fernando Morrison MD [address] [facility] , [address], [place], [address], [place] [facility] 03/30/2024 16:39:02 07/06/2024 text/html He is here today for a lumbar epidural steroid injection under fluoroscopic guidance. Fernando Morrison MD [address] [facility] , [address], [place], [address], [place] [facility] 07/07/2024 08:48:29
[2024-11-04 15:08] VITALS: BMI 25.2
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
[2024-11-08] VITALS (8 sets, daily range): BP systolic 122–181; BP diastolic 48–94; PULSE 80–96; RESP 12–20; TEMP 36.2–36.8; O2SAT 97–100; BMI 24.4
--- NOTE | 2024-11-08 15:52 | PM.OP ---
Brief Operative Note Date of Service: 11/08/24 Pre-op diagnosis: Yanez's, Screening Post-op diagnosis: other (Hiatal hernia, Cecal polyp) Procedure: EGD with biopsies, Colonoscopy to the cecum and TI with bx/removal of polyp Surgeon: Harpal Soliman MD Anesthesia: MAC Was an Field Collector used for this Procedure?: No Estimated blood loss (mL): 2.0 Pathology: other (A. EG Junction at 38cm(Cypher study specimen sent as well) B. Cecal polyp) Condition: stable Disposition: PACU
[2024-11-08] MEDS: fentaNYL citrate/PF 100 MCG/2 ML VIAL IVPUSH ×2 (16:06→16:11)
[2024-11-08] MEDS: HYDROmorphone HCl 1 MG/ML SYRINGE 2 MG IVPUSH (16:16)
--- NOTE | 2024-11-09 00:16 | OP_ITS ---
DATE OF SERVICE: 11/08/2024 SURGEON: Harpal Soliman MD INDICATIONS: The patient presents for evaluation of gastroesophageal reflux with associated Yanez's esophagus, personal history of tubular adenoma of the colon, family history of colon cancer, and colorectal cancer screening. Full consent has been obtained from him for this, including risks of bleeding and perforation. PREOPERATIVE DIAGNOSIS: POSTOPERATIVE DIAGNOSIS: PROCEDURE PERFORMED: Esophagogastroduodenoscopy with biopsies and colonoscopy to the cecum and terminal ileum with biopsy removal of polyp. ESTIMATED BLOOD LOSS: COMPLICATIONS: ANESTHESIA: Medication used, monitored anesthesia care. ASSISTANTS: SPECIMENS: PREOPERATIVE DIAGNOSES: Gastroesophageal reflux with associated Yanez's esophagus, personal history of tubular adenoma of the colon and family history of colon cancer, and need for colorectal cancer screening. POSTOPERATIVE DIAGNOSES: Gastroesophageal reflux with associated Yanez's esophagus, personal history of tubular adenoma of the colon and family history of colon cancer, and need for colorectal cancer screening, hiatal hernia, colon polyp, diverticulosis, and internal hemorrhoids. DESCRIPTION OF PROCEDURE: The patient was placed in the left lateral decubitus position. The Olympus video gastroscope was passed in the posterior oropharynx and upper esophagus under direct vision. The scope was passed slowly into the distal esophagus. The gastroesophageal junction appeared at 38 cm. There was some slight irregularity, consistent with possible small, less than 1 cm areas of Yanez mucosa. There was no esophagitis nor any lesions. There was a [id number]-[id number]-[id number]-sized hiatal hernia. The scope was advanced to pylorus. The duodenum was cannulated to the descending portion. The duodenum including the bulb appeared normal without mass or ulceration. The scope was withdrawn back to the stomach. The gastric antrum and body appeared normal with good peristalsis. The scope was retroflexed, visualizing the proximal stomach carefully which appeared normal, without any sign of mass or ulceration. The scope was straightened and withdrawn back to the esophagus. Biopsies were obtained at the EG junction at 38 cm. Proximal to this, the esophageal mucosa appeared normal. The scope was withdrawn from the patient. He was turned around for the colonoscopy. The digital rectal exam revealed no abnormalities. The Olympus video pediatric colonoscope was entered into the rectum and advanced easily to the cecum. Once in the cecum, I did identify cecal pouch with appendiceal orifice and normal-appearing ileocecal valve. The terminal ileum was cannulated and appeared normal. The scope was withdrawn back to the colon. The entire cecum was well visualized and appeared normal other than an approximately 4 mm polyp, which was biopsied and removed with cold biopsy forceps. The scope was then slowly withdrawn, assessing all mucosal surfaces carefully. Preparation was excellent. I did not visualize any other polyps, colitis, nor angiodysplasia. There were occasional diverticula noted in the descending colon. I visualized the anastomosis from his previous surgery at approximately 20 cm. This appeared normal and patent. There was no sign of any other polyps, colitis, nor angiodysplasia. In the rectum, scope was retroflexed, visualizing some internal hemorrhoids, but no other pathology. The rectal mucosa appeared normal. The scope was straightened and withdrawn from the patient. He tolerated both procedures well and was returned to the recovery area in stable condition. IMPRESSION: 1. Hiatal hernia, gastroesophageal reflux, history of Yanez's esophagus. 2. Colon polyp. 3. Mild diverticulosis of descending colon. 4. Internal hemorrhoids. PLAN: Results of the biopsy will be checked. Of note, a tissue specimen has been sent for the Cypher study for the Yanez's esophagus. If there is no sign of dysplasia within the Yanez's esophagus, I would then recommend a repeat upper endoscopy and colonoscopy in 3 years for further screening. He will otherwise see me on a p.r.n. basis. He was advised to continue his pantoprazole. He was advised not to use any aspirin nor NSAIDs for 1 week. This has been discussed with his . MD LG Parker/AMARIS / [id number] DMITRIY
== END 2024-11-08 16:50 | disposition home or self-care (01) ==
PROVIDERS: PCP Internal Medicine; Visit Provider Internal Medicine
PROC: (CPT 45380; principal; 2024-11-08 14:40)
DX: Z12.11 Encounter for screening for malignant neoplasm of colon (principal); Z86.0101 Personal history of adenomatous and serrated colon polyps; Z80.0 Family history of malignant neoplasm of digestive organs; D12.0 Benign neoplasm of cecum; K57.30 Diverticulosis of large intestine without perforation or abscess without bleeding; K64.8 Other hemorrhoids; K58.8 Other irritable bowel syndrome; Z90.49 Acquired absence of other specified parts of digestive tract; Z98.0 Intestinal bypass and anastomosis status; K21.9 Gastro-esophageal reflux disease without esophagitis; K22.70 Barrett's esophagus without dysplasia; K44.9 Diaphragmatic hernia without obstruction or gangrene; I10 Essential (primary) hypertension; E78.5 Hyperlipidemia, unspecified; N20.0 Calculus of kidney; G47.33 Obstructive sleep apnea (adult) (pediatric); F32.A Depression, unspecified; Z79.899 Other long term (current) drug therapy; Z98.890 Other specified postprocedural states; F17.210 Nicotine dependence, cigarettes, uncomplicated
CPT/HCPCS: 45380; 43239; 88305; 88313; J1171; J2003; J2704; J3010

== ENCOUNTER 2024-11-22 09:19 | Outpatient (AMB) | payer MEDICARE, BC, SELFPAY ==
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
[2024-11-22 09:22] VITALS: BP 122/66; PULSE 79; O2SAT 96; BMI 25.4
--- OUTSIDE RECORDS SUMMARY | 2024-11-22 10:05 | XMS_ITS | Patient Health Record ---
Author Organization [facility] Address [address] [place] [address] Care Team Providers Care Nuclear Medicine Technician Name Role Phone Galindo Muro MD Primary Care Provider Harpal Little [phone] Allergies Allergen (clinical drug ingredient) Drug/Non Drug Allergy documented on EMR Reaction Allergy Type Onset Date Status Unknown Drug Allergy Active Results Component Value Reference Range Notes Pathology (Not yet reviewed by provider) Interpretation: Performing Lab:[facility], [address] [place] [id number] Notes/Report: Name: Sunny Guerra Age/Sex: 64/M : 1960 Unit#: [id number] Attend Dr: Harpal Soliman MD Re11/08/24 Status : [facility] Location: [facility] Disch: SPEC : [id number] RECD : 11/09/24 STATUS: ALETA CHI NUM: [id number] JAYANT: 11/08/24-1519 [facility] DR: Harpal Soliman MD ENTERED: 11/09/24-01 09 SP TYPE: Surgical OTHR DR: Galindo Muro MD ORDERED: HE Stain/6, Gross Micro L4/2, Special st. 2, AB/PAS Diagnosis A. Gastroesophageal junction, 38 cm, biopsy: Squamocolumnar junctional mucosa with mild chronic inflammation and focal intestinal metaplasia consistent with Yanez's esophagus; negative for dysplas ia (see comment). B. Colon, cecum, lona ypectomy: Tubular adenoma; negative for high-grade dysplasia. COMMENT (A): These f indings are consistent with Yanez's esophagus if the biopsies were taken above the kulwinder omic gastroesophageal junction. Clinical and endoscopic correlation is advised. Clinical History Pre-Op Dx: Screening Post-Op Dx: Hiatal h ernia, reflux, Yanez's, colon polyp, diverticulosis, hemorrhoids Microscopic Description A-B. Microscopic sec tions examined. Intestinal metaplasia is seen in A, supported by AB/PAS stains. Material Received A. EG junction bx's at 38 B. Cecal polyp Gross Description Received in two parts. Part A: Received in formalin labeled EG junction bx's at 38 cm? are three mujica-irwin irregular tissue fra gments each measuring 0.2 cm, submitted in toto in a cassette labeled A. Part B: Received in formalin labeled ?cecal polyp? are two irwin irregular tissue fragments each measuring 0.2 c m, submitted in toto in a cassette labeled B. CEDS Special stains order ed and performed: AB/PAS on A. CONTINUED ON NEXT PAGE Name: Sunny Guerra Age/Sex: 64/M : 1960 Unit#: [id number] Attend Dr: Harpal Soliman MD Re11/08/24 Status : [facility] Location: [facility] Disch: SPEC : [id number] RECD : 11/09/24 STATUS: ALETA COLTONZac NUM: [id number] JAYANT: 11/08/24-1518 [facility] DR: Harpal Soliman MD ENTERED: 11/09/24-01 09 SP TYPE: Surgical OTHR DR: Galindo Muro MD ORDERED: HE Stain/6, Gross Micro L4/2, Special st. 2, AB/PAS IHC S/NG Disclaimer NOTE: Unless otherwi se stated, all tissue is formalin-fixed and paraffin-embedded. Some or all of the immunohis tochemical tests reported herein may have been developed and their performance characte ristics determined by [facility]. They have not been cleared or appr florentino by the U.S. Food and Drug Administration (FDA). However, the FDA has determined that such clearance or approval is not necessary. This laboratory is certified under the Clinical Laboratory Improvement Amendments of 1988 (CLIA) as qualified to perform high comp lexity clinical laboratory testing. Copies To: Galindo Muro MD [facility] Primary Care,[place] [address] [place], [place] [id number] Harpal Soliman MD [facility] [address] [place] [address] Signed (si gnature on file) Michelle Dodson MD 11/11/24 1028 END OF REPORT Reason For Referral No Information Medications Medication [...] you smoke? 11-20 Section Notes: He does not smoke nor use an [...] Colon cancer screening (Z12.11) Active confirmed Problem 662356491 Gastro-esophagea l reflux disease without esophagitis (K21.9) Active confirmed Problem 298379814 Encounter for screening for malignant neoplasm of colon (Z12.11) Active confirmed Problem 852266998 History of adenomatous polyp of colon (Z86.010) Active confirmed Problem 476295920 Change in bowel habits (R19.4) Active confirmed Problem 99459505 Weight loss (R63.4) Active confirmed Problem 434063604 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) Active confirmed Problem 580332238 Early satiety (R68.81) Active confirmed Problem Iron deficiency anemia (20543259) Iron deficiency anemia (D50.9) Active confirmed Problem 919580883 Blood in stool (K92.1) Active confirmed Problem 212114698 History of colon polyps (Z86.010) Active confirmed Problem 916933245 Barretts esophagus without dysplasia (K22.70) Active confirmed Problem Family History of Cancer of Colon (Situation) (475333754) Family history of colon cancer (Z80.0) Active confirmed Problem 042441309 Abnormal CT scan , colon (R93.3) Active confirmed Problem Yanez esophagus (148687973) Yanez esophagus (K22.70) Active confirmed Problem 94076053 Other irritable bowel syndrome (K58.8) Active confirmed Problem Diverticulosis of colon (655506928) Diverticulosis of colon (K57.30) Active confirmed Problem 445193933 RLQ abdominal pain (R10.31) Active confirmed Problem 806913286 LLQ abdominal pain (R10.32) Active confirmed Vital Signs Blood pressure diastolic 77 mm Hg 10/12/2024 Height 69.5 in 10/12/2024 Blood pressure systolic 111 mm Hg 10/12/2024 Weight 173 lbs 10/12/2024 BMI 25.18 kg/m2 10/12/2024 Procedures Procedure Date Ordered Date Performed Result Body Sit e UPPER GI ENDOSCOPY 10/12/2024 N/A COLONOSCOPY 10/12/2024 N/A Encounters Encounter Location Date Provider Diagnosis [facility] [address] [place] [id number] 11/08/2024 Harpal Soliman Colon cancer screening Z12.11 ; History of adenomatous polyp of colon Z86.0101 ; Family history of colon cancer Z80.0 ; Colon polyps K63.5 ; Yanez esophagus K22.70 and Hiatal hernia K44.9 [facility] [address] [place] [address] 10/12/2024 Harpal Soliman Barretts esophagus without dysplasia [...] adenomatous polyp of colon (ICD-10 - Z86.0101) 10/12/2024 Gastro-esophage al reflux disease without esophagitis [...] to keep you advised of his progress. 11/08/2024 Family history of colon cancer (ICD-10 - Z80.0) 10/12/2024 History of adenomatous polyp of colon [...] to keep you advised of his progress. 11/08/2024 Colon polyps (ICD-10 - K63.5) 10/12/2024 Other irritable bowel syndrome (ICD-10 - [...] to keep you advised of his progress. 11/08/2024 Yanez esophagus (ICD-10 - K22.70) 10/12/2024 Family history of colon cancer (ICD-10 [...] to keep you advised of his progress. 11/08/2024 Hiatal hernia (ICD-10 - K44.9) 10/12/2024 Colon cancer screening (ICD-10 - Z12.11) [...] LIVER PROFILE 06/21/2021 IRON + IBC (FE) 12/05/2021 IRON + IBC (FE) 06/21/2021 IRON + IBC (FE) 06/06/2022 VITAMIN B12 AND FOLATE 06/21/2021 CBC w DIFF 06/06/2022 CBC w DIFF 12/05/2021 CBC w DIFF 06/21/2021 CELIAC PANEL #10 06/21/2021 CT ABD & PELVIS WITH CONTRAST 10/21/2022 Creatinine 10/21/2022 Ferritin 06/06/2022 Pathology 11/08/2024 Future Test Test Name Order Date UPPER GI ENDOSCOPY 03/24/2015 UPPER GI ENDOSCOPY 09/17/2018 COLONOSCOPY 09/17/2018 UPPER GI ENDOSCOPY 06/21/2021 COLONOSCOPY 06/21/2021 Insurance Providers Payer Name Payer Address Payer Phone Subscriber Number Group Number Insured Name Patient Relationship to Insured Coverage Start Date Coverage End Date MEDICARE OF [place] [address] [place] [address] [id number] SUNNY GUERRA Self - patient is the insured 0 [facility] [address] [place], [place] [id number] MINOOSUNNY Self - patient is the insured Medical (General) History Medical History History ICD Code GERD with Yanez's esophagu s-last EGD's in 10/2011 and 05/2015 with biopsies neg for dysplasia, HH Depression BPH Back pain Denies [place],DM,CVA,Lung disease,renal dise ase Kidney stones Colonoscopy in 10/2011 with r emoval of small tubular adenomas, and diverticulosis proximal to the anastomosis Sleep apnea--not using a CPAP machine Anemia-he saw Dr. Srivastava in early 2020 and describes receiving iron infusions and having a bone marrow biopsy 12/[id number] to moderate sized hiatal hernia, small area of Yanez's esophagus with biopsies negative for dysplasia, no esophagitis or ulcer disease 12/[id number] small tubular adenoma, and a small amount [...]
== END 2024-11-22 10:51 | disposition home or self-care (01) ==
LOC: HO.HMCH 09:20
PROVIDERS: PCP Internal Medicine; Visit Provider Internal Medicine
DX: I25.10 Atherosclerotic heart disease of native coronary artery without angina pectoris (principal); J43.1 Panlobular emphysema; D12.6 Benign neoplasm of colon, unspecified; F33.1 Major depressive disorder, recurrent, moderate; M96.1 Postlaminectomy syndrome, not elsewhere classified; F17.210 Nicotine dependence, cigarettes, uncomplicated; E78.00 Pure hypercholesterolemia, unspecified; K22.70 Barrett's esophagus without dysplasia

== ENCOUNTER → 2024-11-22 09:19 | Outpatient (BNVA) | payer MEDICARE, BC, SELFPAY | PROVIDERS: PCP Internal Medicine; Visit Provider Internal Medicine | DX: I25.10 Atherosclerotic heart disease of native coronary artery without angina pectoris (principal); D12.6 Benign neoplasm of colon, unspecified; M96.1 Postlaminectomy syndrome, not elsewhere classified; J43.1 Panlobular emphysema; E78.00 Pure hypercholesterolemia, unspecified; K22.70 Barrett's esophagus without dysplasia; F33.1 Major depressive disorder, recurrent, moderate; F17.210 Nicotine dependence, cigarettes, uncomplicated; Z71.6 Tobacco abuse counseling | CPT/HCPCS: 96127; 99212 ==

== ENCOUNTER 2024-12-17 06:56 | Outpatient (REF) | payer MEDICARE, BC, SELFPAY ==
--- OUTSIDE RECORDS SUMMARY | 2024-12-17 06:59 | XMS_ITS | Patient Health Record ---
Author Organization [facility] Address [address] [place] [address] Care Team Providers Care Safety Representative Name Role Phone Po Galindo PITTS Primary Care Provider Harpal Little [phone] Allergies Allergen (clinical drug ingredient) Drug/Non Drug Allergy documented on EMR Reaction Allergy Type Onset Date Status Unknown Drug Allergy Active Results Component Value Reference Range Notes Pathology (Not yet reviewed by provider) Interpretation: Performing Lab:[facility], [address] [place] [id number] Notes/Report: Reason For Referral No Information Medications Medication [...] you smoke? 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) Active confirmed Problem 906660040 Early satiety (R68.81) Active confirmed Problem Iron deficiency anemia (34876441) Iron deficiency anemia (D50.9) Active confirmed Problem 236547050 Blood in stool (K92.1) Active confirmed Problem 924369207 History of colon polyps (Z86.010) Active confirmed Problem 912763975 Barretts esophagus without dysplasia (K22.70) Active confirmed Problem Family History of Cancer of Colon (Situation) (296067277) Family history of colon cancer (Z80.0) Active confirmed Problem 907369075 Abnormal CT scan , colon (R93.3) Active confirmed Problem Yanez esophagus (933008129) Yanez esophagus (K22.70) Active confirmed Problem 09879672 Other irritable bowel syndrome (K58.8) Active confirmed Problem Diverticulosis of colon (439508493) Diverticulosis of colon (K57.30) Active confirmed Problem 945795759 RLQ abdominal pain (R10.31) Active confirmed Problem 779829439 LLQ abdominal pain (R10.32) Active confirmed Vital Signs Blood pressure diastolic 77 mm Hg 10/12/2024 Height 69.5 in 10/12/2024 Blood pressure systolic 111 mm Hg 10/12/2024 Weight 173 lbs 10/12/2024 BMI 25.18 kg/m2 10/12/2024 Procedures Procedure Date Ordered Date Performed Result Body Sit e UPPER GI ENDOSCOPY 10/12/2024 N/A COLONOSCOPY 10/12/2024 N/A Encounters Encounter Location Date Provider Diagnosis [facility] [address] [place] [id number] 11/08/2024 Harpal Soliman Colon cancer screening Z12.11 ; History of adenomatous polyp of colon Z86.0101 ; Family history of colon cancer Z80.0 ; Colon polyps K63.5 ; Yanez esophagus K22.70 and Hiatal hernia K44.9 [facility] [address] [place] [address] 10/12/2024 Harpal Soliman Barretts esophagus without dysplasia [...] Date MEDICARE OF [place] [address] [place] [address] [id number] SUNNY HENNESSY Self - patient is the insured 0 [facility] [address] [place], [place] [id number] [phone] [id number] SUNNY HENNESSY Self - patient is the insured Medical (General) History Medical History History ICD Code GERD with Yanez's esophagu s-last EGD's in 10/2011 and 05/2015 with biopsies neg for dysplasia, HH Depression BPH Back pain Denies [place],DM,CVA,Lung disease,renal dise ase Kidney stones Colonoscopy in 10/2011 with r emoval of small tubular adenomas, and diverticulosis proximal to the anastomosis Sleep apnea--not using a CPAP machine Anemia-he saw Dr. Srivastava in early 2020 and describes receiving iron infusions and having a bone marrow biopsy 12/[id number] to moderate sized hiatal hernia, small area of Yanez's esophagus with biopsies negative for dysplasia, no esophagitis or ulcer disease 12/[id number] small tubular adenoma, and a small amount [...]
--- OUTSIDE RECORDS SUMMARY | 2024-12-17 06:59 | XMS_ITS | Data Portability ---
Author Organization [facility] Pain Managem ent, PAIN OFFICE Address [address] [facility] [address] [place] [address] Care Team Providers Care Car Retarder Operator Name Role Phone JG OWUSU Primary Care Provider Assessment Encounter Date Assessment Date Assessment LastModified by Organization Details LastModified Time 10/20/2023 10/20/2023 Sunny Guerra is a 61year old man with low back pain radiating [...] recommended. The risks and benefits of the procedure were discussed in detail. He wishes to proceed. An appointment has been booked for the same. He needs a motor pool driver on the day of the procedure. He has been having chest pain and is having a cardiac cath done. He will call use if he is placed on a blood thinner. [email or web address] Not available 10/20/2023 14:24:58 11/19/2023 11/19/2023 Sunny Guerra is a 63year old man with low back pain radiating [...] . The risks and benefits of the procedure were discussed in detail. He wishes to proceed. He will follow up in three months [email or web address] Not available 11/19/2023 10:44:47 03/12/2024 03/12/2024 Sunny Guerra is a 63year old man with low back pain radiating [...] recommended. The risks and benefits of the procedure were discussed in detail. He wishes to proceed. An appointment has been booked for the same. He needs a motor pool driver on the day of the procedure. [email or web address] Not available 03/12/2024 10:24:01 03/30/2024 03/30/2024 Sunny Guerra is a 63year old man with low back pain radiating [...] . The risks and benefits of the procedure were discussed in detail. He wishes to proceed. He will follow up in three months [email or web address] Not available 03/30/2024 10:30:48 07/06/2024 07/06/2024 Sunny Guerra is a 64year old man with low back pain radiating [...] . The risks and benefits of the procedure were discussed in detail. He wishes to [...] Time Trochanteri c bursitis of left hip 5513367815327 03 Active Kim ponce null, [place] - [facility] 2 15:10:14 Lumbosacral radiculopat hy 7875343 Active Fernando ponce MD [address] , [address], [place], [address], [place] - [facility] 2 15:39:56 Degeneratio n of lumbar interverteb ral disc 91452687 Active Fernando ponce MD [address] , [address], [facility] [place], [address], [place] - [facility] 2 15:40:09 Lumbar post-toño ctomy syndrome 307855724 Active Fernando ponce MD [address] , [address], [facility] [place], [address], [place] - [facility] 2 15:40:22 Problem Notes None recorded. Procedures Surgical History Date Name Laterality Status Provider Name and Address Organization Details Recorded Time 07/06/19 25 Lumbar Epidural steroid injection under fluoroscopic guidance completed Fernando Morrison MD [address] [facility] , [address], [place], [address], [place] [facility] 07/06/2024 15:43:39 03/30/20 24 Lumbar Epidural steroid injection under fluoroscopic guidance completed Fernando Morrison MD [address] [facility] , [address], [place], [address], [place] [facility] 03/30/2024 10:32:08 11/19/19 24 Lumbar Epidural steroid injection under fluoroscopic guidance completed Fernando Morrison MD [address] [facility] , [address], [place], [address], [place] [facility] 11/19/2023 10:44:25 05/22/20 23 Lumbar Epidural steroid injection under fluoroscopic guidance completed Fernando Morrison MD [address] [facility] , [address], [place], [address], [place] [facility] 05/22/2023 13:52:35 01/01/20 23 Lumbar Epidural steroid injection under fluoroscopic guidance completed Fernando Morrison MD [address] [facility] , [address], [place], [address], [place] - [facility] 12/31/2022 14:22:40 09/11/19 23 Lumbar Epidural steroid injection under fluoroscopic guidance completed Fernando Morrison MD [address] [facility] , [address], [place], [address], [place] [facility] 09/10/2022 13:53:42 Back Surgery completed Kim Diaz [place] - [facility] 04/29/2022 15:11:26 Appendectomy completed Kim Changlivan [place] - [facility] 04/29/2022 15:11:35 Knee Surgery completed Sholan Shreya'Berkowitz [place] - [facility] 04/29/2022 15:11:44 Imaging Results None recorded. Procedure Notes None recorded. Medical Equipment None Reported. Allergies Allergen ID Allergen Name Allergen Category Reaction Reaction Severity Criticality Documentation Date Start Date Code Code System Note Provider Name and Address Organization Details Recorded Time 20306 aspirin medicatio n Not available Not available [...] in Arterial blood by Pulse oximetry Systolic And Diastolic Provider Name and Address Organization Details Last Updated DateTime 5 177.8 cm 95 /min 96 % 96 % 151/50 mm[Hg] Lucero Barnes [place] - [facility] 5 15:23:37 Date Recorded Body height Oxygen saturation Oxygen saturation in Arterial blood by Pulse oximetry Heart rate Body mass index (BMI) Body weight Systolic And Diastolic Provider Name and Address Organization Details Last Updated DateTime 4 177.8 cm 98 % 98 % 78 /min 25.8 kg/m2 15289.6 3 g 131/50 mm[Hg] Samreen Chelly borrero [place] - [facility] 4 14:05:38 Date Recorded Body height Oxygen saturation Oxygen saturation in Arterial blood by Pulse oximetry Heart rate Systolic And Diastolic Provider Name and Address Organization Details Last Updated DateTime 4 177.8 cm 96 % 96 % 77 /min 130/54 mm[Hg] Samreen Chelly borrero [place] - [facility] 4 09:49:35 Date Recorded Body height Heart rate Oxygen saturation Oxygen saturation in Arterial blood by Pulse oximetry Body mass index (BMI) Body weight Systolic And Diastolic Provider Name and Address Organization Details Last Updated DateTime 4 177.8 cm 79 /min 97 % 97 % 25.1 kg/m2 63487.6 6 g 131/64 mm[Hg] Fernando ponce MD [address] [place] [address] , [address], [place], [address], [place] [facility] 4 09:58:33 Date Recorded Body height Heart rate Oxygen saturation Oxygen saturation in Arterial blood by Pulse oximetry Systolic And Diastolic Provider Name and Address Organization Details Last Updated DateTime 4 177.8 cm 75 /min 95 % 95 % 122/57 mm[Hg] Lucero Barnes [place] - [facility] 4 10:04:19 Social History Question Answer Notes LastModified by Organizat ion Details LastModified Time Tobacco Smoking Status Current Every Day Smoker 1/2 pack daily Kim betancourt [place] - [facility] 04/29/2022 14:58:58 [...] Y Coronary Artery Disease N Gout N Seizures/Epilepsy N Arthritis Y Cancer N Stroke N Asthma N Depression Y COPD N HIV/AIDS N Headache N Hepatitis C N Bipolar Disorder N GERD/Reflux Y Fibromyalgia N Irritable Bowel Syndrome Y Osteoporosis Y Past Encounters Encounter ID Performer Location Encounter Start Date Encounter Closed Date Diagnosis/Indication Diagnosis SNOMED-CT Code Diagnosis ICD10 Code Diagnosis Note [id number] Fernando Morrison MD PAIN OFFICE [address] [facility] [place] [address] 04/29/2022 14:38:11 04/29/2022 15:57:01 Trochanteric bursitis of left hip 4674888287 98103 M70.62 Lumbosacra l radiculopathy 8783692 M54.17 Lumbar post-laminectomy syndrome 293107090 M96.1 Degenerati on of lumbar intervertebral disc 20166934 M51.36 [id number] Fernando Morrison MD PAIN OFFICE [address] [facility] [place] [address] 05/23/2022 15:17:22 05/24/2022 10:48:58 Lumbosacral radiculopathy 5895069 M54.17 Lumbar post-laminectomy syndrome 500277246 M96.1 Degenerati on of lumbar intervertebral disc 63100263 M51.36 [id number] Fernando Morrison MD PAIN OFFICE [address] [facility] [place] [place] [address] 09/10/2022 11:02:21 09/10/2022 14:08:11 Lumbosacral radiculopathy 0174362 M54.17 Lumbar post-laminectomy syndrome 909258238 M96.1 Degenerati on of lumbar intervertebral disc 32813148 M51.36 [id number] Fernando Morrison MD PAIN OFFICE [address] [facility] [place] [address] 10/10/2022 15:07:35 10/10/2022 15:41:20 Lumbar post-laminectomy syndrome 112893184 M96.1 Lumbosacra l radiculopathy 0414494 M54.17 Degenerati on of lumbar intervertebral disc 90140900 M51.36 [id number] Fernando Morrison MD PAIN OFFICE [address] [facility] [place] [address] 12/31/2022 13:32:25 12/31/2022 14:28:42 Lumbosacral radiculopathy 8258139 M54.17 Lumbar post-laminectomy syndrome 408918199 M96.1 Degenerati on of lumbar intervertebral disc 38658062 M51.36 [id number] Fernando Morrison MD [facility] PA[facility] OFF[facility] [address] [place] [address] 05/22/2023 13:11:18 05/22/2023 13:59:54 Lumbosacral radiculopathy 1341409 M54.17 Lumbar post-laminectomy syndrome 030205460 M96.1 Degenerati on of lumbar intervertebral disc 63769889 M51.36 [id number] Fernando Morrison MD [facility] PA[facility] OFF[facility] [address] [place] [address] 10/20/2023 13:57:26 10/20/2023 14:25:31 Lumbosacral radiculopathy 4049809 M54.17 Lumbar post-laminectomy syndrome 767798754 M96.1 Degenerati on of lumbar intervertebral disc 54801921 M51.36 [id number] Fernando Morrison MD PAIN OFFICE [address] [place] [address] 11/19/2023 09:37:54 11/19/2023 10:49:53 Lumbosacral radiculopathy 1654223 M54.17 Lumbar post-laminectomy syndrome 787687935 M96.1 Degenerati on of lumbar intervertebral disc 41334867 M51.36 [id number] Fernando Morrison MD [facility] PAIN OFFICE [address] [place] [address] 03/12/2024 09:52:16 03/12/2024 10:24:54 Lumbosacral radiculopathy 2600691 M54.17 Lumbar post-laminectomy syndrome 508102613 M96.1 Degenerati on of lumbar intervertebral disc 19841092 M51.362 [id number] Fernando Morrison MD PAIN OFFICE [address] [place] [address] 03/30/2024 09:46:41 03/30/2024 16:36:13 Lumbosacral radiculopathy 2942224 M54.17 Lumbar post-laminectomy syndrome 296662567 M96.1 Degenerati on of lumbar intervertebral disc 33521360 M51.362 [id number] Fernando Morrison MD PAIN OFFICE [address] [facility] [address] [place] [address] 07/06/2024 15:18:22 07/06/2024 15:50:05 Lumbosacral radiculopathy 6793645 M54.17 Lumbar post-laminectomy syndrome 480055536 M96.1 Degenerati on of lumbar intervertebral disc 57610819 M51.362 Health Concerns Section Related Observation LastModified by Organization Detai ls LastModified Time None Recorded Concern Status LastModified by Organization Details LastModified Time None Recorded Advance Directives Directive None Recorded Payers Insurance Date Sequence Insurance Name Policy Number Policy Pace Covered Member ID Pace Member ID Guarantor Name 10/16/2024 1 [place] [employer] Sunny Guerra [id number] Sunny Guerra 10/16/2024 2 [place] Sunny Guerra [id number] Sunny Guerra Notes Date Note Type Note [...] having chest pain. He has seen his triple air valve tester and is having a cardiac cath done. Fernando Morrison MD [address] [facility] , [address], [place], [address], [facility] 10/20/2023 15:25:50 11/19/2023 text/html He is here today for a lumbar epidural steroid injection under fluoroscopic guidance.He had a cardiac cath done and is on medical management of his CAD Fernando Morrison MD [address] [facility] , [address], [place], [address], [place] [facility] 11/19/2023 10:58:20 [...] or bowel incontinence. Fernando Morrison MD [address] [facility] , [address], [place], [address], [place] - [facility] 03/12/2024 11:34:07 03/30/2024 text/html He is here today for a lumbar epidural steroid injection under fluoroscopic guidance. Fernando Morrison MD [address] [facility] , [address], [place], [address], [place] [facility] 03/30/2024 16:39:02 07/06/2024 text/html He is here today for a lumbar epidural steroid injection under fluoroscopic guidance. Fernnado Morrison MD [address] [facility] , [address], [place], [address], [place] - [facility] 07/07/2024 08:48:29
[2024-12-17 08:31] LABS: Cholesterol 127 mg/dL (<200); HDL Cholesterol 29 mg/dL (>40); Triglycerides 142 mg/dL (<150)
[2024-12-17 08:37] LABS: Cannabinoid Screen Urine Not Detected (Not Detect)
== END 2024-12-17 06:57 | disposition home or self-care (01) ==
LOC: HO.LAB 06:56
PROVIDERS: Absent Provider Internal Medicine; PCP Internal Medicine; Visit Provider Internal Medicine Cardiovascular Disease
DX: I25.10 Atherosclerotic heart disease of native coronary artery without angina pectoris (principal); E78.00 Pure hypercholesterolemia, unspecified; M96.1 Postlaminectomy syndrome, not elsewhere classified; Z98.1 Arthrodesis status; Z79.891 Long term (current) use of opiate analgesic
CPT/HCPCS: 80061; 80307

== ENCOUNTER 2024-12-22 09:21 | Outpatient (AMB) | payer MEDICARE, BC, SELFPAY ==
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
[2024-12-22 09:25] VITALS: BP 136/70; PULSE 75; O2SAT 96; BMI 24.7
--- OUTSIDE RECORDS SUMMARY | 2024-12-22 09:42 | XMS_ITS | Patient Health Record ---
Author Organization [facility] Address [address] [place] [address] Care Team Providers Care Utility Mechanic Supervisor Name Role Phone Po Galindo PITTS Primary Care Provider Harpal Little [phone] Allergies Allergen (clinical drug ingredient) Drug/Non Drug Allergy documented on EMR Reaction Allergy Type Onset Date Status Unknown Drug Allergy Active Results Component Value Reference Range Notes Pathology (Not yet reviewed by provider) Interpretation: Performing Lab:[facility], [address] [place] [id number] Notes/Report: Reason For Referral No Information Medications [...] Colon cancer screening (Z12.11) Active confirmed Problem 845765606 Gastro-esophagea l reflux disease without esophagitis (K21.9) Active confirmed Problem 474966284 Encounter for screening for malignant neoplasm of colon (Z12.11) Active confirmed Problem 261045933 History of adenomatous polyp of colon (Z86.010) Active confirmed Problem 968325747 Change in bowel habits (R19.4) Active confirmed Problem 17984556 Weight loss (R63.4) Active confirmed Problem 521961064 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) Active confirmed Problem 941716655 Early satiety (R68.81) Active confirmed Problem Iron deficiency anemia (51413177) Iron deficiency anemia (D50.9) Active confirmed Problem 540373401 Blood in stool (K92.1) Active confirmed Problem 900576776 History of colon polyps (Z86.010) Active confirmed Problem 744808103 Barretts esophagus without dysplasia (K22.70) Active confirmed Problem Family History of Cancer of Colon (Situation) (836767684) Family history of colon cancer (Z80.0) Active confirmed Problem 427266650 Abnormal CT scan , colon (R93.3) Active confirmed Problem Yanez esophagus (579338850) Yaenz esophagus (K22.70) Active confirmed Problem 87589982 Other irritable bowel syndrome (K58.8) Active confirmed Problem Diverticulosis of colon (723459297) Diverticulosis of colon (K57.30) Active confirmed Problem 026309851 RLQ abdominal pain (R10.31) Active confirmed Problem 845424006 LLQ abdominal pain (R10.32) Active confirmed Vital Signs Blood pressure diastolic 77 mm Hg 10/12/2024 Height 69.5 in 10/12/2024 Blood pressure systolic 111 mm Hg 10/12/2024 Weight 173 lbs 10/12/2024 BMI 25.18 kg/m2 10/12/2024 Procedures Procedure Date Ordered Date Performed Result Body Sit e UPPER GI ENDOSCOPY 10/12/2024 N/A COLONOSCOPY 10/12/2024 N/A Encounters Encounter Location Date Provider Diagnosis [facility] Outpatient [address] [place] [id number] 11/08/2024 Harpal Soliman Colon cancer screening Z12.11 ; History of adenomatous polyp of colon Z86.0101 ; Family history of colon cancer Z80.0 ; Colon polyps K63.5 ; Yanez esophagus K22.70 and Hiatal hernia K44.9 [facility] [address] [place] [address] 10/12/2024 Harpal Soliman Barretts esophagus without dysplasia [...] Date MEDICARE OF [place] [address] [place] [address] [id number] SUNNY HENNESSY Self - patient is the insured 0 [facility] [address] [place], [place] [phone] [id number] SUNNY HENNESSY Self - patient is the insured Medical (General) History Medical History History ICD Code GERD with Yanez's esophagu s-last EGD's in 10/2011 and 05/2015 with biopsies neg for dysplasia, HH Depression BPH Back pain Denies [place],DM,CVA,Lung disease,renal dise ase Kidney stones Colonoscopy in 10/2011 with r emoval of small tubular adenomas, and diverticulosis proximal to the anastomosis Sleep apnea--not using a CPAP machine Anemia-he saw Dr. Srivastava in early 2020 and describes receiving iron infusions and having a bone marrow biopsy [id number] to moderate sized hiatal hernia, small area of Yanez's esophagus with biopsies negative for dysplasia, no esophagitis or ulcer disease [id number] small tubular adenoma, and a small amount [...]
--- OUTSIDE RECORDS SUMMARY | 2024-12-22 09:43 | XMS_ITS | Data Portability ---
Author Organization [facility] Address [address] [facility] [address] [place] [address] Care Team Providers Care Supervisor Television Chassis Repair Name Role Phone JG OWUSU Primary Care [...] booked for the same. He needs a commercial truck driver on the day of the procedure. [...] booked for the same. He needs a commercial truck driver on the day of the procedure. [...] Time Trochanteri c bursitis of left hip 5070299905131 03 Active Kim ponce null, [place] - [facility] 2 15:10:14 Lumbosacral radiculopat hy 5351796 Active Fernando ponce MD [email or web address] , [address], [facility], [address], [place] - [facility] 2 15:39:56 Degeneratio n of lumbar interverteb ral disc 54682670 Active Fernando ponce MD [email or web address] , [address], [place] [address], [place] - [facility] 2 15:40:09 Lumbar post-toño ctomy syndrome 500404231 Active Fernando ponce MD [email or web address] , [address], [place] [address], [place] - [facility] 2 15:40:22 Problem Notes None recorded. Procedures Surgical History Date Name Laterality Status Provider Name and Address Organization Details Recorded Time 07/06/19 25 Lumbar Epidural steroid injection under fluoroscopic guidance completed Fernando Morrsion MD [address] [facility] , [address], [place], [address], [place] - [facility] 07/06/2024 15:43:39 03/30/20 24 Lumbar Epidural steroid injection under fluoroscopic guidance completed Fernando Morrison MD [address] [facility] , [address], [place], [address], [place] [facility] 03/30/2024 10:32:08 11/19/19 24 Lumbar Epidural steroid injection under fluoroscopic guidance completed Fernando Morrison MD [address] [facility] , [address], [place], [address], [place] [facility] 11/19/2023 10:44:25 05/22/20 23 Lumbar Epidural steroid injection under fluoroscopic guidance completed Fernando Morrison MD [address] [facility] , [address], [place], [address], [place] [facility] 05/22/2023 13:52:35 01/01/20 23 Lumbar Epidural steroid injection under fluoroscopic guidance completed Fernando Morrison MD [address] [facility] , [address], [place], [address], [place] [facility] 12/31/2022 14:22:40 09/11/19 23 Lumbar Epidural steroid injection under fluoroscopic guidance completed Fernando Morrison MD [address] [facility] , [address], [place], [address], [place] [facility] 09/10/2022 [...] Name and Address Organization Details Recorded Time 68419 aspirin medicatio n Not available Not available [...] t Available oxycodone 15 mg tablet TAKE 1 TO 2 TABLETS BY MOUTH EVERY 6 HOURS NEEDED [...] tablet TAKE 1 TABLET BY MOUTH DAILY active Not Available Not Available No [...] % 98 % 78 /min 25.8 kg/m2 31041.6 3 g 131/50 mm[Hg] Samreen Mccabecastro borrero [place] - [facility] 4 14:05:38 Date Recorded Body height Oxygen saturation Oxygen saturation in Arterial blood by Pulse oximetry Heart rate Systolic And Diastolic Provider Name and Address Organization Details Last Updated DateTime 4 177.8 cm 96 % 96 % 77 /min 130/54 mm[Hg] Samreen Mccabecastro borrero [place] - [facility] 4 09:49:35 Date Recorded Body height Heart rate Oxygen saturation Oxygen saturation in Arterial blood by Pulse oximetry Body mass index (BMI) Body weight Systolic And Diastolic Provider Name and Address Organization Details Last Updated DateTime 4 177.8 cm 79 /min 97 % 97 % 25.1 kg/m2 30329.6 6 g 131/64 mm[Hg] Fernando ponce MD [address] [place] [address] , [address], [place], [address], [place] - [facility] 4 [...] SNOMED-CT Code Diagnosis ICD10 Code Diagnosis Note [id number] Fernando Morrison MD [facility] [address] [facility] [place] [address] 04/29/2022 14:38:11 04/29/2022 15:57:01 Trochanteric bursitis of left hip 1576295614 28711 M70.62 Lumbosacra l radiculopathy 7263561 M54.17 Lumbar post-laminectomy syndrome 393647705 M96.1 Degenerati on of lumbar intervertebral disc 95347550 M51.36 45871 Fernando Morrison MD PAIN OFFICE [address] [facility] [place] [address] 05/23/2022 15:17:22 05/24/2022 10:48:58 Lumbosacral radiculopathy 4233559 M54.17 Lumbar post-laminectomy syndrome 897577108 M96.1 Degenerati on of lumbar intervertebral disc 55183879 M51.36 44457 Fernando Morrison MD PAIN OFFICE [address] [facility] [place] [address] 09/10/2022 11:02:21 09/10/2022 14:08:11 Lumbosacral radiculopathy 3978670 M54.17 Lumbar post-laminectomy syndrome 003891073 M96.1 Degenerati on of lumbar intervertebral disc 91001656 M51.36 19443 Fernando Morrison MD [facility] [address] [facility] [place] [address] 10/10/2022 15:07:35 10/10/2022 15:41:20 Lumbar post-laminectomy syndrome 044456769 M96.1 Lumbosacra l radiculopathy 5508766 M54.17 Degenerati on of lumbar intervertebral disc 91058420 M51.36 [id number] Fernando Morrison MD PAIN OFFICE [address] [facility] [place] [address] 12/31/2022 13:32:25 12/31/2022 14:28:42 Lumbosacral radiculopathy 8492174 M54.17 Lumbar post-laminectomy syndrome 264261950 M96.1 Degenerati on of lumbar intervertebral disc 95433382 M51.36 73455 Fernando Morrison MD PAIN OFFICE [address] [place] [address] 05/22/2023 13:11:18 05/22/2023 13:59:54 Lumbosacral radiculopathy 6152450 M54.17 Lumbar post-laminectomy syndrome 992610629 M96.1 Degenerati on of lumbar intervertebral disc 81706861 M51.36 28816 Fernando Morrison MD PAIN OFFICE [address] [place] [address] 10/20/2023 13:57:26 10/20/2023 14:25:31 Lumbosacral radiculopathy 5371436 M54.17 Lumbar post-laminectomy syndrome 538917407 M96.1 Degenerati on of lumbar intervertebral disc 99342771 M51.36 87329 Fernando Morrison MD PAIN OFFICE [address] [place] [address] 11/19/2023 09:37:54 11/19/2023 10:49:53 Lumbosacral radiculopathy 0643607 M54.17 Lumbar post-laminectomy syndrome 746953381 M96.1 Degenerati on of lumbar intervertebral disc 25112426 M51.36 35802 Fernando Morrison MD PAIN OFFICE [address] [place] [address] 03/12/2024 09:52:16 03/12/2024 10:24:54 Lumbosacral radiculopathy 2872092 M54.17 Lumbar post-laminectomy syndrome 639644527 M96.1 Degenerati on of lumbar intervertebral disc 67762787 M51.362 43101 Fernando Morrison MD PAIN OFFICE [address] [place] [address] 03/30/2024 09:46:41 03/30/2024 16:36:13 Lumbosacral radiculopathy 5217367 M54.17 Lumbar post-laminectomy syndrome 772384884 M96.1 Degenerati on of lumbar intervertebral disc 77563963 M51.362 14875 Fernando Morrison MD PAIN OFFICE [address] [facility] [address] [place] [address] 07/06/2024 15:18:22 07/06/2024 15:50:05 Lumbosacral radiculopathy 1657619 M54.17 Lumbar post-laminectomy syndrome 752161139 M96.1 Degenerati on of lumbar intervertebral disc 10072311 M51.362 Health Concerns Section Related Observation LastModified by Organization Detai ls LastModified Time None Recorded Concern Status LastModified by Organization Details LastModified Time None Recorded Advance Directives Directive None Recorded Payers Insurance Date Sequence Insurance Name Policy Number Policy Pace Covered Member ID Pace Member ID Guarantor Name 12/19/2024 1 [place] [employer] Sunny Guerra [id number] Sunny Guerra 12/19/2024 2 [place] [employer] [place] Sunny Guerra [id number] Sunny Charlie Notes Date Note Type Note Provider Name [...] having chest pain. He has seen his test design engineer and is having a cardiac cath done. Fernando Morrison MD [email or web address] , [address], [place], [address], [facility] Management 10/20/2023 15:25:50 11/19/2023 text/html He is here today for a lumbar epidural steroid injection under fluoroscopic guidance.He had a cardiac cath done and is on medical management of his CAD Fernando Morrison MD [address] [facility] , [address], [place], [address], [place] - [facility] 11/19/2023 [...] or bowel incontinence. Fernando Morrison MD [address] [facility] , [address], [place], [address], [place] [facility] 03/12/2024 11:34:07 03/30/2024 text/html He is here today for a lumbar epidural steroid injection under fluoroscopic guidance. Fernando Morrison MD [address] [facility] , [address], [place], [address], [place] - [facility] 03/30/2024 16:39:02 07/06/2024 text/html He is here today for a lumbar epidural steroid injection under fluoroscopic guidance. Fernando Morrison MD [address] [facility] , [address], [place], [address], [place] - [facility] 07/07/2024 08:48:29
== END 2024-12-22 10:11 | disposition home or self-care (01) ==
LOC: HO.HMCH 09:22
PROVIDERS: PCP Internal Medicine; Visit Provider Internal Medicine
DX: F33.1 Major depressive disorder, recurrent, moderate (principal); I25.10 Atherosclerotic heart disease of native coronary artery without angina pectoris; E78.00 Pure hypercholesterolemia, unspecified; R73.02 Impaired glucose tolerance (oral); K22.70 Barrett's esophagus without dysplasia; M96.1 Postlaminectomy syndrome, not elsewhere classified

== ENCOUNTER → 2024-12-22 09:21 | Outpatient (BNVA) | payer MEDICARE, BC, SELFPAY | PROVIDERS: PCP Internal Medicine; Visit Provider Internal Medicine | DX: F33.1 Major depressive disorder, recurrent, moderate (principal); I25.10 Atherosclerotic heart disease of native coronary artery without angina pectoris; E78.00 Pure hypercholesterolemia, unspecified; R73.02 Impaired glucose tolerance (oral); K22.70 Barrett's esophagus without dysplasia; M96.1 Postlaminectomy syndrome, not elsewhere classified | CPT/HCPCS: 99212 ==

== ENCOUNTER 2024-12-28 15:27 | Outpatient (AMB) | payer MEDICARE, BC, SELFPAY ==
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
--- OUTSIDE RECORDS SUMMARY | 2024-12-28 16:19 | XMS_ITS | Patient Health Record ---
Author Organization [facility] Address [address] [place] [address] Care Team Providers Care Ethnoarchaeology Professor Name Role Phone Po Galindo PITTS Primary Care Provider Harpal Little [phone] Allergies Allergen (clinical drug ingredient) Drug/Non Drug Allergy documented on EMR Reaction Allergy Type Onset Date Status Unknown Drug Allergy Active Results Component Value Reference Range Notes Pathology (Not yet reviewed by provider) Interpretation: Performing Lab:[facility], [address] [place] [phone] Notes/Report: Reason For Referral No Information Medications [...] Colon cancer screening (Z12.11) Active confirmed Problem 848519035 Gastro-esophagea l reflux disease without esophagitis (K21.9) Active confirmed Problem 246205171 Encounter for screening for malignant neoplasm of colon (Z12.11) Active confirmed Problem 161510428 History of adenomatous polyp of colon (Z86.010) Active confirmed Problem 349694552 Change in bowel habits (R19.4) Active confirmed Problem 69987906 Weight loss (R63.4) Active confirmed Problem 223185641 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) Active confirmed Problem 323223647 Early satiety (R68.81) Active confirmed Problem Iron deficiency anemia (10983957) Iron deficiency anemia (D50.9) Active confirmed Problem 896349676 Blood in stool (K92.1) Active confirmed Problem 532665312 History of colon polyps (Z86.010) Active confirmed Problem 691796981 Barretts esophagus without dysplasia (K22.70) Active confirmed Problem Family History of Cancer of Colon (Situation) (350933517) Family history of colon cancer (Z80.0) Active confirmed Problem 598121723 Abnormal CT scan , colon (R93.3) Active confirmed Problem Yanez esophagus (021767361) Yanez esophagus (K22.70) Active confirmed Problem 42141542 Other irritable bowel syndrome (K58.8) Active confirmed Problem Diverticulosis of colon (114535336) Diverticulosis of colon (K57.30) Active confirmed Problem 513080134 RLQ abdominal pain (R10.31) Active confirmed Problem 944102484 LLQ abdominal pain (R10.32) Active confirmed Vital Signs Blood pressure diastolic 77 mm Hg 10/12/2024 Height 69.5 in 10/12/2024 Blood pressure systolic 111 mm Hg 10/12/2024 Weight 173 lbs 10/12/2024 BMI 25.18 kg/m2 10/12/2024 Procedures Procedure Date Ordered Date Performed Result Body Sit e UPPER GI ENDOSCOPY 10/12/2024 N/A COLONOSCOPY 10/12/2024 N/A Encounters Encounter Location Date Provider Diagnosis [facility] Outpatient [address] [place] [id number] 11/08/2024 Harpal Soliman Colon cancer screening Z12.11 ; History of adenomatous polyp of colon Z86.0101 ; Family history of colon cancer Z80.0 ; Colon polyps K63.5 ; Yanez esophagus K22.70 and Hiatal hernia K44.9 [facility] [address] [place] [address] 10/12/2024 Harpal Solimna Barretts esophagus without dysplasia K22.70 ; Gastro-esophageal [...] Date MEDICARE OF [place] [address] [place] [address] [id number] SUNNY HENNESSY Self - patient is the insured 0 [facility] [address] [place], [place] [id number] SUNNY HENNESSY Self - patient is the insured Medical (General) History Medical History History ICD Code GERD with Yanez's esophagu s-last EGD's in 10/2011 and 05/2015 with biopsies neg for dysplasia, HH Depression BPH Back pain Denies [place],DM,CVA,Lung disease,renal dise ase Kidney stones Colonoscopy in 10/2011 with r emoval of small tubular adenomas, and diverticulosis proximal to the anastomosis Sleep apnea--not using a CPAP machine Anemia-he saw Dr. Srivastava in early 2020 and describes receiving iron infusions and having a bone marrow biopsy [id number] to moderate sized hiatal hernia, small area of Yanez's esophagus with biopsies negative for dysplasia, no esophagitis or ulcer disease [id number] small tubular adenoma, and a small amount [...]
--- OUTSIDE RECORDS SUMMARY | 2024-12-28 16:19 | XMS_ITS | Clinical Summary ---
Author Organization [facility] Address [address] [place] [address] Phone Care Team Providers Care Plate Filler Name Role Phone Po, Galindo Dawkins MD Primary Care Provider Allergies Active Allergy Reactions Criticality Noted Date Comments Aspirin 01/11/2018 Medications amitriptyline (ELAVIL) 25 MG tablet Take 50 mg by mouth nightly. Active tiZANidine (ZANAFLEX) 4 MG capsule Take 4 mg by mouth nightly as needed. Active pantoprazole (PROTONIX) 40 MG tablet Take 40 mg by mouth daily. Active oxyCODONE 15 MG immediate release tablet Take 15 mg by mouth every 6 (six) hours as needed for pain (specific location in comments). Partial fill ok Active tamsulosin (FLOMAX) 0.4 mg Cap Take 0.4 mg by mouth daily. Active Active Problems Problem Noted Date Diagnosed Date Degenerative disc disease, lumbar 08/31/2020 Assessment & Plan (09/28/2020 4:21 PM EDT): Continue Tizanidine 4 mg PO qhs. Continue Amitriptyline 50 mg once daily. Patient can also take Tylenol Arthritis for additional back pain relief if needed. Assessment & Plan (09/01/2020 10:14 AM EDT): Continue Amitriptyline 50 mg PO daily. Continue Tizanidine 4 mg PO qhs. Patient states medications helping with back pain relief. Bulge of lumbar disc without myelopathy 09/01/19 Assessment & Plan (09/28/2020 4:22 PM EDT): Continue Tizanidine 4 mg PO qhs. Continue Amitriptyline 50 mg once daily. Patient can also take Tylenol Arthritis for additional back pain relief if needed. Assessment & Plan (09/01/2020 10:14 AM EDT): Continue Amitriptyline 50 mg PO daily. Continue Tizanidine 4 mg PO qhs. Patient states medications helping with back pain relief Compression of lumbar nerve root 08/31/2020 Assessment & Plan (09/28/2020 4:22 PM EDT): Continue Tizanidine 4 mg PO qhs. Continue Amitriptyline 50 mg once daily. Patient can also take Tylenol Arthritis for additional lumbar back pain relief if needed. Assessment & Plan (09/01/2020 10:14 AM EDT): Continue Amitriptyline 50 mg PO daily. Continue Tizanidine 4 mg PO qhs. Patient states medications helping with back pain relief Hemoglobin decreased 08/31/2020 Assessment & Plan (09/28/2020 4:20 PM EDT): Patient following with Hematology for decreased hemoglobin origin. Assessment & Plan (09/01/2020 10:15 AM EDT): Patient is following with Hematology for monitoring, therapy. Will recheck SLE labs to see if possible autoimmune origin of Hemoglobin decrease. Pain of left hip joint 04/21/2019 Chronic bilateral low back pain 07/14/2018 Positive LAKESHA (antinuclear antibody) 07/14/2018 Assessment & Plan (09/28/2020 4:19 PM EDT): Patient will monitor for any new autoimmune changes, symptoms. No new changes on exam today. Assessment & Plan (09/01/2020 10:03 AM EDT): Patient will monitor for any new autoimmune changes, symptoms. Trochanteric bursitis of right hip 06/23/2018 Acute bilateral low back pain 06/23/2018 Family History Medical History Relation Comments Coronary artery disease Brother Parkinson's disease Father Cancer Mother Coronary artery disease Mother Diabetes Mother Heart attack Sister Relation Status Comments Brother Father Mother Sister Social History Tobacco Use Types Packs/Day Years Used Date Smoking Tobacco: Every Day Cigarettes Smokeless Tobacco: Never Alcohol Use Standard Drinks/Week Comments Yes 0 (1 standard drink = 0.6 oz pur e alcohol) Education Answer Date Recorded Are you interested in more education? Not on terri e 10/03/2022 Are you concerned about learning? Not on file 10/03/2022 No 10/03/2022 No 10/03/2022 Digital Access Answer Date Recorded No 11/04/2022 No 11/04/2022 No 11/04/2022 Reliable internet access at home? Not on file 11/04/2022 Device with a working camera? Not on file Sex and Gender Information Value Date Recorded Sex Assigned at Male 01/11/2018 10:31 PM EDT Legal Sex Male 7:39 PM EST Gender Identity Male 01/11/2018 10:31 PM EDT Sexual Orientation Straight 01/11/2018 10 :31 PM EDT Last Filed Vital Signs Vital Sign Reading Time Taken Comments Blood Pressure 130/70 09/28/2020 3:58 PM EDT Pulse 89 04/16/2020 3:21 PM EST Temperature 36.2 C (97.2 F) 04/16/2020 3:21 PM EST Respiratory Rate 15 01/12/2018 3:35 AM EDT Oxygen Saturation 98% 04/16/2020 3:21 PM EST Inhaled Oxygen Concentration - - Weight 84.6 kg (186 lb 6.4 oz) 09/28/2020 3:58 P M EDT Height 177.8 cm (5' 10 ) 09/28/2020 3:58 PM EDT Body Mass Index 26.75 09/28/2020 3:58 PM EDT Plan of Treatment Health Maintenance Due Date Last Done Comments LIPID PANEL 1961 DEPRESSION SCREENING 1973 SMOKING Hx and SMOKELESS TOBACCO SCREENING 1974 HEPATITIS C SCREENING 1979 HIV ONE-TIME SCREENING (18-6 5 YEARS) 1979 COLOGUARD 2006 COLONOSCOPY 2006 COLORECTAL CANCER SCREENING 2006 FIT TEST 2006 FOBT 2006 SIGMOIDOSCOPY 2006 VIRTUAL COLONOSCOPY 2006 ZOSTER VACCINES (1 of 2) 2011 PNEUMOCOCCAL VACCINES (50+ years) (2 of 2 - PCV) 03/24/2019 03/24/2018 COVID-19 VACCINE (3 - 2023-2 5 season) 2024 09/26/2020, 08/29/2020 Adult Td,Tdap Booster 05/25/2028 05/25/2018 RSV VACCINE (1 - 1-dose 75+ series) 2036 HEPATITIS A VACCINES Aged Out No long er eligible based on patient's age to complete this topic HIB VACCINES Aged Out No longer eligi ble based on patient's age to complete this topic MENINGOCOCCAL VACCINES (ACWY) Aged Out No longer eligible based on patient's age to complete this topic MENINGOCOCCAL VACCINES (B) Aged Out N o longer eligible based on patient's age to complete this topic Medical Devices Not on file [place] [address] [place] [address] MED[address]ARE PART A & [place] [address] [place] [address] MEDICARE PART A & [place] [address] [place] [address] Member Subscriber Plan / Payer (Ef fective 2016-Present) Name:Sunny Guerra Relation to Subscriber:Spouse Name:SADIE GUERRA Date of :1900 (Home) Address: [address] [place] [id number] Payer ID:[id number] (NAIC) Group ID:[id number] Type:PPO Address: [id number] MEDICARE PART A & B MEDICARE PART A & [place] [place] [address] MEDICARE PART A & [place] [address] [place] [address] MEDICARE PART A & B [facility] MEDICARE PART A & [place] [place] [address] MEDICARE PART A & B [facility] MEDICARE PART A & B Care Teams Plate Filler Relationship Specialty Start Date End Date Galindo Muro MD [address] [place] [address] [address] [place] [phone] PCP - General Internal Medicine 05/22/18 Additional Source Comments The information contained in this document represents components of the legal health record. It is not the complete legal health record.[facility]
--- OUTSIDE RECORDS SUMMARY | 2024-12-28 16:19 | XMS_ITS | Data Portability ---
Author Organization [facility] Pain Managem ent, PAIN OFFICE Address [address] [facility] [address] Care Team Providers Care Wallpaper Scraper Name Role Phone JG OWUSU Primary Care Provider Assessment Encounter Date Assessment Date Assessment LastModified by Organization Details LastModified Time 11/19/2023 11/19/2023 Sunny Guerra is a 63year [...] booked for the same. 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 [email or web address] Not available 03/12/2024 10:24:01 03/30/2024 03/30/2024 Sunny [...] up in three months [email or web address] Not available 03/30/2024 10:30:48 07/06/2024 07/06/2024 Sunny [...] up in three months [email or web address] Not available 07/06/2024 15:44:09 12/22/2024 12/22/2024 Sunny Guerra is a 64year old man [...] up in three months alli Not available 12/22/2024 13:52:39 Plan of Treatment Reminders Order Date Submit [...] Time Trochanteri c bursitis of left hip [id number] 03 Active Kim ponce [facility], [place] - [facility] 2 15:10:14 Lumbosacral radiculopat hy 8129689 Active Fernando ponce MD [facility] [address] [address], [place], [address], [place] - [facility] 2 15:39:56 Degeneratio n of lumbar interverteb ral disc 74088071 Active Fernando ponce MD [facility] [address] [address], [place], [address], [place] - [facility] 2 15:40:09 Lumbar post-toño ctomy syndrome 998939781 Active Fernando ponce MD [facility] [address] [address], [place], [address], [place] - [facility] 2 15:40:22 Problem Notes None recorded. Procedures Surgical History Date Name Laterality Status Provider Name and Address Organization Details Recorded Time 12/23/19 25 Lumbar Epidural steroid injection under fluoroscopic guidance completed Fernando Morrison MD [address] , [address], [place], [address], [place] - [facility] 12/22/2024 13:53:48 07/06/19 25 Lumbar Epidural steroid injection under fluoroscopic guidance completed Fernando Morrison MD [address] [facility] , [address], [place], [address], [place] [facility] 07/06/2024 15:43:39 03/30/20 24 Lumbar Epidural steroid injection under fluoroscopic guidance completed Fernando Morrison MD [address] [facility] , [address], [place], [address], [place] [facility] 03/30/2024 10:32:08 11/19/19 24 Lumbar Epidural steroid injection under fluoroscopic guidance completed Fernando Morrison MD [address] [facility] , [address], [place], [address], [place] [facility] 11/19/2023 10:44:25 05/22/20 23 Lumbar Epidural steroid injection under fluoroscopic guidance completed Fernando Morrison MD [address] [facility] , [address], [place], [address], [place] [facility] 05/22/2023 13:52:35 01/01/20 23 Lumbar Epidural steroid injection under fluoroscopic guidance completed Fernando Morrison MD [address] [facility] , [address], [place], [address], [place] [facility] 12/31/2022 14:22:40 09/11/19 23 Lumbar Epidural steroid injection under fluoroscopic guidance completed Fernando Morrison MD [address] [facility] , [address], [place], [address], [place] [facility] 09/10/2022 [...] Name and Address Organization Details Recorded Time 93801 aspirin medicatio n Not available Not available [...] 96 % 77 /min 130/54 mm[Hg] Samreen borrero [place] - [facility] 4 09:49:35 Date Recorded Body height Oxygen saturation Oxygen saturation in Arterial blood by Pulse oximetry Heart rate Systolic And Diastolic Provider Name and Address Organization Details Last Updated DateTime 5 177.8 cm 96 % 96 % 72 /min 131/53 mm[Hg] Tona verdugo [place] - [facility] 5 13:35:57 Date Recorded Body height Heart rate Oxygen saturation Oxygen saturation in Arterial blood by Pulse oximetry Body mass index (BMI) Body weight Systolic And Diastolic Provider Name and Address Organization Details Last Updated DateTime 4 177.8 cm 79 /min 97 % 97 % 25.1 kg/m2 45361.6 6 g 131/64 mm[Hg] Fernando ponce MD [address] [place] [address] , [address], [place], [address], [place] - [facility] 4 [...] available 04/10 15:10:48 Medical History Condition Response Coronary Artery Disease N Gout N COPD N Depression Y Anxiety Disorder Y Arthritis Y Cancer N Stroke N HIV/AIDS N Headache N Fibromyalgia N Irritable Bowel Syndrome Y Hepatitis C N Diabetes N Seizures/Epilepsy N Asthma N Bipolar Disorder N GERD/Reflux Y Osteoporosis Y Past Encounters Encounter ID Performer Location Encounter Start Date Encounter Closed Date Diagnosis/Indication Diagnosis SNOMED-CT Code Diagnosis ICD10 Code Diagnosis Note [id number] Fernando Morrison MD PAIN OFFICE [address] [facility] [place] [address] 04/29/2022 14:38:11 04/29/2022 15:57:01 Trochanteric bursitis of left hip 0998756530 15872 M70.62 Lumbosacra l radiculopathy 1122720 M54.17 Lumbar post-laminectomy syndrome 266534355 M96.1 Degenerati on of lumbar intervertebral disc 21765515 M51.36 [id number] Fernando Morrison MD PAIN OFFICE [address] [facility] [place] [address] 05/23/2022 15:17:22 05/24/2022 10:48:58 Lumbosacral radiculopathy 9079323 M54.17 Lumbar post-laminectomy syndrome 273429979 M96.1 Degenerati on of lumbar intervertebral disc 10403002 M51.36 [id number] Fernando Morrison MD PAIN OFFICE [address] [facility] [place] [address] 09/10/2022 11:02:21 09/10/2022 14:08:11 Lumbosacral radiculopathy 3088803 M54.17 Lumbar post-laminectomy syndrome 410719402 M96.1 Degenerati on of lumbar intervertebral disc 93817367 M51.36 [id number] Fernando Morrison MD PAIN OFFICE [address] [facility] [place] [address] 10/10/2022 15:07:35 10/10/2022 15:41:20 Lumbar post-laminectomy syndrome 097875801 M96.1 Lumbosacra l radiculopathy 8815855 M54.17 Degenerati on of lumbar intervertebral disc 35678906 M51.36 [id number] Fernando Morrison MD PAIN OFFICE [address] [facility] [place] [address] 12/31/2022 13:32:25 12/31/2022 14:28:42 Lumbosacral radiculopathy 2120848 M54.17 Lumbar post-laminectomy syndrome 228578999 M96.1 Degenerati on of lumbar intervertebral disc 82050280 M51.36 [id number] Fernando Morrison MD [facility] PAIN OFFICE [address] [place] [address] 05/22/2023 13:11:18 05/22/2023 13:59:54 Lumbosacral radiculopathy 2034377 M54.17 Lumbar post-laminectomy syndrome 854794923 M96.1 Degenerati on of lumbar intervertebral disc 89960958 M51.36 [id number] Fernando Morrison MD [facility] [address] [place] [address] 10/20/2023 13:57:26 10/20/2023 14:25:31 Lumbosacral radiculopathy 6660031 M54.17 Lumbar post-laminectomy syndrome 307516607 M96.1 Degenerati on of lumbar intervertebral disc 38926707 M51.36 [id number] Fernando Morrison MD [facility] PA[facility] [address] [place] [address] 11/19/2023 09:37:54 11/19/2023 10:49:53 Lumbosacral radiculopathy 2784359 M54.17 Lumbar post-laminectomy syndrome 662524508 M96.1 Degenerati on of lumbar intervertebral disc 41189884 M51.36 [id number] Fernando Morrison MD [facility] [address] [place] [address] 03/12/2024 09:52:16 03/12/2024 10:24:54 Lumbosacral radiculopathy 4344323 M54.17 Lumbar post-laminectomy syndrome 490662863 M96.1 Degenerati on of lumbar intervertebral disc 48163589 M51.362 [id number] Fernando Morrison MD [facility] [address] [place] [address] 03/30/2024 09:46:41 03/30/2024 16:36:13 Lumbosacral radiculopathy 7339320 M54.17 Lumbar post-laminectomy syndrome 975029366 M96.1 Degenerati on of lumbar intervertebral disc 15233165 M51.362 [id number] Fernando Morrison MD PAIN OFFICE [address] [place] [address] 07/06/2024 15:18:22 07/06/2024 15:50:05 Lumbosacral radiculopathy 8070470 M54.17 Lumbar post-laminectomy syndrome 917314527 M96.1 Degenerati on of lumbar intervertebral disc 95604510 M51.362 [id number] Fernando Morrison MD PAIN OFFICE [address] [place] [address] 12/22/2024 13:18:16 12/22/2024 13:58:48 Lumbosacral radiculopathy 9401223 M54.17 Lumbar post-laminectomy syndrome 524074325 M96.1 Degenerati on of lumbar intervertebral disc 00631325 M51.362 Health Concerns Section Related Observation LastModified by Organization Detai ls LastModified Time None Recorded Concern Status LastModified by Organization Details LastModified Time None Recorded Advance Directives Directive None Recorded Payers Insurance Date Sequence Insurance Name Policy Number Policy Pace Covered Member ID Pace Member ID Guarantor Name 12/19/2024 1 [place] [employer] Sunny Guerra [id number] Sunny Guerra 12/19/2024 2 [place] Sunny Guerra [id number] Sunny Guerra Notes Date Note Type Note Provider Name and Address Organization Details Recorded Time 11/19/2023 text/html He is here today for a lumbar epidural steroid injection under fluoroscopic guidance.He had a cardiac cath done and is on medical management of his CAD Fernando Morrison MD [address] , [address], [place], [address], [facility] - Pain Management 11/19/2023 10:58:20 03/12/2024 text/html He [...] bowel incontinence. Fernando Morrison MD [address] [facility] , [address], [place], [address], [place] - [facility] 03/12/2024 11:34:07 03/30/2024 text/html He is here today for a lumbar epidural steroid injection under fluoroscopic guidance. Fernando Morrison MD [address] [facility] , [address], [place], [address], [place] [facility] 03/30/2024 16:39:02 07/06/2024 text/html He is here today for a lumbar epidural steroid injection under fluoroscopic guidance. Fernando Morrison MD [address] [facility] , [address], [place], [address], [place] [facility] 07/07/2024 08:48:29 12/22/2024 text/html He is here today for a lumbar epidural steroid injection under fluoroscopic guidance. Fernando Morrison MD [address] [facility] , [address], [place], [address], [place] [facility] 12/22/2024 14:00:58
== END 2024-12-28 16:53 | disposition home or self-care (01) ==
LOC: HO.HOP 15:27
PROVIDERS: PCP Internal Medicine; Visit Provider Clinical Nurse Specialist Psychiatric/Mental Health
DX: F33.1 Major depressive disorder, recurrent, moderate (principal)
CPT/HCPCS: 90792

== ENCOUNTER → 2024-12-28 15:27 | Outpatient (BNVA) | payer MEDICARE, BC, SELFPAY | PROVIDERS: PCP Internal Medicine; Visit Provider Clinical Nurse Specialist Psychiatric/Mental Health | DX: F33.1 Major depressive disorder, recurrent, moderate (principal); Z71.89 Other specified counseling | CPT/HCPCS: 90792 ==

== ENCOUNTER 2025-01-21 09:17 | Outpatient (AMB) | payer MEDICARE, BC, SELFPAY ==
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
[2025-01-21 09:25] VITALS: BP 138/72; PULSE 88; TEMP 36.2; O2SAT 94; BMI 23.9
--- OUTSIDE RECORDS SUMMARY | 2025-01-21 09:32 | XMS_ITS | Patient Health Record ---
Author Organization [facility] Address [address] [place] [address] Care Team Providers Care Bottom Hoop Driver Name Role Phone Po Galindo PITTS Primary Care Provider Harpal Little [phone] Allergies Allergen (clinical drug ingredient) Drug/Non Drug Allergy documented on EMR Reaction Allergy Type Onset Date Status Unknown Drug Allergy Active Results Component Value Reference Range Notes Pathology (Not yet reviewed by provider) Interpretation: Performing Lab:[facility], [address] [place] [id number] Notes/Report: Reason For Referral No Information Medications [...] Status Risk Notes Problem Colon cancer screening (757493311) Colon cancer screening (Z12.11) Active confirmed Problem 192771274 Gastro-esophagea l reflux disease without esophagitis (K21.9) Active confirmed Problem 718458195 Encounter for screening for malignant neoplasm of colon (Z12.11) Active confirmed Problem 076511755 History of adenomatous polyp of colon (Z86.010) Active confirmed Problem 643416654 Change in bowel habits (R19.4) Active confirmed Problem 67148413 Weight loss (R63.4) Active confirmed Problem 840242626 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) Active confirmed Problem 415477140 Early satiety (R68.81) Active confirmed Problem Iron deficiency anemia (58279570) Iron deficiency anemia (D50.9) Active confirmed Problem 108999777 Blood in stool (K92.1) Active confirmed Problem 019550726 History of colon polyps (Z86.010) Active confirmed Problem 233160438 Barretts esophagus without dysplasia (K22.70) Active confirmed Problem Family History of Cancer of Colon (Situation) (099244626) Family history of colon cancer (Z80.0) Active confirmed Problem 622498248 Abnormal CT scan , colon (R93.3) Active confirmed Problem Yanez esophagus (861491995) Yanez esophagus (K22.70) Active confirmed Problem 71083125 Other irritable bowel syndrome (K58.8) Active confirmed Problem Diverticulosis of colon (130585553) Diverticulosis of colon (K57.30) Active confirmed Problem 044100677 RLQ abdominal pain (R10.31) Active confirmed Problem 935620859 LLQ abdominal pain (R10.32) Active confirmed Vital Signs Blood pressure diastolic 77 mm Hg 10/12/2024 Height 69.5 in 10/12/2024 Blood pressure systolic 111 mm Hg 10/12/2024 Weight 173 lbs 10/12/2024 BMI 25.18 kg/m2 10/12/2024 Procedures Procedure Date Ordered Date Performed Result Body Sit e UPPER GI ENDOSCOPY 10/12/2024 N/A COLONOSCOPY 10/12/2024 N/A Encounters Encounter Location Date Provider Diagnosis [facility] Outpatient [address] [place] [id number] 11/08/2024 Harpal Soliman Colon cancer screening Z12.11 ; History of adenomatous polyp of colon Z86.0101 ; Family history of colon cancer Z80.0 ; Colon polyps K63.5 ; Yanez esophagus K22.70 and Hiatal hernia K44.9 [facility] [address] [place] [address] 10/12/2024 Harpal Soliman Barretts esophagus without dysplasia [...] Date MEDICARE OF [place] [address] [facility] [address] [id number] SUNNY HENNESSY Self - patient is the insured 0 [facility] [address] [place], [place] [id number] SUNNY HENNESSY Self - patient is the insured Medical (General) History Medical History History ICD Code GERD with Yanez's esophagu s-last EGD's in 10/2011 and 05/2015 with biopsies neg for dysplasia, HH Depression BPH Back pain Denies SD,DM,CVA,Lung disease,renal dise ase Kidney stones Colonoscopy in 10/2011 with r emoval of small tubular adenomas, and diverticulosis proximal to the anastomosis Sleep apnea--not using a CPAP machine Anemia-he saw Dr. Srivastava in early 2020 and describes receiving iron infusions and having a bone marrow biopsy [id number] to moderate sized hiatal hernia, small area of Yanez's esophagus with biopsies negative for dysplasia, no esophagitis or ulcer disease [id number] small tubular adenoma, and a small amount [...]
== END 2025-01-21 10:43 | disposition home or self-care (01) ==
LOC: HO.HMCH 09:18
PROVIDERS: PCP Internal Medicine; Visit Provider Internal Medicine
DX: F33.1 Major depressive disorder, recurrent, moderate (principal); I10 Essential (primary) hypertension; I25.10 Atherosclerotic heart disease of native coronary artery without angina pectoris; E78.00 Pure hypercholesterolemia, unspecified; M51.26 Other intervertebral disc displacement, lumbar region; F17.210 Nicotine dependence, cigarettes, uncomplicated

== ENCOUNTER → 2025-01-21 09:17 | Outpatient (BNVA) | payer MEDICARE, BC, SELFPAY | PROVIDERS: PCP Internal Medicine; Visit Provider Internal Medicine | DX: F33.1 Major depressive disorder, recurrent, moderate (principal); I10 Essential (primary) hypertension; I25.10 Atherosclerotic heart disease of native coronary artery without angina pectoris; E78.00 Pure hypercholesterolemia, unspecified; M51.26 Other intervertebral disc displacement, lumbar region; F17.210 Nicotine dependence, cigarettes, uncomplicated; Z71.6 Tobacco abuse counseling | CPT/HCPCS: 99212 ==

== ENCOUNTER 2025-02-15 13:29 | Outpatient (REF) | payer MEDICARE, BC, SELFPAY ==
[2025-02-15 15:02] LABS: MANUAL DIFF FLAG NO
[2025-02-15 15:49] LABS: Hematocrit 37.1 % (42.0-52.0); Hemoglobin 12.8 g/dl (14.0-18.0); Imm Gran Abs Auto 0.06 X10*3/uL (0.00-0.03); Imm Gran Pct Auto 0.5 % (0.0-0.4); Lymphocytes Absolute Auto 3.0 X10*3/uL (1.2-4.9); Mean Corpuscular HGB Conc 34.5 g/dl (31.0-36.0); Mean Corpuscular Hemoglobin 30.5 pg (27.0-33.0); Mean Corpuscular Volume 88.3 fL (80.0-98.0); NRBC Abs Auto 0.000 X10*3/uL (0.0-0.012); NRBC Pct Auto 0.0 /100WBC (0.0-0.2); Platelet Count 267 X10*3/uL (160-400); Red Blood Count 4.20 X10*6/uL (4.60-5.80); White Blood Count 13.1 X10*3/uL (4.8-10.8)
[2025-02-15 16:41] LABS: Alanine Aminotransferase 16 U/L (0-40); Albumin Level 4.4 g/dL (3.5-5.0); Alkaline Phosphatase 118 U/L (39-117); Anion Gap 16 (12-20); Aspartate Amino Transferase 21 U/L (5-37); Blood Urea Nitrogen 6 mg/dL (9-16); Calcium 8.2 mg/dL (8.4-10.2); Carbon Dioxide 30 mmol/L (22-29); Chloride 104 mmol/L (96-108); Estimated Glomerular Filt Rate > 60; Iron 58 mcg/dL (45-160); Percent Iron Saturation 30 % (15-50); Potassium 3.9 mmol/L (3.3-5.1); Sodium 146 mmol/L (135-145); Total Iron Binding Capacity 193 mcg/dL (228-428); Total Protein 6.9 g/dL (6.5-8.0); Unsaturated Iron Binding 135 ug/dL
[2025-02-15 17:10] LABS: Folate 14.3 ng/mL (> or = 4.0); Vitamin B12 560 pg/mL (200-900)
== END 2025-02-15 13:30 | disposition home or self-care (01) ==
LOC: HO.LAB 13:29
PROVIDERS: PCP Internal Medicine; Visit Provider Clinical Nurse Specialist Psychiatric/Mental Health
DX: F33.2 Major depressive disorder, recurrent severe without psychotic features (principal); F41.8 Other specified anxiety disorders; R29.6 Repeated falls; R63.4 Abnormal weight loss; D63.8 Anemia in other chronic diseases classified elsewhere
CPT/HCPCS: 36415; 80053; 82607; 82746; 83540; 84443; 85025; 99212

== ENCOUNTER 2025-02-15 13:29 | Outpatient (AMB) | payer MEDICARE, BC, SELFPAY ==
--- OUTSIDE RECORDS SUMMARY | 2024-11-08 10:40 | XMS_ITS ---
Author Organization [facility] Address [address] [place] [address] Care Team Providers Care Director Of Restaurant Name Role Phone Po Galindo PITTS Primary Care Provider Harpal Little [phone] REASON FOR VISIT hunt's, gerd, screening, fam hx colon ca, hx polyps Encounters Encounter Location Date Provider [place] [facility] [place] [address] [place] [phone] 11/08/2024 Harpal Soliman Colon cancer scree preethi [...] * SHABNAM HENNESSY EDOB:1960 (64 yo M)Acc No.[id number]:11/08/2024 EGD and COL/MAC Patient: SHABNAM URIOSTEGUI Provider: Raisa Soliman MD :1960 A ge:64 Y S ex:Male Date:11/08/2024 Address: [place] , [id number] Pcp:Galindo Muro MD Subjective: * Chief Complaints: [...] DOCD, 0528F RCMND FLW-UP 10 YRS DOCD, [address] UPPER GI ENDOSCOPY, BIOPSY * * The named appointment provid er may or may not be the originator of this progress note, and it is not deemed complete until electronically signed by the appointment provider. Sign off status: Pending * Provider: Raisa Soliman MD Date: 0 11/08/2024 Generated for Vince turk/Heri/Dakotaitting on: 0 02/15/2025 03:59 PM EDT
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
--- OUTSIDE RECORDS SUMMARY | 2025-02-15 15:59 | XMS_ITS | Patient Health Record ---
Author Organization [facility] Address [address] [place] [address] Care Team Providers Care Waterproof Material Folder Name Role Phone Po Galindo PITTS Primary Care Provider Harpal Little [phone] Allergies Allergen (clinical drug ingredient) Drug/Non Drug Allergy documented on EMR Reaction Allergy Type Onset Date Status Unknown Drug Allergy Active Results Component Value Reference Range Notes Pathology (Not yet reviewed by provider) Interpretation: Performing Lab:[facility], [address] [place] [id number] Notes/Report: Reason For Referral No Information Medications [...] Status Risk Notes Problem Colon cancer screening (192538478) Colon cancer screening (Z12.11) Active confirmed Problem 669874447 Gastro-esophagea l reflux disease without esophagitis (K21.9) Active confirmed Problem 443654950 Encounter for screening for malignant neoplasm of colon (Z12.11) Active confirmed Problem 143781440 History of adenomatous polyp of colon (Z86.010) Active confirmed Problem 103455649 Change in bowel habits (R19.4) Active confirmed Problem 06333395 Weight loss (R63.4) Active confirmed Problem 049330099 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) Active confirmed Problem 202212543 Early satiety (R68.81) Active confirmed Problem Iron deficiency anemia (64196335) Iron deficiency anemia (D50.9) Active confirmed Problem 272125530 Blood in stool (K92.1) Active confirmed Problem 207858960 History of colon polyps (Z86.010) Active confirmed Problem 874508751 Barretts esophagus without dysplasia (K22.70) Active confirmed Problem Family History of Cancer of Colon (Situation) (469057595) Family history of colon cancer (Z80.0) Active confirmed Problem 828858671 Abnormal CT scan , colon (R93.3) Active confirmed Problem Yanez esophagus (342321312) Yanez esophagus (K22.70) Active confirmed Problem 78808799 Other irritable bowel syndrome (K58.8) Active confirmed Problem Diverticulosis of colon (451807695) Diverticulosis of colon (K57.30) Active confirmed Problem 102222242 RLQ abdominal pain (R10.31) Active confirmed Problem 861629760 LLQ abdominal pain (R10.32) Active confirmed Vital Signs Blood pressure diastolic 77 mm Hg 10/12/2024 Height 69.5 in 10/12/2024 Blood pressure systolic 111 mm Hg 10/12/2024 Weight 173 lbs 10/12/2024 BMI 25.18 kg/m2 10/12/2024 Procedures Procedure Date Ordered Date Performed Result Body Sit e UPPER GI ENDOSCOPY 10/12/2024 N/A COLONOSCOPY 10/12/2024 N/A Encounters Encounter Location Date Provider Diagnosis [facility] [place] Outpatient [address] [place] [id number] 11/08/2024 Harpal Soliman Colon cancer screening Z12.11 ; History of adenomatous polyp of colon Z86.0101 ; Family history of colon cancer Z80.0 ; Colon polyps K63.5 ; Yanez esophagus K22.70 and Hiatal hernia K44.9 [facility] [address] [place] [address] 10/12/2024 Harpal Soliman Barretts esophagus without dysplasia [...] Date MEDICARE OF [place] [address] [place] [address] [id number] SUNNY HENNESSY Self - patient is the insured 0 [facility] [address] [place], [place] [id number] SUNNY HENNESSY Self - patient is the insured Medical (General) History Medical History History ICD Code GERD with Yanez's esophagu s-last EGD's in 10/2011 and 05/2015 with biopsies neg for dysplasia, HH Depression BPH Back pain Denies [place],DM,CVA,Lung disease,renal dise ase Kidney stones Colonoscopy in 10/2011 with r emoval of small tubular adenomas, and diverticulosis proximal to the anastomosis Sleep apnea--not using a CPAP machine Anemia-he saw Dr. Srivastava in early 2020 and describes receiving iron infusions and having a bone marrow biopsy [id number] to moderate sized hiatal hernia, small area of Yanez's esophagus with biopsies negative for dysplasia, no esophagitis or ulcer disease [id number] small tubular adenoma, and a small amount [...]
--- OUTSIDE RECORDS SUMMARY | 2025-02-15 16:00 | XMS_ITS | Clinical Summary ---
Author Organization [facility] Address [address] [place] [address] Phone Care Team Providers Care Steam Table Attendant Name Role Phone Po, Galindo Dawkins MD [...] (2 of 2 - PCV) 03/24/2019 03/24/2018 INFLUENZA VACCINE (#1) 2025 9, 02/24/2018, 03/26/2017 COVID-19 VACCINE (3 - 2024-2 6 season) 2025 09/26/2020, 08/29/2020 Adult Td,Tdap Booster 05/25/2028 05/25/2018 [...] topic Medical Devices Not on file Insurance [facility] MEDICARE PART A & B [facility] MEDIC[facility] PART A & B [facility] MEDIC[facility] PART A & B [facility] MEDIC[facility] PART A & B [facility] MEDICARE PART A & B [facility] MEDICARE PART A & [place] [address] [place] [address] MEDICARE PART A & B [facility] MEDICARE PART A & B [facility] MEDICARE PART A & B Care Teams Steam Table Attendant Relationship Specialty Start Date End Date Galindo Muro MD [address] [place] [address] Drive [address] [place] [phone] PCP - General Internal Medicine 05/22/18 Additional Source Comments The information contained in this document represents components of the legal health record. It is not the complete legal health record.[facility]
== END 2025-02-15 15:57 | disposition home or self-care (01) ==
LOC: HO.HOP 13:29
PROVIDERS: PCP Internal Medicine; Visit Provider Clinical Nurse Specialist Psychiatric/Mental Health
DX: F33.2 Major depressive disorder, recurrent severe without psychotic features (principal); F41.1 Generalized anxiety disorder; R29.6 Repeated falls; R63.4 Abnormal weight loss; D63.8 Anemia in other chronic diseases classified elsewhere
CPT/HCPCS: 99215

== ENCOUNTER 2025-02-16 06:59 | Inpatient (IN) | payer MEDICARE, BC, SELFPAY ==
--- OUTSIDE RECORDS SUMMARY | 2024-11-08 10:40 | XMS_ITS ---
Author Organization [facility] Address [address] [place] [address] Care Team Providers Care Interior Assemblies Developer Prover Name Role Phone Po Galindo PITTS Primary Care Provider Harpal Little [phone] REASON FOR VISIT hunt's, gerd, screening, fam hx colon ca, hx polyps Encounters Encounter Location Date Provider Diagnosis [facility] [place] [address] [place] [phone] 11/08/2024 Harpal Soliman Colon cancer scree preethi [...] * SHABNAM HENNESSY EDOB:1960 (64 yo M)Acc No.[id number]:11/08/2024 EGD and COL/MAC Patient: SHABNAM URIOSTEGUI Provider: Raisa Soliman MD :1960 A ge:64 Y S ex:Male Date:11/08/2024 Address: [place] , [id number] Pcp:Galindo Muro MD Subjective: * Chief Complaints: [...] DOCD, 0528F RCMND FLW-UP 10 YRS DOCD, [address] UPPER GI ENDOSCOPY, BIOPSY * * The named appointment provid er may or may not be the originator of this progress note, and it is not deemed complete until electronically signed by the appointment provider. Sign off status: Pending * Provider: Raisa Soliman MD Date: 0 11/08/2024 Generated for Vince turk/Heri/Dakotaitting on: 0 02/16/2025 07:49 AM EDT
[2025-02-16] VITALS (12 sets, daily range): BP systolic 95–159; BP diastolic 44–81; PULSE 60–82; RESP 12–21; TEMP 36.2–37.1; O2SAT 96–100; BMI 23.5
--- NOTE | 2025-02-16 | ECG_ITS ---
Test Reason : WEAKNESS Blood Pressure : */* mmHG Vent. Rate : 85 BPM Atrial Rate : 85 BPM P-R Int : 186 ms QRS Dur : 68 ms QT Int : 374 ms P-R-T Axes : 47 -8 69 degrees QTcB Int : 445 ms Sinus rhythm with Premature atrial complexes with Aberrant conduction Septal infarct , age undetermined Abnormal ECG When compared with ECG of 20-Jan-2016 02:33, Aberrant conduction is now Present Septal infarct is now Present Referred By: Generic ED Physician Electronically Signed By: WILBERTO GAO MD
--- NOTE | ~2025-02-16 | XR_ITS ---
EXAMINATION: XR KNEE 1-2 VIEWS RIGHT HISTORY: fall with pain COMPARISON: There are no prior studies available for comparison. FINDINGS: AP and lateral views of the right knee are submitted. Osseous mineralization is normal. There is no fracture or dislocation. The joint spaces are preserved. A calcific density adjacent to the lateral femoral condyle may be ligamentous in nature. There is a tiny joint effusion. XR/XR knee RT 2V IMPRESSION: Tiny joint effusion. No evidence of fracture of the right knee. Electronically signed by: Harpal Victoria MD 02/16/2025 08:47 AM EDT
--- NOTE | ~2025-02-16 | XR_ITS ---
EXAMINATION: XR FOOT 3 OR MORE VIEWS RIGHT HISTORY: fall with pain of midfoot COMPARISON: There are no prior studies available for comparison. FINDINGS: Three views of the right foot are submitted. Osseous mineralization is normal. There is no fracture or dislocation. There is degenerative change of the MTP and interphalangeal joints of the great toe. The soft tissues are unremarkable. XR/XR foot RT min 3V IMPRESSION: No evidence of fracture of the right foot. Electronically signed by: Harpal Victoria MD 02/16/2025 08:48 AM EDT
--- NOTE | ~2025-02-16 | CT_ITS ---
EXAMINATION: CTA NECK WITH CONTRAST (STROKE) CTA BRAIN WITH CONTRAST (STROKE) CLINICAL INFORMATION: Dizziness. Weakness. Status post falls COMPARISON: Correlated to CT brain dated January 27, 2018. TECHNIQUE: CTA of the head and neck was performed in the axial plane from the mediastinum to the skull vertex using 85 mL Omnipaque 350 intravenous contrast. Additional reformatted multiplanar images including maximum intensity projection MIP images are generated on the CT workstation. This CT examination was performed using dose optimization techniques as appropriate, variously including the following: *Automated exposure control *Adjustment of mA and/or kV according to patient size (this includes techniques or standardized protocols for targeted exams where dose is matched to indication/reason for exam; i.e. extremities or head) *Use of iterative reconstruction technique DLP: 2390 mGy centimeter. FINDINGS: The degree of stenosis determined by criteria similar to NASCET. Brain: No acute intracranial hemorrhage, mass effect, midline shift, hydrocephalus or herniation. Fischer-white matter differentiation is normal. Posterior cranial fossa contents demonstrated no acute hemorrhage or mass effect. There is a 1 cm calcified pineal gland. Normal position of the cerebellar tonsils. No acute fracture in the bony calvarium or the skull base. No air-fluid levels in the paranasal sinuses. Tympanic cavities and mastoid cells are aerated. Chest CTA: Thoracic aortic arch: Normal patency. No focal stenosis. No aneurysm or dissection. Neck CTA: Right CCA: Normal patency. No focal stenosis. No intimal flap. Right ICA: Calcified plaque. Normal patency. No focal stenosis. No intimal flap. Left CCA: Calcified plaque in the origin. Normal patency. No focal stenosis. No intimal flap. Left ICA: Calcified plaques representing less than 20% stenosis. Normal patency. No intimal flap. V1/V2 segments: Normal patency. No focal stenosis. No intimal flap. Codominant vertebral arteries. Calcified plaque in the origin of the left vertebral artery. The arteries origin is at the subclavian artery. Brain CTA: Anterior cerebral circulation: ICAs: Normal patency. No focal stenosis. No abrupt cut off. Calcified plaques in the cavernous supraclinoid segments. The terminus is normal. MCA's: Normal patency. No focal stenosis. No abrupt cut off. Bifurcation/trifurcation demonstrated no vascular irregularity. ACAs: Normal patency. No focal stenosis. No abrupt cut off. Anterior communicating artery is small and patent. Ophthalmic arteries are patent. The origin is not fully depicted. Posterior communicating arteries are patent with small caliber Posterior cerebral circulation: V3/V4 segments: Normal patency. No focal stenosis. No intimal flap. Codominant vertebral arteries. Basilar artery is patent without focal stenosis or intimal flap. Superior cerebellar arteries are patent. pharmacognosy teacher: Normal patency. No focal stenosis. No abrupt cut off. Posterior inferior cerebral arteries and anterior inferior cerebral arteries are patent. Ancillary findings: Main cerebral venous sinuses are patent without intraluminal filling defect. Centrilobular and paraseptal emphysematous changes. Pulmonary patchy groundglass bilaterally. Probably secretions in the lumen of the trachea. CT/CT angio head neck IMPRESSION: No main cerebral artery occlusion or embolus. No dissection. Calcified plaques in the proximal ICAs without high degree stenosis. Concerning pulmonary edema versus pneumonitis among other etiologies. Probable aspiration. This critical test result is communicated to: Physician corporate law assistant in the emergency department Sandoval Gray [facility] on February 16, 2025 at 11:57 AM. Electronically signed by: Sebastien Corral MD 02/16/2025 11:57 AM EDT
--- NOTE | ~2025-02-16 | CT_ITS ---
EXAMINATION: CT ABDOMEN AND PELVIS WITH CONTRAST CLINICAL INFORMATION: Early satiety, change in stool caliber, R/O mass COMPARISON: November 21, 2022 TECHNIQUE: Multidetector volumetric images were obtained from the superior aspect of the liver through the pubic symphysis following administration 85 mL of Omnipaque 350 intravenous contrast. Sagittal and coronal reformatted images were obtained on the technologist's workstation. Oral contrast: No DLP: 670 mGY*cm This CT examination was performed using dose optimization techniques as appropriate, variously including the following: *Automated exposure control *Adjustment of mA and/or kV according to patient size (this includes techniques or standardized protocols for targeted exams where dose is matched to indication/reason for exam; i.e. extremities or head) *Use of iterative reconstruction technique FINDINGS: LUNG BASES: Coarse markings in the bases of the lungs with fibrotic changes and mild honeycombing, mildly progressed since the prior. There are also patchy groundglass densities that have also increased LIVER, GALLBLADDER, AND BILIARY TREE: The liver is normal in size, shape, and attenuation. No focal hepatic lesion or biliary ductal dilatation is present. There is a high attenuating focus in the gallbladder that was previously more centrally located and has moved to the region of the neck consistent with a mobile stone. There is no gallbladder wall thickening or biliary ductal dilation. PANCREAS: Unremarkable. SPLEEN: Unremarkable. ADRENAL GLANDS: Unremarkable. 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 BLADDER: Unremarkable. GASTROINTESTINAL TRACT: The appendix is nonvisualized. There are a few scattered pseudodiverticula in the colon without bowel wall thickening or fat stranding. ABDOMINAL WALL: No significant hernia is appreciated. LYMPH NODES: Normal. VASCULAR: Moderate atherosclerotic calcifications are present PELVIC VISCERA: Unremarkable. OSSEOUS STRUCTURES: Disc replacement has been performed at L4-5. There is interbody spacer at L5-S1. Facet osteophytes and sclerosis are noted in the mid and lower lumbar spine . Moderate acetabular roof marginal osteophytes are present. Mild osteophyte formation is seen along the SI joints. Focal calcific density is present in the gluteus medias tendon on the right, cephalad to greater trochanter. CT/CT abdomen pelvis w IV con IMPRESSION: Chronic changes in the lung bases suggest interstitial lung disease or other chronic process. It has slightly progressed since the prior. Diverticulosis of the colon without sign of active inflammation. Degenerative changes are present in the lumbar spine, hips, and SI joints. Suspected calcific tendinitis involving distal right gluteus medias tendon. Fleischner guidelines were followed. Electronically signed by: Moises Grant MD 02/16/2025 11:40 AM EDT
--- OUTSIDE RECORDS SUMMARY | 2025-02-16 07:49 | XMS_ITS | Patient Health Record ---
Author Organization [facility] Address [address] [place] [address] Care Team Providers Care Ditch Rider Name Role Phone Po Galindo PITTS Primary Care Provider Harpal Little [phone] Allergies Allergen (clinical drug ingredient) Drug/Non Drug Allergy documented on EMR Reaction Allergy Type Onset Date Status Unknown Drug Allergy Active Results Component Value Reference Range Notes Pathology (Not yet reviewed by provider) Interpretation: Performing Lab:[facility], [address] [place] [phone] Notes/Report: Reason For Referral No Information Medications [...] Status Risk Notes Problem Colon cancer screening (114581788) Colon cancer screening (Z12.11) Active confirmed Problem 751635911 Gastro-esophagea l reflux disease without esophagitis (K21.9) Active confirmed Problem 209102676 Encounter for screening for malignant neoplasm of colon (Z12.11) Active confirmed Problem 632705826 History of adenomatous polyp of colon (Z86.010) Active confirmed Problem 786268439 Change in bowel habits (R19.4) Active confirmed Problem 14147375 Weight loss (R63.4) Active confirmed Problem 828280763 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) Active confirmed Problem 312662402 Early satiety (R68.81) Active confirmed Problem Iron deficiency anemia (94318461) Iron deficiency anemia (D50.9) Active confirmed Problem 943224216 Blood in stool (K92.1) Active confirmed Problem 531378025 History of colon polyps (Z86.010) Active confirmed Problem 243541714 Barretts esophagus without dysplasia (K22.70) Active confirmed Problem Family History of Cancer of Colon (Situation) (156144280) Family history of colon cancer (Z80.0) Active confirmed Problem 165038727 Abnormal CT scan , colon (R93.3) Active confirmed Problem Yanez esophagus (553536336) Yanez esophagus (K22.70) Active confirmed Problem 11378413 Other irritable bowel syndrome (K58.8) Active confirmed Problem Diverticulosis of colon (852305820) Diverticulosis of colon (K57.30) Active confirmed Problem 440773439 RLQ abdominal pain (R10.31) Active confirmed Problem 192320720 LLQ abdominal pain (R10.32) Active confirmed Vital Signs Blood pressure diastolic 77 mm Hg 10/12/2024 Height 69.5 in 10/12/2024 Blood pressure systolic 111 mm Hg 10/12/2024 Weight 173 lbs 10/12/2024 BMI 25.18 kg/m2 10/12/2024 Procedures Procedure Date Ordered Date Performed Result Body Sit e UPPER GI ENDOSCOPY 10/12/2024 N/A COLONOSCOPY 10/12/2024 N/A Encounters Encounter Location Date Provider Diagnosis [facility] [place] Outpatient [address] [place] [id number] 11/08/2024 Harpal Soliman Colon cancer screening Z12.11 ; History of adenomatous polyp of colon Z86.0101 ; Family history of colon cancer Z80.0 ; Colon polyps K63.5 ; Yanez esophagus K22.70 and Hiatal hernia K44.9 [facility] [address] [place] [address] 10/12/2024 Harpal Soliman Barretts esophagus without dysplasia [...] Date MEDICARE OF [place] [address] [place] [address] [id number] SUNNY HENNESSY Self - patient is the insured 0 [facility] [address] [place], [place] [id number] SUNNY HENNESSY Self - patient is the insured Medical (General) History Medical History History ICD Code GERD with Yanez's esophagu s-last EGD's in 10/2011 and 05/2015 with biopsies neg for dysplasia, HH Depression BPH Back pain Denies [place],DM,CVA,Lung disease,renal dise ase Kidney stones Colonoscopy in 10/2011 with r emoval of small tubular adenomas, and diverticulosis proximal to the anastomosis Sleep apnea--not using a CPAP machine Anemia-he saw Dr. Srivastava in early 2020 and describes receiving iron infusions and having a bone marrow biopsy [id number] to moderate sized hiatal hernia, small area of Yanez's esophagus with biopsies negative for dysplasia, no esophagitis or ulcer disease [id number] small tubular adenoma, and a small amount [...]
--- OUTSIDE RECORDS SUMMARY | 2025-02-16 07:50 | XMS_ITS | Clinical Summary ---
Author Organization [facility] Address [address] [place] [address] Phone Care Team Providers Care Clip On Sunglasses Inspector Name Role Phone Po, Galindo Dawkins MD Primary Care Provider [phone] Allergies Active Allergy Reactions Criticality Noted Date [...] topic Medical Devices Not on file Insurance [facility] MEDICARE PART A & B [facility] MEDICARE PART A & B [facility] MEDICARE PART A & B [facility] MEDICARE PART A & B [facility] MEDICARE PART A & B [facility] MEDICARE PART A & [place] [address] [address] [place] [address] MEDICARE PART A & B [facility] MEDICARE PART A & B [facility] MEDICARE PART A & B Care Teams Clip On Sunglasses Inspector Relationship Specialty Start Date End Date Galindo Muro MD [address] [place] [address] Drive [address] [place] [phone] PCP - General Internal Medicine 05/22/18 Additional Source Comments The information contained in this document represents components of the legal health record. It is not the complete legal health record.[facility]
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
--- NOTE | 2025-02-16 08:00 | PC.NURSE ---
Pt denies pain at this time, but is short of breath. Resp rate 20. Chest pain last couple days, sleeping and lying down makes it worse, constant. Standing up, the pain comes and goes. Yesterday experienced gagging feeling. Denies numbness or tingling.
--- NOTE | 2025-02-16 08:05 | PC.NURSE ---
Pt comes in post fall on Friday. Right knee warm, swollen, painful. Pain = 5/10. Took usual pain med 15 mg oxycodone at 0600 today. Some tingling to left toes, which is new with this injury.
[2025-02-16 09:01] LABS: MANUAL DIFF FLAG NO
[2025-02-16 09:02] LABS: Hematocrit 32.9 % (42.0-52.0); Hemoglobin 11.7 g/dl (14.0-18.0); Imm Gran Abs Auto 0.04 X10*3/uL (0.00-0.03); Imm Gran Pct Auto 0.4 % (0.0-0.4); Lymphocytes Absolute Auto 3.1 X10*3/uL (1.2-4.9); Mean Corpuscular HGB Conc 35.6 g/dl (31.0-36.0); Mean Corpuscular Hemoglobin 31.1 pg (27.0-33.0); Mean Corpuscular Volume 87.5 fL (80.0-98.0); NRBC Abs Auto 0.000 X10*3/uL (0.0-0.012); NRBC Pct Auto 0.0 /100WBC (0.0-0.2); Platelet Count 188 X10*3/uL (160-400); Red Blood Count 3.76 X10*6/uL (4.60-5.80); White Blood Count 11.1 X10*3/uL (4.8-10.8)
[2025-02-16 09:34] LABS: Alanine Aminotransferase 11 U/L (0-40); Albumin Level 3.9 g/dL (3.5-5.0); Alkaline Phosphatase 102 U/L (39-117); Anion Gap 16 (12-20); Aspartate Amino Transferase 20 U/L (5-37); Blood Urea Nitrogen 11 mg/dL (9-16); Calcium 7.8 mg/dL (8.4-10.2); Carbon Dioxide 32 mmol/L (22-29); Chloride 104 mmol/L (96-108); Creatinine Clr Calc Pharmacy 94.0; Estimated Glomerular Filt Rate > 60; Magnesium 0.9 mg/dL (1.6-2.6); Potassium 3.8 mmol/L (3.3-5.1); Sodium 148 mmol/L (135-145); Total Protein 6.2 g/dL (6.5-8.0)
[2025-02-16] MEDS: Magnesium Sulfate/H2O 2 GM/50 ML PIGGYBACK IV ×2 (09:39→15:57)
[2025-02-16 10:19] LABS: Folate 12.5 ng/mL (> or = 4.0); Vitamin B12 428 pg/mL (200-900)
[2025-02-16] MEDS: iohexoL 350 MG/ML 100 ML INFUS..BTL IV (10:29)
[2025-02-16 10:39] LABS: Osmolality, Serum 300 mosm/kg (281-305)
[2025-02-16 11:02] LABS: Appearance Urine Clear; Glucose Urine UA Negative (Negative); PH 6.0 (5.0-9.0); Specific Gravity - Urine 1.015 (1.005-1.025)
[2025-02-16] MEDS: oxyCODONE HCl Immed Release 15 MG TABLET PO ×3 (11:45→23:49)
[2025-02-16] MEDS: Lactated Ringers 1,000 ML 150 ML IV (13:10)
--- NOTE | 2025-02-16 14:41 | PHA.MEDREC ---
Addendum entered by Lauren Roman ruslan 02/16/25 14:57: MED REC REVIEWED BY [facility] Original Note: Pharmacy Consult ? Medication Reconciliation Pharmacy has completed the medication reconciliation. Spoke with pt and spouse at bedside and they confirmed the pt medications. Pt confirmed his Oxycodone 15mg tab 1-2 tabs Q6H PRN and his Sertraline 50mg tab decreased from 50mg QD to 25 mg (pt cutting tabs in half) QD; pt and spouse confirmed pt Dr (Dr Amin) changed that yesterday.
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
--- NOTE | 2025-02-16 18:38 | PC.NURSE ---
Pt reports poor appetite. Taking oxycodone for knee and back pain. rates pain after med as 5/10. Ambulating with cane to bathroom.
--- NOTE | 2025-02-16 19:10 | PC.NURSE ---
this rn assumed care of pt, pt offers no complaints at this time, vss. pt to bathroom independently with steady gait.
--- NOTE | 2025-02-16 20:29 | MHC.EDTECH ---
patient put on a hospital bed
--- NOTE | 2025-02-16 21:31 | PC.NURSE ---
pt medicated per mar, tolerated whole well with water.
[2025-02-17] VITALS (9 sets, daily range): BP systolic 99–167; BP diastolic 56–72; PULSE 62–85; RESP 14–18; TEMP 36.4–36.6; O2SAT 94–100; BMI 24.4
[2025-02-17 05:11] LABS: Alanine Aminotransferase 10 U/L (0-40); Albumin Level 3.8 g/dL (3.5-5.0); Alkaline Phosphatase 101 U/L (39-117); Anion Gap 13 (12-20); Aspartate Amino Transferase 22 U/L (5-37); Blood Urea Nitrogen 7 mg/dL (9-16); Calcium 8.2 mg/dL (8.4-10.2); Carbon Dioxide 30 mmol/L (22-29); Chloride 105 mmol/L (96-108); Creatinine Clr Calc Pharmacy 102.7; Estimated Glomerular Filt Rate > 60; Potassium 3.4 mmol/L (3.3-5.1); Sodium 145 mmol/L (135-145); Total Protein 6.3 g/dL (6.5-8.0)
[2025-02-17] MEDS: oxyCODONE HCl Immed Release 15 MG TABLET PO ×2 (06:22→12:37)
--- NOTE | 2025-02-17 06:28 | PC.NURSE ---
pt to bathroom with no assistance at this time, vss. pt medicated per aug , tolerated whole well with water
[2025-02-17 07:55] LABS: Hematocrit 31.7 % (42.0-52.0); Hemoglobin 11.4 g/dl (14.0-18.0); Mean Corpuscular HGB Conc 36.0 g/dl (31.0-36.0); Mean Corpuscular Hemoglobin 30.6 pg (27.0-33.0); Mean Corpuscular Volume 85.0 fL (80.0-98.0); NRBC Abs Auto 0.000 X10*3/uL (0.0-0.012); NRBC Pct Auto 0.0 /100WBC (0.0-0.2); Platelet Count 212 X10*3/uL (160-400); Red Blood Count 3.73 X10*6/uL (4.60-5.80); White Blood Count 10.4 X10*3/uL (4.8-10.8)
[2025-02-17 07:59] LABS: Anion Gap 12 (12-20); Blood Urea Nitrogen 7 mg/dL (9-16); Calcium 8.1 mg/dL (8.4-10.2); Carbon Dioxide 30 mmol/L (22-29); Chloride 105 mmol/L (96-108); Creatinine Clr Calc Pharmacy 109.9; Estimated Glomerular Filt Rate > 60; Magnesium 1.8 mg/dL (1.6-2.6); Potassium 3.2 mmol/L (3.3-5.1); Sodium 144 mmol/L (135-145)
[2025-02-17] MEDS: Metoprolol Succinate ER 25 MG TAB.ER.24H PO (08:04)
[2025-02-17] MEDS: 0.9 % Sodium Chloride Flush 3 ML SYRINGE IVFLUSH (08:06)
--- NOTE | 2025-02-17 09:50 | MHC.CM.PN ---
CM addressed IMM with Patient and provided him with the original and a copy will be placed on the chart. Patient lives in a house with his /HCP/Sadie who will transport to home at dc. Home/self care is Patient's goal and CM has initiated and will follow for dc planning. PCP is Dr. OWUSU. Initialized on 02/17/25 09:46 - END OF NOTE
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
--- NOTE | 2025-02-17 15:19 | HO.PM.IMPN ---
Subjective Subjective Date of Service: 02/17/25 Interval History: f/u on dizziness, fall, low mag, high sodium feels better, no dizziness, no arrythmia has right knee pain Physical Exam Exam: Exam: General: AO X 3, no acute distress Resp: CTA bilateral CVS: S1,S2,RRR GI: +BS, NT, no distention Skin: No rash ext: mild swollen right knee Neuro: motor grossly intact Psych: appropriate affect Vital Signs: Vital Signs: Last Vital Signs Temp 97.9 F 02/17/25 11:31 Pulse 74 02/17/25 14:00 Resp 17 02/17/25 14:00 BP 99/63 02/17/25 14:00 Pulse Ox 97 02/17/25 14:00 O2 Del Method Room Air 02/17/25 14:00 BMI result Body Mass Index 24.4 Objective Data Active Medications Acetaminophen (Acetaminophen 325 Mg Tablet) 650 mg PO Q6H PRN PRN Reason: Pain, Mild 1-3,fever,headache Amitriptyline HCl (Amitriptyline Hcl 50 Mg Tablet) 50 mg PO BEDTIME [facility] Last Admin: 02/16/25 21:18 Dose: 50 mg Documented By: FRANK Atorvastatin Calcium (Atorvastatin Calcium 80 Mg Tablet) 80 mg PO DAILY [facility] Last Admin: 02/17/25 08:03 Dose: 80 mg Documented By: AHMET Calcium Carbonate (Calcium Carbonate 750 Mg Tab.Chew) 750 mg PO Q4H PRN PRN Reason: Heartburn Enoxaparin Sodium (Enoxaparin Sodium 40 Mg/0.4 Ml Syringe) 40 mg SUBCUT DAILY [facility] Last Admin: 02/17/25 08:04 Dose: 40 mg Documented By: AHMET Magnesium Hydroxide (Milk Of Magnesia 30 Ml Oral.Susp) 30 ml PO DAILY PRN PRN Reason: Constipation Melatonin (Melatonin 3 Mg Tablet) 6 mg PO BEDTIME PRN PRN Reason: Insomnia Metoprolol Succinate (Metoprolol Succinate Er 25 Mg Tab.Er.24h) 25 mg PO DAILY [facility]; Protocol Last Admin: 02/17/25 08:04 Dose: 25 mg Documented By: AHMET Multivitamins/Vitamin C (Multivitamin Tablet) 1 tab PO DAILY [facility] Last Admin: 02/17/25 08:03 Dose: 1 tab Documented By: AHMET Omeprazole (Omeprazole 20 Mg Capsule.) 20 mg PO DAILY@0630 [facility] Last Admin: 02/17/25 06:22 Dose: 20 mg Documented By: FRANK Ondansetron HCl (Ondansetron Hcl 4 Mg/2 Ml Vial) 4 mg IVPUSH Q8H PRN PRN Reason: Nausea and Vomiting Oxycodone HCl (Oxycodone Hcl Immed Release 15 Mg Tablet) 15 mg PO Q6H PRN PRN Reason: Pain, Severe (Pain Scale 7-10) Last Admin: 02/17/25 12:37 Dose: 15 mg Documented By: N-PHILLIP Sertraline HCl (Sertraline Hcl 25 Mg Tablet) 25 mg PO DAILY [facility] Last Admin: 02/17/25 08:04 Dose: 25 mg Documented By: AHMET Sodium Chloride (0.9 % Sodium Chloride Flush 3 Ml Syringe) 3 ml IVFLUSH QSHIFT [facility] Last Admin: 02/17/25 08:06 Dose: 3 ml Documented By: AHMET Labs 02/17/25 07:37 02/17/25 07:37 Labs: Laboratory Results - last 24 hr 02/17/25 02/17/25 04:28 07:37 MCV 85.0 MCH 30.6 MCHC 36.0 RDW 12.9 Plt Count 212 MPV 9.9 Absolute Nucleated RBC 0.000 Nucleated RBC % (auto) 0.0 Anion Gap 13 12 Estim Creat Clear Calc 102.7 109.9 Estimated GFR > 60 > 60 Random Glucose 96 94 Calcium 8.2 L 8.1 L Magnesium 1.8 Total Bilirubin 0.7 AST 22 ALT 10 Alkaline Phosphatase 101 Total Protein 6.3 L Albumin 3.8 Assessment and Plan (1) Falling episodes: Status: Acute (2) Weakness: Status: Acute (3) Syncope and collapse: Status: Acute Plan 64-year-old male with medical history of anemia, anxiety, depression, HTN, HLD, DON, COPD, Yanez's esophagus, BPH, GERD, IBD, presents to the ED due to right knee and foot pain. Patient reports he has been experiencing approximately 1 year of numbness, and tingling that usually starts on head and migrate to his feat and results in his legs giving out and falls out. Found to have mag of 0.9 Dizziness unclear etiology, ? dehydration no arrhtymia noted check ortho Hydrate Mild Hypernatremia d/t dehyration hydrate and recheck Fall right knee pain, xray no acute injury-contusion Ortho consult PT eval [place] replace with IV mag and normal HTN continue metoprolol HLD lipitor Mood disorder resume home meds Diarrhea, has not had any diarrhea here DVT prophylaxis: lovenox Full code Quality Stroke Does the patient have a stroke diagnosis?: No VTE Prior VTE?: No VTE Risk Level:: Medical - moderate - high VTE Device Contraindication: Treatment Not Indicated VTE Drug Contraindication: N/A - Med Ordered
[2025-02-17] MEDS: Potassium Chloride ER 20 MEQ TAB.ER.PRT PO (15:43)
--- NOTE | 2025-02-17 19:16 | PC.NURSE ---
[employer] informed this quality analyst/technical writer pt is taking everything off and stating he is leaving. this RN arrived to room and assessed pt. stated he asked for meds 30min ago and hasn't seen anyone. this RN explained to pt that this quality analyst/technical writer was not informed of his request and can medicate now if in pain. pt refused and began to remove tele monitor and clothes then refused to respond to this quality analyst/technical writer. MD was informed and pt was informed to wait for MD to speak with pt. IV was removed and AMA paper signed. Pt refused to wait and left the unit. md was informed.
--- NOTE | 2025-02-17 19:17 | PM.EVENT ---
Event Note Date of Service: 02/18/25 Event Note: Elopement note: RN mentioned that patient that he does not want to stay. RN told him to wait for the MD. Patient does not want to wait for the empty and left the hospital. Time Spent With Patient Time: Total time managing care of this patient today ____ minutes.
--- NOTE | 2025-02-18 06:58 | P.DS_ITS ---
DS: Providers Provider Date of Service: 02/17/25 Date of admission: 02/16/25 13:31 Date of discharge: 02/17/25 Primary care physician: Galindo Muro MD Consults: 02/17/25 08:13 Consult to Orthopedics Routine Consulting Provider: [facility] Reason for consultation: Bacilio bingham contusion, DS: Diagnosis Discharge Diagnosis (1) Falling episodes: Status: Acute (2) Weakness: Status: Acute (3) Syncope and collapse: Status: Acute DS: Summary Hospital Course Hospital Course: admission hpi 64-year-old male with medical history of anemia, anxiety, depression, HTN, HLD, DON, COPD, Yanez's esophagus, BPH, GERD, IBD, presents to the ED due to right knee and foot pain. Patient reports he has been experiencing approximately 1 year of numbness, and tingling that usually starts on head and migrate to his feat and results in his legs giving out and falls. He has been having these more frequently about 3 times last week. Dizziness usually lasts about a minutes. He has been having watery diarhea for nearly 2 months now. Had colonoscopy in November with polyp removal. CBC Hgb is 11.7, Sodium 148, creatine is normal. Magnesium 0.9 3 days ago (02/14/25) During an episode of dizziness with numbness and tingling, he reports his legs gave out and he fell onto his right knee with his right foot underneath his buttocks. He now has to ambulate with a cane due to pain of the right knee and foot. Patient states he has seen his psychiatric provider yesterday who decreased his sertraline due to his dizziness. Patient states he has told his primary care doctor about these episodes, but not much has been done. Patient states he has follow up with his primary care doctor this coming Friday hospital course: Patient was being managed for dizziness, fall knee pain and found to have low [id number], high sodium and right knee pain. He lelft AMA after hours on 02/17. See additional documentation elsewhere Final diagnoses: Dizziness Fall Hypernatremia Hypomagnesemia Time Attestation Discharge Coordination Time (in mins): 30 Quality: Safe Use of Opioids Does Pt have an Active Cancer Diagnosis on the Problem List?: Yes Opioid Measure Date for CMS Report: 01/19/25 Opioid Measure Time for CMS Report: 07:07 Quality: Stroke Does the patient have a stroke diagnosis?: No Physical Exam Vital Signs: Vital Signs: Last Vital Signs Temp 97.6 F 02/17/25 15:31 Pulse 64 02/17/25 15:31 Resp 18 02/17/25 15:31 BP 135/64 02/17/25 15:31 Pulse Ox 96 02/17/25 15:31 O2 Del Method Room Air 02/17/25 15:31 BMI result Body Mass Index 24.4 DS: Data Data Completed and Pending Labs on day of discharge: Laboratory Results - last 24 hr 02/17/25 07:37 WBC 10.4 RBC 3.73 L Hgb 11.4 L Hct 31.7 L MCV 85.0 MCH 30.6 MCHC 36.0 RDW 12.9 Plt Count 212 MPV 9.9 Absolute Nucleated RBC 0.000 Nucleated RBC % (auto) 0.0 Sodium 144 Potassium 3.2 L Chloride 105 Carbon Dioxide 30 H Anion Gap 12 BUN 7 L Creatinine 0.71 Estim Creat Clear Calc 109.9 Estimated GFR > 60 Random Glucose 94 Calcium 8.1 L Magnesium 1.8 Discharge Plan Discharge Anticipated Discharge Date/Time: 02/17/25 19:00 Patient Disposition: Left Against Medical Advice Discharge Diagnosis: Dizziness, knee pain Referrals: Po,Galindo Cash MD [Primary Care Provider, Internal Medicine] - 1 Week Discharge Medications: No Action metoprolol succinate 25 mg tablet extended release 24 hr 25 mg PO DAILY Qty: 90 3RF amitriptyline 50 mg tablet 50 mg PO BEDTIME 90 Days Qty: 90 2RF multivitamin Tablet 1 tab PO DAILY oxycodone 15 mg tablet 15 - 30 mg PO Q6H PRN (Reason: pain) Rx Instructions: 1-2 tabs PO every 6 hours PRN; partial fill upon request pantoprazole 40 mg tablet,delayed release (DR/EC) 40 mg PO DAILY@0630 atorvastatin [Lipitor] 80 mg tablet 80 mg PO DAILY Qty: 90 3RF sertraline 50 mg tablet 25 mg PO DAILY Qty: 45 1RF Discharge Orders: Discharge Order (Routine); Ordered 02/18/25 Ordered By: Jerry Lantigua Diet: Advance to usual diet Activity on Discharge: As tolerated Print Language: Kyrgyz Care Plan Goals: left AMA Health Concerns: left AMA Plan of Treatment: left AMA Assessment: left AMA Discharge Date/Time: 02/17/25 19:19
== END 2025-02-17 19:19 | disposition left against medical advice (07) | DRG 641 ==
LOC: HO.ED 13:26 → HO.EDOVER 13:47 → HO.IMC 02-17 13:12
PROVIDERS: Admitting Provider Internal Medicine; Emergency Provider Emergency Medicine; PCP Internal Medicine; Visit Provider Internal Medicine
DX: E87.0 Hyperosmolality and hypernatremia (principal); S83.91XA Sprain of unspecified site of right knee, initial encounter; W19.XXXA Unspecified fall, initial encounter; R55 Syncope and collapse; F17.210 Nicotine dependence, cigarettes, uncomplicated; E86.0 Dehydration; E83.42 Hypomagnesemia; R29.6 Repeated falls; Z91.81 History of falling; I10 Essential (primary) hypertension; E78.5 Hyperlipidemia, unspecified; Z71.6 Tobacco abuse counseling; Z79.899 Other long term (current) drug therapy
CPT/HCPCS: 36415; 70496; 70498; 73560; 73630; 74177; 80048; 80053; 81003; 82607; 82746; 83735; 83930; 83935; 85025; 85027; 93005; 97161; 99285; J1650; J3475; J7120; Q9967

== ENCOUNTER → 2025-02-16 07:37 | Outpatient (BNV) | payer MEDICARE, BC, SELFPAY | PROVIDERS: Emergency Provider Emergency Medicine; PCP Internal Medicine; Visit Provider Internal Medicine Cardiovascular Disease | DX: I49.1 Atrial premature depolarization (principal) | CPT/HCPCS: 93010 ==

== ENCOUNTER → 2025-02-16 08:06 | Outpatient (BNV) | payer MEDICARE, BC, SELFPAY | PROVIDERS: Emergency Provider Emergency Medicine; PCP Internal Medicine; Visit Provider Radiology Diagnostic Radiology | DX: R42 Dizziness and giddiness (principal); R53.1 Weakness | CPT/HCPCS: 70496; 70498 ==

== ENCOUNTER → 2025-02-16 13:31 | Outpatient (BNV) | payer MEDICARE, BC, SELFPAY | PROVIDERS: Admitting Provider Internal Medicine; Emergency Provider Emergency Medicine; PCP Internal Medicine | DX: S83.91XA Sprain of unspecified site of right knee, initial encounter (principal) | CPT/HCPCS: 99222 ==

== ENCOUNTER → 2025-02-16 13:31 | Outpatient (BNV) | payer MEDICARE, BC, SELFPAY | PROVIDERS: Admitting Provider Internal Medicine; Emergency Provider Emergency Medicine; PCP Internal Medicine; Visit Provider Internal Medicine | DX: R55 Syncope and collapse (principal); R29.6 Repeated falls; R53.1 Weakness; E87.0 Hyperosmolality and hypernatremia | CPT/HCPCS: 99223; 99232 ==

== ENCOUNTER 2025-02-21 09:23 | Outpatient (AMB) | payer MEDICARE, BC, SELFPAY ==
--- OUTSIDE RECORDS SUMMARY | 2024-11-08 10:40 | XMS_ITS ---
Author Organization [facility] Address [address] [place] [address] Care Team Providers Care Professor Of Communication Name Role Phone Po Galindo PITTS Primary Care Provider Harpal Little [phone] REASON FOR VISIT hunt's, gerd, screening, fam hx colon ca, hx polyps Encounters Encounter Location Date Provider Diagnosis [facility] [place] [address] [place] [phone] 11/08/2024 Harpal Soliman Colon cancer scree preethi [...] * SHABNAM HENNESSY EDOB:1960 (64 yo M)Acc No.[id number]:11/08/2024 EGD and COL/MAC Patient: SHABNAM URIOSTEGUI Provider: Raisa Soliman MD :1960 A ge:64 Y S ex:Male Date:11/08/2024 Address: [place] , [id number] Pcp:Galindo Muro MD Subjective: * Chief Complaints: [...] DOCD, 0528F RCMND FLW-UP 10 YRS DOCD, [address] UPPER GI ENDOSCOPY, BIOPSY * * The named appointment provid er may or may not be the originator of this progress note, and it is not deemed complete until electronically signed by the appointment provider. Sign off status: Pending * Provider: Raisa Soliman MD Date: 0 11/08/2024 Generated for Vince turk/Heri/Dakotaitting on: 0 02/21/2025 11:08 AM EDT
[2025-02-21 09:32] VITALS: BP 112/62; PULSE 59; O2SAT 96; BMI 24.5
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
--- OUTSIDE RECORDS SUMMARY | 2025-02-21 11:09 | XMS_ITS | Patient Health Record ---
Author Organization [facility] Address [address] [place] [address] Care Team Providers Care Supervisor Residential Name Role Phone Po Galindo PITTS Primary Care Provider Harpal Little [phone] Allergies Allergen (clinical drug ingredient) Drug/Non Drug Allergy documented on EMR Reaction Allergy Type Onset Date Status Unknown Drug Allergy Active Results Component Value Reference Range Notes Pathology (Not yet reviewed by provider) Interpretation: Performing Lab:[facility], [address] [place] [id number] Notes/Report: Reason For Referral No Information Medications [...] Status Risk Notes Problem Colon cancer screening (638810903) Colon cancer screening (Z12.11) Active confirmed Problem 220088867 Gastro-esophagea l reflux disease without esophagitis (K21.9) Active confirmed Problem 239461113 Encounter for screening for malignant neoplasm of colon (Z12.11) Active confirmed Problem 316159202 History of adenomatous polyp of colon (Z86.010) Active confirmed Problem 356242333 Change in bowel habits (R19.4) Active confirmed Problem 68057264 Weight loss (R63.4) Active confirmed Problem 187597712 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) Active confirmed Problem 552748413 Early satiety (R68.81) Active confirmed Problem Iron deficiency anemia (97602467) Iron deficiency anemia (D50.9) Active confirmed Problem 585191532 Blood in stool (K92.1) Active confirmed Problem 790840517 History of colon polyps (Z86.010) Active confirmed Problem 335662891 Barretts esophagus without dysplasia (K22.70) Active confirmed Problem Family History of Cancer of Colon (Situation) (715985787) Family history of colon cancer (Z80.0) Active confirmed Problem 668292403 Abnormal CT scan , colon (R93.3) Active confirmed Problem Yanez esophagus (729140191) Yanez esophagus (K22.70) Active confirmed Problem 25184854 Other irritable bowel syndrome (K58.8) Active confirmed Problem Diverticulosis of colon (502961929) Diverticulosis of colon (K57.30) Active confirmed Problem 948359021 RLQ abdominal pain (R10.31) Active confirmed Problem 180307358 LLQ abdominal pain (R10.32) Active confirmed Vital Signs Blood pressure diastolic 77 mm Hg 10/12/2024 Height 69.5 in 10/12/2024 Blood pressure systolic 111 mm Hg 10/12/2024 Weight 173 lbs 10/12/2024 BMI 25.18 kg/m2 10/12/2024 Procedures Procedure Date Ordered Date Performed Result Body Sit e UPPER GI ENDOSCOPY 10/12/2024 N/A COLONOSCOPY 10/12/2024 N/A Encounters Encounter Location Date Provider Diagnosis [facility] [place] [facility] [address] [place] [id number] 11/08/2024 Harpal Soliman Colon cancer screening Z12.11 ; History of adenomatous polyp of colon Z86.0101 ; Family history of colon cancer Z80.0 ; Colon polyps K63.5 ; Yanez esophagus K22.70 and Hiatal hernia K44.9 [facility] [address] [place] [address] 10/12/2024 Harpal Soliman Barretts esophagus without dysplasia [...] Date MEDICARE OF [place] [address] [facility] [place] [address] [id number] SUNNY HENNESSY Self - patient is the insured 0 [facility] [address] [place], [place] [id number] [phone] [id number] SUNNY HENNESSY Self - patient is the insured Medical (General) History Medical History History ICD Code GERD with Yanez's esophagu s-last EGD's in 10/2011 and 05/2015 with biopsies neg for dysplasia, HH Depression BPH Back pain Denies VA,DM,CVA,Lung disease,renal dise ase Kidney stones Colonoscopy in 10/2011 with r emoval of small tubular adenomas, and diverticulosis proximal to the anastomosis Sleep apnea--not using a CPAP machine Anemia-he saw Dr. Srivastava in early 2020 and describes receiving iron infusions and having a bone marrow biopsy [id number] to moderate sized hiatal hernia, small area of Yanez's esophagus with biopsies negative for dysplasia, no esophagitis or ulcer disease [id number] small tubular adenoma, and a small amount [...]
== END 2025-02-21 10:15 | disposition home or self-care (01) ==
PROVIDERS: PCP Internal Medicine; Visit Provider Internal Medicine
DX: I10 Essential (primary) hypertension (principal); I25.10 Atherosclerotic heart disease of native coronary artery without angina pectoris; E78.00 Pure hypercholesterolemia, unspecified; J43.1 Panlobular emphysema; R73.02 Impaired glucose tolerance (oral); K22.70 Barrett's esophagus without dysplasia; K58.9 Irritable bowel syndrome, unspecified; E86.0 Dehydration; E83.42 Hypomagnesemia; E87.6 Hypokalemia; D63.8 Anemia in other chronic diseases classified elsewhere; M96.1 Postlaminectomy syndrome, not elsewhere classified

== ENCOUNTER 2025-02-21 09:23 | Outpatient (REF) | payer MEDICARE, BC, SELFPAY ==
[2025-02-21 11:02] LABS: MANUAL DIFF FLAG NO
[2025-02-21 11:14] LABS: Hematocrit 33.3 % (42.0-52.0); Hemoglobin 11.5 g/dl (14.0-18.0); Imm Gran Abs Auto 0.04 X10*3/uL (0.00-0.03); Imm Gran Pct Auto 0.4 % (0.0-0.4); Lymphocytes Absolute Auto 2.9 X10*3/uL (1.2-4.9); Mean Corpuscular HGB Conc 34.5 g/dl (31.0-36.0); Mean Corpuscular Hemoglobin 30.7 pg (27.0-33.0); Mean Corpuscular Volume 88.8 fL (80.0-98.0); NRBC Abs Auto 0.000 X10*3/uL (0.0-0.012); NRBC Pct Auto 0.0 /100WBC (0.0-0.2); Platelet Count 224 X10*3/uL (160-400); Red Blood Count 3.75 X10*6/uL (4.60-5.80); White Blood Count 11.2 X10*3/uL (4.8-10.8)
[2025-02-21 12:09] LABS: Alanine Aminotransferase 14 U/L (0-40); Albumin Level 4.1 g/dL (3.5-5.0); Alkaline Phosphatase 107 U/L (39-117); Anion Gap 13 (12-20); Aspartate Amino Transferase 27 U/L (5-37); Blood Urea Nitrogen 8 mg/dL (9-16); Calcium 8.9 mg/dL (8.4-10.2); Carbon Dioxide 30 mmol/L (22-29); Chloride 101 mmol/L (96-108); Estimated Glomerular Filt Rate > 60; Potassium 3.9 mmol/L (3.3-5.1); Sodium 140 mmol/L (135-145); Thyroid Stimulating Hormone 2.53 uIU/mL (0.32-4.0); Total Protein 6.9 g/dL (6.5-8.0)
[2025-02-21 12:23] LABS: Magnesium 1.5 mg/dL (1.6-2.6)
--- OUTSIDE RECORDS SUMMARY | 2025-02-21 13:26 | XMS_ITS | Clinical Summary ---
Author Organization [facility] Address [address] [place] [address] Phone Care Team Providers Care Whiskey Proof Reader Name Role Phone Po, Galindo Dawkins MD Primary Care Provider [phone] Allergies Active Allergy Reactions Criticality Noted Date [...] topic Medical Devices Not on file Insurance [facility] MEDICARE PART A & B [facility] MEDIC[facility] PART A & B [facility] PART A & B [facility] MEDICARE PART A & B [facility] MEDICARE PART A & B [facility] MEDICARE PART A & [place] [address] [place] [address] MEDICARE PART A & B [facility] MEDICARE PART A & B [facility] MEDICARE PART A & B Care Teams Whiskey Proof Reader Relationship Specialty Start Date End Date Galindo Muro MD [address] [place] [address] [address] [place] [phone] PCP - General Internal Medicine 05/22/18 Additional Source Comments The information contained in this document represents components of the legal health record. It is not the complete legal health record.[facility]
== END 2025-02-21 09:24 | disposition home or self-care (01) ==
LOC: HO.LAB 09:23
PROVIDERS: PCP Internal Medicine; Visit Provider Internal Medicine
DX: I10 Essential (primary) hypertension (principal); I25.10 Atherosclerotic heart disease of native coronary artery without angina pectoris; E78.00 Pure hypercholesterolemia, unspecified; E87.0 Hyperosmolality and hypernatremia; R73.02 Impaired glucose tolerance (oral); K22.70 Barrett's esophagus without dysplasia; K58.9 Irritable bowel syndrome, unspecified; E86.0 Dehydration; D63.8 Anemia in other chronic diseases classified elsewhere; M96.1 Postlaminectomy syndrome, not elsewhere classified; J43.1 Panlobular emphysema; M25.561 Pain in right knee; F17.210 Nicotine dependence, cigarettes, uncomplicated; Z71.6 Tobacco abuse counseling
CPT/HCPCS: 36415; 80053; 83735; 84443; 85025; 99212

== ENCOUNTER → 2025-03-07 10:12 | Outpatient (REF) | payer MEDICARE, BC, SELFPAY ==
--- OUTSIDE RECORDS SUMMARY | 2024-11-08 10:40 | XMS_ITS ---
Author Organization [facility] Address [address] [place] [address] Care Team Providers Care Burlap Worker Name Role Phone Po Galindo PITTS Primary Care Provider Harpal Little [phone] REASON FOR VISIT hunt's, gerd, screening, fam hx colon ca, hx polyps Encounters Encounter Location Date Provider [place] [facility] [place] [address] [place] [id number] 11/08/2024 Harpal Soliman Colon cancer scree preethi [...] * SHABNAM HENNESSY EDOB:1960 (64 yo M)Acc No.[id number]:11/08/2024 EGD and COL/MAC Patient: SHABNAM URIOSTEGUI Provider: Raisa Soliman MD :1960 A ge:64 Y S ex:Male Date:11/08/2024 Address: [place] , [id number] Pcp:Galindo Muro MD Subjective: * Chief Complaints: [...] DOCD, 0528F RCMND FLW-UP 10 YRS DOCD, [address] UPPER GI ENDOSCOPY, BIOPSY * * The named appointment provid er may or may not be the originator of this progress note, and it is not deemed complete until electronically signed by the appointment provider. Sign off status: Pending * Provider: Raisa Soliman MD Date: 0 11/08/2024 Generated for Vince turk/Heri/Dakotaitting on: 0 03/07/2025 11:20 AM EDT
--- NOTE | 2025-03-07 10:14 | CA_ITS ---
Transthoracic Echocardiogram Patient (Last, First, Middle): Sunny Guerra E Gender: Male Date of : 1960 Age: 64 Procedure Date: 03/07/2025 Procedure Type: Transthoracic Echocardiogram Location: OP Height: 177. cm Weight: 75.3 kg BSA: 1.92 m2 Heart Rate: 76 bpm BP: 135 / 65 mmHg Trim Setter: SHAWNEE Referring MD: Dayo Pratt MD Symptoms: I34.0 - Nonrheumatic mitral (valve) insufficiency Study Quality: Adequate ECG Rhythm: Sinus Conclusions: - The left ventricular systolic function is low normal. The calculated ejection fraction is 53% by biplane method. - There is moderate mitral valve regurgitation. Findings Left Ventricle Normal left ventricular cavity size. There is normal left ventricular wall thickness. The left ventricular systolic function is low normal. The calculated ejection fraction is 53% by biplane method. There is borderline global hypokinesis. Diastolic function is normal for age. Right Ventricle Normal right ventricular cavity size. There is low normal right ventricular systolic function. Atria The left atrium is mildly dilated. The right atrium is normal in size. Aortic Valve There is a normal trileaflet aortic valve. There is no aortic valve stenosis. There is no aortic valve regurgitation. Mitral Valve There is mild anterior and posterior mitral leaflet thickening. There is moderate mitral valve regurgitation. The mitral regurgitation jet is directed centrally. There is no mitral valve stenosis. Pulmonic Valve The pulmonic valve is likely normal. Tricuspid Valve Normal tricuspid valve structure. There is trace tricuspid valve regurgitation. Tricuspid regurgitation envelope is inadequate for calculation of right ventricular systolic pressure. Great Vessels The asc aorta and aortic arch are normal in size. Venous The inferior vena cava is normal in size and collapses greater than 50% with inspiration. Pericardium/Pleural There is no evidence of pericardial effusion. Prior Study Comparison No significant change compared to prior study dated: 06/16/2023. Recommendations, Care & Conclusions Consider a COLLIN if clinically appropriate. Measurements 2D Linear Measurements IVSd: 0.84 0.6-0.9/0.6-1.0 cm LVIDd: 5.30 3.9-5.3/4.2-5.9 cm LVIDd Index: 2.76 2.4-3.2/2.2-3.1 cm/m2 LVIDs: 3.48 2.0-3.6 cm LVPWd: 1.01 0.7-1.1 cm LA Diam: 4.30 2.7-3.8/3.0-4.0 cm LAIDs Index: 2.24 1.5-2.3 cm/m2 LV Mass: 225.63 67-162/88-224 g LV Mass Index: 117.52 43-95/49-115 g/m2 LVOT Diam: 2.10 3.0+(-)1.3 cm 2D Systolic Function EF 4C: 56.20 >55% EF 2C: 53.50 >55% EF BiP: 53.10 >55% Mitral Valve MV Pk E: 0.80 MV PK A: 1.14 MV Decel Time: 235.00 E/A: 0.70 E'Lateral: 6.49 E'Medial: 5.51 E/E' Med: 14.40 E/E' Lat: 12.20 PHT: 69.00 MVA PHT: 3.19 Decel Kenton: 3.38 MR Vol - PW Dopp: 20.70 MR VTI: 2.30 MR ERO: 9.00 MR Alias De: 0.39 MR RAD: 0.50 Aortic Valve AoV Pk De: 0.91 AoV Mn De: 0.70 AoV VTI: 0.20 AoV Pk Grad: 3.00 Aov Mn Grad: 2.00 SAMEER Cont.VTI: 3.04 LVOT LVOT Pk De: 0.85 LVOT Mn De: 0.62 LVOT VTI: 0.18 LVOT Pk Grad: 3.00 LVOT Mn Grad: 2.00 LVOT Diam: 2.10 LVOT Area: 3.46 Diastolic Function MV Pk E: 0.80 MV Pk A: 1.14 E/A: 0.70 E'Medial: 5.51 E/E' Med: 14.40 E' Laterial: 6.49 E/E' Lat: 12.20 Right Ventricle TAPSE (mm): 18.20 TVS' De: 9.08 Tricuspid Valve RA Press: 3.00 Great Vessels Aorta Sinus of Valsalva: 3.30 2.0-3.5 cm Ao Asc: 2.60 2.1-3.4 cm Ao Arch: 2.90 Pulmonary Veins Pulm Vein S/D 1.50 Pulmonary Valve PV Pk Ed: 0.83 Peak PV Grad: 3.00 Updated in Other Vendor System with Status of Final Jesse Gillespie MD electronically signed on 03/08/2025 4:05:01 PM with status of Final
--- OUTSIDE RECORDS SUMMARY | 2025-03-07 11:21 | XMS_ITS | Clinical Summary ---
Author Organization [facility] Address [id number] [place] [address] Phone Care Team Providers Care Fire Inspector Name Role Phone Po, Galindo Dawkins MD Primary Care Provider [phone] Allergies Active Allergy Reactions Criticality Noted Date [...] topic Medical Devices Not on file Insurance [employer] MEDIC[employer] PART A & B [employer] MED[employer] PART A & B [place] MED[employer] PART A [employer] B [place] MED[employer] PART A & B [place] MED[employer] PART A [employer] B [place] MED[employer]ARE PART A & [place] [address] [place] [address] MEDICARE PART A & B [employer] MED[employer] PART A & B [employer] MED[employer] PART A & B Care Teams Fire Inspector Relationship Specialty Start Date End Date Galindo Muro MD [address] [place] [address] [address] [place] [phone] PCP - General Internal Medicine 05/22/18 Additional Source Comments The information contained in this document represents components of the legal health record. It is not the complete legal health record.[facility]
--- OUTSIDE RECORDS SUMMARY | 2025-03-07 11:21 | XMS_ITS | Patient Health Record ---
Author Organization [facility] Address [address] [place] [address] Care Team Providers Care Laundry Manager Name Role Phone Po Galindo PITTS Primary Care Provider Harpal Little [phone] Allergies Allergen (clinical drug ingredient) Drug/Non Drug Allergy documented on EMR Reaction Allergy Type Onset Date Status Unknown Drug Allergy Active Results Component Value Reference Range Notes Pathology (Not yet reviewed by provider) Interpretation: Performing Lab:[facility], [address] [place] [phone] Notes/Report: Reason For Referral No Information Medications [...] Status Risk Notes Problem Colon cancer screening (371542942) Colon cancer screening (Z12.11) Active confirmed Problem 758986667 Gastro-esophagea l reflux disease without esophagitis (K21.9) Active confirmed Problem 239284061 Encounter for screening for malignant neoplasm of colon (Z12.11) Active confirmed Problem 051727224 History of adenomatous polyp of colon (Z86.010) Active confirmed Problem 894602794 Change in bowel habits (R19.4) Active confirmed Problem 34625518 Weight loss (R63.4) Active confirmed Problem 125593436 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) Active confirmed Problem 812674923 Early satiety (R68.81) Active confirmed Problem Iron deficiency anemia (55100242) Iron deficiency anemia (D50.9) Active confirmed Problem 041698209 Blood in stool (K92.1) Active confirmed Problem 974461290 History of colon polyps (Z86.010) Active confirmed Problem 811604685 Barretts esophagus without dysplasia (K22.70) Active confirmed Problem Family History of Cancer of Colon (Situation) (710865238) Family history of colon cancer (Z80.0) Active confirmed Problem 990704581 Abnormal CT scan , colon (R93.3) Active confirmed Problem Yanez esophagus (290704573) Yanez esophagus (K22.70) Active confirmed Problem 03190430 Other irritable bowel syndrome (K58.8) Active confirmed Problem Diverticulosis of colon (834006044) Diverticulosis of colon (K57.30) Active confirmed Problem 889635568 RLQ abdominal pain (R10.31) Active confirmed Problem 765045300 LLQ abdominal pain (R10.32) Active confirmed Vital Signs Blood pressure diastolic 77 mm Hg 10/12/2024 Height 69.5 in 10/12/2024 Blood pressure systolic 111 mm Hg 10/12/2024 Weight 173 lbs 10/12/2024 BMI 25.18 kg/m2 10/12/2024 Procedures Procedure Date Ordered Date Performed Result Body Sit e UPPER GI ENDOSCOPY 10/12/2024 N/A COLONOSCOPY 10/12/2024 N/A Encounters Encounter Location Date Provider Diagnosis [facility] Outpatient [address] [place] [id number] 11/08/2024 Harpal Soliman Colon cancer screening Z12.11 ; History of adenomatous polyp of colon Z86.0101 ; Family history of colon cancer Z80.0 ; Colon polyps K63.5 ; Yanez esophagus K22.70 and Hiatal hernia K44.9 [facility] [address] [place] [address] 10/12/2024 Harpal Soliman Barretts esophagus without dysplasia [...] polyp of colon (ICD-10 - Z86.010) Overall, Snuny seems to be stable from a GI [...] Date MEDICARE OF [place] [address] [place] [address] [id number] SUNNY HENNESSY Self - patient is the insured 0 [facility] [address] [place], [place] [id number] [phone] [id number] SUNNY HENNESSY Self - patient is the [...] infusions and having a bone marrow biopsy 12/[id number] to moderate sized hiatal hernia, small area of Yanez's esophagus with biopsies negative for dysplasia, no esophagitis or ulcer disease 12/[id number] small tubular adenoma, and a small amount [...]
== END ==
LOC: HO.CARD 10:12
PROVIDERS: PCP Internal Medicine; Visit Provider Internal Medicine Cardiovascular Disease
DX: I34.0 Nonrheumatic mitral (valve) insufficiency (principal)
CPT/HCPCS: 93306

== ENCOUNTER → 2025-03-07 10:14 | Outpatient (BNV) | payer MEDICARE, BC, SELFPAY | PROVIDERS: PCP Internal Medicine; Visit Provider Internal Medicine | DX: I34.0 Nonrheumatic mitral (valve) insufficiency (principal) | CPT/HCPCS: 93306 ==

== ENCOUNTER 2025-03-15 13:10 | Outpatient (AMB) | payer MEDICARE, BC, SELFPAY ==
--- OUTSIDE RECORDS SUMMARY | 2024-11-08 10:40 | XMS_ITS ---
Author Organization [facility] Address [address] [place] [address] Care Team Providers Care Steam Shovel Operator Name Role Phone Po Galindo PITTS Primary Care Provider Harpal Little [phone] REASON FOR VISIT hunt's, gerd, screening, fam hx colon ca, hx polyps Encounters Encounter Location Date Provider [place] [facility] [place] [address] [place] [phone] 11/08/2024 Harpal Soliman Colon cancer scree preethi [...] * SHABNAM HENNESSY EDOB:1960 (64 yo M)Acc No.[id number]:11/08/2024 EGD and COL/MAC Patient: SHABNAM URIOSTEGUI Provider: Raisa Soliman MD :1960 A ge:64 Y S ex:Male Date:11/08/2024 Address: [place] , [id number] Pcp:Galindo Muro MD Subjective: * Chief Complaints: [...] DOCD, 0528F RCMND FLW-UP 10 YRS DOCD, [address] UPPER GI ENDOSCOPY, BIOPSY * * The named appointment provid er may or may not be the originator of this progress note, and it is not deemed complete until electronically signed by the appointment provider. Sign off status: Pending * Provider: Raisa Soliman MD Date: 0 11/08/2024 Generated for Vince turk/Heri/Dakotaitting on: 1 04:08 PM EDT
[2025-03-15 13:15] VITALS: BP 120/70; PULSE 80; BMI 24.4
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
--- OUTSIDE RECORDS SUMMARY | 2025-03-15 16:09 | XMS_ITS | Patient Health Record ---
Author Organization [facility] Address [address] [place] [address] Care Team Providers Care Gas Station Operator Name Role Phone Po Galindo PITTS Primary Care Provider Harpal Little [phone] Allergies Allergen (clinical drug ingredient) Drug/Non Drug Allergy documented on EMR Reaction Allergy Type Onset Date Status Unknown Drug Allergy Active Results Component Value Reference Range Notes Pathology (Not yet reviewed by provider) Interpretation: Performing Lab:[facility], [address] [place] [phone] Notes/Report: Reason For Referral No Information Medications [...] Status Risk Notes Problem Colon cancer screening (399157499) Colon cancer screening (Z12.11) Active confirmed Problem 446982022 Gastro-esophagea l reflux disease without esophagitis (K21.9) Active confirmed Problem 671285068 Encounter for screening for malignant neoplasm of colon (Z12.11) Active confirmed Problem 101274748 History of adenomatous polyp of colon (Z86.010) Active confirmed Problem 659407768 Change in bowel habits (R19.4) Active confirmed Problem 40844928 Weight loss (R63.4) Active confirmed Problem 916255809 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) Active confirmed Problem 274903759 Early satiety (R68.81) Active confirmed Problem Iron deficiency anemia (84568961) Iron deficiency anemia (D50.9) Active confirmed Problem 367944936 Blood in stool (K92.1) Active confirmed Problem 662853599 History of colon polyps (Z86.010) Active confirmed Problem 752552110 Barretts esophagus without dysplasia (K22.70) Active confirmed Problem Family History of Cancer of Colon (Situation) (517508515) Family history of colon cancer (Z80.0) Active confirmed Problem 244680161 Abnormal CT scan , colon (R93.3) Active confirmed Problem Yanez esophagus (776353172) Yanez esophagus (K22.70) Active confirmed Problem 60391314 Other irritable bowel syndrome (K58.8) Active confirmed Problem Diverticulosis of colon (207921123) Diverticulosis of colon (K57.30) Active confirmed Problem 708551094 RLQ abdominal pain (R10.31) Active confirmed Problem 143410585 LLQ abdominal pain (R10.32) Active confirmed Vital Signs Blood pressure diastolic 77 mm Hg 10/12/2024 Height 69.5 in 10/12/2024 Blood pressure systolic 111 mm Hg 10/12/2024 Weight 173 lbs 10/12/2024 BMI 25.18 kg/m2 10/12/2024 Procedures Procedure Date Ordered Date Performed Result Body Sit e UPPER GI ENDOSCOPY 10/12/2024 N/A COLONOSCOPY 10/12/2024 N/A Encounters Encounter Location Date Provider Diagnosis [facility] Out[place] [address] [place] [id number] 11/08/2024 Harpal Soliman Colon cancer screening Z12.11 ; History of adenomatous polyp of colon Z86.0101 ; Family history of colon cancer Z80.0 ; Colon polyps K63.5 ; Yanez esophagus K22.70 and Hiatal hernia K44.9 [facility] [address] [place] [address] 10/12/2024 Harpal Soliman Barretts esophagus without dysplasia [...] [address] [place] [address] [id number] SUNNY HENNESSY Self - patient is the insured 0 [facility] [address] [place], [place] [id number] [phone] [id number] SUNNY HENNESSY Self - patient is the insured Medical (General) History Medical History History ICD Code GERD with Yanez's esophagu s-last EGD's in 10/2011 and 05/2015 with biopsies neg for dysplasia, HH Depression BPH Back pain Denies MT,DM,CVA,Lung disease,renal dise ase Kidney stones Colonoscopy in 10/2011 with r emoval of small tubular adenomas, and diverticulosis proximal to the anastomosis Sleep apnea--not using a CPAP machine Anemia-he saw Dr. Srivastava in early 2020 and describes receiving iron infusions and having a bone marrow biopsy 12/[id number] to moderate sized hiatal hernia, small area of Yanez's esophagus with biopsies negative for dysplasia, no esophagitis or ulcer disease 12/[id number] small tubular adenoma, and a small amount [...]
--- OUTSIDE RECORDS SUMMARY | 2025-03-15 16:09 | XMS_ITS | Clinical Summary ---
Author Organization [facility] Address [address] [place] [address] Phone Care Team Providers Care Rn Diabetes Name Role Phone Po, Galindo Dawkins MD Primary Care Provider [phone] Allergies Active Allergy Reactions Criticality Noted Date [...] topic Medical Devices Not on file Insurance [facility] [[email or web address] MEDICARE PART A & B [facility] [[email or web address]] MEDICARE PART A & B [facility] [[email or web address]] MEDICARE PART A & B [facility] [[email or web address]] MEDICARE PART A & B [facility] [[email or web address] MEDICARE PART A & B [facility] [[email or web address] MEDICARE PART A & [place] [address] [address] [place] [address] MEDICARE PART A & B [facility] [[email or web address] MEDICARE PART A & B [facility] [[email or web address]] MEDICARE PART A & B Care Teams Rn Diabetes Relationship Specialty Start Date End Date Galindo Muro MD [address] [place] [address] [address] [place] [phone] PCP - General Internal Medicine 05/22/18 Additional Source Comments The information contained in this document represents components of the legal health record. It is not the complete legal health record.[facility]
== END 2025-03-15 13:43 | disposition home or self-care (01) ==
LOC: HO.HCS 13:12
PROVIDERS: PCP Internal Medicine; Visit Provider Internal Medicine Cardiovascular Disease
DX: I34.0 Nonrheumatic mitral (valve) insufficiency (principal); I25.10 Atherosclerotic heart disease of native coronary artery without angina pectoris
CPT/HCPCS: 93010; 99214; G2211

== ENCOUNTER → 2025-03-15 13:10 | Outpatient (BNVA) | payer MEDICARE, BC, SELFPAY | PROVIDERS: PCP Internal Medicine; Visit Provider Internal Medicine Cardiovascular Disease | DX: I34.0 Nonrheumatic mitral (valve) insufficiency (principal); I25.10 Atherosclerotic heart disease of native coronary artery without angina pectoris; Z72.0 Tobacco use; E78.5 Hyperlipidemia, unspecified; I10 Essential (primary) hypertension | CPT/HCPCS: 93005; 99212 ==

== ENCOUNTER 2025-03-23 09:08 | Outpatient (AMB) | payer MEDICARE, BC, SELFPAY ==
--- OUTSIDE RECORDS SUMMARY | 2024-11-08 10:40 | XMS_ITS ---
Author Organization [facility] Address [address] [place] [address] Care Team Providers Care Egg Packer Name Role Phone Po Galindo PITTS Primary Care Provider Harpal Little [phone] REASON FOR VISIT hunt's, gerd, screening, fam hx colon ca, hx polyps Encounters Encounter Location Date Provider Diagnosis [facility] [place] [address] [place] [address] [phone] 11/08/2024 Harpal Soliman Colon cancer scree pretehi Z12.11 ; History of adenomatous polyp of [...] * SHABNAM HENNESSY EDOB:1960 (64 yo M)Acc No.[id number]:11/08/2024 EGD and COL/MAC Patient: SHABNAM URIOSTEGUI Provider: Raisa Soliman MD :1960 A ge:64 Y S ex:Male Date:11/08/2024 Address: [place] , [id number] Pcp:Galindo Muro MD Subjective: * Chief Complaints: [...] DOCD, 0528F RCMND FLW-UP 10 YRS DOCD, [address] UPPER GI ENDOSCOPY, BIOPSY * * The named appointment provid er may or may not be the originator of this progress note, and it is not deemed complete until electronically signed by the appointment provider. Sign off status: Pending * Provider: Raisa Soliman MD Date: 0 11/08/2024 Generated for Vince turk/Heri/Dakotaitting on: 1 10:04 AM EDT
[2025-03-23 09:46] VITALS: BP 108/60; PULSE 88; TEMP 36.2; O2SAT 95; BMI 24.9
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
--- OUTSIDE RECORDS SUMMARY | 2025-03-23 10:04 | XMS_ITS | Clinical Summary ---
Author Organization [facility] Address [address] [place] [address] Phone Care Team Providers Care Palm Gatherer Name Role Phone Po, Galindo Dawkins MD Primary Care Provider [phone] Allergies Active Allergy Reactions Criticality Noted Date [...] topic Medical Devices Not on file Insurance [facility] MEDICARE PART A & B [facility] MEDICARE PART A & B [facility] MEDICARE PART A & B [facility] MEDICARE [facility] A & B [facility] MEDICARE PART A & B [facility] MEDICARE PART A & [place] [address] [place] [address] MEDICARE PART A & B [facility] MEDICARE PART A & B [facility] MEDICARE PART A & B Care Teams Palm Gatherer Relationship Specialty Start Date End Date Galindo Muro MD [address] [place] [address] [address] [place] [id number] PCP - General Internal Medicine 05/22/18 Additional Source Comments The information contained in this document represents components of the legal health record. It is not the complete legal health record.[facility]
--- OUTSIDE RECORDS SUMMARY | 2025-03-23 10:04 | XMS_ITS | Patient Health Record ---
Author Organization [facility] Address [address] [place] [address] Care Team Providers Care Bakery Assistant Name Role Phone Po Galindo PITTS Primary Care Provider Harpal Little [phone] Allergies Allergen (clinical drug ingredient) Drug/Non Drug Allergy documented on EMR Reaction Allergy Type Onset Date Status Unknown Drug Allergy Active Results Component Value Reference Range Notes Pathology (Not yet reviewed by provider) Interpretation: Performing Lab:[facility], [address] [place] [phone] Notes/Report: Reason For Referral No Information Medications Medication SIG (Take, Route, Frequency, Duration) Notes Start Date End Date Status Amitriptyline HCl 25 MG as directed Orally 2 tablets at night For sleep and depression Active Pantoprazole Sodium 40 MG Oral; Duration: 90 Active Flomax 0.4 MG 1 capsule [...] more than four times a day in total.; Duration: 30 day(s) 12/14/2022 Not-Taking Metoprolol Succinate ER 25 MG TAKE 1 TABLET BY MOUTH EVERY DAY Oral; Duration: 65 Days Active Ezetimibe 10 MG 1 tablet Orally Once a day; Duration: 30 day(s) 10/12/2024 Active Albuterol Sulfate HFA 108 (90 Base) MCG/ACT Inhalation; Duration: 17 Active Atorvastatin Calcium 80 MG Oral; Duration: 90 Days Active Immunizations Vaccine Route Administration [...] Status Risk Notes Problem Colon cancer screening (247196837) Colon cancer screening (Z12.11) Active confirmed Problem Gastro-esophageal reflux disease without esophagitis (549901926) Gastro-esophageal reflux disease without esophagitis (K21.9) Active confirmed Problem Screening for malignant neoplasm of colon (231953331) Encounter for screening for malignant neoplasm of colon (Z12.11) Active confirmed Problem History of adenomatous polyp of colon (757690674) History of adenomatous polyp of colon (Z86.010) Active confirmed Problem Change in bowel habit (26790609) Change in bowel habits (R19.4) Active confirmed Problem Weight loss (076291972) Weight loss (R63.4) Active confirmed Problem Yanez's esophagus (158144321) 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) Active confirmed Problem Early satiety (473308507) Early satiety (R68.81) Active confirmed Problem Iron deficiency anemia (78466076) Iron deficiency anemia (D50.9) Active confirmed Problem Blood in stool (897499524) Blood in stool (K92.1) Active confirmed Problem History of polyp of colon (situation) (381294093) History of colon polyps (Z86.010) Active confirmed Problem Yanez's esophagus (000864061) Barretts esophagus without dysplasia (K22.70) Active confirmed Problem Family History of Cancer of Colon (Situation) (253993159) Family history of colon cancer (Z80.0) Active confirmed Problem Computed tomography result abnormal (340905632) Abnormal CT scan, colon (R93.3) Active confirmed Problem Yanez esophagus (240601278) Yanez esophagus (K22.70) Active confirmed Problem Irritable bowel syndrome (69777974) Other irritable bowel syndrome (K58.8) Active confirmed Problem Diverticulosis of colon (720627445) Diverticulosis of colon (K57.30) Active confirmed Problem Right lower quadrant pain (241480832) RLQ abdominal pain (R10.31) Active confirmed Problem Left lower quadrant pain (451089290) LLQ abdominal pain (R10.32) Active confirmed Vital [...] [facility] [address], [place] [id number] 11/08/2024 Harpal Soliman Colon cancer screening Z12.11 ; History of adenomatous polyp of colon Z86.0101 ; Family history of colon cancer Z80.0 ; Colon polyps K63.5 ; Yanez esophagus K22.70 and Hiatal hernia K44.9 [facility] [address] [place] [address] 10/12/2024 Harpal Soliman Barretts esophagus without dysplasia [...] will be done with monitored anesthesia care. uSnny and his were comfortable with this plan. [...] in regard to the chronic reflux and Ynaez's esophagus since his last exam was about [...] Date MEDICARE OF [place] [address] [facility] [place] [address] [id number] SUNNY HENNESSY Self - patient is the insured 0 [facility] [address] [place], [place] [id number] SUNNY HENNESSY Self - patient is the insured Medical (General) History Medical History History ICD Code GERD with Yanez's esophagu s-last EGD's in 10/2011 and 05/2015 with biopsies neg for dysplasia, HH Depression BPH Back pain Denies AL,DM,CVA,Lung disease,renal dise ase Kidney stones Colonoscopy in 10/2011 with r emoval of small tubular adenomas, and diverticulosis proximal to the anastomosis Sleep apnea--not using a CPAP machine Anemia-he saw Dr. Srivastava in early 2020 and describes receiving iron infusions and having a bone marrow biopsy [id number] to moderate sized hiatal hernia, small area of Yanez's esophagus with biopsies negative for dysplasia, no esophagitis or ulcer disease [id number] small tubular adenoma, and a small amount [...] disease nor microscopic colitis Hospitalization in October 23 with some right lower quadrant pain [...]
== END 2025-03-23 10:33 | disposition home or self-care (01) ==
LOC: HO.HMCH 09:09
PROVIDERS: PCP Internal Medicine; Visit Provider Internal Medicine
DX: I10 Essential (primary) hypertension (principal); I25.10 Atherosclerotic heart disease of native coronary artery without angina pectoris; E78.00 Pure hypercholesterolemia, unspecified; R73.02 Impaired glucose tolerance (oral); K22.70 Barrett's esophagus without dysplasia; E83.42 Hypomagnesemia; D64.89 Other specified anemias; M51.26 Other intervertebral disc displacement, lumbar region; J43.1 Panlobular emphysema; F17.210 Nicotine dependence, cigarettes, uncomplicated; Z23 Encounter for immunization

== ENCOUNTER → 2025-03-23 09:08 | Outpatient (BNVA) | payer MEDICARE, BC, SELFPAY | PROVIDERS: PCP Internal Medicine; Visit Provider Internal Medicine | DX: I10 Essential (primary) hypertension (principal); M51.26 Other intervertebral disc displacement, lumbar region; I25.10 Atherosclerotic heart disease of native coronary artery without angina pectoris; E78.00 Pure hypercholesterolemia, unspecified; R73.02 Impaired glucose tolerance (oral); K22.70 Barrett's esophagus without dysplasia; E83.42 Hypomagnesemia; D64.89 Other specified anemias; J43.1 Panlobular emphysema; F17.210 Nicotine dependence, cigarettes, uncomplicated; I34.0 Nonrheumatic mitral (valve) insufficiency; Z23 Encounter for immunization | CPT/HCPCS: 90471; 90656; 96127; 99212 ==

== ENCOUNTER 2025-04-07 13:17 | Outpatient (REF) | payer BC, MEDICARE, SELFPAY ==
--- OUTSIDE RECORDS SUMMARY | 2024-11-08 10:40 | XMS_ITS ---
Author Organization [facility] Address [address] [place] [address] Care Team Providers Care Machine Marker Name Role Phone Po Galindo PITTS Primary Care Provider Harpal Little [phone] REASON FOR VISIT hunt's, gerd, screening, fam hx colon ca, hx polyps Encounters Encounter Location Date Provider Diagnosis [facility] [place] [address] [place] [phone] 11/08/2024 Harpal Soliman Colon cancer scree preethi [...] * SHABNAM HENNESSY EDOB:1960 (64 yo M)Acc No.[id number]:11/08/2024 EGD and COL/MAC Patient: SHABNAM URIOSTEGUI Provider: Raisa Soliman MD :1960 A ge:64 Y S ex:Male Date:11/08/2024 Address: [place] , [id number] Pcp:Galindo Muro MD Subjective: * Chief Complaints: [...] DOCD, 0528F RCMND FLW-UP 10 YRS DOCD, [address] UPPER GI ENDOSCOPY, BIOPSY * * The named appointment provid er may or may not be the originator of this progress note, and it is not deemed complete until electronically signed by the appointment provider. Sign off status: Pending * Provider: Raisa Soliman MD Date: 0 11/08/2024 Generated for Vince turk/Heri/Dakotaitting on: 1 04:14 PM EDT
[2025-04-07 14:40] LABS: MANUAL DIFF FLAG NO
[2025-04-07 14:51] LABS: Hematocrit 38.2 % (42.0-52.0); Hemoglobin 13.0 g/dl (14.0-18.0); Imm Gran Abs Auto 0.01 X10*3/uL (0.00-0.03); Imm Gran Pct Auto 0.1 % (0.0-0.4); Lymphocytes Absolute Auto 2.7 X10*3/uL (1.2-4.9); Mean Corpuscular HGB Conc 34.0 g/dl (31.0-36.0); Mean Corpuscular Hemoglobin 31.4 pg (27.0-33.0); Mean Corpuscular Volume 92.3 fL (80.0-98.0); NRBC Abs Auto 0.000 X10*3/uL (0.0-0.012); NRBC Pct Auto 0.0 /100WBC (0.0-0.2); Platelet Count 238 X10*3/uL (160-400); Red Blood Count 4.14 X10*6/uL (4.60-5.80); White Blood Count 9.0 X10*3/uL (4.8-10.8)
[2025-04-07 15:29] LABS: Alanine Aminotransferase 20 U/L (0-40); Albumin Level 4.5 g/dL (3.5-5.0); Alkaline Phosphatase 102 U/L (39-117); Anion Gap 12 (12-20); Aspartate Amino Transferase 28 U/L (5-37); Blood Urea Nitrogen 13 mg/dL (9-16); Calcium 9.5 mg/dL (8.4-10.2); Carbon Dioxide 32 mmol/L (22-29); Chloride 100 mmol/L (96-108); Estimated Glomerular Filt Rate > 60; Magnesium 1.8 mg/dL (1.6-2.6); Potassium 4.6 mmol/L (3.3-5.1); Sodium 139 mmol/L (135-145); Total Protein 7.3 g/dL (6.5-8.0)
--- OUTSIDE RECORDS SUMMARY | 2025-04-07 16:15 | XMS_ITS | Clinical Summary ---
Author Organization [facility] Address [address] [place] [address] Phone Care Team Providers Care General Intern Name Role Phone Po, Galindo Dawkins MD Primary Care Provider [phone] Allergies Active Allergy Reactions Criticality Noted Date [...] topic Medical Devices Not on file Insurance [facility] MEDICARE PART A & B [facility] MEDIC[facility] PART A & B [facility] MEDIC[facility] PART A & B [facility] MEDIC[facility] PART A & B [facility] MED[facility]ARE PART A & B [facility] MEDICARE PART A & [place] [address] [place] [address] MEDICARE PART A & B [facility] MEDICARE PART A & B [facility] MEDICARE PART A & B Care Teams General Intern Relationship Specialty Start Date End Date Galindo Muro MD [address] [place] [address] [address] [place] [phone] PCP - General Internal Medicine 05/22/18 Additional Source Comments The information contained in this document represents components of the legal health record. It is not the complete legal health record.[facility]
--- OUTSIDE RECORDS SUMMARY | 2025-04-07 16:15 | XMS_ITS | Data Portability ---
Author Organization [facility] Pain Managem ent, PAIN OFFICE Address [address] [facility] [address] Care Team Providers Care Manager Switch Name Role Phone JG OWUSU Primary Care [...] booked for the same. 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 [email or web address] [...] Time Trochanteri c bursitis of left hip [id number] 03 Active Kim ponce [facility], [place] - [facility] 2 15:10:14 Lumbosacral radiculopat hy 2135472 Active Fernando ponce MD [facility] , [address] [address], [place], [address], [place] - Pain Management 2 15:39:56 Degeneratio n of lumbar interverteb ral disc 27558981 Active Fernando ponce MD [facility] , [address] [address], [place], [address], [place] - Pain Management 2 15:40:09 Lumbar post-toño ctomy syndrome 840869481 Active Fernando ponce MD [facility] , [address] [address], [place], [address], [place] - Pain Management 2 15:40:22 Problem Notes None recorded. Procedures Surgical History Date Name Laterality Status Provider Name and Address Organization Details Recorded Time 12/23/19 25 Lumbar Epidural steroid injection under fluoroscopic guidance completed Fernando Morrison MD [address] , [address], [place], [address], [place] - [facility] 12/22/2024 13:53:48 07/06/19 25 Lumbar Epidural steroid injection under fluoroscopic guidance completed Fernando Morrison MD [address] [facility] , [address], [place], [address], [place] - [facility] 07/06/2024 15:43:39 03/30/20 24 Lumbar Epidural steroid injection under fluoroscopic guidance completed Fernando Morrison MD [address] [facility] , [address], [place], [address], [place] - [facility] 03/30/2024 10:32:08 11/19/19 24 Lumbar Epidural steroid injection under fluoroscopic guidance completed Fernando Morrison MD [facility] , [address], [place], [address], [place] - [facility] 11/19/2023 10:44:25 05/22/20 23 Lumbar Epidural steroid injection under fluoroscopic guidance completed Fernando Morrison MD [address] [facility] , [address], [place], [address], [place] - [facility] 05/22/2023 13:52:35 01/01/20 23 Lumbar Epidural steroid injection under fluoroscopic guidance completed Fernando Morrison MD [address] [facility] , [address], [place], [address], [place] - [facility] 12/31/2022 14:22:40 09/11/19 23 Lumbar Epidural steroid injection under fluoroscopic guidance completed Fernando Morrison MD [address] [facility] , [address], [place], [address], [place] - [facility] 09/10/2022 [...] Name and Address Organization Details Recorded Time 26541 aspirin medicatio n Not available Not available [...] Management 5 15:23:37 Date Recorded Body height Pain severity - 0-10 verbal numeric rating [Score] - Reported Oxygen saturation Oxygen saturation in Arterial blood by Pulse oximetry Heart rate Systolic And Diastolic Provider Name and Address Organization Details Last Updated DateTime 4 177.8 cm 7 96 % 96 % 77 /min 130/54 mm[Hg] Samreenjohnny borrero [place] - [facility] 4 09:49:35 Date Recorded Body height Pain severity - 0-10 verbal numeric rating [Score] - Reported Oxygen saturation Oxygen saturation in Arterial blood by Pulse oximetry Heart rate Systolic And Diastolic Provider Name and Address Organization Details Last Updated DateTime 5 177.8 cm 7 96 % 96 % 72 /min 131/53 mm[Hg] Tona verdugo [place] - [facility] 5 13:35:57 Date Recorded Body height Heart rate Oxygen saturation Oxygen saturation in Arterial blood by Pulse oximetry Body mass index (BMI) Body weight Pain severity - 0-10 verbal numeric rating [Score] - Reported Systolic And Diastolic Provider Name and Address Organization Details Last Updated DateTime 4 177.8 cm 79 /min 97 % 97 % 25.1 kg/m2 49584.6 6 g 4 131/64 mm[Hg] Fernando ponce MD [address] [facility] , [address], [place], [address], [place] - [facility] 4 [...] You Had Close Contact With A Laboratory-confir Queralt COVID-19 While That Case Was Ill? No [...] not available 04/29/2022 Do you have difficulty dressing, bathing, grooming, or toileting? No Information not available 04/29/2022 Mental Status Question Answer Note LastModified by Organization D etails LastModified Time Do you have difficulty concentrating, remembering or making decisions? No Information no t available 04/29/2022 Family History Relationship Description Onset Age of this Age Resolved Age Notes LastModified by Organization Details LastModified Time Mother Heart disease Not available 04/10 15:10:48 Mother Malignant neoplasm of breast Not available 04/10 15:11:01 Sister [...] Diagnosis SNOMED-CT Code Diagnosis ICD10 Code Diagnosis IMO Codes Diagnosis Note [id number] Fernando Morrison MD PAIN OFFICE [email or web address] [place] [address] 04/29/2022 14:38:11 04/29/2022 15:57:01 Trochanteric bursitis of left hip 5300504612 26919 M70.62 Lumbosacra l radiculopathy 6635873 M54.17 Lumbar post-laminectomy syndrome 147834944 M96.1 Degenerati on of lumbar intervertebral disc 38973134 M51.36 39362 Fernando Morrison MD PAIN OFFICE [email or web address] [address] 05/23/2022 15:17:22 05/24/2022 10:48:58 Lumbosacral radiculopathy 0142685 M54.17 Lumbar post-laminectomy syndrome 336339560 M96.1 Degenerati on of lumbar intervertebral disc 68256228 M51.36 41639 Fernando Morrison MD PAIN OFFICE [email or web address] [address] 09/10/2022 11:02:21 09/10/2022 14:08:11 Lumbosacral radiculopathy 0313421 M54.17 Lumbar post-laminectomy syndrome 906029700 M96.1 Degenerati on of lumbar intervertebral disc 77198642 M51.36 00444 Fernando Morrison MD PAIN OFFICE [email or web address] [address] 10/10/2022 15:07:35 10/10/2022 15:41:20 Lumbar post-laminectomy syndrome 469303012 M96.1 Lumbosacra l radiculopathy 3177244 M54.17 Degenerati on of lumbar intervertebral disc 37055739 M51.36 97380 Fernando Morrison MD [facility] PAIN OFFICE [address] [place] [address] 12/31/2022 13:32:25 12/31/2022 14:28:42 Lumbosacral radiculopathy 4264418 M54.17 Lumbar post-laminectomy syndrome 860252839 M96.1 Degenerati on of lumbar intervertebral disc 45802971 M51.36 23874 Fernando Morrison MD [facility] PAIN OFFICE [address] [place] [address] 05/22/2023 13:11:18 05/22/2023 13:59:54 Lumbosacral radiculopathy 2230722 M54.17 Lumbar post-laminectomy syndrome 361557269 M96.1 Degenerati on of lumbar intervertebral disc 85624047 M51.36 30927 Fernando Morrison MD [facility] PAIN OFFICE [address] [place] [address] 10/20/2023 13:57:26 10/20/2023 14:25:31 Lumbosacral radiculopathy 2925071 M54.17 Lumbar post-laminectomy syndrome 991827805 M96.1 Degenerati on of lumbar intervertebral disc 40275718 M51.36 58905 Fernando Morrison MD [facility] PAIN OFF[facility] [address] [place] [address] 11/19/2023 09:37:54 11/19/2023 10:49:53 Lumbosacral radiculopathy 9127088 M54.17 Lumbar post-laminectomy syndrome 952464917 M96.1 Degenerati on of lumbar intervertebral disc 87281716 M51.36 39707 Fernando Morrison MD [facility] PAIN OFF[facility] [address] [place] [address] 03/12/2024 09:52:16 03/12/2024 10:24:54 Lumbosacral radiculopathy 9048713 M54.17 Lumbar post-laminectomy syndrome 945683165 M96.1 Degenerati on of lumbar intervertebral disc 49060665 M51.362 14964 Fernando Morrison MD PAIN OFFICE [email or web address] [facility] [place] [address] 03/30/2024 09:46:41 03/30/2024 16:36:13 Lumbosacral radiculopathy 8628791 M54.17 Lumbar post-laminectomy syndrome 148156071 M96.1 Degenerati on of lumbar intervertebral disc 59609350 M51.362 36311 Fernando Morrison MD PAIN OFFICE [email or web address] [facility] [place] [address] 07/06/2024 15:18:22 07/06/2024 15:50:05 Lumbosacral radiculopathy 8409703 M54.17 Lumbar post-laminectomy syndrome 249592509 M96.1 Degenerati on of lumbar intervertebral disc 46402488 M51.362 27701 Fernando Morrison MD PAIN OFFICE [email or web address] [facility] [place] [address] 12/22/2024 13:18:16 12/22/2024 13:58:48 Lumbosacral radiculopathy 1566861 M54.17 Lumbar post-laminectomy syndrome 938488788 M96.1 Degenerati on of lumbar intervertebral disc 16095499 M51.362 Health Concerns Section Related Observation LastModified by Organization Detai ls LastModified Time None Recorded Concern Status LastModified by Organization Details LastModified Time None Recorded Advance Directives Directive None Recorded Payers Insurance Date Sequence Insurance Name Policy Number Policy Pace Covered Member ID Pace Member ID Guarantor Name 12/19/2024 1 [place] [employer] Sunny Guerra [id number] Sunny Guerra 12/19/2024 2 [place] Sunny Guerra [id number] Sunny Guerra Notes Date Note Type Note Provider Name and Address Organization Details Recorded Time 11/19/2023 text/html He is here today for a lumbar epidural steroid injection under fluoroscopic guidance.He had a cardiac cath done and is on medical management of his CAD Fernando Morrison MD [address] , [address], [place], [address], [place] - [facility] 11/19/2023 [...] or bowel incontinence. Fernando Morrison MD [address] [facility] , [address], [place], [address], [place] - [facility] 03/12/2024 11:34:07 03/30/2024 text/html He is here today for a lumbar epidural steroid injection under fluoroscopic guidance. Fernando Morrison MD [address] , [address], [place], [address], [place] - [facility] 03/30/2024 16:39:02 07/06/2024 text/html He is here today for a lumbar epidural steroid injection under fluoroscopic guidance. Fernando Morrison MD [address] , [address], [place], [address], [place] - [facility] 07/07/2024 08:48:29 12/22/2024 text/html He is here today for a lumbar epidural steroid injection under fluoroscopic guidance. Fernando Morrison MD [address] , [address], [place], [address], [place] - [facility] 12/22/2024 14:00:58
--- OUTSIDE RECORDS SUMMARY | 2025-04-07 16:15 | XMS_ITS | Patient Health Record ---
Author Organization [facility] Address [address] [place] [address] Care Team Providers Care Controller Mechanic Name Role Phone Po Galindo PITTS Primary Care Provider Harpal Little [phone] Allergies Allergen (clinical drug ingredient) Drug/Non Drug Allergy documented on EMR Reaction Allergy Type Onset Date Status Unknown Drug Allergy Active Results Component Value Reference Range Notes Pathology (Not yet reviewed by provider) Interpretation: Performing Lab:[facility], [address] [place] [address] Notes/Report: Reason For Referral No Information Medications [...] Status Risk Notes Problem Colon cancer screening (638665779) Colon cancer screening (Z12.11) Active confirmed Problem Gastro-esophageal reflux disease without esophagitis (840227888) Gastro-esophageal reflux disease without esophagitis (K21.9) Active confirmed Problem Screening for malignant neoplasm of colon (559660853) Encounter for screening for malignant neoplasm of colon (Z12.11) Active confirmed Problem History of adenomatous polyp of colon (549587607) History of adenomatous polyp of colon (Z86.010) Active confirmed Problem Change in bowel habit (69152163) Change in bowel habits (R19.4) Active confirmed Problem Weight loss (023529462) Weight loss (R63.4) Active confirmed Problem Yanez's esophagus (540362229) 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) Active confirmed Problem Early satiety (904088275) Early satiety (R68.81) Active confirmed Problem Iron deficiency anemia (21505129) Iron deficiency anemia (D50.9) Active confirmed Problem Blood in stool (276442183) Blood in stool (K92.1) Active confirmed Problem History of polyp of colon (situation) (743473628) History of colon polyps (Z86.010) Active confirmed Problem Yanez's esophagus (318032918) Barretts esophagus without dysplasia (K22.70) Active confirmed Problem Family History of Cancer of Colon (Situation) (678835998) Family history of colon cancer (Z80.0) Active confirmed Problem Computed tomography result abnormal (873261168) Abnormal CT scan, colon (R93.3) Active confirmed Problem Yanez esophagus (944294550) Yanez esophagus (K22.70) Active confirmed Problem Irritable bowel syndrome (62773738) Other irritable bowel syndrome (K58.8) Active confirmed Problem Diverticulosis of colon (185964528) Diverticulosis of colon (K57.30) Active confirmed Problem Right lower quadrant pain (907797695) RLQ abdominal pain (R10.31) Active confirmed Problem Left lower quadrant pain (940732403) LLQ abdominal pain (R10.32) Active confirmed Vital Signs Blood pressure diastolic 77 mm Hg 10/12/2024 Height 69.5 in 10/12/2024 Blood pressure systolic 111 mm Hg 10/12/2024 Weight 173 lbs 10/12/2024 BMI 25.18 kg/m2 10/12/2024 Procedures Procedure Date Ordered Date Performed Result Body Sit e UPPER GI ENDOSCOPY 10/12/2024 N/A COLONOSCOPY 10/12/2024 N/A Encounters Encounter Location Date Provider Diagnosis [facility] Outpatient [address] [place], [place] [id number] 11/08/2024 Harpal Soliman Colon cancer screening Z12.11 ; History of adenomatous polyp of colon Z86.0101 ; Family history of colon cancer Z80.0 ; Colon polyps K63.5 ; Yanez esophagus K22.70 and Hiatal hernia K44.9 [facility] [address] [facility] [address] [place] [address] 10/12/2024 Harpal Soliman Barretts esophagus without dysplasia [...] MEDICARE OF [place] [address] [facility] [address] [id number] SUNNY HENNESSY Self - patient is the insured 0 [facility] [address] [place], [place] [id number] SUNNY HENNESSY Self - patient is the insured Medical (General) History Medical History History ICD Code GERD with Yanez's esophagu s-last EGD's in 10/2011 and 05/2015 with biopsies neg for dysplasia, HH Depression BPH Back pain Denies GA,DM,CVA,Lung disease,renal dise ase Kidney stones Colonoscopy in 10/2011 with r emoval of small tubular adenomas, and diverticulosis proximal to the anastomosis Sleep apnea--not using a CPAP machine Anemia-he saw Dr. Srivastava in early 2020 and describes receiving iron infusions and having a bone marrow biopsy [id number] to moderate sized hiatal hernia, small area of Yanez's esophagus with biopsies negative for dysplasia, no esophagitis or ulcer disease [id number] small tubular adenoma, and a small amount [...]
== END 2025-04-07 13:18 | disposition home or self-care (01) ==
LOC: HO.LAB 13:17
PROVIDERS: PCP Internal Medicine; Visit Provider Internal Medicine
DX: F41.1 Generalized anxiety disorder (principal); F33.2 Major depressive disorder, recurrent severe without psychotic features; I10 Essential (primary) hypertension; Z87.891 Personal history of nicotine dependence; Z71.89 Other specified counseling
CPT/HCPCS: 36415; 80053; 83735; 85025; 99212

== ENCOUNTER 2025-04-07 13:22 | Outpatient (AMB) | payer MEDICARE, BC, SELFPAY ==
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
== END 2025-04-07 15:48 | disposition home or self-care (01) ==
LOC: HO.HOP 13:22
PROVIDERS: PCP Internal Medicine; Visit Provider Clinical Nurse Specialist Psychiatric/Mental Health
DX: F33.2 Major depressive disorder, recurrent severe without psychotic features (principal); F41.1 Generalized anxiety disorder
CPT/HCPCS: 99214

== ENCOUNTER 2025-04-22 09:12 | Outpatient (AMB) | payer MEDICARE, BC, SELFPAY ==
--- OUTSIDE RECORDS SUMMARY | 2024-11-08 09:40 | XMS_ITS ---
Author Organization [facility] Address [address] [place] [address] Care Team Providers Care Forest Technician Name Role Phone Po Galindo PITTS Primary Care Provider Harpal Little [phone] REASON FOR VISIT hunt's, gerd, screening, fam hx colon ca, hx polyps Encounters Encounter Location Date Provider Diagnosis [facility] Outpatient [address] [place] [id number] 11/08/2024 Harpal Soliman Colon cancer scree preethi [...] * SHABNAM HENNESSY EDOB:1960 (64 yo M)Acc No.[id number]:11/08/2024 EGD and COL/MAC Patient: SHABNAM URIOSTEGUI Provider: Raisa Soliman MD :1960 A ge:64 Y S ex:Male Date:11/08/2024 Address: [facility] , [id number] Pcp:Galindo Muro MD Subjective: * Chief Complaints: * 1 . Hunt's, gerd, screening, fam hx colon ca, hx polyps. * Medical History: Objective: * Vitals: Assessment: * Assessment: 1. C olon cancer screening - Z12.11 (Primary) 2 . H istory of adenomatous polyp of colon - Z86.0101 3 . F amily history of colon cancer - Z80.0 ?4. C olon polyps - K63.5 5 . B arrett esophagus - K22.70 ?6. H iatal hernia - K44.9 Plan: * Treatment: * Procedure Codes: 4 5380 COLONOSCOPY AND BIOPSY, Modifiers: PT , 0529F INTRVL 3+YRS PTS CLNSCP DOCD, 0528F RCMND FLW-UP 10 YRS DOCD, [address] UPPER GI ENDOSCOPY, BIOPSY * * The named appointment provid er may or may not be the originator of this progress note, and it is not deemed complete until electronically signed by the appointment provider. Sign off status: Pending * Provider: Raisa Soliman MD Date: 0 11/08/2024 Generated for Vince turk/Heri/Dakotaitting on: 1 06/22/2024 09:53 AM EST
[2025-04-22 09:20] VITALS: BP 104/58; PULSE 61; O2SAT 92; BMI 25.3
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
--- OUTSIDE RECORDS SUMMARY | 2025-04-22 09:53 | XMS_ITS | Patient Health Record ---
Author Organization [facility] Address [address] [place] [address] Care Team Providers Care Technical Service Specialist Name Role Phone Po Galindo PITTS Primary Care Provider Harpal Little [phone] Allergies Allergen (clinical drug ingredient) Drug/Non Drug Allergy documented on EMR Reaction Allergy Type Onset Date Status Unknown Drug Allergy Active Results Component Value Reference Range Notes Pathology (Not yet reviewed by provider) Interpretation: Performing Lab:[facility], [address] [place] [id number] Notes/Report: Reason For Referral No Information Medications [...] Status Risk Notes Problem Colon cancer screening (626175379) Colon cancer screening (Z12.11) Active confirmed Problem Gastro-esophageal reflux disease without esophagitis (115590850) Gastro-esophageal reflux disease without esophagitis (K21.9) Active confirmed Problem Screening for malignant neoplasm of colon (848067538) Encounter for screening for malignant neoplasm of colon (Z12.11) Active confirmed Problem History of adenomatous polyp of colon (366872544) History of adenomatous polyp of colon (Z86.010) Active confirmed Problem Change in bowel habit (59161344) Change in bowel habits (R19.4) Active confirmed Problem Weight loss (856138552) Weight loss (R63.4) Active confirmed Problem Yanez's esophagus (792665314) 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) Active confirmed Problem Early satiety (111998688) Early satiety (R68.81) Active confirmed Problem Iron deficiency anemia (07800744) Iron deficiency anemia (D50.9) Active confirmed Problem Blood in stool (109220920) Blood in stool (K92.1) Active confirmed Problem History of polyp of colon (situation) (769861196) History of colon polyps (Z86.010) Active confirmed Problem Yanez's esophagus (235863810) Barretts esophagus without dysplasia (K22.70) Active confirmed Problem Family History of Cancer of Colon (Situation) (298620534) Family history of colon cancer (Z80.0) Active confirmed Problem Computed tomography result abnormal (343068432) Abnormal CT scan, colon (R93.3) Active confirmed Problem Yanez esophagus (832375658) Yanez esophagus (K22.70) Active confirmed Problem Irritable bowel syndrome (07897765) Other irritable bowel syndrome (K58.8) Active confirmed Problem Diverticulosis of colon (756891843) Diverticulosis of colon (K57.30) Active confirmed Problem Right lower quadrant pain (825295541) RLQ abdominal pain (R10.31) Active confirmed Problem Left lower quadrant pain (468122632) LLQ abdominal pain (R10.32) Active confirmed Vital Signs Blood pressure diastolic 77 mm Hg 10/12/2024 Height 69.5 in 10/12/2024 Blood pressure systolic 111 mm Hg 10/12/2024 Weight 173 lbs 10/12/2024 BMI 25.18 kg/m2 10/12/2024 Procedures Procedure Date Ordered Date Performed Result Body Sit e UPPER GI ENDOSCOPY 10/12/2024 N/A COLONOSCOPY 10/12/2024 N/A Encounters Encounter Location Date Provider Diagnosis [facility] [address] [place], [place] [id number] 11/08/2024 Harpal Soliman Colon cancer screening Z12.11 ; History of adenomatous polyp of colon Z86.0101 ; Family history of colon cancer Z80.0 ; Colon polyps K63.5 ; Yanez esophagus K22.70 and Hiatal hernia K44.9 [facility] [address] [facility] [address] [place] [address] 10/12/2024 Harpal Soliman Barretts esophagus without dysplasia [...] MEDICARE OF [place] [address] [place] [address] [id number] SUNNY HENNESSY Self - patient is the insured [address] [facility] [address] [place], [place] [id number] [phone] [id number] SUNNY HENNESSY Self - patient is the insured Medical (General) History Medical History History ICD Code GERD with Yanez's esophagu s-last EGD's in 10/2011 and 05/2015 with biopsies neg for dysplasia, HH Depression BPH Back pain Denies IL,DM,CVA,Lung disease,renal dise ase Kidney stones Colonoscopy in 10/2011 with r emoval of small tubular adenomas, and diverticulosis proximal to the anastomosis Sleep apnea--not using a CPAP machine Anemia-he saw Dr. Srivastava in early 2020 and describes receiving iron infusions and having a bone marrow biopsy [id number] to moderate sized hiatal hernia, small area of Yanez's esophagus with biopsies negative for dysplasia, no esophagitis or ulcer disease [id number] small tubular adenoma, and a small amount [...]
--- OUTSIDE RECORDS SUMMARY | 2025-04-22 09:54 | XMS_ITS | Data Portability ---
Author Organization [facility] Pain Managem ent, PAIN OFFICE Address [address] [address] Care Team Providers Care Swimming Pool Attendant Name Role Phone JG OWUSU Primary [...] booked for the same. He needs a city driver on the day of the procedure. [...] Time Trochanteri c bursitis of left hip [id number] 03 Active Kim ponce [facility], [place] - [facility] Pain [facility] 2 15:10:14 Lumbosacral radiculopat hy 1324395 Active Fernando ponce MD [facility] [address] [address], [place], [address], [place] - Pain Management 2 15:39:56 Degeneratio n of lumbar interverteb ral disc 65032958 Active Fernando ponce MD [facility] [address] [address], [place], [address], [place] - Pain [place] 2 15:40:09 Lumbar post-toño ctomy syndrome 414069916 Active Fernando ponce MD [facility] [address] [address], [place], [address], [place] - Pain Management 2 15:40:22 Problem Notes None recorded. Procedures Surgical History Date Name Laterality Status Provider Name and Address Organization Details Recorded Time 12/23/19 25 Lumbar Epidural steroid injection under fluoroscopic guidance completed Fernando Morrison MD [address] , [address], [place], [address], [place] - [facility] 12/22/2024 13:53:48 07/06/19 25 Lumbar Epidural steroid injection under fluoroscopic guidance completed Fernando Morrison MD [address] [facility] , [address], [place], [address], [place] - [facility] 07/06/2024 15:43:39 03/30/20 24 Lumbar Epidural steroid injection under fluoroscopic guidance completed Fernando Morrison MD [address] [facility] , [address], [place], [address], [place] - [facility] 03/30/2024 10:32:08 11/19/19 24 Lumbar Epidural steroid injection under fluoroscopic guidance completed Fernando Morrison MD [address] [facility] , [address], [place], [address], [place] - [facility] 11/19/2023 10:44:25 05/22/20 23 Lumbar Epidural steroid injection under fluoroscopic guidance completed Fernando Morrison MD [address] [facility] , [address], [place], [address], [place] - [facility] Pain [facility] 05/22/2023 13:52:35 01/01/20 23 Lumbar Epidural steroid injection under fluoroscopic guidance completed Fernando Morrison MD [address] [facility] , [address], [place], [address], [place] [facility] 12/31/2022 14:22:40 09/11/19 23 Lumbar Epidural steroid injection under fluoroscopic guidance completed Fernando Morrison MD [address] [facility] , [address], [place], [address], [place] - [facility] 09/10/2022 [...] Name and Address Organization Details Recorded Time 45634 aspirin medicatio n Not available Not available [...] /min 97 % 97 % 25.1 kg/m2 18360.6 6 g 4 131/64 mm[Hg] Fernando ponce MD [address] [facility] , [address], [place], [address], [place] - [facility] Pain Management 4 [...] You Had Close Contact With A Laboratory-confir EventTool COVID-19 While That Case Was Ill? No [...] ICD10 Code Diagnosis IMO Codes Diagnosis Note [id number] Fernando Morrison MD PAIN OFFICE [address] [place] [address] 04/29/2022 14:38:11 04/29/2022 15:57:01 Trochanteric bursitis of left hip [id number] 73643 M70.62 Lumbosacra l radiculopathy 7623359 M54.17 Lumbar post-laminectomy syndrome 454264405 M96.1 Degenerati on of lumbar intervertebral disc 06141111 M51.36 [id number] Fernando Morrison MD PAIN OFFICE [address] [place] [address] 05/23/2022 15:17:22 05/24/2022 10:48:58 Lumbosacral radiculopathy 8753743 M54.17 Lumbar post-laminectomy syndrome 805961317 M96.1 Degenerati on of lumbar intervertebral disc 22587522 M51.36 [id number] Fernando Morrison MD PAIN OFFICE [address] [place] [address] 09/10/2022 11:02:21 09/10/2022 14:08:11 Lumbosacral radiculopathy 1942832 M54.17 Lumbar post-laminectomy syndrome 827791965 M96.1 Degenerati on of lumbar intervertebral disc 53193701 M51.36 [id number] Fernando Morrison MD PAIN OFFICE [address] [place] [address] 10/10/2022 15:07:35 10/10/2022 15:41:20 Lumbar post-laminectomy syndrome 826308707 M96.1 Lumbosacra l radiculopathy 5668968 M54.17 Degenerati on of lumbar intervertebral disc 60453895 M51.36 [id number] Fernando Morrison MD SV PAIN OFFICE [address] [place] [address] 12/31/2022 13:32:25 12/31/2022 14:28:42 Lumbosacral radiculopathy 9853712 M54.17 Lumbar post-laminectomy syndrome 623691881 M96.1 Degenerati on of lumbar intervertebral disc 26562112 M51.36 [id number] Fernando Morrison MD SV PAIN OFFICE [address] [place] [address] 05/22/2023 13:11:18 05/22/2023 13:59:54 Lumbosacral radiculopathy 7469269 M54.17 Lumbar post-laminectomy syndrome 698505638 M96.1 Degenerati on of lumbar intervertebral disc 45354782 M51.36 [id number] Fernando Morrison MD SV PAIN OFFICE [address] [place] [address] 10/20/2023 13:57:26 10/20/2023 14:25:31 Lumbosacral radiculopathy 0323419 M54.17 Lumbar post-laminectomy syndrome 655676232 M96.1 Degenerati on of lumbar intervertebral disc 62309548 M51.36 [id number] Fernando Morrison MD SV PAIN OFFICE [address] [place] [address] 11/19/2023 09:37:54 11/19/2023 10:49:53 Lumbosacral radiculopathy 1039726 M54.17 Lumbar post-laminectomy syndrome 883378520 M96.1 Degenerati on of lumbar intervertebral disc 69805415 M51.36 [id number] Fernando Morrison MD SV PAIN OFFICE [address] [place] [address] 03/12/2024 09:52:16 03/12/2024 10:24:54 Lumbosacral radiculopathy 9930511 M54.17 Lumbar post-laminectomy syndrome 616443410 M96.1 Degenerati on of lumbar intervertebral disc 99692902 M51.362 [id number] Fernando Morrison MD PAIN OFFICE [address] [facility] [place] [address] 03/30/2024 09:46:41 03/30/2024 16:36:13 Lumbosacral radiculopathy 6593252 M54.17 Lumbar post-laminectomy syndrome 148123207 M96.1 Degenerati on of lumbar intervertebral disc 92636969 M51.362 [id number] Fernando Morrison MD PAIN OFFICE [address] [facility] [place] [address] 07/06/2024 15:18:22 07/06/2024 15:50:05 Lumbosacral radiculopathy 8626457 M54.17 Lumbar post-laminectomy syndrome 774397041 M96.1 Degenerati on of lumbar intervertebral disc 10718566 M51.362 [id number] Fernando Morrison MD PAIN OFFICE [address] [facility] [place] [address] 12/22/2024 13:18:16 12/22/2024 13:58:48 Lumbosacral radiculopathy 4188903 M54.17 Lumbar post-laminectomy syndrome 698195668 M96.1 Degenerati on of lumbar intervertebral disc 93196604 M51.362 Health Concerns Section Related Observation LastModified by Organization Detai ls LastModified Time None Recorded Concern Status LastModified by Organization Details LastModified Time None Recorded Advance Directives Directive None Recorded Payers Insurance Date Sequence Insurance Name Policy Number Policy Pace Covered Member ID Pace Member ID Guarantor Name 12/19/2024 1 [place] [employer] Sunny Guerra [id number] Sunny Guerra 12/19/2024 2 [place] Sunny Guerra [id number] Sunny Guerra Notes Date Note Type Note Provider Name and Address Organization Details Recorded Time 11/19/2023 text/html He is here today for a lumbar epidural steroid injection under fluoroscopic guidance.He had a cardiac cath done and is on medical management of his CAD Fernando Morrison MD [address] , [address], [place], [address], [place] - [facility] 11/19/2023 [...] bowel incontinence. Fernando Morrison MD [address] [facility] , [address], [place], [address], [place] - [facility] 03/12/2024 11:34:07 03/30/2024 text/html He is here today for a lumbar epidural steroid injection under fluoroscopic guidance. Fernando Morrison MD [address] , [address], [place], [address], [place] - [facility] 03/30/2024 16:39:02 07/06/2024 text/html He is here today for a lumbar epidural steroid injection under fluoroscopic guidance. Fernando Morrison MD [address] , [address], [place], [address], [place] - [facility] 07/07/2024 08:48:29 12/22/2024 text/html He is here today for a lumbar epidural steroid injection under fluoroscopic guidance. Fernando Morrison MD [address] , [address], [place], [address], [place] - [facility] 12/22/2024 14:00:58
== END 2025-04-22 10:10 | disposition home or self-care (01) ==
LOC: HO.HMCH 09:13
PROVIDERS: PCP Internal Medicine; Visit Provider Internal Medicine
DX: I10 Essential (primary) hypertension (principal); F33.2 Major depressive disorder, recurrent severe without psychotic features; J43.1 Panlobular emphysema; I25.10 Atherosclerotic heart disease of native coronary artery without angina pectoris; E78.00 Pure hypercholesterolemia, unspecified; M96.1 Postlaminectomy syndrome, not elsewhere classified; F17.210 Nicotine dependence, cigarettes, uncomplicated; R44.3 Hallucinations, unspecified

== ENCOUNTER → 2025-04-22 09:12 | Outpatient (BNVA) | payer MEDICARE, BC, SELFPAY | PROVIDERS: PCP Internal Medicine; Visit Provider Internal Medicine | DX: F33.2 Major depressive disorder, recurrent severe without psychotic features (principal); I25.10 Atherosclerotic heart disease of native coronary artery without angina pectoris; I10 Essential (primary) hypertension; E78.00 Pure hypercholesterolemia, unspecified; M96.1 Postlaminectomy syndrome, not elsewhere classified; J43.1 Panlobular emphysema; R44.3 Hallucinations, unspecified; F17.210 Nicotine dependence, cigarettes, uncomplicated; Z71.6 Tobacco abuse counseling | CPT/HCPCS: 99212 ==

== ENCOUNTER 2025-05-16 12:44 | Outpatient (REF) | payer MEDICARE, BC, SELFPAY ==
[2025-05-16 15:31] LABS: Alanine Aminotransferase 16 U/L (0-40); Albumin Level 4.7 g/dL (3.5-5.0); Alkaline Phosphatase 97 U/L (39-117); Anion Gap 15 (12-20); Aspartate Amino Transferase 18 U/L (5-37); Blood Urea Nitrogen 18 mg/dL (9-16); Calcium 9.3 mg/dL (8.4-10.2); Carbon Dioxide 27 mmol/L (22-29); Chloride 102 mmol/L (96-108); Estimated Glomerular Filt Rate > 60; Potassium 4.0 mmol/L (3.3-5.1); Sodium 140 mmol/L (135-145); Total Protein 7.4 g/dL (6.5-8.0)
[2025-05-17 10:24] LABS: Magnesium 1.9 mg/dL (1.6-2.6)
== END 2025-05-16 12:45 | disposition home or self-care (01) ==
LOC: HO.LAB 12:44
PROVIDERS: PCP Internal Medicine; Visit Provider Clinical Nurse Specialist Psychiatric/Mental Health
DX: F33.2 Major depressive disorder, recurrent severe without psychotic features (principal); F41.1 Generalized anxiety disorder; Z79.82 Long term (current) use of aspirin
CPT/HCPCS: 36415; 80053; 83735; 99212

== ENCOUNTER 2025-05-16 12:44 | Outpatient (AMB) | payer MEDICARE, BC, SELFPAY ==
--- OUTSIDE RECORDS SUMMARY | 2024-11-08 09:40 | XMS_ITS ---
Author Organization [facility] Address [address] [place] [address] Care Team Providers Care Chief Internal Auditor Name Role Phone Po Galindo PITTS Primary Care Provider Harpal Little [phone] REASON FOR VISIT hunt's, gerd, screening, fam hx colon ca, hx polyps Encounters Encounter Location Date Provider Diagnosis [facility] Outpatient [address] [place] [id number] 11/08/2024 Harpal Soliman Colon cancer scree preethi Z12.11 ; History of adenomatous polyp of colon Z86.0101 ; Family history of colon cancer Z80.0 ; Colon polyps K63.5 ; Hunt esophagus K22.70 and Hiatal hernia K44.9 Assessments Encounter Date Diagnosis (ICD Code) Assessment Notes Treatment Notes Treatment Clinical Notes Section Notes 11/08/2024 Colon cancer screening (ICD-10 - Z12.11) 11/08/2024 History of adenomatous polyp of colon (ICD-10 - Z86.0101) 11/08/2024 Family history of colon cancer (ICD-10 - Z80.0) 11/08/2024 Colon polyps (ICD-10 - K63.5) 11/08/2024 Hunt esophagus (ICD-10 - K22.70) 11/08/2024 Hiatal hernia (ICD-10 - K44.9) Plan Of Treatment No Information Progress Notes * SHABNAM HENNESSY EDOB:1960 (64 yo M)Acc No.[id number]:11/08/2024 EGD and COL/MAC Patient: SHABNAM URIOSTEGUI Provider: Raisa Soliman MD :1960 A ge:64 Y S ex:Male Date:11/08/2024 Address:[address] [place] [address] , [id number] Pcp:Galindo Muro MD Subjective: * Chief Complaints: * B arrett's, gerd, screening, fam hx colon ca, hx polyps Assessment: * Assessment: 1. C olon cancer screening - Z12.11 (Primary) 2 . H istory of adenomatous polyp of colon - Z86.0101 3 . F amily history of colon cancer - Z80.0 ?4. C olon polyps - K63.5 5 . B arrett esophagus - K22.70 ?6. H iatal hernia - K44.9 Plan: * Procedure Codes: 4 5380 COLONOSCOPY AND BIOPSY, Modifiers: PT 0529F INTRVL 3+YRS PTS CLNSCP [id number] RCMND FLW-UP 10 YRS [id number] UPPER GI ENDOSCOPY, BIOPSY Billing Information: * Procedure Codes: 95889 COLONOSCOPY AND BIOPSY. Modifiers: PT 0529F INTRVL 3+YRS PTS CLNSCP DOCD. 0528F RCMND FLW-UP 10 YRS DOCD. 43953 UPPER GI ENDOSCOPY, BIOPSY. * The named appointment provid er may or may not be the originator of this progress note, and it is not deemed complete until electronically signed by the appointment provider. Sign off status: Pending * Provider: Raisa Soliman MD Date: 0 11/08/2024 Generated for Vince turk/Heri/Dakotaitting on: 1 07/17/2024 09:24 PM EST
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
--- OUTSIDE RECORDS SUMMARY | 2025-05-16 21:24 | XMS_ITS | Patient Health Record ---
Author Organization [facility] Address [address] [place] [address] Care Team Providers Care Production Supv Name Role Phone Po Galindo PITTS Primary Care Provider Harpal Little [phone] Allergies Allergen (clinical drug ingredient) Drug/Non Drug Allergy documented on EMR Reaction Allergy Type Onset Date Status Unknown Drug Allergy Active Results Component Value Reference Range Notes Pathology (Not yet reviewed by provider) Interpretation: Performing Lab:[facility], [address] [place] [id number] Notes/Report: Reason For Referral No Information Medications Medication SIG (Take, Route, Frequency, Duration) Notes Start Date End Date Status Amitriptyline HCl 25 MG Tablet as directed Orally 2 tablets at night For sleep and depression Active Pantoprazole Sodium 40 MG Tablet Delayed Release Oral; Duration: 90 Active Flomax 0.4 MG Capsule 1 capsule Orally Once a day Active Multivitamin - Tablet 1 tablet Orally Once a day Active oxyCODONE HCl 15 MG Tablet as directed Orally QID/as needed TID Active Dicyclomine HCl 10 MG Capsule 1-2 capsules Orally Take 1 or 2 capsules every 6 hours for abdominal discomfort and cramps. You can also take 1 or 2 capsules 30 to 60 minutes before each meal to try to decrease abdominal discomfort after eating. Do not take more than four times a day in total.; Duration: 30 day(s) 12/14/2022 Not-Taking/P RN Metoprolol Succinate ER 25 MG Tablet Extended Release 24 Hour TAKE 1 TABLET BY MOUTH EVERY DAY Oral; Duration: 65 Days Active Ezetimibe 10 MG Tablet 1 tablet Orally Once a day; Duration: 30 day(s) 10/12/2024 Active Albuterol Sulfate HFA 108 (90 Base) MCG/ACT Aerosol Solution Inhalation; Duration: 17 Active Atorvastatin Calcium 80 MG Tablet Oral; Duration: 90 Days Active Immunizations Vaccine Route Administration Date Status Comme nts Influenza Unknown 04/09/2018 Administered Influenza Unknown 06/21/2021 Refused Influenza Unknown 03/09/2022 Administered Social History Tobacco Use: Social History Observation Description Date Details (start date - stop date) Current Smoker NA - NA Social History Tobacco Use: Social Info Question Answer Notes Tobacco Use/Smoking Patient is a current smoker How often do you smoke cigarettes? every day How many cigarettes a day do you smoke? 11-20 Additional Details Category Social Info Options Details Miscellaneous: Marital status: Occupation: disabled Section Notes: He does not smoke nor [...] Status Risk Notes Problem Colon cancer screening (330703003) Colon cancer screening (Z12.11) Active confirmed Problem Gastro-esophageal reflux disease without esophagitis (290059505) Gastro-esophageal reflux disease without esophagitis (K21.9) Active confirmed Problem Screening for malignant neoplasm of colon (809323149) Encounter for screening for malignant neoplasm of colon (Z12.11) Active confirmed Problem History of adenomatous polyp of colon (277897372) History of adenomatous polyp of colon (Z86.010) Active confirmed Problem Change in bowel habit (85095305) Change in bowel habits (R19.4) Active confirmed Problem Weight loss (665017909) Weight loss (R63.4) Active confirmed Problem Yanez's esophagus (348444940) 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) Active confirmed Problem Early satiety (834170584) Early satiety (R68.81) Active confirmed Problem Iron deficiency anemia (66464454) Iron deficiency anemia (D50.9) Active confirmed Problem Blood in stool (610633679) Blood in stool (K92.1) Active confirmed Problem History of polyp of colon (situation) (664071198) History of colon polyps (Z86.010) Active confirmed Problem Yanez's esophagus (857783985) Barretts esophagus without dysplasia (K22.70) Active confirmed Problem Family History of Cancer of Colon (Situation) (749014331) Family history of colon cancer (Z80.0) Active confirmed Problem Computed tomography result abnormal (300977337) Abnormal CT scan, colon (R93.3) Active confirmed Problem Yanez esophagus (296280138) Yanez esophagus (K22.70) Active confirmed Problem Irritable bowel syndrome (33700647) Other irritable bowel syndrome (K58.8) Active confirmed Problem Diverticulosis of colon (960585756) Diverticulosis of colon (K57.30) Active confirmed Problem Right lower quadrant pain (954769144) RLQ abdominal pain (R10.31) Active confirmed Problem Left lower quadrant pain (875880416) LLQ abdominal pain (R10.32) Active confirmed Vital Signs Blood pressure diastolic 77 mm Hg 10/12/2024 Height 69.5 in 10/12/2024 Blood pressure systolic 111 mm Hg 10/12/2024 Weight 173 lbs 10/12/2024 BMI 25.18 kg/m2 10/12/2024 Procedures Procedure Date Ordered Date Performed Result Body Sit e UPPER GI ENDOSCOPY 10/12/2024 N/A COLONOSCOPY 10/12/2024 N/A Encounters Encounter Location Date Provider Diagnosis [facility] [address] [place] [id number] 11/08/2024 Harpal Soliman Colon cancer screening Z12.11 ; History of adenomatous polyp of colon Z86.0101 ; Family history of colon cancer Z80.0 ; Colon polyps K63.5 ; Yanez esophagus K22.70 and Hiatal hernia K44.9 [facility] [address] [place] [address] 10/12/2024 Harpal Soliman Barretts esophagus without dysplasia [...] again for allowing me to participate in uSnny's care. I shall continue to keep you advised of his progress. 11/08/2024 Family history of colon cancer (ICD-10 - Z80.0) 11/08/2024 Colon polyps (ICD-10 - K63.5) 10/12/2024 [...] progress. 11/08/2024 Yanez esophagus (ICD-10 - K22.70) 11/08/2024 Hiatal hernia (ICD-10 - K44.9) 10/12/2024 [...] CBC w DIFF 06/06/2022 CBC w DIFF 06/21/2021 CBC w DIFF 12/05/2021 CELIAC PANEL #10 [...] Date MEDICARE OF [place] [address] [place] [address] [phone] [id number] SUNNY HENNESSY Self - patient is the insured 0 [facility] [address] [place], [place] [id number] [phone] [id number] SUNNY HENNESSY Self - patient is the [...] infusions and having a bone marrow biopsy [id number] to moderate sized hiatal hernia, small area of Yanez's esophagus with biopsies negative for dysplasia, no esophagitis or ulcer disease [id number] small tubular adenoma, and a small amount [...] with Dr. Pratt Surgical History Surgery Date(Month/Year) 2 Back surgeries Sigmoid resection for divert iculitis-[address] Jimenez-had an incidental appy Knee surgery Teeth removed 2023
--- OUTSIDE RECORDS SUMMARY | 2025-05-16 21:24 | XMS_ITS | Clinical Summary ---
Author Organization [facility] Address [address] [place] [address] Phone Care Team Providers Care Spreader Name Role Phone Po, Galindo Dawkins MD Primary Care Provider [phone] Allergies Active Allergy Reactions Criticality Noted Date [...] HEALTH SERVICES MEDICARE PART A & [place] [address] [address] [place] [address] MEDICARE PART A & B [facility] MEDICARE PART A & B [facility] MEDICARE PART A & B Care Teams Spreader Relationship Specialty Start Date End Date Galindo Muro MD [address] [place] [address] [address] [place] [address] PCP - General Internal Medicine 05/22/18 Additional Source Comments The information contained in this document represents components of the legal health record. It is not the complete legal health record.[facility]
== END 2025-05-16 13:36 | disposition home or self-care (01) ==
LOC: HO.HOP 12:44
PROVIDERS: PCP Internal Medicine; Visit Provider Clinical Nurse Specialist Psychiatric/Mental Health
DX: F33.2 Major depressive disorder, recurrent severe without psychotic features (principal); F41.1 Generalized anxiety disorder
CPT/HCPCS: 99214

== ENCOUNTER 2025-05-23 09:32 | Outpatient (AMB) | payer MEDICARE, BC, SELFPAY ==
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
[2025-05-23 09:47] VITALS: BP 132/60; PULSE 8; RESP 14; TEMP 36.3; O2SAT 97; BMI 25.0
== END 2025-05-23 10:22 | disposition home or self-care (01) ==
LOC: HO.HMCH 09:33
PROVIDERS: PCP Internal Medicine; Visit Provider Internal Medicine
DX: I10 Essential (primary) hypertension (principal); F33.2 Major depressive disorder, recurrent severe without psychotic features; J43.1 Panlobular emphysema; I25.10 Atherosclerotic heart disease of native coronary artery without angina pectoris; E78.00 Pure hypercholesterolemia, unspecified; K22.70 Barrett's esophagus without dysplasia; N40.1 Benign prostatic hyperplasia with lower urinary tract symptoms; R35.0 Frequency of micturition; M51.26 Other intervertebral disc displacement, lumbar region; F17.210 Nicotine dependence, cigarettes, uncomplicated

== ENCOUNTER → 2025-05-23 09:32 | Outpatient (BNVA) | payer MEDICARE, BC, SELFPAY | PROVIDERS: PCP Internal Medicine; Visit Provider Internal Medicine | DX: F33.2 Major depressive disorder, recurrent severe without psychotic features (principal); I10 Essential (primary) hypertension; I25.10 Atherosclerotic heart disease of native coronary artery without angina pectoris; E78.00 Pure hypercholesterolemia, unspecified; K22.70 Barrett's esophagus without dysplasia; N40.1 Benign prostatic hyperplasia with lower urinary tract symptoms; R35.0 Frequency of micturition; M51.26 Other intervertebral disc displacement, lumbar region; J43.1 Panlobular emphysema; F17.210 Nicotine dependence, cigarettes, uncomplicated | CPT/HCPCS: 99212 ==

== ENCOUNTER 2025-05-24 12:25 | Outpatient (REF) | payer MEDICARE, BC, SELFPAY ==
--- OUTSIDE RECORDS SUMMARY | 2024-11-08 09:40 | XMS_ITS ---
Author Organization [facility] Address [address] [place] [address] Care Team Providers Care Pulp Piler Name Role Phone Po Galindo PITTS Primary Care Provider Harpal Little [phone] REASON FOR VISIT hunt's, gerd, screening, fam hx colon ca, hx polyps Encounters Encounter Location Date Provider Diagnosis [facility] Outpatient [address] [place] [id number] 11/08/2024 Harpal Soliman Colon cancer scree preethi [...] * SHABNAM HENNESSY EDOB:1960 (64 yo M)Acc No.[id number]:11/08/2024 EGD and COL/MAC Patient: SHABNAM URIOSTEGUI Provider: Raisa Soliman MD :1960 A ge:64 Y S ex:Male Date:11/08/2024 Address:[address] [place] [address] , [id number] Pcp:Galindo Muro MD Subjective: * Chief Complaints: [...] Modifiers: PT 0529F INTRVL 3+YRS PTS CLNSCP [id number] RCMND FLW-UP 10 YRS [id number] UPPER GI ENDOSCOPY, BIOPSY Billing Information: * Procedure Codes: 66027 COLONOSCOPY AND BIOPSY. Modifiers: PT 0529F INTRVL 3+YRS PTS CLNSCP DOCD. 0528F RCMND FLW-UP 10 YRS DOCD. 50589 UPPER GI ENDOSCOPY, BIOPSY. * The named appointment provid er may or may not be the originator of this progress note, and it is not deemed complete until electronically signed by the appointment provider. Sign off status: Pending * Provider: Raisa Soliman MD Date: 0 11/08/2024 Generated for Vince turk/Heri/Dakotaitting on: 1 07/25/2024 04:14 PM EST
--- NOTE | ~2025-05-24 | CT_ITS ---
EXAMINATION: CT LUNG SCREENING HISTORY: F17.210 - Nicotine dependence, cigarettes, uncomplicated TECHNIQUE: Low dose axial images were obtained from the sternal notch to upper abdomen without IV contrast per standard departmental protocol. Sagittal and coronal reformatted images were also obtained and reviewed. One or more of the following techniques was used for dose reduction: Automated exposure control, adjustment of the mA and/or kV according to patient size, use of iterative reconstruction technique. DLP: 58 mGy-cm COMPARISON: Comparison is made with the prior examination dated 05/19/2024. FINDINGS: Lung nodules: There are 2-3 mm nodules in the right upper lobe (series 5, images 44 and 57). No suspicious pulmonary nodules are identified. Emphysema: moderate Coronary Calcification: moderate Aortic Arch Calcification: mild Potentially Significant Incidentals : none Additional Chest Findings: There is no pleural or pericardial effusion. Mildly prominent mediastinal lymph nodes are again identified measuring up to 12 mm in short axis dimension. There is gynecomastia, right greater than left. Visualized upper abdomen: The visualized portions of the liver, spleen, and adrenals have an unremarkable unenhanced appearance. CT/CT lung screening IMPRESSION: No suspicious pulmonary nodules are identified. LUNG-RADS ASSESSMENT: Lung-RADS 2: Benign MANAGEMENT: Continue annual screening with LDCT in 12 months Category S: N/A Electronically signed by: Harpal Victoria MD 05/24/2025 01:01 PM [facility]
--- OUTSIDE RECORDS SUMMARY | 2025-05-24 16:15 | XMS_ITS | Clinical Summary ---
Author Organization [facility] Address [address] [address] [place] [address] Phone Care Team Providers Care Adult Care Manager Name Role Phone Po, Galindo Dawkins MD Primary Care Provider [phone] Allergies Active Allergy Reactions Criticality Noted Date [...] topic Medical Devices Not on file Insurance [facility] MEDIC[facility] PART A & B [facility] MEDIC[facility] PART [facility] & B [facility] MEDICARE PART A & B [facility] MEDIC[facility] PART A & B [facility] MEDICARE PART A & B [facility] MEDICARE PART A & [place] [address] [place] [address] MEDICARE PART A & B [facility] MEDICARE PART A & B [facility] MEDICARE PART A & B Care Teams Adult Care Manager Relationship Specialty Start Date End Date Galindo Muro MD [address] [place] [address] [address] [place] [phone] PCP - General Internal Medicine 05/22/18 Additional Source Comments The information contained in this document represents components of the legal health record. It is not the complete legal health record.[facility]
--- OUTSIDE RECORDS SUMMARY | 2025-05-24 16:15 | XMS_ITS | Patient Health Record ---
Author Organization [facility] Address [address] [place] [address] Care Team Providers Care Traffic Observer Name Role Phone Po Galindo PITTS Primary Care Provider Harpal Little [phone] Allergies Allergen (clinical drug ingredient) Drug/Non Drug Allergy documented on EMR Reaction Allergy Type Onset Date Status Unknown Drug Allergy Active Results Component Value Reference Range Notes Pathology (Not yet reviewed by provider) Interpretation: Performing Lab:[facility], [address] [place] [phone] Notes/Report: Reason For Referral No Information Medications [...] Status Risk Notes Problem Colon cancer screening (067996249) Colon cancer screening (Z12.11) Active confirmed Problem Gastro-esophageal reflux disease without esophagitis (243305857) Gastro-esophageal reflux disease without esophagitis (K21.9) Active confirmed Problem Screening for malignant neoplasm of colon (511735927) Encounter for screening for malignant neoplasm of colon (Z12.11) Active confirmed Problem History of adenomatous polyp of colon (262976835) History of adenomatous polyp of colon (Z86.010) Active confirmed Problem Change in bowel habit (76006949) Change in bowel habits (R19.4) Active confirmed Problem Weight loss (581866953) Weight loss (R63.4) Active confirmed Problem Yanez's esophagus (517789298) 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) Active confirmed Problem Early satiety (222512032) Early satiety (R68.81) Active confirmed Problem Iron deficiency anemia (52609322) Iron deficiency anemia (D50.9) Active confirmed Problem Blood in stool (125681864) Blood in stool (K92.1) Active confirmed Problem History of polyp of colon (situation) (096890363) History of colon polyps (Z86.010) Active confirmed Problem Yanez's esophagus (191820290) Barretts esophagus without dysplasia (K22.70) Active confirmed Problem Family History of Cancer of Colon (Situation) (219138153) Family history of colon cancer (Z80.0) Active confirmed Problem Computed tomography result abnormal (533596944) Abnormal CT scan, colon (R93.3) Active confirmed Problem Yanez esophagus (629469064) Yanez esophagus (K22.70) Active confirmed Problem Irritable bowel syndrome (44124056) Other irritable bowel syndrome (K58.8) Active confirmed Problem Diverticulosis of colon (009973295) Diverticulosis of colon (K57.30) Active confirmed Problem Right lower quadrant pain (436549526) RLQ abdominal pain (R10.31) Active confirmed Problem Left lower quadrant pain (624363571) LLQ abdominal pain (R10.32) Active confirmed Vital [...] Diagnosis [facility] [address] [place] [phone] 11/08/2024 Harpal Soliman Colon cancer screening Z12.11 ; History of adenomatous polyp of colon Z86.0101 ; Family history of colon cancer Z80.0 ; Colon polyps K63.5 ; Yanez esophagus K22.70 and Hiatal hernia K44.9 [facility] [address] [place] [address] 10/12/2024 Harpal Soliman Barretts esophagus without dysplasia [...] Date MEDICARE OF [place] [address] [place] [address] [id number] SUNNY HENNESSY Self - patient is the insured 0 [facility] [address] [place], [place] [id number] [phone] [id number] SUNNY HENNESSY Self - patient is the insured Medical (General) History Medical History History ICD Code GERD with Yanez's esophagu s-last EGD's in 10/2011 and 05/2015 with biopsies neg for dysplasia, HH Depression BPH Back pain Denies DC,DM,CVA,Lung disease,renal dise ase Kidney stones Colonoscopy in 10/2011 with r emoval of small tubular adenomas, and diverticulosis proximal to the anastomosis Sleep apnea--not using a CPAP machine Anemia-he saw Dr. Srivastava in early 2020 and describes receiving iron infusions and having a bone marrow biopsy [id number] to moderate sized hiatal hernia, small area of Yanez's esophagus with biopsies negative for dysplasia, no esophagitis or ulcer disease [id number] small tubular adenoma, and a small amount [...]
== END 2025-05-24 12:26 | disposition home or self-care (01) ==
LOC: HO.CT 12:25
PROVIDERS: PCP Internal Medicine; Visit Provider Physician Assistant Medical
DX: F17.210 Nicotine dependence, cigarettes, uncomplicated (principal)
CPT/HCPCS: 71271

== ENCOUNTER → 2025-05-24 12:26 | Outpatient (BNV) | payer MEDICARE, BC, SELFPAY | PROVIDERS: PCP Internal Medicine; Visit Provider Radiology Diagnostic Radiology | DX: F17.210 Nicotine dependence, cigarettes, uncomplicated (principal) | CPT/HCPCS: 71271 ==